=== PATIENT | male | born 1945 | race Caucasian/White ===

== ENCOUNTER 2019-09-05 09:30 | Emergency (ER) | payer MEDICARE, SELFPAY ==
--- NOTE | ~2019-09-05 | US_ITS ---
EXAMINATION: US venous doppler [facility] DATE: 09/05/2019 10:30 INDICATION: Lower limb swelling TECHNIQUE: Grayscale ultrasound images without and with compression and Doppler ultrasound images of the bilateral lower extremity veins were obtained. COMPARISON: 10/16/2016 FINDINGS: The visualized portions of right common femoral vein, profunda (deep) femoral vein, femoral vein, pop liteal vein, posterior tibial veins, peroneal veins, gastrocnemius vein and greater saphenous vein ou tflow are patent. The visualized portions of left common femoral vein, profunda femoral vein, femoral vein, popliteal v ein, posterior tibial veins, peroneal veins, gastrocnemius vein and greater saphenous vein outflow ar e patent. IMPRESSION: 1. No deep venous thrombosis in either lower limb. Reviewed, dictated and finalized at location A.
--- NOTE | 2019-09-05 09:37 | ED.EXTPRO ---
HPI - Extremity Problem General Chief complaint: Extremity Problem,Nontraumatic Stated complaint: LEG SWELLING,REDNESS [id number] Time Seen by Provider: 09/05/19 09:36 History of Present Illness HPI Narrative: Patient is a 73-year-old male who presents ER with lower extremity swelling. Increasing for the last week. No association with chest pain or shortness of breath/nausea/vomiting. Unsure if he has had any increased weight gain. Patient has history of DVT and is currently on blood thinners. He has also noticed a little bit of redness and increased swelling on the right when compared to the left. Reports he has been sitting around more than usual since quarantine. Related Data Home Medications Medication Instructions Recorded Confirmed amiodarone 200 mg tablet 200 mg PO DAILY 04/19/19 amlodipine 10 mg-benazepril 20 mg 1 cap PO DAILY 04/19/19 capsule cholecalciferol (vitamin D3) 25 2,000 unit PO DAILY cap 04/19/19 mcg (1,000 unit) capsule indapamide 2.5 mg tablet 2.5 mg PO DAILY 04/19/19 metformin 500 mg tablet 500 mg PO DAILY 04/19/19 metoprolol succinate 100 mg 100 mg PO DAILY 04/19/19 tablet,extended release 24 hr ranitidine HCl 150 mg capsule 150 mg PO DAILY 04/19/19 acetaminophen 1,000 mg PO TID 09/05/19 ascorbic acid (vitamin C) [Vitamin 1,000 mg PO DAILY 09/05/19 C] cyclobenzaprine 10 mg PO TID PRN 09/05/19 fluticasone furoate-vilanterol 1 inh INHALATION DAILY 09/05/19 09/05/19 [Breo Ellipta] mirabegron [Myrbetriq] 25 mg PO Q24H 09/05/19 09/05/19 nvndiqlj-tqk-YK-lycopen-lutein 1 tablet PO DAILY 09/05/19 09/05/19 [Centrum Silver Men] salmon oil-omega-3 fatty acids cap PO DAILY 09/05/19 [[place] Oil-1000] timolol maleate 1 drp OPHTHALMIC (EYE) DAILY 09/05/19 Allergies Allergy/AdvReac Type Severity Reaction Status Date / Time No Known Allergies Allergy Verified 05/05/19 10:37 Review of Systems Review of Systems: All systems reviewed & are unremarkable except as noted in HPI and below Constitutional: Constitutional: Denies chills, Denies fever(s) and Denies weakness ENT: Denies nasal congestion and Denies sore throat Cardiovascular: Cardiovascular: Denies chest pain Respiratory: Respiratory: Denies cough, Denies dyspnea and Denies wheezing Comments: No orthopnea Gastrointestinal: Gastrointestinal: Denies abdominal pain, Denies nausea and Denies vomiting Musculoskeletal: Comments: Increase edema of lower extremities, mild redness right marcos PMFSH Past Medical History Medical History (Updated 09/05/19 @ 12:56 by Severiano Maldonado MD) Arterial insufficiency of lower extremity Arthritis of right knee Atrial fibrillation (06/11/17) Chronic atrial fibrillation Chronic kidney disease, stage 3 (moderate) 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) Encounter for screening colonoscopy (~2017) Hammer toe Hyperthyroidism Left ventricular failure Major depressive disorder, single episode, unspecified Morbid (severe) obesity with alveolar hypoventilation Obstructive sleep apnea (adult) (pediatric) Peripheral neuropathy due to disorder of metabolism Primary pulmonary hypertension 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 ) Smoking end date: 05/17/81 Alcohol intake: never Exam Narrative: Exam Narrative: GENERAL: Well-appearing, morbidly obese, and in no acute distress. HEAD: Normocephalic, atraumatic. ENT: Mucous membranes moist. CHEST: Clear to aus
[2019-09-05 09:39] VITALS: BP 157/79; PULSE 59; RESP 18; TEMP 36.6; O2SAT 100
--- NOTE | 2019-09-05 10:30 | PC.NURSE ---
pt has been gone from room, unable to draw blood
[2019-09-05 10:39] LABS: Basophils Percent Auto 0.6 % (0.2-1.2); Eosinophils Absolute Auto 0.4 K/mm3 (0-0.3); Eosinophils Percent Auto 5.7 % (0-4.4); Hematocrit 35.9 % (42.0-52.0); Hemoglobin 11.6 g/dL (14.0-18.0); Immature Granulocyte Absolute 0.03 K/mm3 (0.00-0.031); Immature Granulocyte Percent A 0.5 % (0-0.5); Lymphocytes Absolute Auto 1.04 K/mm3 (0.9-3.2); Lymphocytes Percent Auto 16.8 % (18.3-44.2); Mean Corpuscular HGB Conc 32.3 g/dl (32-36); Mean Corpuscular Hemoglobin 30.6 pg (26-34); Mean Corpuscular Volume 94.7 fl (80-100); Mean Platelet Volume 9.9 fl (7.4-10.4); Monocytes Absolute Auto 0.6 K/mm3 (0.1-0.6); Neutrophils Absolute Auto 4.1 K/mm3 (1.3-6.7); Neutrophils Percent Auto 66.4 % (45.5-73.1); Platelet Count Result 218 k/mm3 (150-375); Red Blood Count 3.79 M/mm3 (4.6-6.20); Red Cell Distribution Width 12.9 % (11.5-14.5); White Blood Count 6.2 K/mm3 (4.5-10.0)
[2019-09-05 10:52] LABS: Blood Urea Nitrogen 28 mg/dL (9-20); Calcium 9.2 mg/dL (8.4-10.2); Carbon Dioxide 26 mmol/L (22-30); Chloride 103 mmol/L (98-107); Estimated CRCL calculation 77 ml/min; Estimated Glomerular Filt Rate 60; Glucose 116 mg/dL (75-110); INR 1.1; Potassium 4.4 mmol/L (3.4-5.0); Prothrombin Time 13.6 Seconds (11.1-14.7); Sodium 136 mmol/L (137-145)
[2019-09-05 12:46] VITALS: BP 128/69; PULSE 53; RESP 20; TEMP 36.1; O2SAT 97
== END 2019-09-05 13:16 | disposition home or self-care (01) ==
PROVIDERS: Emergency Provider Emergency Medicine; PCP Family Medicine
DX: R60.0 Localized edema (principal); I77.1 Stricture of artery; I48.20 Chronic atrial fibrillation, unspecified; E11.22 Type 2 diabetes mellitus with diabetic chronic kidney disease; E11.65 Type 2 diabetes mellitus with hyperglycemia; N18.3 Chronic kidney disease, stage 3 (moderate); I50.9 Heart failure, unspecified; A31.2 Disseminated mycobacterium avium-intracellulare complex (DMAC); E66.2 Morbid (severe) obesity with alveolar hypoventilation; Z68.42 Body mass index [BMI] 45.0-49.9, adult; E05.90 Thyrotoxicosis, unspecified without thyrotoxic crisis or storm; Z86.718 Personal history of other venous thrombosis and embolism; Z79.01 Long term (current) use of anticoagulants; Z87.891 Personal history of nicotine dependence; Z79.84 Long term (current) use of oral hypoglycemic drugs
CPT/HCPCS: 36415; 80048; 85025; 85610; 93970; 99284

== ENCOUNTER → 2020-01-11 07:44 | Outpatient (CLI) | payer MEDICARE, SELFPAY ==
--- NOTE | ~2020-01-11 | XR_ITS ---
EXAMINATION: XR chest 2V DATE: 01/11/2020 07:59 INDICATION: Long-term current use of amiodarone. TECHNIQUE: Frontal and lateral views of the chest were obtained. COMPARISON: Chest 2 views 04/09/2015, CT abdomen and pelvis 05/23/2013 FINDINGS: There is mild atelectasis versus scarring in the lower lung zones. No pleural effusion or p neumothorax. The heart size is normal. There are bilateral shoulder arthroplasties. IMPRESSION: 1. Mild atelectasis versus scarring in the lower lung zones. Reviewed, dictated and finalized at location B.
== END ==
PROVIDERS: PCP Family Medicine; Visit Provider Internal Medicine Cardiovascular Disease
DX: Z79.899 Other long term (current) drug therapy (principal); R91.8 Other nonspecific abnormal finding of lung field
CPT/HCPCS: 71046

== ENCOUNTER 2020-03-21 08:31 | Outpatient (CLI) | payer MEDICARE, SELFPAY ==
--- NOTE | 2020-03-21 | ECG_ITS ---
Measurements Intervals [place] Rate: 55 P: 4 [place]: 272 QRS: -22 QRSD: 118 T: -5 QT: 451 QTc: 433 Interpretive Statements SINUS BRADYCARDIA WITH FIRST DEGREE AV BLOCK INTRAVENTRICULAR CONDUCTION DELAY BORDERLINE T WAVE ABNORMALITY- INFERIOR LEADS ABNORMAL ECG Electronically Signed On 03-21-2020 9:16:23 MICROBIOLOGICAL [employer]ORATORY TECHNICIAN by Britton Fang D.O.
[2020-03-21 09:02] LABS: Anion Gap 8 mmol/L (8-16); Blood Urea Nitrogen 31 mg/dL (9-20); Calcium 9.3 mg/dL (8.4-10.2); Carbon Dioxide 29 mmol/L (22-30); Chloride 100 mmol/L (98-107); Estimated Glomerular Filt Rate 54; Glucose 119 mg/dL (75-110); Potassium 4.9 mmol/L (3.4-5.0); Sodium 137 mmol/L (137-145)
== END 2020-03-21 08:32 | disposition home or self-care (01) ==
PROVIDERS: PCP Family Medicine; Visit Provider Plastic Surgery
DX: Z01.818 Encounter for other preprocedural examination (principal); G56.00 Carpal tunnel syndrome, unspecified upper limb; G56.20 Lesion of ulnar nerve, unspecified upper limb; I50.9 Heart failure, unspecified; E11.9 Type 2 diabetes mellitus without complications; I45.9 Conduction disorder, unspecified
CPT/HCPCS: 36415; 80048; 93005

== ENCOUNTER 2020-05-06 13:03 | Outpatient (NON) | payer MEDICARE, SELFPAY ==
[2020-05-06 22:00] LABS: SARS-CoV-2 RNA PCR Negative
== END 2020-05-06 13:04 ==
LOC: ANHCOVIDDT 13:05
PROVIDERS: PCP Family Medicine; Visit Provider Physician Assistant Medical
DX: R05 Cough (principal); Z20.828 Contact with and (suspected) exposure to other viral communicable diseases
CPT/HCPCS: 87635; C9803; U0003

== ENCOUNTER → 2020-07-04 10:08 | Outpatient (CLI) | payer MEDICARE, SELFPAY ==
[2020-07-04 20:13] LABS: SARS-CoV-2 RNA PCR Negative
== END ==
PROVIDERS: PCP Family Medicine; Visit Provider Family Medicine
DX: Z20.822 Contact with and (suspected) exposure to COVID-19 (principal); R50.9 Fever, unspecified; R51.9 Headache, unspecified; R09.89 Other specified symptoms and signs involving the circulatory and respiratory systems
CPT/HCPCS: C9803; U0003; U0005

== ENCOUNTER 2022-08-18 16:02 | Emergency (ER) | payer MEDICARE, SELFPAY ==
--- NOTE | ~2022-08-18 | XR_ITS ---
EXAMINATION: XR knee LT min 4V DATE: 08/18/2022 16:56 INDICATION: Left knee pain. Fall. TECHNIQUE: 4 views of left knee were obtained. COMPARISON: None. FINDINGS: There is varus angulation at the knee. No fracture. There is severe osteoarthritis of media l compartment, moderate osteoarthritis of lateral compartment, and mild osteoarthritis of patellofemo ral compartment. There is a small knee joint effusion with dystrophic calcifications of the joint cap abrahan. IMPRESSION: 1. Severe left knee osteoarthritis. 2. Small left knee joint effusion. Reviewed, dictated and finalized at location A.
--- NOTE | ~2022-08-18 | CT_ITS ---
EXAMINATION: CT brain wo con DATE: 08/18/2022 16:45 INDICATION: Head injury. TECHNIQUE: Computed tomography (CT) of the head was performed without intravenous contrast. The mA wa s adjusted according to patient size. Iterative reconstruction technique was employed. The dose-lengt h product was 605.33 mGy-cm. COMPARISON: None FINDINGS: There is no intracranial hemorrhage, acute infarction, or abnormal intracranial mass lesion . There are scattered areas of low attenuation in the cerebral white matter. The ventricles are percy l in size. There are likely changes of ocular lens replacement surgeries. There is mild mucosal thick ening in the ethmoid sinuses. The mastoid air cells are normal. There is frontal scalp soft tissue sw elling. IMPRESSION: 1. Moderate nonspecific cerebral white matter disease, which likely represents chronic small vessel i schemic disease. Reviewed, dictated and finalized at location A. IMPRESSION: 1. Moderate nonspecific cerebral white matter disease, which likely represents chronic small vessel ischemic disease.
--- NOTE | ~2022-08-18 | CT_ITS ---
EXAMINATION: CT facial bones wo con DATE: 08/18/2022 16:45 INDICATION: Face injury. TECHNIQUE: Computed tomography (CT) of the facial bones and maxillofacial region was performed withou t intravenous contrast. Automated exposure control and iterative reconstruction technique were employ ed. The dose-length product was 330.18 mGy-cm. COMPARISON: None. FINDINGS: There is frontal scalp soft tissue swelling. There are likely changes of ocular lens replac ement surgeries. There is mild mucosal thickening in the ethmoid sinuses. There is rightward deviatio n of the nasal septum. There is severe cervical spondylosis. IMPRESSION: 1. No fracture. Reviewed, dictated and finalized at location A. IMPRESSION: 1. No fracture.
[2022-08-18 16:04] VITALS: BP 124/71; PULSE 67; RESP 18; TEMP 36.2; O2SAT 98
--- NOTE | 2022-08-18 17:53 | ED.FALL ---
HPI - Fall General Chief Complaint: Fall Stated Complaint: fall over electrical cord with facial injury Time Seen by Provider: 08/18/22 17:41 History of Present Illness HPI Narrative: Pt lost balance and fell landing on his left knee and face. Pt denies LOC. Pt denies neck pain. Pt has abrasion to nose and skin tears to arms. Pt denies ROBLES. Related Data Home Medications Medication Instructions Recorded Confirmed amiodarone 200 mg tablet 200 mg PO DAILY 04/19/19 09/22/21 amlodipine 10 mg-benazepril 20 mg 1 cap PO DAILY 04/19/19 09/22/21 capsule metoprolol succinate 100 mg 100 mg PO DAILY 04/19/19 09/22/21 tablet,extended release 24 hr acetaminophen 500 mg capsule 1,000 mg PO TID 09/05/19 09/22/21 ascorbic acid (vitamin C) 500 mg 1,000 mg PO DAILY 09/05/19 09/22/21 tablet (Vitamin C) cyclobenzaprine 10 mg tablet 10 mg PO TID PRN Pain 09/05/19 09/22/21 ibuprofen 800 mg tablet 800 mg PO TID 10/23/19 09/22/21 cholecalciferol (vitamin D3) 25 4,000 unit PO DAILY 07/12/20 09/22/21 mcg (1,000 unit) capsule indapamide 2.5 mg tablet 1.5 mg PO DAILY 08/01/21 09/22/21 nystatin 100,000 unit/gram topical 1 applic topical 09/22/21 09/22/21 cream Allergies Allergy/AdvReac Type Severity Reaction Status Date / Time No Known Allergies Allergy Verified 08/18/22 17:47 Review of Systems Review of Systems: All systems reviewed & are unremarkable except as noted in HPI and below [facility] Past Medical History Medical History Arterial insufficiency of lower extremity Arthritis of right knee Atrial fibrillation (06/11/17) Blood transfusion during current hospitalisation Chronic atrial fibrillation Chronic kidney disease, stage 3 (moderate) 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 disease Family history of alcoholism Family history of malignant neoplasm of breast in first degree relative, Onset Age: 75 Father Family history of alcoholism Malignant neoplasm of prostate, Onset Age: 92 Family history of throat cancer, Onset Age: 92 Family history of malignant neoplasm of testis, Onset Age: 92 Other Depression Diabetes mellitus Family history of malignant neoplasm Family history of malignant neoplasm of breast Family history of mental disorder Social History Social History Smoking status: Former smoker Smoking end date: 05/17/81 Alcohol intake: never Substance use: never Substance use type: does not use Lack of Transportation: No Lack of Food: Never True Current Housing: I Have Housing Concerned About Future Housing: No Difficulty Paying Gas/Electric Bills: No Difficulty Paying for Meds: YES Currently Unemployed: No Education: Master's Degree or Higher Difficulty w/ Childcare or Family Care: No Gender identity (if verbalized by the patient): Male Exam Const: General: healthy appe
[2022-08-18 18:15] VITALS: RESP 16
== END 2022-08-18 18:16 | disposition home or self-care (01) ==
LOC: ANHED 18:04
PROVIDERS: Emergency Provider Emergency Medicine; PCP Family Medicine
DX: S00.91XA Abrasion of unspecified part of head, initial encounter (principal); S41.112A Laceration without foreign body of left upper arm, initial encounter; S41.111A Laceration without foreign body of right upper arm, initial encounter; W01.0XXA Fall on same level from slipping, tripping and stumbling without subsequent striking against object, initial encounter; M17.12 Unilateral primary osteoarthritis, left knee; E11.22 Type 2 diabetes mellitus with diabetic chronic kidney disease; N18.30 Chronic kidney disease, stage 3 unspecified; I48.20 Chronic atrial fibrillation, unspecified; E66.2 Morbid (severe) obesity with alveolar hypoventilation; Z68.41 Body mass index [BMI] 40.0-44.9, adult; I49.3 Ventricular premature depolarization; F32.9 Major depressive disorder, single episode, unspecified; Z87.891 Personal history of nicotine dependence; Z79.01 Long term (current) use of anticoagulants; Z79.51 Long term (current) use of inhaled steroids; Z79.899 Other long term (current) drug therapy
CPT/HCPCS: 70450; 70486; 73564; 99284

== ENCOUNTER 2022-10-30 13:52 | Outpatient (CLI) | payer MEDICARE, SELFPAY ==
--- NOTE | ~2022-10-30 | XR_ITS ---
XR knee LT 3V 10/30/2022 14:15 Indication: Left knee pain Procedure: 3 views left knee Comparison: 08/18/2022 Findings: There is severe tricompartment osteoarthritis of the left knee. No fracture or traumatic ma lalignment. No significant joint effusion. No foreign bodies. Impression: 1: Severe osteoarthritis of the left knee. Reviewed, dictated and finalized at location [] Impression: 1: Severe osteoarthritis of the left knee.
--- NOTE | ~2022-10-30 | XR_ITS ---
XR hip LT min 3V w AP pelvis DATE: 10/30/2022 14:15 INDICATION: Fall yesterday. Low back, left hip and left knee pain TECHNIQUE: AP pelvis. AP and lateral views of left hip. COMPARISON: 05/23/2013 CT abdomen pelvis FINDINGS: Prominent lumbar and lumbosacral degenerative disc disease. There is a chronic patchy sclerotic lesion of the greater trochanter of the left femur, present on 05/23/2013 CT abdomen pelvis examination, likely a benign chondroid lesion or less likely bone infarct. The pubic symphysis and sacroiliac joints are intact. No pelvic fracture or bone destruction is evide nt. No fracture or dislocation, avascular necrosis or bone destruction of the left hip is detected. IMPRESSION: No pelvic or left hip fracture or dislocation Reviewed, dictated and finalized at location A.
--- NOTE | ~2022-10-30 | XR_ITS ---
XR lumbar spine 2-3V DATE: 10/30/2022 14:15 INDICATION: Fall yesterday. Low back pain, left hip and knee pain. TECHNIQUE: AP, lateral, coned lateral lumbosacral views COMPARISON: None FINDINGS:: Osteopenia Mild rotatory levoscoliosis of the lumbar spine. There is severe degenerative disc disease at L1-2, L2-3, L3-4 and L5-S1. Mild degenerative disc disea se at L4-5. There is degenerative change at the apophyseal joints in the lower lumbar and lumbosacral area with a ssociated grade 1 anterolisthesis at L4-5. No fracture or bone destruction is evident. The lumbar pedicles are intact. The sacral iliac joints a re intact. IMPRESSION: Mild rotatory levoscoliosis Osteopenia Severe degenerative disease throughout lumbar and low signal spine except at L4-5 Grade 1 L5-4-5 spondylolisthesis Reviewed, dictated and finalized at location A. IMPRESSION: Mild rotatory levoscoliosis Osteopenia Severe degenerative disease throughout lumbar and low signal spine except at L4 -5 Grade 1 L5-4-5 spondylolisthesis
== END 2022-10-30 13:53 ==
LOC: GOSHIMG 13:53
PROVIDERS: PCP Family Medicine; Visit Provider Nurse Practitioner Family
DX: M25.552 Pain in left hip (principal); M54.50 Low back pain, unspecified; M85.88 Other specified disorders of bone density and structure, other site; M51.36 Other intervertebral disc degeneration, lumbar region; M17.12 Unilateral primary osteoarthritis, left knee
CPT/HCPCS: 72100; 73502; 73562

== ENCOUNTER 2022-12-02 13:16 | Emergency (ER) | payer MEDICARE, SELFPAY ==
[2022-12-02] VITALS (23 sets, daily range): BP systolic 79–131; BP diastolic 52–80; PULSE 56–67; RESP 10–17; TEMP 36.6; O2SAT 96–100
--- NOTE | ~2022-12-02 | XR_ITS ---
EXAMINATION: XR chest 1V portable DATE: 12/02/2022 15:24 INDICATION: Lightheadedness. TECHNIQUE: A single frontal view of the chest was obtained on 2 radiographs. COMPARISON: Chest 2 views 01/11/2020 FINDINGS: There is mild atelectasis versus scarring in left lower lung zone. No pleural effusion or p neumothorax. The heart size is normal. There are bilateral shoulder arthroplasties. IMPRESSION: 1. Mild atelectasis versus scarring in left lower lung zone. Reviewed, dictated and finalized at location A.
--- NOTE | ~2022-12-02 | CT_ITS ---
EXAMINATION: CT brain wo con DATE: 12/02/2022 15:16 INDICATION: Syncope. TECHNIQUE: Computed tomography (CT) of the head was performed without intravenous contrast. The mA wa s adjusted according to patient size. Iterative reconstruction technique was employed. The dose-lengt h product was 605.33 mGy-cm. COMPARISON: Head CT 08/18/2022 FINDINGS: There are scattered areas of low attenuation in the cerebral white matter. There is no intr acranial hemorrhage, acute infarction, or abnormal intracranial mass lesion. The ventricles are percy l in size. There are likely changes of ocular lens replacement surgeries. There is mild mucosal thick ening in the ethmoid sinuses. The mastoid air cells are normal. IMPRESSION: 1. Stable moderate nonspecific cerebral white matter disease, which likely represents chronic small v essel ischemic disease. Reviewed, dictated and finalized at location A. IMPRESSION: 1. Stable moderate nonspecific cerebral white matter disease, which likely repr esents chronic small vessel ischemic disease.
--- NOTE | 2022-12-02 13:32 | ECG_ITS ---
Measurements Intervals [place] Rate: 61 P: -15 FL: 322 QRS: -31 QRSD: 120 T: 13 QT: 428 QTc: 433 Interpretive Statements SINUS RHYTHM WITH MARKED FIRST DEGREE AV BLOCK LEFT AXIS DEVIATION INTRAVENTRICULAR CONDUCTION DELAY DELAYED PRECORDIAL R/S TRANSITION CONSIDER INFERIOR INFARCT, AGE INDETERMINATE ABNORMAL ECG COMPARED TO ECG 03/21/2020 09:04:20 SINUS RHYTHM NOW PRESENT LEFT-AXIS DEVIATION NOW PRESENT Electronically Signed On 12-02-2022 14:49:44 CDT by Britton Fang D.O.
--- NOTE | 2022-12-02 13:40 | ED.SYNCOPE ---
HPI - Syncope General Chief Complaint: Dizziness Stated Complaint: Dizzy Time Seen by Provider: 12/02/22 13:34 History of Present Illness HPI narrative: Patient is a 77-year-old male with a history of A-fib on Eliquis, hypertension, hyperlipidemia, diabetes, hypothyroidism presenting with lightheadedness. Patient states that he was walking into a paint store when he felt extremely lightheaded. States that he felt off balance and like he would fall over. States that he sat down and EMS was called and found him to be hypotensive with systolics in the 70s. He denies any pain. No chest pain or shortness of breath. Currently states that he feels fine. No numbness or weakness, vertigo, speech changes, abdominal pain, vomiting, diarrhea, dysuria. States that he thinks he has been eating and drinking normally lately. Related Data Home Medications Medication Instructions Recorded Confirmed amiodarone 200 mg tablet 200 mg PO DAILY 04/19/19 12/09/22 metoprolol succinate 100 mg 100 mg PO DAILY 04/19/19 12/09/22 tablet,extended release 24 hr acetaminophen 500 mg capsule 1,000 mg PO TID 09/05/19 12/09/22 ascorbic acid (vitamin C) 500 mg 1,000 mg PO DAILY 09/05/19 12/09/22 tablet (Vitamin C) ibuprofen 800 mg tablet 800 mg PO TID 10/23/19 12/09/22 cholecalciferol (vitamin D3) 25 4,000 unit PO DAILY 07/12/20 12/09/22 mcg (1,000 unit) capsule nystatin 100,000 unit/gram topical 1 applic topical 09/22/21 12/09/22 cream Allergies Allergy/AdvReac Type Severity Reaction Status Date / Time No Known Allergies Allergy Verified 12/09/22 15:36 Review of Systems Review of Systems: All systems reviewed & are unremarkable except as noted in HPI and below PMFSH Past Medical History Medical History Arterial insufficiency of lower extremity Arthritis of right knee Atrial fibrillation (06/11/17) Blood transfusion during current hospitalisation Chronic atrial fibrillation Chronic kidney disease, stage 3 (moderate) 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) Encounter for screening colonoscopy (~2016) Gastrointestinal bleed Hammer toe History of blood transfusion Hyperthyroidism Left ventricular failure Major depressive disorder, single episode, unspecified Morbid (severe) obesity with alveolar hypoventilation Mycobacterium avium infection Obstructive sleep apnea (adult) (pediatric) Peripheral neuropathy due to disorder of metabolism Primary pulmonary hypertension 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 disease Family history of alcoholism Family history of malignant neoplasm of breast in first degree relative, Onset Age: 75 Father Family history of alcoholism Malignant neoplasm of prostate, Onset Age: 92 Family history of throat cancer, Onset Age: 92 Family history of malignant neoplasm of testis, Onset Age: 92 Other Depression Diabetes mellitus Family history of malignant neoplasm Family history of malignant neoplasm of breast Family history of mental disorder Social History Social History Smoking status: Former smoker Smoking end date: 05/17/81 Alcohol intake: never Substance use: never Substance use type: does not use Lack of Transportation: No Lack of Food: Never True Current Housing: I Have Housing Concerned About Future Housing: No Difficulty Pa
[2022-12-02 13:45] LABS: Basophils Percent Auto 0.6 % (0.2-1.2); Eosinophils Absolute Auto 0.2 K/mm3 (0-0.3); Eosinophils Percent Auto 3.9 % (0-4.4); Hematocrit 31.3 % (42.0-52.0); Hemoglobin 10.3 g/dL (14.0-18.0); Immature Granulocyte Absolute 0.05 K/mm3 (0.00-0.031); Lymphocytes Absolute Auto 0.64 K/mm3 (0.9-3.2); Lymphocytes Percent Auto 12.6 % (18.3-44.2); Mean Corpuscular HGB Conc 32.9 g/dl (32-36); Mean Corpuscular Hemoglobin 31.7 pg (26-34); Mean Corpuscular Volume 96.3 fl (80-100); Mean Platelet Volume 9.1 fl (7.4-10.4); Monocytes Absolute Auto 0.5 K/mm3 (0.1-0.6); Monocytes Percent Auto 9.2 % (2.6-8.5); Neutrophils Absolute Auto 3.7 K/mm3 (1.3-6.7); Neutrophils Percent Auto 72.7 % (45.5-73.1); Platelet Count Result 219 k/mm3 (150-375); Red Blood Count 3.25 M/mm3 (4.6-6.20); White Blood Count 5.1 K/mm3 (4.5-10.0)
[2022-12-02 13:57] LABS: Alanine Aminotransferase 21 U/L (6-50); Albumin Level 3.6 g/dL (3.5-5.1); Alkaline Phosphatase 98 U/L (38-126); Anion Gap 7 mmol/L (8-16); Aspartate Amino Transferase 24 U/L (17-59); Bilirubin,Total 0.4 mg/dL (0.2-1.3); Blood Urea Nitrogen 39 mg/dL (9-20); Calcium 8.5 mg/dL (8.4-10.2); Carbon Dioxide 22 mmol/L (22-30); Chloride 106 mmol/L (98-107); Estimated CRCL calculation 41 ml/min; Estimated Glomerular Filt Rate 31; Glucose 116 mg/dL (65-110); Potassium 4.4 mmol/L (3.4-5.0); Sodium 135 mmol/L (137-145)
[2022-12-02] MEDS: LACTATED RINGERS 1,000 ML 999 ML IV CONT (15:01)
[2022-12-02 15:27] LABS: INR 1.3; Prothrombin Time 16.8 Seconds (11.1-14.7)
[2022-12-02 15:46] LABS: Magnesium 1.9 mg/dL (1.6-2.3)
[2022-12-02 15:58] LABS: NT Pro B Type Natriuretic Pept 106 pg/mL (19.9-100); Troponin I < 0.012 ng/mL (0.000-0.034)
[2022-12-02 16:47] LABS: Appearance Urine Clear (Clear); Bacteria Urine None Seen /hpf; Bilirubin Urine Negative (Negative); Blood Urine Negative (Negative); Color Urine Yellow (Yellow); Glucose Urine UA Negative (Negative); Hyaline Casts Urine Present /lpf; Ketones Urine Negative (Negative); Leukocyte Esterase Ur 1+ LEU/UL (Negative); Nitrate Urine Negative (Negative); Protein Urine Negative (Negative); RBC Urine 0-2 /hpf (0-2); Specific Grav Ur 1.018 (1.001-1.035); Squamous Epithelial Cell Urine None seen /hpf (Few); WBC Urine 0-5 /hpf
[2022-12-02 16:49] LABS: Add Urine Microscopic? YES
[2022-12-02 17:33] LABS: Troponin I < 0.012 ng/mL (0.000-0.034)
== END 2022-12-02 18:02 | disposition home or self-care (01) ==
PROVIDERS: Emergency Provider Emergency Medicine; PCP Family Medicine
DX: I95.1 Orthostatic hypotension (principal); E86.0 Dehydration; I48.20 Chronic atrial fibrillation, unspecified; E11.22 Type 2 diabetes mellitus with diabetic chronic kidney disease; I12.9 Hypertensive chronic kidney disease with stage 1 through stage 4 chronic kidney disease, or unspecified chronic kidney disease; N18.30 Chronic kidney disease, stage 3 unspecified; I77.1 Stricture of artery; E11.42 Type 2 diabetes mellitus with diabetic polyneuropathy; E03.9 Hypothyroidism, unspecified; E66.2 Morbid (severe) obesity with alveolar hypoventilation; Z68.41 Body mass index [BMI] 40.0-44.9, adult; M17.11 Unilateral primary osteoarthritis, right knee; Z79.01 Long term (current) use of anticoagulants; Z79.85 Long-term (current) use of injectable non-insulin antidiabetic drugs; I44.0 Atrioventricular block, first degree; I45.9 Conduction disorder, unspecified; R94.31 Abnormal electrocardiogram [ECG] [EKG]; R90.82 White matter disease, unspecified
CPT/HCPCS: 36415; 70450; 71045; 80053; 81001; 83605; 83735; 83880; 84484; 85025; 85610; 85730; 93005; 96360; 99284; J7120

== ENCOUNTER 2022-12-18 12:36 | Outpatient (CLI) | payer MEDICARE, SELFPAY ==
--- NOTE | ~2022-12-18 | MR_ITS ---
EXAMINATION: MR lumbar spine wo con DATE: 12/18/2022 13:32 INDICATION: Lumbago with sciatica, right-sided. TECHNIQUE: Magnetic resonance imaging (MRI) of the lumbar spine was performed without intravenous con trast. Sequences included sagittal T2-weighted FSE, sagittal T2-weighted FS FSE, sagittal T1-weighted FSE, and axial T2-weighted FSE. COMPARISON: Lumbar spine radiographs 10/30/2022 FINDINGS: There is 25 degrees levoscoliosis of lumbar spine. There is a compression fracture of L5 wi th 1/5 loss of height and bone marrow edema. There is 3 mm anterolisthesis of L4 on L5 and 3 mm retro listhesis of L5 on S1. There is mild chronic anterior wedging of T11-L1 vertebral bodies. There is se verely decreased disc height from L1-L2 through L3-L4, mildly decreased disc height at L4-L5, and sev erely decreased disc height at L5-S1 with endplate remodeling. The distal spinal cord signal intensit y is normal. The conus medullaris is at L1. There is an insufficiency fracture of left sacral ala. Th ere are cysts in the kidneys measuring up to 5.1 cm on the left. The following disc levels are specif ically discussed: L1-L2: The disc is bulging. There is severe right and moderate left facet joint osteoarthritis. There is mild right and moderate left neural foraminal stenosis. There is mild central canal stenosis. L2-L3: The disc is bulging. There is moderate bilateral facet joint osteoarthritis. There is mild kofi ateral neural foraminal stenosis. There is mild central canal stenosis. L3-L4: The disc is bulging. There is severe bilateral facet joint osteoarthritis. There is moderate r ight and mild left neural foraminal stenosis. There is mild central canal stenosis. L4-L5: The disc is bulging. There is severe bilateral facet joint osteoarthritis. There is moderate r ight and mild left neural foraminal stenosis. There is mild central canal stenosis. L5-S1: The disc does not extend beyond the endplate margin. There is severe bilateral facet joint ost eoarthritis. There is moderate right and mild left neural foraminal stenosis. There is mild central c anal stenosis. IMPRESSION: 1. Acute/subacute L5 compression fracture. 2. Acute/subacute left sacral ala insufficiency fracture. 3. Severe lumbar spondylosis. 4. Lumbar levoscoliosis. Reviewed, dictated and finalized at location B.
== END 2022-12-18 12:37 | disposition home or self-care (01) ==
PROVIDERS: PCP Family Medicine; Visit Provider Family Medicine
DX: M54.41 Lumbago with sciatica, right side (principal); M47.896 Other spondylosis, lumbar region; S32.050D Wedge compression fracture of fifth lumbar vertebra, subsequent encounter for fracture with routine healing; X58.XXXD Exposure to other specified factors, subsequent encounter
CPT/HCPCS: 72148

== ENCOUNTER 2022-12-24 18:21 | Inpatient (IN) | payer MEDICARE, MEDICAID, SELFPAY ==
[2022-12-24] VITALS (12 sets, daily range): BP systolic 135–160; BP diastolic 70–98; PULSE 64–67; RESP 15–21; TEMP 36.4–36.8; O2SAT 95–100
--- NOTE | ~2022-12-24 | XR_ITS ---
EXAMINATION: XR chest 2V Exam Date/Time: 12/24/2022 19:05 CDT HISTORY: weakness, short of breath Comparison: 12/02/2022. RESULT: Lines, tubes, and devices: Bilateral shoulder arthroplasties. Lungs and pleura: Senescent change, otherwise clear. Cardiomediastinal silhouette: Stable. Other: No acute osseous or upper abdominal finding. IMPRESSION: No acute cardiopulmonary process. Reviewed, dictated and finalized at location K.
--- NOTE | ~2022-12-24 | CT_ITS ---
EXAMINATION: CT brain wo con DATE: 12/29/2022 13:19 INDICATION: Altered mental status. TECHNIQUE: Computed tomography (CT) of the head was performed without intravenous contrast. The mA wa s adjusted according to patient size. Iterative reconstruction technique was employed. The dose-lengt h product was 681.00 mGy-cm. COMPARISON: Head CT 12/02/2022 FINDINGS: There are scattered areas of low attenuation in the cerebral white matter. There is no intr acranial hemorrhage, acute infarction, or abnormal intracranial mass lesion. The ventricles are percy l in size. There are likely changes of ocular lens replacement surgeries. The paranasal sinuses are c lear. The mastoid air cells are normal. IMPRESSION: 1. Stable moderate nonspecific cerebral white matter disease, which likely represents chronic small v essel ischemic disease. Reviewed, dictated and finalized at location A. IMPRESSION: 1. Stable moderate nonspecific cerebral white matter disease, which likely repr esents chronic small vessel ischemic disease.
--- NOTE | ~2022-12-24 | XR_ITS ---
EXAMINATION: XR wrist LT 2V DATE: 12/25/2022 12:39 INDICATION: Left wrist pain. TECHNIQUE: 2 views of left wrist were obtained. COMPARISON: None. FINDINGS: Bone alignment is normal. No fracture. There is mild osteoarthritis of triscaphe joint and moderate osteoarthritis of first carpometacarpal joint. IMPRESSION: 1. Polyarticular osteoarthritis. Reviewed, dictated and finalized at location A.
--- NOTE | ~2022-12-24 | MR_ITS ---
EXAMINATION: MR lumbar spine wo con DATE: 12/26/2022 08:04 INDICATION: Lumbar fracture due to fall. TECHNIQUE: Magnetic resonance imaging (MRI) of the lumbar spine was performed without intravenous con trast. Sequences included sagittal T2-weighted FSE, sagittal T2-weighted FS FSE, sagittal T1-weighted FSE, and axial T2-weighted FSE. COMPARISON: Lumbar spine MRI 12/18/2022 FINDINGS: There is 16 degrees levoscoliosis of lumbar spine. There is 3 mm retrolisthesis of L1 on L2 and L2 on L3, 4 mm anterolisthesis of L4 on L5, and 4 mm retrolisthesis of L5 on S1. There is a comp ression fracture of L5 with 1/5 loss of height, bone marrow edema, and visible fracture line. There i s mild chronic anterior wedging of T12 and L1 vertebral bodies. There is severely decreased disc heig ht at L1-L2, L2-L3, and L3-L4, mildly decreased disc height at L4-L5, and severely decreased disc hei ght at L5-S1. The distal spinal cord signal intensity is normal. The conus medullaris is at L1-L2. Th ere is insufficiency fracture of left sacral ala. There are cysts in the kidneys measuring up to 5.0 cm on the left. The following disc levels are specifically discussed: L1-L2: The disc is bulging. There is severe right and moderate left facet joint osteoarthritis. There is mild bilateral neural foraminal stenosis. There is mild central canal stenosis. L2-L3: The disc is bulging. There is moderate bilateral facet joint osteoarthritis. There is mild kofi ateral neural foraminal stenosis. There is mild central canal stenosis. L3-L4: The disc is bulging and has an annular fissure. There is severe bilateral facet joint osteoart hritis. There is moderate right and mild left neural foraminal stenosis. There is mild central canal stenosis. L4-L5: The disc is bulging. There is severe bilateral facet joint osteoarthritis. There is moderate r ight and mild left neural foraminal stenosis. There is mild central canal stenosis. L5-S1: The disc is bulging and has an annular fissure. There is severe bilateral facet joint osteoart hritis. There is mild bilateral neural foraminal stenosis. There is mild central canal stenosis. IMPRESSION: 1. Subacute L5 compression fracture, stable from 12/18/2022. 2. Subacute left sacral ala insufficiency fracture. 3. Severe lumbar spondylosis. 4. Lumbar levoscoliosis. Reviewed, dictated and finalized at location E.
--- NOTE | ~2022-12-24 | MR_ITS ---
EXAMINATION: MR brain/brain stem wo con DATE: 12/30/2022 16:03 INDICATION: Altered mental status and aphasia TECHNIQUE: Magnetic resonance imaging (MRI) of the brain and brainstem was performed without intraven ous contrast. Sequences included sagittal and axial T1-weighted SE, axial diffusion-weighted FS SE, a xial T2*-weighted GRE, axial T2-weighted FLAIR, and axial T2-weighted FSE. Apparent diffusion coeffic ient (ADC) maps were created. COMPARISON: Brain MR dated 04/10/[address] dated 12/29/2022 FINDINGS: There are no areas of restricted diffusion to suggest acute infarction. No intracranial hemorrhage or abnormal intracranial mass lesion. There are scattered areas of nonspecific increased T2-weighted si gnal intensity in the cerebral white matter, predominantly involving the deep and periventricular whi te matter which is within normal limits for age. There are no intraparenchymal signal abnormalities s een on the other pulse sequences. Symmetric prominence of the sulci and subarachnoid spaces overlying the convexities consistent with mild age-appropriate diffuse cerebral volume loss. The ventricles a re symmetric and normal in size with normal variant cavum septum vergae There are no abnormal extra-a xial fluid collections. Flow voids are seen in the cerebral arteries on the T2-weighted sequences con sistent with their expected patency. Changes of bilateral intraocular lens replacement. Visualized o rbits and soft tissues are unremarkable. IMPRESSION: 1. No acute intracranial process. 2. Interval progression in moderate nonspecific scattered periventricular predominant white matter T2 hyperintensity which is within normal limits for age and likely sequela of chronic small vessel isch emic disease. Reviewed, dictated and finalized at location A. IMPRESSION: 1. No acute intracranial process. 2. Interval progression in moderate nonspecific scattered periventricular predo minant white matter T2 hyperintensity which is within normal limits for age and likely sequela of chronic small vessel ischemic disease.
--- NOTE | 2022-12-24 18:45 | ECG_ITS ---
Measurements Intervals [place] Rate: 62 P: -2 [place]: 298 QRS: -28 QRSD: 126 T: 69 QT: 452 QTc: 463 Interpretive Statements SINUS RHYTHM WITH FIRST DEGREE AV BLOCK INCOMPLETE LEFT BUNDLE BRANCH BLOCK COMPARED TO ECG 12/02/2022 13:21:34 NO SIGNIFICANT CHANGES Electronically Signed On 12-25-2022 8:52:50 CDT by Pauline Doty M.D.
[2022-12-24 19:49] LABS: Basophils Percent Auto 0.6 % (0.2-1.2); Eosinophils Absolute Auto 0.2 K/mm3 (0-0.3); Eosinophils Percent Auto 2.1 % (0-4.4); Hematocrit 35.5 % (42.0-52.0); Hemoglobin 11.5 g/dL (14.0-18.0); Immature Granulocyte Absolute 0.04 K/mm3 (0.00-0.031); Immature Granulocyte Percent A 0.6 % (0-0.5); Lymphocytes Absolute Auto 0.81 K/mm3 (0.9-3.2); Lymphocytes Percent Auto 11.4 % (18.3-44.2); Mean Corpuscular HGB Conc 32.4 g/dl (32-36); Mean Corpuscular Hemoglobin 31.6 pg (26-34); Mean Corpuscular Volume 97.5 fl (80-100); Mean Platelet Volume 9.7 fl (7.4-10.4); Monocytes Absolute Auto 0.7 K/mm3 (0.1-0.6); Monocytes Percent Auto 9.5 % (2.6-8.5); Neutrophils Absolute Auto 5.4 K/mm3 (1.3-6.7); Neutrophils Percent Auto 75.8 % (45.5-73.1); Platelet Count Result 222 k/mm3 (150-375); Red Blood Count 3.64 M/mm3 (4.6-6.20); Red Cell Distribution Width 12.8 % (11.5-14.5); White Blood Count 7.1 K/mm3 (4.5-10.0)
--- NOTE | 2022-12-24 19:55 | ED.WEAKNESS ---
HPI - Weakness General Chief complaint: Weakness Stated complaint: weakness Time Seen by Provider: 12/24/22 19:03 History of Present Illness HPI Narrative: Patient is a 77-year-old male with a history of A-fib on Eliquis, diabetes, hypertension, hypothyroidism, hyperlipidemia presenting with generalized weakness. Patient states that he was diagnosed with an L5 and sacral fracture several weeks ago. Since that time he has been experiencing a lot of pain despite using narcotics. States that he has been having difficulty getting around at home especially because his cannot help him due to her own health problems. States that today he was unable to stand up from the toilet so they had to call EMS. States that he is too weak to live at home and he thinks that he needs rehab. He denies any new pain. Denies fevers, cough, shortness of breath, nausea or vomiting, diarrhea. Related Data Home Medications Medication Instructions Recorded Confirmed amiodarone 200 mg tablet 200 mg PO DAILY 04/19/19 12/24/22 metoprolol succinate 100 mg 100 mg PO DAILY 04/19/19 12/24/22 tablet,extended release 24 hr cholecalciferol (vitamin D3) 25 4,000 unit PO DAILY 07/12/20 12/24/22 mcg (1,000 unit) capsule nystatin 100,000 unit/gram topical 1 applic topical BID 09/22/21 12/25/22 cream diazepam 5 mg tablet 5 mg PO TID muscle spasm 12/25/22 12/24/22 diclofenac sodium 1 % topical gel 4 g topical QID 12/25/22 12/25/22 (Voltaren Arthritis Pain) levothyroxine 100 mcg tablet 100 mcg DAILY 12/25/22 12/24/22 tizanidine 4 mg tablet 4 mg PO TID 12/25/22 12/24/22 tramadol 50 mg tablet 100 mg PO TID pain 12/25/22 12/25/22 Allergies Allergy/AdvReac Type Severity Reaction Status Date / Time No Known Allergies Allergy Verified 12/24/22 18:41 Review of Systems Review of Systems: All systems reviewed & are unremarkable except as noted in HPI and below PMFSH Past Medical History Medical History Arterial insufficiency of lower extremity Arthritis of right knee Atrial fibrillation (06/11/17) Blood transfusion during current hospitalisation Chronic atrial fibrillation Chronic kidney disease, stage 3 (moderate) 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 disease Family history of alcoholism Family history of malignant neoplasm of breast in first degree relative, Onset Age: 75 Father Family history of alcoholism Malignant neoplasm of prostate, Onset Age: 92 Family history of throat cancer, Onset Age: 92 Family history of malignant neoplasm of testis, Onset Age: 92 Other Depression Diabetes mellitus Family history of malignant neoplasm Family history of malignant neoplasm of breast Family history of mental disorder Social History Social History Smoking packs per day: 2 Smoking cigarettes per day: 40.0 Smoking status: Former sm
[2022-12-24 20:05] LABS: Alanine Aminotransferase 20 U/L (6-50); Albumin Level 4.2 g/dL (3.5-5.1); Alkaline Phosphatase 90 U/L (38-126); Anion Gap 7 mmol/L (8-16); Aspartate Amino Transferase 20 U/L (17-59); Bilirubin,Total 0.8 mg/dL (0.2-1.3); Blood Urea Nitrogen 27 mg/dL (9-20); Calcium 9.5 mg/dL (8.4-10.2); Carbon Dioxide 23 mmol/L (22-30); Chloride 101 mmol/L (98-107); Estimated CRCL calculation 42 ml/min; Estimated Glomerular Filt Rate 54; Glucose 115 mg/dL (65-110); Potassium 3.9 mmol/L (3.4-5.0); Sodium 131 mmol/L (137-145)
--- NOTE | 2022-12-24 20:46 | PC.NURSE ---
Pt reported at 1930 he was unable to urinate. Pt stated he would attempt soon .
--- NOTE | 2022-12-24 21:24 | PM.IMHP ---
H&P: HPI History of Present Illness Date/Time: 12/24/22 21:24 Chief Complaint: Fall Narrative: This is a 77 yo male with PMHx significant for atrial fibrillation, type diabetes mellitus, COPD, hypertension, peripheral neuropathy, peripheral arterial insufficiency, obstructive sleep apnea. patient presents to the emergency room after his offer a fall from a ladder 1st step patient landed on his left side, no loss of consciousness this was 2 days prior to presentation to emergency room, patient has had increasing weakness generalized, had another 2 falls no loss of consciousness unable to take care of him at home patient was unable to get up on by himself and was brought to the emergency room by EMS EKG Rate 62 NJ 298 QRSd 126 QT 452 QTc 463 --[place]-- P -2 QRS -28 T 69 SINUS RHYTHM WITH FIRST DEGREE AV BLOCK LEFT BUNDLE BRANCH BLOCK [120+ ms QRS DURATION, 80+ ms Q/S IN V1/V2, 85+ ms R IN I/aVL/V5/V6] COMPARED TO ECG 12/02/2022 13:21:34 LEFT BUNDLE-BRANCH BLOCK NOW PRESENT Req Provider: Ike Leon EXAMINATION: MR lumbar spine wo con DATE: 12/18/2022 13:32 INDICATION: Lumbago with sciatica, right-sided. TECHNIQUE: Magnetic resonance imaging (MRI) of the lumbar spine was performed without intravenous contrast. Sequences included sagittal T2-weighted FSE, sagittal T2-weighted FS FSE, sagittal T1-weighted FSE, and axial T2-weighted FSE. COMPARISON: Lumbar spine radiographs 10/30/2022 FINDINGS: There is 25 degrees levoscoliosis of lumbar spine. There is a compression fracture of L5 with 1/5 loss of height and bone marrow edema. There is 3 mm anterolisthesis of L4 on L5 and 3 mm retrolisthesis of L5 on S1. There is mild chronic anterior wedging of T11-L1 vertebral bodies. There is severely decreased disc height from L1-L2 through L3-L4, mildly decreased disc height at L4-L5, and severely decreased disc height at L5-S1 with endplate remodeling. The distal spinal cord signal intensity is normal. The conus medullaris is at L1. There is an insufficiency fracture of left sacral ala. There are cysts in the kidneys measuring up to 5.1 cm on the left. The following disc levels are specifically discussed: L1-L2: The disc is bulging. There is severe right and moderate left facet joint osteoarthritis. There is mild right and moderate left neural foraminal stenosis. There is mild central canal stenosis. L2-L3: The disc is bulging. There is moderate bilateral facet joint osteoarthritis. There is mild bilateral neural foraminal stenosis. There is mild central canal stenosis. L3-L4: The disc is bulging. There is severe bilateral facet joint osteoarthritis. There is moderate right and mild left neural foraminal stenosis. There is mild central canal stenosis. L4-L5: The disc is bulging. There is severe bilateral facet joint osteoarthritis. There is moderate right and mild left neural foraminal stenosis. There is mild central canal stenosis. L5-S1: The disc does not extend beyond the endplate margin. There is severe bilateral facet joint osteoarthritis. There is moderate right and mild left neural foraminal stenosis. There is mild central canal stenosis. IMPRESSION: 1. Acute/subacute L5 compression fracture. 2. Acute/subacute left sacral ala insufficiency fracture. 3. Severe lumbar spondylosis. 4. Lumbar levoscoliosis. EXAMINATION:? XR chest 2V Exam Date/Time:? 12/24/2022 19:05 CDT HISTORY: weakness, short of breath ? Comparison:? 12/02/2022. RESULT: Lines, tubes, and devices:? Bilateral shoulder arthroplasties. Lungs and pleura:? Senescent change, otherwise clear. Cardiomediastinal silhouette:? Stable. Other:? No acute osseous or upper abdominal finding. ? IMPRESSION: No acute cardiopulmonary process. Review of Systems Review of Systems: generalized weakness, recurrent falls. Constitutional: Constitutional: Denies chills, Denies fatigue, Denies fever(s), Reports frequent falls, Denies malaise and Reports weakness Eyes: Eyes: Denies
[2022-12-24 21:57] LABS: Appearance Urine Clear (Clear); Bilirubin Urine Negative (Negative); Blood Urine Negative (Negative); Color Urine Yellow (Yellow); Glucose Urine UA Negative (Negative); Ketones Urine Negative (Negative); Leukocyte Esterase Ur Negative LEU/UL (Negative); Nitrate Urine Negative (Negative); Protein Urine Negative (Negative); Specific Grav Ur 1.017 (1.001-1.035); pH Urine 5.5 (5.0-9.0)
[2022-12-24 22:00] LABS: Add Urine Microscopic? NO
[2022-12-25] VITALS (8 sets, daily range): BP systolic 132–141; BP diastolic 55–78; PULSE 68–70; RESP 14–18; TEMP 36.2–36.8; O2SAT 94–100
--- NOTE | 2022-12-25 00:04 | ADMGEN ---
This patient, Fred Jewell, was admitted to [facility] Surg Room 321-02. Patient/family oriented to hospital policies and general routines including ID bracelet, bed and alarms, visiting hours, pain management, procedures, bathroom and other care routines, personal items, smoking policy, room service/diet, and visiting hours. Information on how to activate the Rapid Response Team has been discussed. Patient/Family are encouraged to report perceived risks to care and to ask questions if they do not understand what they are told or what they should do.
[2022-12-25 07:55] LABS: Glucose Point of Care 108 mg/dl (65-105)
[2022-12-25] MEDS: CHOLECALCIFEROL 1,000 UNITS TABLET 4000 UNITS PO (08:45)
[2022-12-25] MEDS: DULoxetine HCL 60 MG CAPSULE.DR PO (08:45)
[2022-12-25] MEDS: MIRABEGRON 25 MG ER TABLET PO (08:45)
[2022-12-25] MEDS: LEVOTHYROXINE SODIUM 100 MCG TABLET BY MOUTH (08:45)
[2022-12-25] MEDS: METOPROLOL SUCCINATE EXT REL 100 MG TABCR PO (08:46)
[2022-12-25] MEDS: diazePAM (*CRX) 5 MG TABLET PO ×3 (08:49→17:48)
[2022-12-25] MEDS: AMIODARONE HCL 200 MG TABLET PO (08:49)
[2022-12-25] MEDS: APIXABAN 5 MG TABLET PO ×2 (08:50→22:08)
[2022-12-25] MEDS: traMADol HCL (*CRX) 50 MG TABLET 100 MG PO ×2 (08:50→13:41)
[2022-12-25] MEDS: FLUoxetine HCL 20 MG CAPSULE BY MOUTH (08:51)
[2022-12-25] MEDS: TOLNAFTATE 1% POWDER 45 GM BTL 1 APPLIC TOPICAL ×2 (08:51→22:08)
--- NOTE | 2022-12-25 11:31 | PCOTNOTE ---
Began evaluation for occupational therapy, pt. identified L wrist swelling and pain with sharp sensation. Nursing and hospitalist alerted. Pt. unable to be seen at this time due to safety concerns and need for further diagnostics. Following.
[2022-12-25 11:51] LABS: Glucose Point of Care 121 mg/dl (65-105)
--- NOTE | 2022-12-25 13:31 | PM.IMPN ---
Progress Note: A&P Assessment and Plan (1) Recurrent falls while walking: Code(s): R29.6 - Repeated falls Status: Acute (2) Generalized weakness: Code(s): R53.1 - Weakness Status: Acute (3) Obstructive sleep apnea (adult) (pediatric): Code(s): G47.33 - Obstructive sleep apnea (adult) (pediatric) Status: Chronic (4) Chronic kidney disease, stage 3 (moderate): Code(s): N18.3 - Chronic kidney disease, stage 3 (moderate) Status: Acute (5) Chronic atrial fibrillation: Code(s): I48.20 - Chronic atrial fibrillation, unspecified Status: Acute (6) Arterial insufficiency of lower extremity: Code(s): I73.9 - Peripheral vascular disease, unspecified Status: Acute (7) Morbid obesity with BMI of 40.0-44.9, adult: Code(s): E66.01 - Morbid (severe) obesity due to excess calories; Z68.41 - Body mass index [BMI] 40.0-44.9, adult Status: Acute (8) CKD (chronic kidney disease): Code(s): N18.9 - Chronic kidney disease, unspecified Status: Acute (9) Closed compression fracture of L5 vertebra: Code(s): S32.050A - Wedge compression fracture of fifth lumbar vertebra, initial encounter for closed fracture Status: Acute Assessment and Plan: TLSO brace. PT OT once he gets his brace. Plan for senior care facility placement Subjective Date/time seen: 12/25/22 13:31 Interval history: No new complaints Exam Narrative: patient is laying in a stretcher Const: General: cooperative, comfortable, no acute distress, well developed, alert, awake, obese and other ( well-appearing) Nutritional Appearance: obese morbidly obese Orientation/consciousness: patient oriented x3 HENMT: Head: normal to inspection, normocephalic and atraumatic Ears: hearing grossly normal bilaterally Face/Nose/Sinus: normal facial exam Face and sinus: normal facial exam Eyes: General: appearance normal, both eyes and all related structures Pupils: Equal, round and reactive pupils present EOM: EOMs intact bilaterally Neck: Neck: full ROM, no lymphadenopathy and no JVD Thyroid: thyroid normal Lymphatic: no lymphadenopathy noted Resp: Effort & Inspection: normal respiratory effort and able to speak in complete sentences Auscultation: clear to auscultation bilaterally Cardio: Jugular venous distension: no JVD Rate: regular rate Rhythm: regular rhythm Heart sounds: S1 normal heart sound present and S2 normal heart sound present : General: Yes deferred Skin: Rashes: no rashes Trauma: no lacerations or abrasions and other ( bruises) Wounds: no wounds Neuro: General: patient oriented x3, CN's II-XI intact bilaterally and Unable to assess gait Cranial nerves: Yes CN's II-XII intact bilaterally and Yes Equal, round and reactive pupils present Cognition (Neuro): normal cognition Speech: normal speech Gait exam (Neuro): Unable to assess gait Motor exam (neuro): 5/5 motor strength present throughout Sensory Exam: No Sensory deficit (Neuro) Extrem: General: normal to inspection, full ROM, no joint enlargement and no pedal edema Objective Data Vital Signs Vital Signs: Vital Signs - 24 hr 12/24/22 18:24 12/24/22 18:32 12/24/22 19:46 Temperature 98.3 F Pulse Rate 64 64 66 Respiratory Rate 16 20 Blood Pressure 138/70 144/84 H Pulse Oximetry 99 98 Oxygen Delivery Room Air 12/24/22 20:00 12/24/22 20:01 12/24/22 20:15 Temperature Pulse Rate 65 67 65 Respiratory Rate 20 18 15 Blood Pressure 160/78 H Pulse Oximetry 100 98 100 Oxygen Delivery 12/24/22 20:17 12/24/22 20:30 12/24/22 20:31 Temperature Pulse Rate 67 66 67 Respiratory Rate 19 21 H 20 Blood Pressure 144/87 H 160/98 H Pulse Oximetry 97 Oxygen Delivery 12/24/22 20:45 12/24/22 22:00 12/24/22 23:33 Temperature 97.6 F Pulse Rate 65 64 64 Respiratory Rate 19 15 16 Blood Pressure 135/82 137/73 Pulse Oximetry 98 95 96 Oxygen Delivery
[2022-12-25 16:21] LABS: Glucose Point of Care 127 mg/dl (65-105)
[2022-12-25 20:16] LABS: Glucose Point of Care 102 mg/dl (65-105)
[2022-12-25] MEDS: polyethylene glycoL 3350 17 GM POWD.PACK PO (22:08)
[2022-12-25] MEDS: DOCUSATE SODIUM 100 MG CAPSULE PO (22:08)
[2022-12-25 23:57] LABS: Glucose Point of Care 112 mg/dl (65-105)
[2022-12-26] VITALS (7 sets, daily range): BP systolic 115–119; BP diastolic 57–71; PULSE 68–83; RESP 18–20; TEMP 36.1–37.7; O2SAT 95–97
[2022-12-26] MEDS: traMADol HCL (*CRX) 50 MG TABLET 100 MG PO ×3 (00:38→21:26)
[2022-12-26] MEDS: TIZANIDINE HCL 4 MG TABLET PO (00:38)
[2022-12-26] MEDS: DICLOFENAC SODIUM 1% 100 GM GEL (*BKC) 1 APPLIC TOPICAL (00:42)
[2022-12-26] MEDS: LEVOTHYROXINE SODIUM 100 MCG TABLET BY MOUTH (06:26)
[2022-12-26] MEDS: METOPROLOL SUCCINATE EXT REL 100 MG TABCR PO (10:05)
[2022-12-26] MEDS: DOCUSATE SODIUM 100 MG CAPSULE PO ×2 (10:05→21:15)
[2022-12-26] MEDS: MIRABEGRON 25 MG ER TABLET PO (10:06)
[2022-12-26] MEDS: AMIODARONE HCL 200 MG TABLET PO (10:07)
[2022-12-26] MEDS: FLUoxetine HCL 20 MG CAPSULE BY MOUTH (10:07)
[2022-12-26] MEDS: CHOLECALCIFEROL 1,000 UNITS TABLET 4000 UNITS PO (10:07)
[2022-12-26] MEDS: DULoxetine HCL 60 MG CAPSULE.DR PO (10:07)
[2022-12-26] MEDS: diazePAM (*CRX) 5 MG TABLET PO (10:08)
[2022-12-26] MEDS: APIXABAN 5 MG TABLET PO ×2 (10:08→21:15)
[2022-12-26] MEDS: polyethylene glycoL 3350 17 GM POWD.PACK PO (10:09)
--- NOTE | 2022-12-26 13:32 | PM.IMPN ---
Progress Note: A&P Assessment and Plan (1) Recurrent falls while walking: Code(s): R29.6 - Repeated falls Status: Acute (2) Generalized weakness: Code(s): R53.1 - Weakness Status: Acute (3) Obstructive sleep apnea (adult) (pediatric): Code(s): G47.33 - Obstructive sleep apnea (adult) (pediatric) Status: Chronic (4) Chronic kidney disease, stage 3 (moderate): Code(s): N18.3 - Chronic kidney disease, stage 3 (moderate) Status: Acute (5) Chronic atrial fibrillation: Code(s): I48.20 - Chronic atrial fibrillation, unspecified Status: Acute (6) Arterial insufficiency of lower extremity: Code(s): I73.9 - Peripheral vascular disease, unspecified Status: Acute (7) Morbid obesity with BMI of 40.0-44.9, adult: Code(s): E66.01 - Morbid (severe) obesity due to excess calories; Z68.41 - Body mass index [BMI] 40.0-44.9, adult Status: Acute (8) CKD (chronic kidney disease): Code(s): N18.9 - Chronic kidney disease, unspecified Status: Acute (9) Closed compression fracture of L5 vertebra: Code(s): S32.050A - Wedge compression fracture of fifth lumbar vertebra, initial encounter for closed fracture Status: Acute Assessment and Plan: TLSO brace. PT OT once he gets his brace. Plan for [facility] facility placement Subjective Date/time seen: 12/26/22 13:32 Interval history: No complaints Exam Narrative: patient is laying in a stretcher Const: General: cooperative, comfortable, no acute distress, well developed, alert, awake, obese and other ( well-appearing) Nutritional Appearance: obese morbidly obese Orientation/consciousness: patient oriented x3 HENMT: Head: normal to inspection, normocephalic and atraumatic Ears: hearing grossly normal bilaterally Face/Nose/Sinus: normal facial exam Face and sinus: normal facial exam Eyes: General: appearance normal, both eyes and all related structures Pupils: Equal, round and reactive pupils present EOM: EOMs intact bilaterally Neck: Neck: full ROM, no lymphadenopathy and no JVD Thyroid: thyroid normal Lymphatic: no lymphadenopathy noted Resp: Effort & Inspection: normal respiratory effort and able to speak in complete sentences Auscultation: clear to auscultation bilaterally Cardio: Jugular venous distension: no JVD Rate: regular rate Rhythm: regular rhythm Heart sounds: S1 normal heart sound present and S2 normal heart sound present : General: Yes deferred Skin: Rashes: no rashes Trauma: no lacerations or abrasions and other ( bruises) Wounds: no wounds Neuro: General: patient oriented x3, CN's II-XI intact bilaterally and Unable to assess gait Cranial nerves: Yes CN's II-XII intact bilaterally and Yes Equal, round and reactive pupils present Cognition (Neuro): normal cognition Speech: normal speech Gait exam (Neuro): Unable to assess gait Motor exam (neuro): 5/5 motor strength present throughout Sensory Exam: No Sensory deficit (Neuro) Extrem: General: normal to inspection, full ROM, no joint enlargement and no pedal edema Objective Data Vital Signs Vital Signs: Vital Signs - 24 hr 12/25/22 14:00 12/25/22 22:00 12/25/22 20:00 Temperature 98.2 F 97.2 F L Pulse Rate 68 68 68 Respiratory Rate 14 18 18 Blood Pressure 137/72 141/78 H Pulse Oximetry 94 98 98 Oxygen Delivery Room Air 12/26/22 06:00 12/26/22 10:05 12/26/22 10:07 Temperature 99.9 F H Pulse Rate 76 80 80 Respiratory Rate 18 Blood Pressure 119/71 Pulse Oximetry 95 Oxygen Delivery 12/26/22 10:18 Temperature Pulse Rate Respiratory Rate Blood Pressure Pulse Oximetry Oxygen Delivery Room Air Intake/Output Intake/Output: Intake & Output 12/23/22 12/24/22 12/25/22 12/26/22 23:59 23:59 23:59 23:59 Intake Total 960 75 Output Total 1600 200 Balance -640 -125 Meds/Results Medications: Active Medications Generic Name Do
[2022-12-26] MEDS: TOLNAFTATE 1% POWDER 45 GM BTL 1 APPLIC TOPICAL (22:08)
[2022-12-27] VITALS (7 sets, daily range): BP systolic 128–139; BP diastolic 66–83; PULSE 59–77; RESP 20–24; TEMP 36.2–37.2; O2SAT 95–98
[2022-12-27] MEDS: LEVOTHYROXINE SODIUM 100 MCG TABLET BY MOUTH (05:35)
[2022-12-27] MEDS: FLUoxetine HCL 20 MG CAPSULE BY MOUTH (09:14)
[2022-12-27] MEDS: METOPROLOL SUCCINATE EXT REL 100 MG TABCR PO (09:14)
[2022-12-27] MEDS: TOLNAFTATE 1% POWDER 45 GM BTL 1 APPLIC TOPICAL ×2 (09:14→20:58)
[2022-12-27] MEDS: DULoxetine HCL 60 MG CAPSULE.DR PO (09:14)
[2022-12-27] MEDS: CHOLECALCIFEROL 1,000 UNITS TABLET 4000 UNITS PO (09:14)
[2022-12-27] MEDS: AMIODARONE HCL 200 MG TABLET PO (09:15)
[2022-12-27] MEDS: polyethylene glycoL 3350 17 GM POWD.PACK PO (09:16)
[2022-12-27] MEDS: APIXABAN 5 MG TABLET PO ×2 (09:16→20:57)
[2022-12-27] MEDS: MIRABEGRON 25 MG ER TABLET PO (09:16)
[2022-12-27] MEDS: diazePAM (*CRX) 5 MG TABLET PO (09:18)
[2022-12-27] MEDS: DOCUSATE SODIUM 100 MG CAPSULE PO ×2 (09:18→20:58)
[2022-12-27] MEDS: DICLOFENAC SODIUM 1% 100 GM GEL (*BKC) 1 APPLIC TOPICAL ×2 (09:30→14:12)
[2022-12-27] MEDS: traMADol HCL (*CRX) 50 MG TABLET 100 MG PO (09:35)
--- NOTE | 2022-12-27 10:55 | PM.IMPN ---
Progress Note: A&P Assessment and Plan (1) Recurrent falls while walking: Code(s): R29.6 - Repeated falls Status: Acute Assessment and Plan: admit to regular medical floor bed rest fall precautions PT OT consult (2) Generalized weakness: Code(s): R53.1 - Weakness Status: Acute Assessment and Plan: likely deconditioning chronic illness multiple comorbidities (3) Obstructive sleep apnea (adult) (pediatric): Code(s): G47.33 - Obstructive sleep apnea (adult) (pediatric) Status: Chronic Assessment and Plan: CPAP at nighttime (4) Chronic kidney disease, stage 3 (moderate): Code(s): N18.3 - Chronic kidney disease, stage 3 (moderate) Status: Acute Assessment and Plan: continue to monitor BUN and creatinine daily BMP (5) Chronic atrial fibrillation: Code(s): I48.20 - Chronic atrial fibrillation, unspecified Status: Acute Assessment and Plan: continue amiodarone continue apixaban (6) Arterial insufficiency of lower extremity: Code(s): I73.9 - Peripheral vascular disease, unspecified Status: Acute Assessment and Plan: unchanged follow-up in outpatient setting (7) Morbid obesity with BMI of 40.0-44.9, adult: Code(s): E66.01 - Morbid (severe) obesity due to excess calories; Z68.41 - Body mass index [BMI] 40.0-44.9, adult Status: Acute Assessment and Plan: calorie restricted diet (8) Closed compression fracture of L5 vertebra: Code(s): S32.050A - Wedge compression fracture of fifth lumbar vertebra, initial encounter for closed fracture Status: Acute Assessment and Plan: supportive care Tylenol p.r.n. Subjective Date/time seen: 12/27/22 10:55 Interval history: No complaints Exam Narrative: patient is laying in a stretcher Const: General: cooperative, comfortable, no acute distress, well developed, alert, awake, obese and other ( well-appearing) Nutritional Appearance: obese morbidly obese Orientation/consciousness: patient oriented x3 HENMT: Head: normal to inspection, normocephalic and atraumatic Ears: hearing grossly normal bilaterally Face/Nose/Sinus: normal facial exam Face and sinus: normal facial exam Eyes: General: appearance normal, both eyes and all related structures Pupils: Equal, round and reactive pupils present EOM: EOMs intact bilaterally Neck: Neck: full ROM, no lymphadenopathy and no JVD Thyroid: thyroid normal Lymphatic: no lymphadenopathy noted Resp: Effort & Inspection: normal respiratory effort and able to speak in complete sentences Auscultation: clear to auscultation bilaterally Cardio: Jugular venous distension: no JVD Rate: regular rate Rhythm: regular rhythm Heart sounds: S1 normal heart sound present and S2 normal heart sound present : General: Yes deferred Skin: Rashes: no rashes Trauma: no lacerations or abrasions and other ( bruises) Wounds: no wounds Neuro: General: patient oriented x3, CN's II-XI intact bilaterally and Unable to assess gait Cranial nerves: Yes CN's II-XII intact bilaterally and Yes Equal, round and reactive pupils present Cognition (Neuro): normal cognition Speech: normal speech Gait exam (Neuro): Unable to assess gait Motor exam (neuro): 5/5 motor strength present throughout Sensory Exam: No Sensory deficit (Neuro) Extrem: General: normal to inspection, full ROM, no joint enlargement and no pedal edema Objective Data Vital Signs Vital Signs: Vital Signs - 24 hr 12/26/22 14:00 12/26/22 22:00 12/26/22 20:00 Temperature 97.0 F L 98.5 F Pulse Rate 68 83 Respiratory Rate 20 20 Blood Pressure 115/68 116/57 L Pulse Oximetry 97 96 Oxygen Delivery Room Air 12/26/22 21:48 12/26/22 22:35 12/27/22 05:20 Temperature 98.9 F Pulse Rate 81 73 Respiratory Rate 20 Blood Pressure 139/69 Pulse Oximetry 97 97 95 Oxygen Delivery Room Air 12/27/22 09:14
[2022-12-28] VITALS (7 sets, daily range): BP systolic 105–127; BP diastolic 45–70; PULSE 66–86; RESP 18–20; TEMP 35.8–36.6; O2SAT 94–99
[2022-12-28] MEDS: LEVOTHYROXINE SODIUM 100 MCG TABLET BY MOUTH (05:40)
[2022-12-28] MEDS: CHOLECALCIFEROL 1,000 UNITS TABLET 4000 UNITS PO (08:31)
[2022-12-28] MEDS: FLUoxetine HCL 20 MG CAPSULE BY MOUTH (08:31)
[2022-12-28] MEDS: AMIODARONE HCL 200 MG TABLET PO (08:31)
[2022-12-28] MEDS: DULoxetine HCL 60 MG CAPSULE.DR PO (08:33)
[2022-12-28] MEDS: METOPROLOL SUCCINATE EXT REL 100 MG TABCR PO (08:33)
[2022-12-28] MEDS: polyethylene glycoL 3350 17 GM POWD.PACK PO (08:33)
[2022-12-28] MEDS: APIXABAN 5 MG TABLET PO ×2 (08:33→20:11)
[2022-12-28] MEDS: TOLNAFTATE 1% POWDER 45 GM BTL 1 APPLIC TOPICAL ×2 (08:33→20:11)
[2022-12-28] MEDS: MIRABEGRON 25 MG ER TABLET PO (08:33)
[2022-12-28] MEDS: DOCUSATE SODIUM 100 MG CAPSULE PO ×2 (08:40→20:11)
[2022-12-28] MEDS: diazePAM (*CRX) 5 MG TABLET PO (08:41)
[2022-12-28 10:28] LABS: Potassium 4.8 mmol/L (3.4-5.0)
[2022-12-28 10:30] LABS: Anion Gap 7 mmol/L (8-16); Blood Urea Nitrogen 23 mg/dL (9-20); Calcium 9.6 mg/dL (8.4-10.2); Carbon Dioxide 26 mmol/L (22-30); Chloride 93 mmol/L (98-107); Estimated CRCL calculation 77 ml/min; Estimated Glomerular Filt Rate > 60; Glucose 123 mg/dL (65-110); Sodium 126 mmol/L (137-145)
--- NOTE | 2022-12-28 11:55 | PM.IMPN ---
Progress Note: A&P Assessment and Plan (1) Recurrent falls while walking: Code(s): R29.6 - Repeated falls Status: Acute Assessment and Plan: admit to regular medical floor bed rest fall precautions PT OT consult (2) Generalized weakness: Code(s): R53.1 - Weakness Status: Acute Assessment and Plan: likely deconditioning chronic illness multiple comorbidities (3) Obstructive sleep apnea (adult) (pediatric): Code(s): G47.33 - Obstructive sleep apnea (adult) (pediatric) Status: Chronic Assessment and Plan: CPAP at nighttime (4) Chronic kidney disease, stage 3 (moderate): Code(s): N18.3 - Chronic kidney disease, stage 3 (moderate) Status: Acute Assessment and Plan: continue to monitor BUN and creatinine daily BMP (5) Chronic atrial fibrillation: Code(s): I48.20 - Chronic atrial fibrillation, unspecified Status: Acute Assessment and Plan: continue amiodarone continue apixaban rates controlled (6) Arterial insufficiency of lower extremity: Code(s): I73.9 - Peripheral vascular disease, unspecified Status: Acute Assessment and Plan: unchanged follow-up in outpatient setting (7) Morbid obesity with BMI of 40.0-44.9, adult: Code(s): E66.01 - Morbid (severe) obesity due to excess calories; Z68.41 - Body mass index [BMI] 40.0-44.9, adult Status: Acute Assessment and Plan: calorie restricted diet (8) Closed compression fracture of L5 vertebra: Code(s): S32.050A - Wedge compression fracture of fifth lumbar vertebra, initial encounter for closed fracture Status: Acute Assessment and Plan: supportive care, brace, pt ot (9) Hyponatremia: Code(s): E87.1 - Hypo-osmolality and hyponatremia Status: Acute Assessment and Plan: urine studies pending nephrology consult Subjective Date/time seen: 12/28/22 11:55 Interval history: labs noted no new complaints tolerating pain medication wo se seems slightly confused today Exam Narrative: patient is laying in a stretcher Const: General: cooperative, comfortable, no acute distress, well developed, alert, awake, obese and other ( well-appearing) Nutritional Appearance: obese morbidly obese Orientation/consciousness: patient oriented x3 HENMT: Head: normal to inspection, normocephalic and atraumatic Ears: hearing grossly normal bilaterally Face/Nose/Sinus: normal facial exam Face and sinus: normal facial exam Eyes: General: appearance normal, both eyes and all related structures Pupils: Equal, round and reactive pupils present EOM: EOMs intact bilaterally Neck: Neck: full ROM, no lymphadenopathy and no JVD Thyroid: thyroid normal Lymphatic: no lymphadenopathy noted Resp: Effort & Inspection: normal respiratory effort and able to speak in complete sentences Auscultation: clear to auscultation bilaterally Cardio: Jugular venous distension: no JVD Rate: regular rate Rhythm: regular rhythm Heart sounds: S1 normal heart sound present and S2 normal heart sound present : General: Yes deferred Skin: Rashes: no rashes Trauma: no lacerations or abrasions and other ( bruises) Wounds: no wounds Neuro: General: patient oriented x3, CN's II-XI intact bilaterally and Unable to assess gait Cranial nerves: Yes CN's II-XII intact bilaterally and Yes Equal, round and reactive pupils present Cognition (Neuro): normal cognition Speech: normal speech Gait exam (Neuro): Unable to assess gait Motor exam (neuro): 5/5 motor strength present throughout Sensory Exam: No Sensory deficit (Neuro) Extrem: General: normal to inspection, full ROM, no joint enlargement and no pedal edema Objective Data Vital Signs Vital Signs: Vital Signs - 24 hr 12/27/22 14:00 12/27/22 20:23 12/27/22 22:30 Temperature 97.5 F L Pulse Rate 66 77 Respiratory Rate 24 H Blood Pressure 128/83 Pulse Oxi
--- NOTE | 2022-12-28 13:25 | PM.CNNEP ---
Assessment and Plan Assessment and plan (1) Hyponatremia: Code(s): E87.1 - Hypo-osmolality and hyponatremia Status: Acute Assessment and Plan: acute on chronic sodium running 133 - 135mmol/L in last month (November 2022) however, in July 2022, was within normal limits risk factors for low sodium: medications [SSRI (fluoxetine and duloxetine) + pain meds] thyroid disease pain issues prerenal factors? check cortisol, SPEP, UPEP and serum/urine osmolality follow-up on urine studies CXR noted consider CT of head agree with fluid restriction follow repeat sodium levels (2) Generalized weakness: Code(s): R53.1 - Weakness Status: Acute Assessment and Plan: presumably due to deconditioning PT/OT as tolerated (3) Recurrent falls while walking: Code(s): R29.6 - Repeated falls Status: Acute Assessment and Plan: related to #2 PT/OT as tolerated (4) Hypertension: Code(s): I10 - Essential (primary) hypertension Status: Chronic Assessment and Plan: well controlled at this time follow trend of hemodynamics I will continue follow patient with you while he remains hospitalized and make further recommendations as needed. Thank you for allowing me to participate in the care of this patient. History of Present Illness Reason for Consult Consult date: 12/28/22 Reason for consult: hyponatremia Chief Complaint Chief complaint: failure to thrive History of Present Illness Narrative: The patient is a 77-year-old male with a past medical history as outlined who presented to [facility] Emergency Room with generalized weakness. The patient was recently seen in the emergency room about a month ago after he sustained a fall. Subsequent workup and evaluation following that ER visit discovered an L5 and sacral fracture by outpatient MRI. He has been using a significant amount of pain medications including narcotics due to his severity of the pain. Further complicating matters is that he has been having difficulty getting around at home particularly since his cannot a system due to her own health issues/problems. Apparently, due to his severe weakness, he has sustained some falls but without any acute injury. On the day of admission, he was unable to stand up from the toilet this but conservative therapy and so he had to call EMS for assistance which subsequently led to transfer to the ER for further assessment. Workup and evaluation emergency room demonstrated the patient be hemodynamically stable and in no acute distress other than his profound weakness. He reported no fevers, chills, cough, shortness of breath, nausea, vomiting, or diarrhea or any other subjective symptoms. Workup and evaluation emergency room demonstrated routine blood work that was unremarkable aside from mild hyponatremia and mild anemia and stable kidney function. Given the constellation of symptoms that led to his presentation to the emergency room in conjunction with his recent L5/sacral fracture, it was felt that he would benefit from inpatient hospitalization for PT and OT and likely need for placement for acute rehab. Since his admission, his been noted by the trend of morning labs that his sodium level has been slowly declining. From review of his records, he did have some chronic hyponatremia in November of 2022 by labs and on admission on this hospitalization, his sodium was down to 131. Subsequently, labs done this morning showed a sodium of 126 millimoles per L. It should be noted that prior to his November labs of this year, his sodium level was within normal limits by last labs in July of 2022. Renal consultation was requested due to his acute on chronic hyponatremia. I am not entirely clear why his sodium level dropped last month but these labs to correlate with ER visits that were associated with his recent falls/injuries and subsequent findings of
[2022-12-28 17:19] LABS: Anion Gap 10 mmol/L (8-16); Blood Urea Nitrogen 22 mg/dL (9-20); Calcium 9.4 mg/dL (8.4-10.2); Carbon Dioxide 24 mmol/L (22-30); Chloride 95 mmol/L (98-107); Estimated CRCL calculation 71 ml/min; Estimated Glomerular Filt Rate 59; Glucose 111 mg/dL (65-110); Potassium 4.2 mmol/L (3.4-5.0); Sodium 129 mmol/L (137-145)
[2022-12-28 19:17] LABS: Sodium Urine Random 40 meq/L
[2022-12-28 19:20] LABS: Creatinine Urine 199.8 mg/dL
[2022-12-29 06:00] VITALS: BP 131/74; PULSE 70; RESP 20; TEMP 36.1; O2SAT 96
[2022-12-29] MEDS: LEVOTHYROXINE SODIUM 100 MCG TABLET BY MOUTH (06:01)
[2022-12-29 06:28] LABS: Anion Gap 8 mmol/L (8-16); Blood Urea Nitrogen 25 mg/dL (9-20); Carbon Dioxide 19 mmol/L (22-30); Chloride 96 mmol/L (98-107); Estimated CRCL calculation 71 ml/min; Estimated Glomerular Filt Rate 59; Glucose 110 mg/dL (65-110); Potassium 4.8 mmol/L (3.4-5.0); Sodium 123 mmol/L (137-145)
[2022-12-29] MEDS: MIRABEGRON 25 MG ER TABLET PO (09:17)
[2022-12-29] MEDS: FLUoxetine HCL 20 MG CAPSULE BY MOUTH (09:17)
[2022-12-29] MEDS: APIXABAN 5 MG TABLET PO ×2 (09:17→21:54)
[2022-12-29 09:18] VITALS: PULSE 76
[2022-12-29] MEDS: AMIODARONE HCL 200 MG TABLET PO (09:18)
[2022-12-29] MEDS: CHOLECALCIFEROL 1,000 UNITS TABLET 4000 UNITS PO (09:18)
[2022-12-29] MEDS: DULoxetine HCL 60 MG CAPSULE.DR PO (09:20)
[2022-12-29] MEDS: METOPROLOL SUCCINATE EXT REL 100 MG TABCR PO (09:20)
[2022-12-29] MEDS: polyethylene glycoL 3350 17 GM POWD.PACK PO (09:20)
[2022-12-29] MEDS: DOCUSATE SODIUM 100 MG CAPSULE PO ×2 (09:20→21:54)
[2022-12-29] MEDS: TOLNAFTATE 1% POWDER 45 GM BTL 1 APPLIC TOPICAL ×2 (09:21→21:58)
[2022-12-29] MEDS: traMADol HCL (*CRX) 50 MG TABLET PO (09:30)
[2022-12-29] MEDS: diazePAM (*CRX) 5 MG TABLET PO ×2 (09:42→21:54)
--- NOTE | 2022-12-29 10:45 | PCOTNOTE ---
Attempted to see pt for Occupational Therapy treatment. Pt is sleeping very soundly and snoring. Therapist attempted sternal rubbing and speaking loudly pt's name however, does not wake up and continues to snore. RN states that pt received a Valium and other pain meds recently which could contribute to his continuous sleeping. Will attempt at a later time.
--- NOTE | 2022-12-29 11:13 | PM.IMPN ---
Progress Note: A&P Assessment and Plan (1) Recurrent falls while walking: Code(s): R29.6 - Repeated falls Status: Acute Assessment and Plan: admit to regular medical floor bed rest fall precautions PT OT consult (2) Generalized weakness: Code(s): R53.1 - Weakness Status: Acute Assessment and Plan: likely deconditioning chronic illness multiple comorbidities (3) Obstructive sleep apnea (adult) (pediatric): Code(s): G47.33 - Obstructive sleep apnea (adult) (pediatric) Status: Chronic Assessment and Plan: CPAP at nighttime (4) Chronic kidney disease, stage 3 (moderate): Code(s): N18.3 - Chronic kidney disease, stage 3 (moderate) Status: Acute Assessment and Plan: continue to monitor BUN and creatinine daily BMP (5) Chronic atrial fibrillation: Code(s): I48.20 - Chronic atrial fibrillation, unspecified Status: Acute Assessment and Plan: continue amiodarone continue apixaban rates controlled (6) Arterial insufficiency of lower extremity: Code(s): I73.9 - Peripheral vascular disease, unspecified Status: Acute Assessment and Plan: unchanged follow-up in outpatient setting (7) Morbid obesity with BMI of 40.0-44.9, adult: Code(s): E66.01 - Morbid (severe) obesity due to excess calories; Z68.41 - Body mass index [BMI] 40.0-44.9, adult Status: Acute Assessment and Plan: calorie restricted diet (8) Closed compression fracture of L5 vertebra: Code(s): S32.050A - Wedge compression fracture of fifth lumbar vertebra, initial encounter for closed fracture Status: Acute Assessment and Plan: supportive care, brace, pt ot (9) Hyponatremia: Code(s): E87.1 - Hypo-osmolality and hyponatremia Status: Acute Assessment and Plan: urine studies pending nephrology consult - spoke w nephrology today about na level of 123 ams likely related to this as well, will check ua and ct head (no focal deficits) ? etiology, decrease po intake, meds, pain, pain meds, tsh ok Subjective Date/time seen: 12/29/22 11:13 Interval history: a little more confused today na has dropped no focal deficits Exam Narrative: patient is laying in a stretcher Const: General: cooperative, comfortable, no acute distress, well developed, alert, awake, obese and other ( well-appearing) Nutritional Appearance: obese morbidly obese Orientation/consciousness: patient oriented x3 HENMT: Head: normal to inspection, normocephalic and atraumatic Ears: hearing grossly normal bilaterally Face/Nose/Sinus: normal facial exam Face and sinus: normal facial exam Eyes: General: appearance normal, both eyes and all related structures Pupils: Equal, round and reactive pupils present EOM: EOMs intact bilaterally Neck: Neck: full ROM, no lymphadenopathy and no JVD Thyroid: thyroid normal Lymphatic: no lymphadenopathy noted Resp: Effort & Inspection: normal respiratory effort and able to speak in complete sentences Auscultation: clear to auscultation bilaterally Cardio: Jugular venous distension: no JVD Rate: regular rate Rhythm: regular rhythm Heart sounds: S1 normal heart sound present and S2 normal heart sound present : General: Yes deferred Skin: Rashes: no rashes Trauma: no lacerations or abrasions and other ( bruises) Wounds: no wounds Neuro: General: patient oriented x3, CN's II-XI intact bilaterally and Unable to assess gait Cranial nerves: Yes CN's II-XII intact bilaterally and Yes Equal, round and reactive pupils present Cognition (Neuro): normal cognition Speech: normal speech Gait exam (Neuro): Unable to assess gait Motor exam (neuro): 5/5 motor strength present throughout Sensory Exam: No Sensory deficit (Neuro) Extrem: General: normal to inspection, full ROM, no joint enlargement and no pedal edema Objective Data Vital Signs Vital Signs: Vital Signs
[2022-12-29 11:33] VITALS: BMI 10.0
[2022-12-29 12:09] LABS: Sodium 127 mmol/L (137-145)
--- NOTE | 2022-12-29 12:11 | P.PNNP_ITS ---
Progress Note: A&P Assessment and Plan (1) Hyponatremia: Code(s): E87.1 - Hypo-osmolality and hyponatremia Status: Acute Assessment and Plan: * acute on chronic * sodium running 133 - 135mmol/L in last month (November 2022) * however, in July 2022, was within normal limits * risk factors for low sodium: * medications [SSRI (fluoxetine and duloxetine) + pain meds] * thyroid disease * pain issues * prerenal factors? * evaluation to date: * TSH okay * urine electrolytes noted (urine sodium 40) * hodling off on SPEP, UPEP, and cortisol since sodium improving * on fluid restriction * follow repeat sodium levels (2) Generalized weakness: Code(s): R53.1 - Weakness Status: Acute Assessment and Plan: * presumably due to deconditioning * PT/OT as tolerated (3) Recurrent falls while walking: Code(s): R29.6 - Repeated falls Status: Acute Assessment and Plan: * related to #2 * PT/OT as tolerated (4) Hypertension: Code(s): I10 - Essential (primary) hypertension Status: Chronic Assessment and Plan: * well controlled at this time * follow trend of hemodynamics Will continue to follow. Subjective Date/time seen: 12/29/22 12:11 Interval history: Follow-up for acute on chronic hyponatremia. Sodium seems to be improving with current interventions (fluid restriction); confusion continues to fluctuate despite improvement in sodium level; no new issues or problems to report at this time; no events overnight or earlier this morning. Exam Narrative: General: elderly but WD/WN male in NAD; confused Heart: normal S1 and S2; no rub Lungs: clear to auscultation Abdomen: soft, nontender, nondistended, positive bowel sounds Extremities: no cyanosis or clubbing; no edema Skin: warm and dry Objective Data Vital Signs Vital Signs: Vital Signs Temp Pulse Resp BP Pulse Ox 12/29/22 09:18 76 12/29/22 06:00 96.9 F L 70 20 131/74 96 12/28/22 21:47 97.9 F 77 18 127/70 95 12/28/22 14:00 97.7 F 71 20 105/45 L 99 Intake/Output Intake/Output: Intake & Output 12/26/22 12/27/22 12/28/22 12/29/22 23:59 23:59 23:59 23:59 Intake Total 195 1368 250 100 Output Total 850 9664 750 200 [facility] -655 -332 -500 -100 Meds/Results Medications: Active Medications Generic Name Dose Route Start Last Admin Trade Name Freq PRN Reason Stop Dose Admin Amiodarone HCl 200 mg 12/25/22 08:00 12/29/22 09:18 Amiodarone Hcl 200 Mg Tablet PO 200 mg DAILY@0800 LARA Administration Apixaban 5 mg 12/25/22 09:00 12/29/22 09:17 Apixaban 5 Mg Tablet PO 5 mg Q12HR LARA Administration Diazepam 5 mg 12/27/22 09:00 12/29/22 09:42 Diazepam (*Crx) 5 Mg Tablet PO 5 mg DAILY LARA Administration Diclofenac Sodium 1 applic 12/25/22 09:00 12/27/22 14:12 Diclofenac Sodium 1% 100 Gm Gel (*Bkc) TOPICAL 1 applic QID PRN Administration joint pain Docusate Sodium 100 mg 12/25/22 21:00 12/29/22 09:20 Docusate Sodium 100 Mg Capsule PO 100 mg Q12HR [facility] Administ
--- NOTE | 2022-12-29 12:11 | PM.PNNEP ---
Progress Note: A&P Assessment and Plan (1) Hyponatremia: Code(s): E87.1 - Hypo-osmolality and hyponatremia Status: Acute Assessment and Plan: acute on chronic sodium running 133 - 135mmol/L in last month (November 2022) however, in July 2022, was within normal limits risk factors for low sodium: medications [SSRI (fluoxetine and duloxetine) + pain meds] thyroid disease pain issues prerenal factors? evaluation to date: TSH okay urine electrolytes noted (urine sodium 40) hodling off on SPEP, UPEP, and cortisol since sodium improving on fluid restriction follow repeat sodium levels (2) Generalized weakness: Code(s): R53.1 - Weakness Status: Acute Assessment and Plan: presumably due to deconditioning PT/OT as tolerated (3) Recurrent falls while walking: Code(s): R29.6 - Repeated falls Status: Acute Assessment and Plan: related to #2 PT/OT as tolerated (4) Hypertension: Code(s): I10 - Essential (primary) hypertension Status: Chronic Assessment and Plan: well controlled at this time follow trend of hemodynamics Will continue to follow. Subjective Date/time seen: 12/29/22 12:11 Interval history: Follow-up for acute on chronic hyponatremia. Sodium seems to be improving with current interventions (fluid restriction); confusion continues to fluctuate despite improvement in sodium level; no new issues or problems to report at this time; no events overnight or earlier this morning. Exam Narrative: General: elderly but WD/WN male in NAD; confused Heart: normal S1 and S2; no rub Lungs: clear to auscultation Abdomen: soft, nontender, nondistended, positive bowel sounds Extremities: no cyanosis or clubbing; no edema Skin: warm and dry Objective Data Vital Signs Vital Signs: Vital Signs Temp Pulse Resp BP Pulse Ox 12/29/22 09:18 76 12/29/22 06:00 96.9 F L 70 20 131/74 96 12/28/22 21:47 97.9 F 77 18 127/70 95 12/28/22 14:00 97.7 F 71 20 105/45 L 99 Intake/Output Intake/Output: Intake & Output 12/26/22 12/27/22 12/28/22 12/29/22 23:59 23:59 23:59 23:59 Intake Total 195 1368 250 100 Output Total 850 1700 750 200 Balance -655 -332 -500 -100 Meds/Results Medications: Active Medications Generic Name Dose Route Start Last Admin Trade Name Aguilar PRN Reason Stop Dose Admin Amiodarone HCl 200 mg 12/25/22 08:00 12/29/22 09:18 Amiodarone Hcl 200 Mg Tablet PO 200 mg DAILY@0800 LARA Administration Apixaban 5 mg 12/25/22 09:00 12/29/22 09:17 Apixaban 5 Mg Tablet PO 5 mg Q12HR LARA Administration Diazepam 5 mg 12/27/22 09:00 12/29/22 09:42 Diazepam (*Crx) 5 Mg Tablet PO 5 mg DAILY LARA Administration Diclofenac Sodium 1 applic 12/25/22 09:00 12/27/22 14:12 Diclofenac Sodium 1% 100 Gm Gel (*Bkc) TOPICAL 1 applic QID PRN Administration joint pain Docusate Sodium 100 mg 12/25/22 21:00 12/29/22 09:20 Docusate Sodium 100 Mg Capsule PO 100 mg Q12HR LARA Administration Duloxetine HCl 60 mg 12/25/22 09:00 12/29/22 09:20 Duloxetine Hcl 60 Mg Capsule.Dr PO 60 mg DAILY LARA Administration Fluoxetine HCl 20 mg 12/25/22 09:00 12/29/22 09:17 Fluoxetine Hcl 20 Mg Capsule BY MOUTH 20 mg DAILY LARA Administration Levothyroxine Sodium 100 mcg 12/25/22 06:30 12/29/22 06:01 Levothyroxine Sodium 100 Mcg Tablet BY MOUTH 100 mcg DAILY@0630 LARA Administration Magnesium Hydroxide 30 ml 12/25/22 20:00 Magnesium Hydroxide Susp 30 Ml Udc PO DAILY PRN Constipation Metoprolol Succinate 100 mg 12/25/22 09:00 12/29/22 09:20 Metoprolol Succinate Ext Rel 100 Mg Tabcr PO 100 mg DAILY LARA Administration Mirabegron 25 mg 12/25/22 09:00 12/29/22 09:17 Mirabegron 25 Mg Er Tablet PO 25 mg DAILY LARA Administration Polyethylene Glycol 17 gm 12/25/22 20:05 12/15
--- NOTE | 2022-12-29 14:02 | PCOTNOTE ---
The patient treatment was not able to be completed on 12/29 @14:00 due to patient was very lethargic. patient would open eyes but still snore. nursing is aware of condition. Will plan to continue treatment per plan of care.
[2022-12-29 14:05] VITALS: BP 133/78; PULSE 62; RESP 20; TEMP 36; O2SAT 100
[2022-12-29 15:48] LABS: Anion Gap 5 mmol/L (8-16); Blood Urea Nitrogen 24 mg/dL (9-20); Calcium 9.3 mg/dL (8.4-10.2); Carbon Dioxide 25 mmol/L (22-30); Chloride 97 mmol/L (98-107); Estimated CRCL calculation 71 ml/min; Estimated Glomerular Filt Rate 59; Glucose 104 mg/dL (65-110); Sodium 127 mmol/L (137-145)
[2022-12-29 20:25] VITALS: O2SAT 97
[2022-12-29 21:01] VITALS: BP 130/73; PULSE 61; RESP 18; TEMP 36.2; O2SAT 98
[2022-12-29 21:18] LABS: Sodium 130 mmol/L (137-145)
[2022-12-29 21:32] LABS: Appearance Urine Clear (Clear); Bilirubin Urine Negative (Negative); Blood Urine Negative (Negative); Color Urine Dark Yellow (Yellow); Glucose Urine UA Negative (Negative); Ketones Urine Negative (Negative); Leukocyte Esterase Ur Negative LEU/UL (Negative); Nitrate Urine Negative (Negative); Protein Urine Negative (Negative); Specific Grav Ur 1.019 (1.001-1.035); pH Urine 5.5 (5.0-9.0)
[2022-12-29 21:33] LABS: Add Urine Microscopic? NO
[2022-12-29 21:53] LABS: Bacteria Urine None Seen /hpf; Non Pathogenic Casts 0-2; RBC Urine 0-2 /hpf (0-2); Squamous Epithelial Cell Urine None seen /hpf (Few); WBC Urine 0-5 /hpf
[2022-12-29] MEDS: DICLOFENAC SODIUM 1% 100 GM GEL (*BKC) 1 APPLIC TOPICAL (21:54)
[2022-12-29 22:35] VITALS: PULSE 87; O2SAT 93
[2022-12-30] VITALS (7 sets, daily range): BP systolic 126–132; BP diastolic 59–68; PULSE 58–81; RESP 16–20; TEMP 36.2–36.7; O2SAT 95–99
[2022-12-30] MEDS: LEVOTHYROXINE SODIUM 100 MCG TABLET BY MOUTH (05:28)
[2022-12-30 07:03] LABS: Anion Gap 10 mmol/L (8-16); Blood Urea Nitrogen 22 mg/dL (9-20); Calcium 9.4 mg/dL (8.4-10.2); Carbon Dioxide 24 mmol/L (22-30); Chloride 97 mmol/L (98-107); Estimated CRCL calculation 77 ml/min; Estimated Glomerular Filt Rate > 60; Glucose 100 mg/dL (65-110); Potassium 4.1 mmol/L (3.4-5.0); Sodium 131 mmol/L (137-145)
[2022-12-30] MEDS: APIXABAN 5 MG TABLET PO ×2 (08:52→20:47)
[2022-12-30] MEDS: MIRABEGRON 25 MG ER TABLET PO (08:52)
[2022-12-30] MEDS: METOPROLOL SUCCINATE EXT REL 100 MG TABCR PO (08:53)
[2022-12-30] MEDS: CHOLECALCIFEROL 1,000 UNITS TABLET 4000 UNITS PO (08:54)
[2022-12-30] MEDS: FLUoxetine HCL 20 MG CAPSULE BY MOUTH (08:55)
[2022-12-30] MEDS: DULoxetine HCL 60 MG CAPSULE.DR PO (08:55)
[2022-12-30] MEDS: AMIODARONE HCL 200 MG TABLET PO (08:55)
[2022-12-30] MEDS: polyethylene glycoL 3350 17 GM POWD.PACK PO (08:56)
[2022-12-30] MEDS: TOLNAFTATE 1% POWDER 45 GM BTL 1 APPLIC TOPICAL ×2 (08:57→20:49)
[2022-12-30] MEDS: DOCUSATE SODIUM 100 MG CAPSULE PO ×2 (09:03→20:47)
[2022-12-30] MEDS: traMADol HCL (*CRX) 50 MG TABLET PO (09:16)
--- NOTE | 2022-12-30 12:34 | WPDNEURCNPN ---
Assessment and Plan Assessment and plan (1) Altered mental status: Code(s): R41.82 - Altered mental status, unspecified Status: Acute (2) Hyponatremia: Code(s): E87.1 - Hypo-osmolality and hyponatremia Status: Acute (3) Generalized weakness: Code(s): R53.1 - Weakness Status: Acute (4) Recurrent falls while walking: Code(s): R29.6 - Repeated falls Status: Acute (5) Major depressive disorder, single episode, unspecified: Code(s): F32.9 - Major depressive disorder, single episode, unspecified Status: Acute Plan Mr. Jewell is a 77 year old male with a history of HTN, HLD, DM, atrial fibrillation, CKD presenting due to generalized weakness and altered mental status in the setting of hyponatremia. Likely due to metabolic derangement. He does have a history of several stroke risk factors, so would be worth evaluating for stroke since he is still having some difficulty with his speech. - Will obtain MRI brain w/o contrast Consult date: 12/30/22 Reason for consult: Encephalopathy HPI: Fred Jewell is a 77 year old male with a history of atrial fibrillation, diabetes, hypertension, hyperlipidemia, who presented with generalized weakness and altered mental status. Patient has recently been taking tramadol, tizanidine, and Valium which were prescribed after he was found to have an L5 fracture a few weeks ago. He feels that he may have taken more than was directed. Prior to admission, he was having difficulty getting around and was unable to stand up from the toilet. Son also mentioned that his cognition has not been at baseline since he started taking these medications. His sodium on presentation to [facility] was 131, but has been as low as 123. Son feels that patient's mental status has improved in the last day, although he feels that patient's speech is still slower and not completely at baseline. Review of Systems Constitutional: Constitutional: Denies chills, Denies fever(s), Reports weakness and Denies weight loss Eyes: Eyes: Denies diplopia and Denies loss of vision ENT: Denies dizziness, Denies hearing loss and Denies tinnitus Cardiovascular: Cardiovascular: Denies chest pain, Denies syncope and Reports dyspnea Respiratory: Respiratory: Reports cough, Denies dyspnea and Denies wheezing Gastrointestinal: Gastrointestinal: Denies abdominal pain, Denies change in bowel habits and Denies vomiting Genitourinary: Genitourinary: Denies urinary incontinence Musculoskeletal: Musculoskeletal: Reports back pain, Denies arthralgias and Denies joint swelling Integumentary/Breasts: Skin/Breast: Denies new lesions and Denies rash Neurologic: Reports as per HPI, Denies dizziness, Denies syncope and Denies loss of vision Psychiatric: Psychiatric: Denies anxiety and Reports depression Endocrine: Endocrine: Denies cold intolerance and Denies heat intolerance Hematologic/Lymphatic: Hematologic/Lymphatic: Denies easy bleeding and Denies easy bruising Allergic/Immunologic: Allergic/Immunologic: Denies no additional allergic/immunologic complaints and Denies wheezing PMFSH Past Medical History Medical History Arterial insufficiency of lower extremity Arthritis of right knee Atrial fibrillation (06/11/17) Blood transfusion during current hospitalisation Chronic atrial fibrillation Chronic kidney disease, stage 3 (moderate) 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
--- NOTE | 2022-12-30 13:43 | PM.PNNEP ---
Progress Note: A&P Assessment and Plan (1) Hyponatremia: Code(s): E87.1 - Hypo-osmolality and hyponatremia Status: Acute Assessment and Plan: slow and steady improvement acute on chronic sodium running 133 - 135mmol/L in last month (November 2022) however, in July 2022, was within normal limits risk factors for low sodium: medications [SSRI (fluoxetine and duloxetine) + pain meds] thyroid disease pain issues prerenal factors? evaluation to date: TSH okay urine electrolytes noted (urine sodium 40) for completeness, will check SPEP, UPEP, and cortisol continue fluid restriction follow repeat sodium levels (2) Generalized weakness: Code(s): R53.1 - Weakness Status: Acute Assessment and Plan: presumably due to deconditioning PT/OT as tolerated (3) Recurrent falls while walking: Code(s): R29.6 - Repeated falls Status: Acute Assessment and Plan: related to #2 PT/OT as tolerated (4) Hypertension: Code(s): I10 - Essential (primary) hypertension Status: Chronic Assessment and Plan: well controlled at this time follow trend of hemodynamics Will continue to follow. Subjective Date/time seen: 12/30/22 13:43 Interval history: Follow-up for acute on chronic hyponatremia. Sodium continues to improve with minimal intervention (only on fluid restriction at this time); mentation seems to have improved as well (arguing perhaps low sodium was indeed a contributing factor with regard to his confusion); no other acute issues to report; no issues/events overnight or earlier this AM. Exam Narrative: General: elderly but WD/WN male in NAD Heart: normal S1 and S2; no rub Lungs: clear to auscultation Abdomen: soft, nontender, nondistended, positive bowel sounds Extremities: no cyanosis or clubbing; no edema Skin: warm and intact Objective Data Vital Signs Vital Signs: Vital Signs 12/29/22 21:01 12/29/22 22:35 12/29/22 20:00 Temperature 97.2 F L Pulse Rate 61 87 Respiratory Rate 18 Blood Pressure 130/73 Pulse Oximetry 98 93 Oxygen Delivery CPAP CPAP 12/30/22 05:20 12/30/22 04:53 12/30/22 08:53 Temperature 97.1 F L Pulse Rate 81 60 60 Respiratory Rate 18 Blood Pressure 126/64 Pulse Oximetry 95 98 Oxygen Delivery CPAP 12/30/22 08:55 12/30/22 13:00 Temperature 97.5 F L Pulse Rate 60 58 L Respiratory Rate 20 Blood Pressure 128/59 L Pulse Oximetry 99 Oxygen Delivery Intake/Output Intake/Output: Intake & Output 12/28/22 12/29/22 12/30/22 12/31/22 23:59 23:59 23:59 23:59 Intake Total 250 480 960 Output Total 419 595 5354 600 Balance -500 30 -540 -600 Meds/Results Medications: Active Medications Generic Name Dose Route Start Last Admin Trade Name Freq PRN Reason Stop Dose Admin Amiodarone HCl 200 mg 12/25/22 08:00 12/30/22 08:55 Amiodarone Hcl 200 Mg Tablet PO 200 mg DAILY@0800 [facility] Administration Apixaban 5 mg 12/25/22 09:00 12/30/22 20:47 Apixaban 5 Mg Tablet PO 5 mg Q12HR LARA Administration Cyanocobalamin 1,000 mcg 12/31/22 09:00 Cyanocobalamin 1,000 Mcg Tablet PO QAM LARA Diazepam 5 mg 12/29/22 21:00 12/30/22 20:47 Diazepam (*Crx) 5 Mg Tablet PO 5 mg HS LARA Administration Diclofenac Sodium 1 applic 12/25/22 09:00 12/29/22 21:54 Diclofenac Sodium 1% 100 Gm Gel (*Bkc) TOPICAL 1 applic QID PRN Administration joint pain Docusate Sodium 100 mg 12/25/22 21:00 12/30/22 20:47 Docusate Sodium 100 Mg Capsule PO 100 mg Q12HR LARA Administration Duloxetine HCl 60 mg 12/25/22 09:00 12/30/22 08:55 Duloxetine Hcl 60 Mg Capsule.Dr PO 60 mg DAILY LARA Administration Fluoxetine HCl 20 mg 12/25/22 09:00 12/30/22 08:55 Fluoxetine Hcl 20 Mg Capsule BY MOUTH 20 mg DAILY LARA Administration Levothyroxine Sodium 100 mcg 12/25/22 06:30 12/31/22 05:23 Laura
--- NOTE | 2022-12-30 13:43 | P.PNNP_ITS ---
Progress Note: A&P Assessment and Plan (1) Hyponatremia: Code(s): E87.1 - Hypo-osmolality and hyponatremia Status: Acute Assessment and Plan: * slow and steady improvement * acute on chronic * sodium running 133 - 135mmol/L in last month (November 2022) * however, in July 2022, was within normal limits * risk factors for low sodium: * medications [SSRI (fluoxetine and duloxetine) + pain meds] * thyroid disease * pain issues * prerenal factors? * evaluation to date: * TSH okay * urine electrolytes noted (urine sodium 40) * for completeness, will check SPEP, UPEP, and cortisol * continue fluid restriction * follow repeat sodium levels (2) Generalized weakness: Code(s): R53.1 - Weakness Status: Acute Assessment and Plan: * presumably due to deconditioning * PT/OT as tolerated (3) Recurrent falls while walking: Code(s): R29.6 - Repeated falls Status: Acute Assessment and Plan: * related to #2 * PT/OT as tolerated (4) Hypertension: Code(s): I10 - Essential (primary) hypertension Status: Chronic Assessment and Plan: * well controlled at this time * follow trend of hemodynamics Will continue to follow. Subjective Date/time seen: 12/30/22 13:43 Interval history: Follow-up for acute on chronic hyponatremia. Sodium continues to improve with minimal intervention (only on fluid restriction at this time); mentation seems to have improved as well (arguing perhaps low sodium was indeed a contributing factor with regard to his confusion); no other acute issues to report; no issues/events overnight or earlier this AM. Exam Narrative: General: elderly but WD/WN male in NAD Heart: normal S1 and S2; no rub Lungs: clear to auscultation Abdomen: soft, nontender, nondistended, positive bowel sounds Extremities: no cyanosis or clubbing; no edema Skin: warm and intact Objective Data Vital Signs Vital Signs: Vital Signs 12/29/22 21:01 12/29/22 22:35 12/29/22 20:00 Temperature 97.2 F L Pulse Rate 61 87 Respiratory Rate 18 Blood Pressure 130/73 Pulse Oximetry 98 93 Oxygen Delivery CPAP CPAP 12/30/22 05:20 12/30/22 04:53 12/30/22 08:53 Temperature 97.1 F L Pulse Rate 81 60 60 Respiratory Rate 18 Blood Pressure 126/64 Pulse Oximetry 95 98 Oxygen Delivery CPAP 12/30/22 08:55 12/30/22 13:00 Temperature 97.5 F L Pulse Rate 60 58 L Respiratory Rate 20 Blood Pressure 128/59 L Pulse Oximetry 99 Oxygen Delivery Intake/Output Intake/Output: Intake & Output 12/28/22 12/29/22 12/30/22 12/31/22 23:59 23:59 23:59 23:59 Intake Total 250 480 960 Output Total 719 442 5002 600 Balance -500 30 -540 -600 Meds/Results Medications: Active Medications Generic Name Dose Route Start Last Admin Trade Name Freq PRN Reason Stop Dose Admin Amiodarone HCl 200 mg 12/25/22 08:00 12/30/22 08:55 Amiodarone Hcl 200 Mg Tablet PO 200 mg DAILY@0800 [facility] Adm
--- NOTE | 2022-12-30 16:45 | PM.IMPN ---
Progress Note: A&P Assessment and Plan (1) Altered mental status: Code(s): R41.82 - Altered mental status, unspecified Status: Acute Assessment and Plan: Patient with mental status changes. Head CT showing no acute findings. Neurology consulted and MRI brain ordered showing no acute findings but progression in scattered changes c/w chronic small vessel ischemic disease. Mental status is better. Could be related to medications. B12 low end of normal so will replace. TSH normal. Sodium better so suspect that this did contribute as well. Follow. Placement being arranged (2) Hyponatremia: Code(s): E87.1 - Hypo-osmolality and hyponatremia Status: Acute Assessment and Plan: Sodium was low at 131 on admission. He normally has a normal sodium baseline. Sodium dropped to 123. Nephrology was consulted. Sodium has slowly climbed 131 this morning. TSH is normal. Etiology could be decrease po intake, meds, pain, pain meds. Appreciate nephrology input. (3) Generalized weakness: Code(s): R53.1 - Weakness Status: Acute Assessment and Plan: Patient with generalized weakness. Lumbar spine MRI (12/18)showing severe lumbar spondylosis, mild central canal stenosis, acute/subacute L5 fracture and acute/subacute left sacral ala fracture. Likely deconditioning. His recent fracture contributing as well. Continue PT and OT. (4) Recurrent falls while walking: Code(s): R29.6 - Repeated falls Status: Acute Assessment and Plan: Related to above. (5) Obstructive sleep apnea (adult) (pediatric): Code(s): G47.33 - Obstructive sleep apnea (adult) (pediatric) Status: Chronic Assessment and Plan: Patient wears CPAP at home. He has been compliant with CPAP treatment here. Continue the same. (6) Chronic kidney disease, stage 3 (moderate): Code(s): N18.3 - Chronic kidney disease, stage 3 (moderate) Status: Acute Assessment and Plan: Creatinine 1.3 on admission and has been stable in the 1.1-1.3 range. Continue to monitor BUN and creatinine (7) Chronic atrial fibrillation: Code(s): I48.20 - Chronic atrial fibrillation, unspecified Status: Acute Assessment and Plan: Patient with paroxysmal atrial fibrillation. EKG on admission shows normal sinus rhythm with first-degree AV block and incomplete left bundle branch block. No significant change from prior EKG. Continue amiodarone and Toprol for rate control. Continue Eliquis for stroke prophylaxis. (8) Arterial insufficiency of lower extremity: Code(s): I73.9 - Peripheral vascular disease, unspecified Status: Acute Assessment and Plan: Patient with presumably known arterial insufficiency of the lower extremities. No imaging available to review. Patient is not on statin therapy for unclear reasons. Family seems to be unsure if he has arterial insufficiency. Good LE pulses. Defer to outpatient provider. (9) Closed compression fracture of L5 vertebra: Code(s): S32.050A - Wedge compression fracture of fifth lumbar vertebra, initial encounter for closed fracture Status: Acute Assessment and Plan: Patient has a known compression fracture. The brace is no longer fitting him so will have to have this resized. Continue PT and OT. Continue supportive care. (10) Morbid obesity with BMI of 40.0-44.9, adult: Code(s): E66.01 - Morbid (severe) obesity due to excess calories; Z68.41 - Body mass index [BMI] 40.0-44.9, adult Status: Acute Assessment and Plan: BMI 42. Continue heart healthy diet. Subjective Date/time seen: 12/30/22 16:45 Interval history: 77yo male with AFib, DM, COPD and HTN here for fall. Assuming care. Chart reviewed. He is alert and mostly oriented. No Cp or SOB. Family in the room and they feel he is close to baseline. Exam Narrative: AF 97.5 128/59 58 20 99%
[2022-12-30] MEDS: CYANOCOBALAMIN INJ 1,000 MCG/ML VIAL 1000 MCG IM (19:36)
--- NOTE | 2022-12-30 19:42 | PC.NURSE ---
On 12/30/22, the ASSEMBLY DEPARTMENT SUPERVISOR, Laura Mosley, provided care and completed [employer] documentation on this patient. I have reviewed the ASSEMBLY DEPARTMENT SUPERVISOR's documentation and agree with the findings.
[2022-12-30] MEDS: diazePAM (*CRX) 5 MG TABLET PO (20:47)
[2022-12-31] VITALS (7 sets, daily range): BP systolic 129–132; BP diastolic 67–75; PULSE 59–66; RESP 16–18; TEMP 36.4; O2SAT 95–98
[2022-12-31] MEDS: LEVOTHYROXINE SODIUM 100 MCG TABLET BY MOUTH (05:23)
[2022-12-31 07:03] LABS: Albumin Level 3.6 g/dL (3.5-5.1); Anion Gap 11 mmol/L (8-16); Blood Urea Nitrogen 21 mg/dL (9-20); Calcium 9.5 mg/dL (8.4-10.2); Carbon Dioxide 24 mmol/L (22-30); Chloride 97 mmol/L (98-107); Estimated CRCL calculation 77 ml/min; Estimated Glomerular Filt Rate > 60; Glucose 102 mg/dL (65-110); Phosphorus 4.8 mg/dL (2.5-4.5); Potassium 4.1 mmol/L (3.4-5.0); Sodium 132 mmol/L (137-145)
--- NOTE | 2022-12-31 09:56 | PCSTNOTE ---
Please refer to the Bedside Swallow Evaluation in the EMR. Please note, silent aspiration cannot be ruled out at bedside.
[2022-12-31] MEDS: FLUoxetine HCL 20 MG CAPSULE BY MOUTH (10:03)
[2022-12-31] MEDS: APIXABAN 5 MG TABLET PO ×2 (10:03→21:30)
[2022-12-31] MEDS: polyethylene glycoL 3350 17 GM POWD.PACK PO (10:03)
[2022-12-31] MEDS: CHOLECALCIFEROL 1,000 UNITS TABLET 4000 UNITS PO (10:03)
[2022-12-31] MEDS: METOPROLOL SUCCINATE EXT REL 100 MG TABCR PO (10:03)
[2022-12-31] MEDS: AMIODARONE HCL 200 MG TABLET PO (10:03)
[2022-12-31] MEDS: MIRABEGRON 25 MG ER TABLET PO (10:04)
[2022-12-31] MEDS: DULoxetine HCL 60 MG CAPSULE.DR PO (10:04)
[2022-12-31] MEDS: CYANOCOBALAMIN 1,000 MCG TABLET 1000 MCG PO (10:04)
[2022-12-31] MEDS: TOLNAFTATE 1% POWDER 45 GM BTL 1 APPLIC TOPICAL ×2 (10:04→21:31)
[2022-12-31] MEDS: DOCUSATE SODIUM 100 MG CAPSULE PO ×2 (10:07→21:30)
[2022-12-31] MEDS: traMADol HCL (*CRX) 50 MG TABLET PO (10:33)
--- NOTE | 2022-12-31 13:45 | P.PNNP_ITS ---
Progress Note: A&P Assessment and Plan (1) Hyponatremia: Code(s): E87.1 - Hypo-osmolality and hyponatremia Status: Acute Assessment and Plan: * slow and steady improvement * acute on chronic * sodium running 133 - 135mmol/L in last month (November 2022) * however, in July 2022, was within normal limits * risk factors for low sodium: * medications [SSRI (fluoxetine and duloxetine) + pain meds] * thyroid disease * pain issues * prerenal factors? * evaluation to date: * TSH okay * urine electrolytes noted (urine sodium 40) * CT and Brain MRI noted * CXR results reviewed * for completeness, will check SPEP, UPEP, and cortisol * continue fluid restriction * follow repeat sodium levels (2) Generalized weakness: Code(s): R53.1 - Weakness Status: Acute Assessment and Plan: * presumably due to deconditioning * PT/OT as tolerated (3) Recurrent falls while walking: Code(s): R29.6 - Repeated falls Status: Acute Assessment and Plan: * related to #2 * PT/OT as tolerated (4) Hypertension: Code(s): I10 - Essential (primary) hypertension Status: Chronic Assessment and Plan: * well controlled at this time * follow trend of hemodynamics Will continue to follow. Subjective Date/time seen: 12/31/22 13:45 Interval history: Follow-up for acute on chronic hyponatremia. Continues to do reasonably well; no apparent distress voiced at the time of my visit; no issues/events overnight or earlier this morning; sodium continues to slowly improve as noted by trend of labs over the last several days. Exam Narrative: General: elderly but WD/WN male in NAD Heart: normal S1 and S2; no rub Lungs: clear to auscultation Abdomen: soft, nontender, nondistended, positive bowel sounds Extremities: no cyanosis or clubbing; no edema Skin: no rash Objective Data Vital Signs Vital Signs: Vital Signs Temp Pulse Resp BP Pulse Ox O2 Del Method 12/31/22 13:00 97.6 F 62 16 129/71 98 12/31/22 10:00 Room Air 12/31/22 10:03 60 12/31/22 10:03 60 12/31/22 02:15 63 97 CPAP 12/30/22 22:55 58 L 97 CPAP 12/31/22 04:10 97.5 F L 63 16 131/67 97 12/30/22 20:20 98.1 F 61 16 132/68 98 Intake/Output Intake/Output: Intake & Output 12/28/22 12/29/22 12/30/22 12/31/22 23:59 23:59 23:59 23:59 Intake Total 250 480 960 240 Output Total 248 254 1184 600 Balance -500 30 540 -360 Meds/Results Medications: Active Medications Generic Name Dose Route Start Last Admin Trade Name Jsq PRN Reason Stop Dose Admin Amiodarone HCl 200 mg 12/25/22 08:00 12/31/22 10:03 Amiodarone Hcl 200 Mg Tablet PO 200 mg DAILY@0800 LARA Administration Apixaban 5 mg 12/25/22 09:00 12/31/22 10:03 Apixaban 5 Mg Tablet PO 5 mg Q12HR LARA Administration Cyanocobalamin 1,000 mcg 12/31/22 09:00 12/31/22 10:04 Cyanocobalamin 1,000 Mcg Tablet PO 1,000 mcg QAM LARA Administration Diazepam 5 mg 12/29/22 21:00 12/30/22 20:47 Diazepam (*Crx) 5 Mg Tablet
--- NOTE | 2022-12-31 13:45 | PM.PNNEP ---
Progress Note: A&P Assessment and Plan (1) Hyponatremia: Code(s): E87.1 - Hypo-osmolality and hyponatremia Status: Acute Assessment and Plan: slow and steady improvement acute on chronic sodium running 133 - 135mmol/L in last month (November 2022) however, in July 2022, was within normal limits risk factors for low sodium: medications [SSRI (fluoxetine and duloxetine) + pain meds] thyroid disease pain issues prerenal factors? evaluation to date: TSH okay urine electrolytes noted (urine sodium 40) CT and Brain MRI noted CXR results reviewed for completeness, will check SPEP, UPEP, and cortisol continue fluid restriction follow repeat sodium levels (2) Generalized weakness: Code(s): R53.1 - Weakness Status: Acute Assessment and Plan: presumably due to deconditioning PT/OT as tolerated (3) Recurrent falls while walking: Code(s): R29.6 - Repeated falls Status: Acute Assessment and Plan: related to #2 PT/OT as tolerated (4) Hypertension: Code(s): I10 - Essential (primary) hypertension Status: Chronic Assessment and Plan: well controlled at this time follow trend of hemodynamics Will continue to follow. Subjective Date/time seen: 12/31/22 13:45 Interval history: Follow-up for acute on chronic hyponatremia. Continues to do reasonably well; no apparent distress voiced at the time of my visit; no issues/events overnight or earlier this morning; sodium continues to slowly improve as noted by trend of labs over the last several days. Exam Narrative: General: elderly but WD/WN male in NAD Heart: normal S1 and S2; no rub Lungs: clear to auscultation Abdomen: soft, nontender, nondistended, positive bowel sounds Extremities: no cyanosis or clubbing; no edema Skin: no rash Objective Data Vital Signs Vital Signs: Vital Signs Temp Pulse Resp BP Pulse Ox O2 Del Method 12/31/22 13:00 97.6 F 62 16 129/71 98 12/31/22 10:00 Room Air 12/31/22 10:03 60 12/31/22 10:03 60 12/31/22 02:15 63 97 CPAP 12/30/22 22:55 58 L 97 CPAP 12/31/22 04:10 97.5 F L 63 16 131/67 97 12/30/22 20:20 98.1 F 61 16 132/68 98 Intake/Output Intake/Output: Intake & Output 12/28/22 12/29/22 12/30/22 12/31/22 23:59 23:59 23:59 23:59 Intake Total 250 480 960 240 Output Total 316 401 9815 600 Balance -500 05 -962 -027 Meds/Results Medications: Active Medications Generic Name Dose Route Start Last Admin Trade Name Freq PRN Reason Stop Dose Admin Amiodarone HCl 200 mg 12/25/22 08:00 12/31/22 10:03 Amiodarone Hcl 200 Mg Tablet PO 200 mg DAILY@0800 LARA Administration Apixaban 5 mg 12/25/22 09:00 12/31/22 10:03 Apixaban 5 Mg Tablet PO 5 mg Q12HR LARA Administration Cyanocobalamin 1,000 mcg 12/31/22 09:00 12/31/22 10:04 Cyanocobalamin 1,000 Mcg Tablet PO 1,000 mcg QAM LARA Administration Diazepam 5 mg 12/29/22 21:00 12/30/22 20:47 Diazepam (*Crx) 5 Mg Tablet PO 5 mg HS LARA Administration Diclofenac Sodium 1 applic 12/25/22 09:00 12/29/22 21:54 Diclofenac Sodium 1% 100 Gm Gel (*Bkc) TOPICAL 1 applic QID PRN Administration joint pain Docusate Sodium 100 mg 12/25/22 21:00 12/31/22 10:07 Docusate Sodium 100 Mg Capsule PO 100 mg Q12HR LARA Administration Duloxetine HCl 60 mg 12/25/22 09:00 12/31/22 10:04 Duloxetine Hcl 60 Mg Capsule.Dr PO 60 mg DAILY LARA Administration Fluoxetine HCl 20 mg 12/25/22 09:00 12/31/22 10:03 Fluoxetine Hcl 20 Mg Capsule BY MOUTH 20 mg DAILY LARA Administration Levothyroxine Sodium 100 mcg 12/25/22 06:30 12/31/22 05:23 Levothyroxine Sodium 100 Mcg Tablet BY MOUTH 100 mcg DAILY@0630 LARA Administration Magnesium Hydroxide 30 ml 12/25/22 20:00 Magnesium Hydroxide Susp 30 Ml Udc PO DAILY PRN Constipation
--- NOTE | 2022-12-31 14:19 | PM.IMPN ---
Progress Note: A&P Assessment and Plan (1) Altered mental status: Code(s): R41.82 - Altered mental status, unspecified Status: Acute Assessment and Plan: Patient with mental status changes. Head CT showing no acute findings. Neurology consulted and MRI brain ordered showing no acute findings but progression in scattered changes c/w chronic small vessel ischemic disease. Mental status continues to improve. Could be related to medications. B12 low end of normal so this was replaced. TSH normal. Sodium better so suspect that this did contribute as well. Follow. Placement being arranged (2) Hyponatremia: Code(s): E87.1 - Hypo-osmolality and hyponatremia Status: Acute Assessment and Plan: Sodium was low at 131 on admission. He normally has a normal sodium baseline. Sodium dropped to 123. Nephrology was consulted. Sodium has slowly climbed 132 this morning. TSH is normal. Etiology could be decrease po intake, meds, pain, and/or pain meds. Appreciate nephrology input. (3) Generalized weakness: Code(s): R53.1 - Weakness Status: Acute Assessment and Plan: Patient with generalized weakness. Lumbar spine MRI (12/18)showing severe lumbar spondylosis, mild central canal stenosis, acute/subacute L5 fracture and acute/subacute left sacral ala fracture. Likely deconditioning. His recent fracture contributing as well. Continue PT and OT. (4) Recurrent falls while walking: Code(s): R29.6 - Repeated falls Status: Acute Assessment and Plan: Related to above. (5) Obstructive sleep apnea (adult) (pediatric): Code(s): G47.33 - Obstructive sleep apnea (adult) (pediatric) Status: Chronic Assessment and Plan: Patient wears CPAP at home. He has been compliant with CPAP treatment here. Continue the same. (6) Chronic kidney disease, stage 3 (moderate): Code(s): N18.3 - Chronic kidney disease, stage 3 (moderate) Status: Acute Assessment and Plan: Creatinine 1.3 on admission and has been stable in the 1.1-1.3 range. Continue to monitor BUN and creatinine (7) Chronic atrial fibrillation: Code(s): I48.20 - Chronic atrial fibrillation, unspecified Status: Acute Assessment and Plan: Patient with paroxysmal atrial fibrillation. EKG on admission shows normal sinus rhythm with first-degree AV block and incomplete left bundle branch block. No significant change from prior EKG. Continue amiodarone and Toprol for rate control. Continue Eliquis for stroke prophylaxis. (8) Arterial insufficiency of lower extremity: Code(s): I73.9 - Peripheral vascular disease, unspecified Status: Acute Assessment and Plan: Patient with presumably known arterial insufficiency of the lower extremities. No imaging available to review. Patient is not on statin therapy for unclear reasons. Family seems to be unsure if he has arterial insufficiency. Good LE pulses. Defer to outpatient provider. (9) Closed compression fracture of L5 vertebra: Code(s): S32.050A - Wedge compression fracture of fifth lumbar vertebra, initial encounter for closed fracture Status: Acute Assessment and Plan: Patient has a known compression fracture. The brace is no longer fitting him so will have to have this resized. Continue PT and OT. Continue supportive care. (10) Morbid obesity with BMI of 40.0-44.9, adult: Code(s): E66.01 - Morbid (severe) obesity due to excess calories; Z68.41 - Body mass index [BMI] 40.0-44.9, adult Status: Acute Assessment and Plan: BMI 42. Continue heart healthy diet. Subjective Date/time seen: 12/31/22 14:19 Interval history: 77yo male with AFib, DM, COPD and HTN here for fall. Feels better. Slept well but was hot and cold at times. No Cp or SOB. Exam Narrative: AF 97.5 131/67 60 16 97% Gen - NARD Chest - CTA bilaterally, nml RR
--- NOTE | 2022-12-31 18:32 | PC.NURSE ---
On 12/31/22, the NEON MOLDER, Laura Mosley, provided care and completed [facility] documentation on this patient. I have reviewed the NEON MOLDER's documentation and agree with the findings.
[2022-12-31] MEDS: TIZANIDINE HCL 4 MG TABLET PO (21:30)
[2022-12-31] MEDS: diazePAM (*CRX) 5 MG TABLET PO (21:30)
[2023-01-01 05:18] VITALS: BP 131/71; PULSE 65; RESP 18; TEMP 36.1; O2SAT 93
[2023-01-01] MEDS: LEVOTHYROXINE SODIUM 100 MCG TABLET BY MOUTH (06:09)
[2023-01-01 08:09] LABS: Anion Gap 6 mmol/L (8-16); Blood Urea Nitrogen 21 mg/dL (9-20); Calcium 9.5 mg/dL (8.4-10.2); Carbon Dioxide 25 mmol/L (22-30); Chloride 97 mmol/L (98-107); Estimated CRCL calculation 71 ml/min; Estimated Glomerular Filt Rate 59; Glucose 108 mg/dL (65-110); Sodium 128 mmol/L (137-145)
[2023-01-01] MEDS: traMADol HCL (*CRX) 50 MG TABLET PO (08:49)
[2023-01-01 08:50] VITALS: PULSE 72
[2023-01-01] MEDS: polyethylene glycoL 3350 17 GM POWD.PACK PO (08:50)
[2023-01-01] MEDS: TIZANIDINE HCL 4 MG TABLET PO (08:50)
[2023-01-01] MEDS: METOPROLOL SUCCINATE EXT REL 100 MG TABCR PO (08:50)
[2023-01-01] MEDS: MIRABEGRON 25 MG ER TABLET PO (08:50)
[2023-01-01 08:51] VITALS: PULSE 72
[2023-01-01] MEDS: CHOLECALCIFEROL 1,000 UNITS TABLET 4000 UNITS PO (08:51)
[2023-01-01] MEDS: CYANOCOBALAMIN 1,000 MCG TABLET 1000 MCG PO (08:51)
[2023-01-01] MEDS: AMIODARONE HCL 200 MG TABLET PO (08:51)
[2023-01-01] MEDS: FLUoxetine HCL 20 MG CAPSULE BY MOUTH (08:51)
[2023-01-01] MEDS: DULoxetine HCL 60 MG CAPSULE.DR PO (08:51)
[2023-01-01] MEDS: APIXABAN 5 MG TABLET PO (08:51)
[2023-01-01] MEDS: TOLNAFTATE 1% POWDER 45 GM BTL 1 APPLIC TOPICAL (08:52)
[2023-01-01] MEDS: DOCUSATE SODIUM 100 MG CAPSULE PO (08:53)
--- NOTE | 2023-01-01 13:16 | P.PNNP_ITS ---
Progress Note: A&P Assessment and Plan (1) Hyponatremia: Code(s): E87.1 - Hypo-osmolality and hyponatremia Status: Acute Assessment and Plan: * had slowly improving till labs this AM (01/01/23) * acute on chronic * sodium running 133 - 135mmol/L in last month (November 2022) * however, in July 2022, was within normal limits * risk factors for low sodium: * medications [SSRI (fluoxetine and duloxetine) + pain meds] * thyroid disease * pain issues * prerenal factors? * evaluation to date: * TSH and cortisol okay * urine electrolytes noted (urine sodium 40) * CT and Brain MRI noted * CXR results reviewed * SPE/UPEP pending * continue fluid restriction * will add salt tabs - 1gm bid * follow repeat sodium levels (2) Generalized weakness: Code(s): R53.1 - Weakness Status: Acute Assessment and Plan: * presumably due to deconditioning * PT/OT as tolerated (3) Recurrent falls while walking: Code(s): R29.6 - Repeated falls Status: Acute Assessment and Plan: * related to #2 * PT/OT as tolerated (4) Hypertension: Code(s): I10 - Essential (primary) hypertension Status: Chronic Assessment and Plan: * well controlled at this time * follow trend of hemodynamics Will continue to follow. Subjective Date/time seen: 01/01/23 13:16 Interval history: Follow-up for acute on chronic hyponatremia. Sodium at tad lower as noted by AM labs; mentation remains stable if not better at this time although he reports a difficult night in terms of sleep; no other issues/events overnight or earlier this morning; no apparent distress voiced. Exam Narrative: General: elderly but WD/WN male in NAD Heart: normal S1 and S2; no rub Lungs: clear to auscultation Abdomen: soft, nontender, nondistended, positive bowel sounds Extremities: no cyanosis or clubbing; no edema Skin: no nodules Objective Data Vital Signs Vital Signs: Vital Signs Temp Pulse Resp BP Pulse Ox O2 Del Method 01/01/23 08:49 Room Air 01/01/23 08:51 72 01/01/23 08:50 72 01/01/23 05:18 97 F L 65 18 131/71 93 12/31/22 22:50 59 L 96 CPAP 12/31/22 20:00 66 18 95 Room Air 12/31/22 20:43 97.5 F L 66 18 132/75 95 12/31/22 14:00 97.6 F 62 16 129/71 98 Intake/Output Intake/Output: Intake & Output 12/29/22 12/30/22 12/31/22 01/01/23 23:59 23:59 23:59 23:59 Intake Total 480 960 460 120 Output Total 450 1500 600 500 Balance 51 -677 -159 -609 Meds/Results Medications: Active Medications Generic Name Dose Route Start Last Admin Trade Name Freq PRN Reason Stop Dose Admin Amiodarone HCl 200 mg 12/25/22 08:00 01/01/23 08:51 Amiodarone Hcl 200 Mg Tablet PO 200 mg DAILY@0800 LARA Administration Apixaban 5 mg 12/25/22 09:00 01/01/23 08:51 Apixaban 5 Mg Tablet PO 5 mg Q12HR LARA Administration Cyanocobalamin 1,000 mcg 12/31/22 09:00 01/01/23 08:51 Cyanocobalamin 1,000 Mcg Tablet PO 1,000 mcg QAM LARA Administration Diazepam 5 mg 12/29/22 21:00
--- NOTE | 2023-01-01 13:16 | PM.PNNEP ---
Progress Note: A&P Assessment and Plan (1) Hyponatremia: Code(s): E87.1 - Hypo-osmolality and hyponatremia Status: Acute Assessment and Plan: had slowly improving till labs this AM (01/01/23) acute on chronic sodium running 133 - 135mmol/L in last month (November 2022) however, in July 2022, was within normal limits risk factors for low sodium: medications [SSRI (fluoxetine and duloxetine) + pain meds] thyroid disease pain issues prerenal factors? evaluation to date: TSH and cortisol okay urine electrolytes noted (urine sodium 40) CT and Brain MRI noted CXR results reviewed SPE/UPEP pending continue fluid restriction will add salt tabs - 1gm bid follow repeat sodium levels (2) Generalized weakness: Code(s): R53.1 - Weakness Status: Acute Assessment and Plan: presumably due to deconditioning PT/OT as tolerated (3) Recurrent falls while walking: Code(s): R29.6 - Repeated falls Status: Acute Assessment and Plan: related to #2 PT/OT as tolerated (4) Hypertension: Code(s): I10 - Essential (primary) hypertension Status: Chronic Assessment and Plan: well controlled at this time follow trend of hemodynamics Will continue to follow. Subjective Date/time seen: 01/01/23 13:16 Interval history: Follow-up for acute on chronic hyponatremia. Sodium at tad lower as noted by AM labs; mentation remains stable if not better at this time although he reports a difficult night in terms of sleep; no other issues/events overnight or earlier this morning; no apparent distress voiced. Exam Narrative: General: elderly but WD/WN male in NAD Heart: normal S1 and S2; no rub Lungs: clear to auscultation Abdomen: soft, nontender, nondistended, positive bowel sounds Extremities: no cyanosis or clubbing; no edema Skin: no nodules Objective Data Vital Signs Vital Signs: Vital Signs Temp Pulse Resp BP Pulse Ox O2 Del Method 01/01/23 08:49 Room Air 01/01/23 08:51 72 01/01/23 08:50 72 01/01/23 05:18 97 F L 65 18 131/71 93 12/31/22 22:50 59 L 96 CPAP 12/31/22 20:00 66 18 95 Room Air 12/31/22 20:43 97.5 F L 66 18 132/75 95 12/31/22 14:00 97.6 F 62 16 129/71 98 Intake/Output Intake/Output: Intake & Output 12/29/22 12/30/22 12/31/22 01/01/23 23:59 23:59 23:59 23:59 Intake Total 480 960 460 120 Output Total 450 1500 600 500 Balance 05 -812 -140 -029 Meds/Results Medications: Active Medications Generic Name Dose Route Start Last Admin Trade Name Freq PRN Reason Stop Dose Admin Amiodarone HCl 200 mg 12/25/22 08:00 01/01/23 08:51 Amiodarone Hcl 200 Mg Tablet PO 200 mg DAILY@0800 LARA Administration Apixaban 5 mg 12/25/22 09:00 01/01/23 08:51 Apixaban 5 Mg Tablet PO 5 mg Q12HR LARA Administration Cyanocobalamin 1,000 mcg 12/31/22 09:00 01/01/23 08:51 Cyanocobalamin 1,000 Mcg Tablet PO 1,000 mcg QAM LARA Administration Diazepam 5 mg 12/29/22 21:00 12/31/22 21:30 Diazepam (*Crx) 5 Mg Tablet PO 5 mg HS LARA Administration Diclofenac Sodium 1 applic 12/25/22 09:00 12/29/22 21:54 Diclofenac Sodium 1% 100 Gm Gel (*Bkc) TOPICAL 1 applic QID PRN Administration joint pain Docusate Sodium 100 mg 12/25/22 21:00 01/01/23 08:53 Docusate Sodium 100 Mg Capsule PO 100 mg Q12HR LARA Administration Duloxetine HCl 60 mg 12/25/22 09:00 01/01/23 08:51 Duloxetine Hcl 60 Mg Capsule.Dr PO 60 mg DAILY LARA Administration Fluoxetine HCl 20 mg 12/25/22 09:00 01/01/23 08:51 Fluoxetine Hcl 20 Mg Capsule BY MOUTH 20 mg DAILY LARA Administration Levothyroxine Sodium 100 mcg 12/25/22 06:30 01/01/23 06:09 Levothyroxine Sodium 100 Mcg Tablet BY MOUTH 100 mcg DAILY@0630 LARA Administration Magnesium Hydroxide 30 ml 12/25/22 20:00 Magnesium Hydroxide Susp
--- NOTE | 2023-01-01 13:21 | PM.DS ---
DS: Admitting Diagnosis Discharge Date 01/01/23 Admitting Diagnosis Fall DS: Discharge Diagnosis Discharge Diagnosis (1) Altered mental status: Code(s): R41.82 - Altered mental status, unspecified Status: Acute (2) Hyponatremia: Code(s): E87.1 - Hypo-osmolality and hyponatremia Status: Acute (3) Generalized weakness: Code(s): R53.1 - Weakness Status: Acute (4) Recurrent falls while walking: Code(s): R29.6 - Repeated falls Status: Acute (5) Obstructive sleep apnea (adult) (pediatric): Code(s): G47.33 - Obstructive sleep apnea (adult) (pediatric) Status: Chronic (6) Chronic kidney disease, stage 3 (moderate): Code(s): N18.3 - Chronic kidney disease, stage 3 (moderate) Status: Acute (7) Chronic atrial fibrillation: Code(s): I48.20 - Chronic atrial fibrillation, unspecified Status: Acute (8) Arterial insufficiency of lower extremity: Code(s): I73.9 - Peripheral vascular disease, unspecified Status: Acute (9) Closed compression fracture of L5 vertebra: Code(s): S32.050A - Wedge compression fracture of fifth lumbar vertebra, initial encounter for closed fracture Status: Acute (10) Morbid obesity with BMI of 40.0-44.9, adult: Code(s): E66.01 - Morbid (severe) obesity due to excess calories; Z68.41 - Body mass index [BMI] 40.0-44.9, adult Status: Acute DS: Summary Hospital Course Reason for hospitalization: 77yo male with AFib, DM, COPD and HTN here for fall. Please see H&P for details. Hospital Course: Patient with mental status changes. Head CT showing no acute findings. Neurology consulted and MRI brain ordered showing no acute findings but progression in scattered changes c/w chronic small vessel ischemic disease. Mental status continued to improve. AMS could be related to medications. Valium cut back. B12 low end of normal so this was replaced. TSH normal. Sodium better so suspect that this did contribute as well. Son inquired about carotid studies but no bruits and felt his confusion was more metabolic and not TIA. Sodium was low at 131 on admission.? He normally has a normal sodium baseline.? Sodium dropped to 123.? Nephrology was consulted.? Sodium slowly climbed 132 but then dropped again so NaCl tabs added. Etiology could be decrease po intake, medications (Prozac), pain, and/or pain meds. Appreciate nephrology input. Patient with generalized weakness. Lumbar spine MRI (12/18) showing severe lumbar spondylosis, mild central canal stenosis, acute/subacute L5 fracture and acute/subacute left sacral ala fracture.? Likely weakness related to deconditioning.? His recent fracture contributing as well.? He worked with PT and OT. Patient has LUCIO and wears CPAP at home.? He was compliant with CPAP treatment here.?Patient has CKD and creatinine was 1.3 on admission and has been stable in the 1.1-1.3 range.?Patient with paroxysmal atrial fibrillation.? EKG on admission shows normal sinus rhythm with first-degree AV block and incomplete left bundle branch block.? No significant change from prior EKG.?We continued amiodarone and Toprol for rate control.?We continued Eliquis for stroke prophylaxis. Patient with presumably known arterial insufficiency of the lower extremities (ABIs normal in 2016).? No imaging available to review.? Patient is not on statin therapy for unclear reasons. Family seems to be unsure if he has arterial insufficiency. He had good LE pulses. Defer to outpatient provider. Patient has a known lumbar fracture.? The brace no longer was fitting him so we had it resized.?Patient overall did well and was able to be discharged to skilled facility on 01/01/23. Status at Discharge Cognitive/behavioral status at discharge: stable Time Spent with Patient Time attestation: Total time spent providing and/or coordinating discharge services: 40 minutes Time spent: Greater than 30 minutes Exam Pranav
[2023-01-01 14:00] VITALS: BP 119/58; PULSE 61; RESP 16; TEMP 36.3; O2SAT 99
[2023-01-01] MEDS: SODIUM CHLORIDE 1 GM TABLET PO (14:17)
[2023-01-01 15:19] LABS: SARS-CoV-2 RNA PCR Negative (Negative)
--- NOTE | 2023-01-01 15:51 | PC.NURSE ---
Pt was discharged to [facility]. Pt has been compliant with care. Pt was transported by [email or web address]. Pt IV was removed and pt tolerated it well. Pt has been in bed. Pt has brace that was applied by therapy and pt assisted in application as well. Pt was monitored for any changes in status while here. Report was called to Evon Stuart.
[2023-01-01 17:12] LABS: Osmolality, Urine 833 mOsm/kg (50-1200)
[2023-01-05 09:31] LABS: Red Blood Cell Folate 629
[2023-01-05 15:18] LABS: Albumin 2.6 g/dL (3.8-4.8); Alpha 1 Globulin 0.6 g/dL (0.2-0.3); Alpha 2 Globulin 1.2 g/dL (0.5-0.9); Beta 1 Globulin 0.5 g/dL (0.4-0.6); Gamma Globulin 0.8 g/dL (0.8-1.7); Protein, Total 6.1 g/dL (6.1-8.1)
[2023-01-05 21:41] LABS: Kappa\\Lambda Light Chains 1.07 (0.26-1.65); Lambda Light Chain 39.2 mg/L (5.7-26.3)
[2023-01-08 00:37] LABS: Creatinine, Random Urine 154 mg/dL (20-320); Total Protein/Creatinine Ratio 104 mg/g creat (25-148)
--- NOTE | 2023-01-13 09:49 | PC.NURSE ---
UPEP- no abn peaks. SPEP- Acute inflammatory pattern [place]/Lambda- WNL at 1.[address].
== END 2023-01-01 15:20 | DRG 641 ==
LOC: ANHED 19:03 → ANH3MEDSUR 12-25 01:43
PROVIDERS: Chiropractor; Internal Medicine Nephrology; Preventive Medicine Aerospace Medicine; Student in an Organized Health Care Education/Training Program; Admitting Provider Internal Medicine; Emergency Provider Emergency Medicine; PCP Family Medicine; Visit Provider Internal Medicine
DX: E87.1 Hypo-osmolality and hyponatremia (principal); Z68.41 Body mass index [BMI] 40.0-44.9, adult; R29.6 Repeated falls; J44.9 Chronic obstructive pulmonary disease, unspecified; I12.9 Hypertensive chronic kidney disease with stage 1 through stage 4 chronic kidney disease, or unspecified chronic kidney disease; N18.30 Chronic kidney disease, stage 3 unspecified; S32.050D Wedge compression fracture of fifth lumbar vertebra, subsequent encounter for fracture with routine healing; S32.10XD Unspecified fracture of sacrum, subsequent encounter for fracture with routine healing; T50.905A Adverse effect of unspecified drugs, medicaments and biological substances, initial encounter; E11.22 Type 2 diabetes mellitus with diabetic chronic kidney disease; E11.42 Type 2 diabetes mellitus with diabetic polyneuropathy; E11.51 Type 2 diabetes mellitus with diabetic peripheral angiopathy without gangrene; E66.01 Morbid (severe) obesity due to excess calories; E78.5 Hyperlipidemia, unspecified; E03.9 Hypothyroidism, unspecified; F32.9 Major depressive disorder, single episode, unspecified; G47.33 Obstructive sleep apnea (adult) (pediatric); I48.0 Paroxysmal atrial fibrillation; I44.7 Left bundle-branch block, unspecified; I44.0 Atrioventricular block, first degree; R53.1 Weakness; R41.82 Altered mental status, unspecified; M47.816 Spondylosis without myelopathy or radiculopathy, lumbar region; Z79.85 Long-term (current) use of injectable non-insulin antidiabetic drugs; Z99.89 Dependence on other enabling machines and devices; Z87.891 Personal history of nicotine dependence; Z90.49 Acquired absence of other specified parts of digestive tract; Z96.619 Presence of unspecified artificial shoulder joint; Z96.659 Presence of unspecified artificial knee joint; Z20.822 Contact with and (suspected) exposure to COVID-19
CPT/HCPCS: 36415; 70450; 70551; 71046; 72148; 73100; 80048; 80053; 80069; 81003; 82533; 82570; 82607; 82747; 82948; 83735; 83883; 83930; 83935; 84155; 84156; 84165; 84166; 84295; 84300; 84425; 84443; 85025; 87635; 92610; 93005; 97110; 97161; 97166; 97530; 97535; 99285; A9270; G0378; J3420

== ENCOUNTER 2023-01-11 08:54 | Outpatient (CLI) | payer MEDICARE, SELFPAY ==
--- NOTE | ~2023-01-11 | MR_ITS ---
MRI of the lumbar spine Clinical History: Back pain Technique: Axial T2-weighted images, and sagittal T1-weighted, T2-weighted, and T2 fat-sat images wer e acquired. COMPARISON: 12/26/2022 Findings: Subacute L5 compression fracture is stable from prior exam. Stable left sacral alae insuffi ciency fracture. Stable minimal grade 1 retrolisthesis of L1 over L2, and of L2 over L3. No other sig nificant bone marrow signal abnormality seen. At L1-L2, there is severe degenerative disc narrowing, with severe facet arthropathy. No significant disc bulge. There is no central canal stenosis. There is moderate to advanced bilateral neural forami nal narrowing. At L2-L3, there is advanced degenerative disc narrowing. There is minimal disc bulge and moderate fac et arthropathy. No central canal stenosis. There is moderate bilateral neural foraminal narrowing, ri ght worse than left. At L3-L4, there is severe degenerative disc narrowing. There is mild disc bulge with severe facet art hropathy. No central canal stenosis. There is moderate to advanced right neural foraminal narrowing, and mild to moderate left neural foraminal narrowing. At L4-L5, there is mild disc bulge and severe facet arthropathy, with mild central canal stenosis. Th ere is severe right neural foraminal narrowing. There is mild left neural foraminal narrowing. At L5-S1, there is severe degenerative disc narrowing with moderate facet arthropathy. No central can al stenosis. There is severe bilateral neural foraminal narrowing. Paravertebral soft tissues are unremarkable. Impression: Stable subacute L5 compression fracture. Stable left sacral insufficiency fracture. Severe degenerative spondylosis, as noted above. Reviewed, dictated and finalized at [facility]. Impression: Stable subacute L5 compression fracture. Stable left sacral insufficiency fracture. Severe degenerative spondylosis, as noted above.
--- NOTE | ~2023-01-11 | MR_ITS ---
EXAMINATION: MR pelvis wo con DATE: 01/11/2023 10:37 INDICATION: Bilateral low back pain. TECHNIQUE: Magnetic resonance imaging (MRI) of the pelvis was performed without intravenous contrast. COMPARISON: Lumbar spine MRI 12/26/2022, pelvis and left hip radiograph 10/30/2022, CT abdomen and pelv is 05/23/13 FINDINGS: There are no dilated loops of bowel. The prostate is mildly enlarged. There are no pathologically enl arged lymph nodes. There is no free intraperitoneal fluid. There is an L5 compression fracture with 1 /5 loss of height and edema-like marrow signal intensity. There is an insufficiency fracture of left sacral ala with edema-like marrow signal intensity and low signal fracture line. There is severe lumb ar spondylosis. There is mild osteoarthritis of the hips. There is a 3.1 cm lesion of increased T2-we ighted signal intensity in intertrochanteric region of proximal left femur, stable from 05/23/2013, lik blas a benign lesion such as fibrous dysplasia. IMPRESSION: 1. Subacute compression fracture of L5, stable from 12/26/22. 2. Subacute insufficiency fracture of left sacral ala again seen. Reviewed, dictated and finalized at location E.
== END 2023-01-11 08:55 | disposition home or self-care (01) ==
PROVIDERS: PCP Family Medicine
DX: S32.050D Wedge compression fracture of fifth lumbar vertebra, subsequent encounter for fracture with routine healing (principal); X58.XXXD Exposure to other specified factors, subsequent encounter; M47.896 Other spondylosis, lumbar region
CPT/HCPCS: 72148; 72195

== ENCOUNTER 2023-08-16 14:01 | Emergency (ER) | payer MEDICARE, MEDICAID, SELFPAY ==
--- NOTE | ~2023-08-16 | XR_ITS ---
EXAMINATION: XR chest 1V portable DATE: 08/16/2023 14:56 INDICATION: Weakness. Low blood pressure. TECHNIQUE: A single frontal view of the chest was obtained on 2 radiographs. COMPARISON: None. FINDINGS: There is mild atelectasis in left lower lung zone. No pleural effusion or pneumothorax. The heart size is normal. There are bilateral shoulder arthroplasties. IMPRESSION: 1. Mild atelectasis in left lower lung zone. Reviewed, dictated and finalized at location A.
[2023-08-16 14:26] VITALS: BP 84/51; PULSE 59; RESP 16; TEMP 36.9; O2SAT 100
--- NOTE | 2023-08-16 14:44 | ECG_ITS ---
Measurements Intervals Strong Rate: 59 P: 49 NJ: 317 QRS: -38 QRSD: 126 T: 4 QT: 413 QTc: 411 Interpretive Statements SINUS BRADYCARDIA WITH FIRST DEGREE AV BLOCK WITH FREQUENT SUPRAVENTRICULAR PREMATURE COMPLEXES MARKED LEFT AXIS DEVIATION [QRS AXIS < -30] INCOMPLETEL LEFT BUNDLE BRANCH BLOCK COMPARED TO ECG 12/24/2022 18:32:36 NO SIGNIFICANT CHANGES Electronically Signed On 08-17-2023 8:43:55 CDT by Pauline Doty M.D.
[2023-08-16 14:55] LABS: Basophils Percent Auto 0.6 % (0.2-1.2); Eosinophils Absolute Auto 0.2 K/mm3 (0-0.3); Eosinophils Percent Auto 3.7 % (0-4.4); Hematocrit 35.7 % (42.0-52.0); Hemoglobin 11.7 g/dL (14.0-18.0); Immature Granulocyte Absolute 0.03 K/mm3 (0.00-0.031); Immature Granulocyte Percent A 0.5 % (0-0.5); Lymphocytes Absolute Auto 1.29 K/mm3 (0.9-3.2); Mean Corpuscular HGB Conc 32.8 g/dl (32-36); Mean Corpuscular Hemoglobin 31.5 pg (26-34); Mean Platelet Volume 9.5 fl (7.4-10.4); Monocytes Absolute Auto 0.6 K/mm3 (0.1-0.6); Neutrophils Absolute Auto 4.3 K/mm3 (1.3-6.7); Neutrophils Percent Auto 66.2 % (45.5-73.1); Platelet Count Result 244 k/mm3 (150-375); Red Blood Count 3.72 M/mm3 (4.6-6.20); White Blood Count 6.5 K/mm3 (4.5-10.0)
[2023-08-16 14:58] VITALS: BP 101/70; PULSE 59; RESP 16; O2SAT 100
[2023-08-16 15:10] LABS: Lactic Acid Reflex 0.6 mmol/L (0.7-2.0)
[2023-08-16 15:11] LABS: Alanine Aminotransferase 20 U/L (6-50); Albumin Level 4.3 g/dL (3.5-5.1); Alkaline Phosphatase 93 U/L (38-126); Anion Gap 8 mmol/L (4-12); Aspartate Amino Transferase 29 U/L (17-59); Bilirubin,Total 0.5 mg/dL (0.2-1.3); Blood Urea Nitrogen 38 mg/dL (9-20); Calcium 9.4 mg/dL (8.4-10.2); Carbon Dioxide 22 mmol/L (22-30); Chloride 106 mmol/L (98-107); Estimated CRCL calculation 44 ml/min; Estimated Glomerular Filt Rate 35; Glucose 86 mg/dL (65-110); Potassium 4.3 mmol/L (3.4-5.0); Sodium 136 mmol/L (137-145)
[2023-08-16 15:27] LABS: Appearance Urine Clear (Clear); Bacteria Urine None Seen /hpf; Bilirubin Urine Negative (Negative); Blood Urine Negative (Negative); Color Urine Yellow (Yellow); Glucose Urine UA Negative (Negative); Ketones Urine Negative (Negative); Leukocyte Esterase Ur 1+ LEU/UL (Negative); Need Manual Microscopic Reviewed; Nitrate Urine Negative (Negative); Protein Urine Negative (Negative); RBC Urine 0-2 /hpf (0-2); Specific Grav Ur 1.017 (1.001-1.035); Squamous Epithelial Cell Urine None Seen /hpf (Few); WBC Urine 0-5 /hpf (0-3)
[2023-08-16 15:28] LABS: Add Urine Microscopic? YES
[2023-08-16] MEDS: SODIUM CHLORIDE 0.9% IV 500 ML 999 ML IV CONT (15:49)
--- NOTE | 2023-08-16 17:10 | ED.GENADULT ---
HPI - General Adult General Chief complaint: Recheck/Abnormal Lab/Rx Stated complaint: low bp Time Seen by Provider: 08/16/23 14:55 Source: patient Mode of arrival: EMS Limitations: no limitations History of Present Illness HPI narrative: 77-year-old with a history of hypertension, CHF, diabetes, atrial fibrillation here with complaints of low blood pressure for past 1 week. He denies any chest pain, shortness of breath. No history of nausea vomiting and diarrhea. He is on Lasix daily. He states that he follows with a coil connector repairer at [facility] Onset (ago): week(s) (1) Pain Consistency: constant Relieving factors: none Exacerbating factors: none Associated symptoms: denies other symptoms Related Data Home Medications Medication Instructions Recorded Confirmed amiodarone 200 mg tablet 200 mg PO DAILY 04/19/19 08/09/23 metoprolol succinate 100 mg 100 mg PO DAILY 04/19/19 08/09/23 tablet,extended release 24 hr diclofenac sodium 1 % topical gel 4 g topical QID 12/25/22 08/09/23 (Voltaren Arthritis Pain) levothyroxine 100 mcg tablet 100 mcg DAILY 12/25/22 08/09/23 amlodipine 10 mg tablet 10 mg PO DAILY 05/19/23 08/09/23 benazepril 20 mg tablet 20 mg PO DAILY 05/19/23 08/09/23 cholecalciferol (vitamin D3) 25 50 mcg PO DAILY 05/19/23 08/09/23 mcg (1,000 unit) capsule famotidine 20 mg tablet (Pepcid) 20 mg PO DAILY PRN 05/19/23 08/09/23 fluoxetine 40 mg capsule 40 mg PO DAILY 05/19/23 08/09/23 indapamide 1.25 mg tablet 1.25 mg PO DAILY 05/19/23 08/09/23 blood sugar diagnostic (OneTouch #10 ea 08/09/23 08/09/23 Ultra Test strips) cyclobenzaprine 10 mg tablet 10 mg PO TID 08/09/23 08/09/23 triamcinolone acetonide 0.1 % 1 applic dental BID 08/09/23 08/09/23 dental paste Allergies Allergy/AdvReac Type Severity Reaction Status Date / Time No Known Allergies Allergy Verified 08/16/23 14:29 Review of Systems Review of Systems: All systems reviewed & are unremarkable except as noted in HPI and below Constitutional: Constitutional: Reports no additional constitutional complaints Eyes: Eyes: Reports no additional eye complaints ENT: Reports system reviewed and no additional complaints, except as documented Cardiovascular: Cardiovascular: Reports no additional cardiovascular complaints Respiratory: Respiratory: Reports no additional respiratory complaints Gastrointestinal: Gastrointestinal: Reports no additional gastrointestinal complaints Genitourinary: Genitourinary: Reports no additional male genitourinary complaints ON LICENSE OF [facility] Past Medical History Medical History Arterial insufficiency of lower extremity Arthritis of right knee Atrial fibrillation (06/11/17) Blood transfusion during current hospitalisation Chronic atrial fibrillation Chronic kidney disease, stage 3 (moderate) Closed compression fracture of L5 vertebra 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) Encounter for screening colonoscopy (~2016) Gastrointestinal bleed Hammer toe History of blood transfusion Hyperthyroidism Left ventricular failure Major depressive disorder, single episode, unspecified Morbid (severe) obesity with alveolar hypoventilation Mycobacterium avium infection Obstructive sleep apnea (adult) (pediatric) Peripheral neuropathy due to disorder of metabolism Primary pulmonary hypertension Sacral insufficiency fracture 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
[2023-08-16 17:16] VITALS: BP 117/71; PULSE 62; RESP 16; O2SAT 100
== END 2023-08-16 17:50 | disposition home or self-care (01) ==
PROVIDERS: Emergency Provider Family Medicine; PCP Family Medicine
DX: I95.9 Hypotension, unspecified (principal); N18.30 Chronic kidney disease, stage 3 unspecified; I48.91 Unspecified atrial fibrillation; R00.1 Bradycardia, unspecified; F32.A Depression, unspecified; G47.30 Sleep apnea, unspecified; E11.9 Type 2 diabetes mellitus without complications
CPT/HCPCS: 36415; 71045; 80053; 81001; 83605; 85025; 93005; 99283; J7040

== ENCOUNTER 2023-11-29 16:38 | Observation (INO) | payer MEDICARE, MEDICAID, SELFPAY ==
[2023-11-29] VITALS (7 sets, daily range): BP systolic 104–159; BP diastolic 59–88; PULSE 65–71; RESP 12–20; TEMP 35.9; O2SAT 98–100
--- NOTE | ~2023-11-29 | US_ITS ---
EXAMINATION: US venous doppler [facility] DATE: 11/30/2023 17:53 INDICATION: significant edema post surgery . TECHNIQUE: Grayscale images without and with compression and Doppler images of the left lower extremi ty veins were obtained. COMPARISON: None FINDINGS: The left common femoral vein, profunda (deep) femoral vein, femoral vein, popliteal vein, peroneal v ein, posterior tibial veins, and greater saphenous vein are patent. Limited visualization of the calf veins. IMPRESSION: Patent left lower extremity veins. No evidence of deep venous thrombosis. Reviewed, dictated and finalized at location K.
--- NOTE | ~2023-11-29 | XR_ITS ---
Portable chest x-ray Comparison: 08/16/2023 Clinical History: RTKR Findings: Lungs are clear, without focal consolidation or pleural effusion. Cardiomediastinal silho uette is stable. Bones and soft tissues are unremarkable, aside from bilateral shoulder arthroplasty. Impression: Clear lungs. Reviewed, dictated and finalized at location . Impression: Clear lungs.
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
[2023-11-29 20:06] LABS: Basophils Percent Auto 0.6 % (0.2-1.2); Eosinophils Absolute Auto 0.4 K/mm3 (0-0.3); Eosinophils Percent Auto 5.7 % (0-4.4); Hematocrit 31.7 % (42.0-52.0); Hemoglobin 10.2 g/dL (14.0-18.0); Immature Granulocyte Absolute 0.07 K/mm3 (0.00-0.031); Lymphocytes Absolute Auto 0.98 K/mm3 (0.9-3.2); Mean Corpuscular HGB Conc 32.2 g/dl (32-36); Mean Corpuscular Hemoglobin 30.3 pg (26-34); Mean Corpuscular Volume 94.1 fl (80-100); Mean Platelet Volume 9.4 fl (7.4-10.4); Monocytes Absolute Auto 0.7 K/mm3 (0.1-0.6); Monocytes Percent Auto 9.8 % (2.6-8.5); Neutrophils Absolute Auto 4.8 K/mm3 (1.3-6.7); Neutrophils Percent Auto 68.9 % (45.5-73.1); Platelet Count Result 245 k/mm3 (150-375); Red Blood Count 3.37 M/mm3 (4.6-6.20)
[2023-11-29 20:08] LABS: Appearance Urine Clear (Clear); Bilirubin Urine Negative (Negative); Blood Urine Negative (Negative); Color Urine Yellow (Yellow); Glucose Urine UA Negative (Negative); Ketones Urine Negative (Negative); Leukocyte Esterase Ur Negative LEU/UL (Negative); Nitrate Urine Negative (Negative); Protein Urine Negative (Negative); Specific Grav Ur 1.016 (1.001-1.035)
[2023-11-29 20:11] LABS: Add Urine Microscopic? NO
[2023-11-29 20:30] LABS: Alanine Aminotransferase 10 U/L (6-50); Albumin Level 3.7 g/dL (3.5-5.1); Alkaline Phosphatase 91 U/L (38-126); Anion Gap 8 mmol/L (4-12); Aspartate Amino Transferase 17 U/L (17-59); Bilirubin,Total 0.6 mg/dL (0.2-1.3); Blood Urea Nitrogen 26 mg/dL (9-20); Calcium 8.9 mg/dL (8.4-10.2); Carbon Dioxide 25 mmol/L (22-30); Chloride 98 mmol/L (98-107); Estimated CRCL calculation 70 ml/min; Estimated Glomerular Filt Rate > 60; Glucose 80 mg/dL (65-110); Potassium 4.3 mmol/L (3.4-5.0); Sodium 131 mmol/L (137-145)
--- NOTE | 2023-11-29 20:38 | PM.IMHP ---
H&P: HPI History of Present Illness Date/Time: 11/29/23 20:38 Chief Complaint: pain with weight-bearing Narrative: This is a 78-year-old male with past medical history significant for morbid obesity, atrial fibrillation, degenerative joint disease, hypothyroidism, chronic kidney disease, Mycobacterium avium, obstructive sleep apnea peripheral neuropathy, that went recently on the are right total knee replacement patient presents to the emergency room due to ongoing pain with weight-bearing of the left lower extremity unable to take care of himself at home. 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) Encounter for screening colonoscopy (~2016) Fracture of sacrum Gastrointestinal bleed Hammer toe History of blood transfusion Hyperthyroidism Left ventricular failure Major depressive disorder, single episode, unspecified Morbid (severe) obesity with alveolar hypoventilation Mycobacterium avium infection Obstructive sleep apnea (adult) (pediatric) Peripheral neuropathy due to disorder of metabolism Primary pulmonary hypertension Sacral insufficiency fracture S/P sacralplasty 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 Type 2 diabetes mellitus with hyperglycemia Ventricular premature depolarization Wears glasses Surgical History Surgical History H/O arthroscopy of left knee H/O arthroscopy of right knee H/O vertebroplasty History of appendectomy History of shoulder replacement History of total right knee replacement (TKR) S/P left knee arthroscopy Family History Family History Mother Family history of thyroid disease Family history of alcoholism Family history of malignant neoplasm of breast in first degree relative, Onset Age: 75 Father Family history of alcoholism Malignant neoplasm of prostate, Onset Age: 92 Family history of throat cancer, Onset Age: 92 Family history of malignant neoplasm of testis, Onset Age: 92 Other Depression Diabetes mellitus Family history of malignant neoplasm Family history of malignant neoplasm of breast Family history of mental disorder Social History Social History Smoking packs per day: 2 Smoking cigarettes per day: 40.0 Smoking status: Former smoker Smoking end date: 05/17/81 Alcohol intake: never Alcohol use details: stopped in 81 Substance use: never Substance use type: former substance user, marijuana, amphetamines, hallucinogens, sedatives, 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,clean sober and proud of it Do You Feel Safe in your Home?: No Lack of Transportation: No Lack of Food: Never True Current Housing: I Do Not Have Housing Concerned About Future Housing: YES Difficulty Paying Gas/Electric Bills: No Difficulty Paying for Meds: No Currently Unemployed: No Education: Master's Degree or Higher Difficulty w/ Childcare or Family Care: No Living arrangements: with friend(s) Gender identity (if verbalized by the patient): Male Spiritual care concerns: Yes (SPIRITISM) Meds Home Medications and Allergies Home Medications Medication Instructions Recorded Confirmed Type amiodarone 200 mg tablet 200 mg PO QAM 04/19/19 11/30/23 History Walker #1 ea 12/18/22 11/30/23 Rx famotidine 20 mg tablet (Pepci
[2023-11-30] VITALS (10 sets, daily range): BP systolic 108–141; BP diastolic 53–84; PULSE 66–79; RESP 14–20; TEMP 35.9–37.1; O2SAT 96–99; BMI 48.9
[2023-11-30] MEDS: HYDROcodone/acetaminophen (*CRX) 5-325 MG TABLET 1 TAB PO ×2 (01:01→11:16)
--- NOTE | 2023-11-30 01:06 | ADMGEN ---
This patient, Fred Jewell, was admitted to Medical Room 345-. Patient/family oriented to hospital policies and general routines including ID bracelet, bed and alarms, visiting hours, pain management, procedures, bathroom and other care routines, personal items, smoking policy, room service/diet, and visiting hours. Information on how to activate the Rapid Response Team has been discussed. Patient/Family are encouraged to report perceived risks to care and to ask questions if they do not understand what they are told or what they should do.
--- NOTE | 2023-11-30 02:49 | PHAR ---
Pt takes 25mg toprol XL not the 100mg. Pt takes fluoxetine and duloxetine together.
[2023-11-30] MEDS: LEVOTHYROXINE SODIUM 100 MCG TABLET PO (06:05)
[2023-11-30] MEDS: ACETAMINOPHEN 500 MG TABLET 1000 MG PO ×3 (06:05→20:34)
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
[2023-11-30] MEDS: FLUTICASONE/SALMETEROL 115-21 MCG INHALER 1 PUFF 2 PUFF INHALATION ×2 (07:35→19:51)
[2023-11-30] MEDS: DULoxetine HCL 60 MG CAPSULE.DR PO (08:04)
[2023-11-30] MEDS: APIXABAN 2.5 MG TABLET PO ×2 (08:04→20:34)
[2023-11-30] MEDS: SENNA/DOCUSATE SODIUM TABLET 2 TAB PO ×2 (08:04→20:34)
[2023-11-30] MEDS: BISACODYL 5 MG TABLET EC PO ×2 (08:04→16:52)
[2023-11-30] MEDS: AMIODARONE HCL 200 MG TABLET PO (08:04)
[2023-11-30] MEDS: CHOLECALCIFEROL 1,000 UNITS TABLET 2000 UNITS PO (08:04)
[2023-11-30] MEDS: FAMOTIDINE 20 MG TABLET PO ×2 (08:04→20:35)
[2023-11-30] MEDS: DOXYCYCLINE HYCLATE 100 MG TABLET PO ×2 (08:04→20:35)
[2023-11-30] MEDS: MIRABEGRON 25 MG ER TABLET PO (08:06)
[2023-11-30 08:34] LABS: Glucose Point of Care 89 mg/dl (65-105)
[2023-11-30] MEDS: FLUoxetine HCL 20 MG CAPSULE 40 MG PO (11:16)
[2023-11-30] MEDS: METOPROLOL SUCCINATE EXT REL 25 MG TABCR PO (11:16)
[2023-11-30] MEDS: CALCIUM/VITAMIN D 500 MG/5 MCG (200 I.U.) TABLET 1000 MG PO ×2 (11:34→16:52)
[2023-11-30 12:24] LABS: Glucose Point of Care 99 mg/dl (65-105)
--- NOTE | 2023-11-30 16:29 | PM.IMPN ---
Progress Note: A&P Assessment and Plan (1) Left leg swelling: Code(s): M79.89 - Other specified soft tissue disorders Status: Acute (2) History of total knee arthroplasty: Code(s): Z96.659 - Presence of unspecified artificial knee joint Status: Acute (3) Atrial fibrillation: Onset Date: 06/11/17 Code(s): I48.91 - Unspecified atrial fibrillation Status: Inactive Plan Patient admitted for placement. Continue PT OT. Coordinator working on authorization to get him to SNF. The patient has no complaints, he does report that there is significant swelling of the left lower extremity since the surgery. Conduct left lower extremity venous Doppler ultrasound. Continue apixaban. Full code. Subjective Date/time seen: 11/30/23 16:29 Interval history: No acute overnight events. Patient denies any symptoms. Review of Systems Review of Systems: All systems reviewed & are unremarkable except as noted in HPI and below (Subjective) Exam Const: General: comfortable and no acute distress Other: Obese Neck: Neck: supple Resp: Effort & Inspection: normal respiratory effort Auscultation: clear to auscultation bilaterally Cardio: Rate: regular rate Rhythm: abnormal rhythm GI: GI Palp: Yes Soft to palpation and No Tenderness to palpation present (GI) Extrem: Other: 2+ pitting edema of the left lower extremity around the knee down to the feet. Increased warmth. Objective Data Vital Signs Vital Signs: Vital Signs - 24 hr 11/29/23 16:42 11/29/23 18:47 11/29/23 18:47 Temperature 96.7 F L Pulse Rate 69 67 Respiratory Rate 20 16 Blood Pressure 104/68 Pulse Oximetry 100 100 Oxygen Delivery Room Air 11/29/23 18:55 11/29/23 20:02 11/29/23 21:00 Temperature Pulse Rate 68 65 71 Respiratory Rate 15 14 14 Blood Pressure 159/81 H 143/88 H 130/60 Pulse Oximetry 99 99 98 Oxygen Delivery 11/29/23 22:00 11/29/23 23:01 11/30/23 01:17 Temperature Pulse Rate 69 68 Respiratory Rate 12 12 Blood Pressure 115/72 120/59 L Pulse Oximetry 99 98 Oxygen Delivery Room Air 11/30/23 01:10 11/30/23 02:10 11/30/23 07:35 Temperature 96.7 F L Pulse Rate 71 Respiratory Rate 20 14 Blood Pressure 128/84 Pulse Oximetry 98 96 Oxygen Delivery Autopap Room Air 11/30/23 06:00 11/30/23 08:04 11/30/23 09:24 Temperature 98.7 F Pulse Rate 75 75 Respiratory Rate 18 Blood Pressure 108/53 L Pulse Oximetry 97 Oxygen Delivery Room Air 11/30/23 08:00 11/30/23 10:28 11/30/23 11:16 Temperature Pulse Rate 75 Respiratory Rate Blood Pressure Pulse Oximetry Oxygen Delivery Room Air Room Air 11/30/23 14:00 Temperature 97.9 F Pulse Rate 66 Respiratory Rate 18 Blood Pressure 138/68 Pulse Oximetry 99 Oxygen Delivery Intake/Output Intake/Output: Intake & Output 11/27/23 11/28/23 11/29/23 11/30/23 23:59 23:59 23:59 23:59 Intake Total 680 Output Total 1450 Balance -770 Meds/Results Medications: Active Medications Generic Name Dose Route Start Last Admin Trade Name Freq PRN Reason Stop Dose Admin Acetaminophen 1,000 mg 11/30/23 06:00 11/30/23 13:50 Acetaminophen 500 Mg Tablet PO 1,000 mg Q8HR LARA Administration Hydrocodone Bitart/Acetaminophen 1 tab 11/29/23 20:40 11/30/23 11:16 Hydrocodone/Acetaminophen (*Crx) 5-325 Mg Tablet PO 1 tab Q4H PRN Administration Pain Rated 4-6 Al Hydrox/Mg Hydrox/Simethicone 30 ml 11/30/23 02:03 Mag Hydrox/Al Hydrox/Simeth 30 Ml Udc PO Q6H PRN Indigestion Amiodarone HCl 200 mg 11/30/23 09:00 11/30/23 08:04 Amiodarone Hcl 200 Mg Tablet PO 200 mg QAM LARA Administration Apixaban 2.5 mg 11/30/23 09:00 11/30/23 08:04 Apixaban 2.5 Mg Tablet PO 12/02/23 21:00 2.5 mg Q12HR LARA Administration Apixaban 5 mg 12/03/23 09:00 Apixaban 5 Mg Tablet PO Q12HR LARA Bisacodyl 5 mg
[2023-11-30 16:58] LABS: Glucose Point of Care 89 mg/dl (65-105)
[2023-11-30] MEDS: diazePAM (*CRX) 5 MG TABLET PO (20:35)
[2023-12-01 02:35] VITALS: RESP 22
[2023-12-01] MEDS: LEVOTHYROXINE SODIUM 100 MCG TABLET PO (05:34)
[2023-12-01] MEDS: ACETAMINOPHEN 500 MG TABLET 1000 MG PO (05:34)
[2023-12-01 05:38] LABS: Glucose Point of Care 97 mg/dl (65-105)
[2023-12-01 06:00] VITALS: BP 126/66; PULSE 70; RESP 18; TEMP 36.6; O2SAT 97
[2023-12-01] MEDS: FLUTICASONE/SALMETEROL 115-21 MCG INHALER 1 PUFF 2 PUFF INHALATION (07:26)
[2023-12-01 07:28] VITALS: PULSE 52; RESP 20; O2SAT 98
[2023-12-01 08:22] LABS: Glucose Point of Care 88 mg/dl (65-105)
[2023-12-01] MEDS: HYDROcodone/acetaminophen (*CRX) 5-325 MG TABLET 1 TAB PO ×2 (08:49→14:24)
[2023-12-01] MEDS: BISACODYL 5 MG TABLET EC PO (08:50)
[2023-12-01] MEDS: CHOLECALCIFEROL 1,000 UNITS TABLET 2000 UNITS PO (08:50)
[2023-12-01] MEDS: MIRABEGRON 25 MG ER TABLET PO (08:50)
[2023-12-01] MEDS: METOPROLOL SUCCINATE EXT REL 25 MG TABCR PO (08:50)
[2023-12-01] MEDS: DOXYCYCLINE HYCLATE 100 MG TABLET PO (08:50)
[2023-12-01] MEDS: AMIODARONE HCL 200 MG TABLET PO (08:50)
[2023-12-01] MEDS: DULoxetine HCL 60 MG CAPSULE.DR PO (08:50)
[2023-12-01] MEDS: FLUoxetine HCL 20 MG CAPSULE 40 MG PO (08:50)
[2023-12-01] MEDS: SENNA/DOCUSATE SODIUM TABLET 2 TAB PO (08:50)
[2023-12-01] MEDS: APIXABAN 2.5 MG TABLET PO (08:51)
[2023-12-01] MEDS: FAMOTIDINE 20 MG TABLET PO (08:51)
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
[2023-12-01 12:01] LABS: Glucose Point of Care 88 mg/dl (65-105)
[2023-12-01] MEDS: CALCIUM/VITAMIN D 500 MG/5 MCG (200 I.U.) TABLET 1000 MG PO (12:26)
[2023-12-01 12:44] LABS: SARS-CoV-2 RNA PCR Negative (Negative)
== END 2023-12-01 14:35 ==
LOC: ANHED 20:40 → ANH3MEDSUR 23:13 → ANH3MED 11-30 01:36 → ANH3MEDSUR 12-02 07:28
PROVIDERS: Admitting Provider Internal Medicine; Emergency Provider Emergency Medicine; PCP Family Medicine; Visit Provider General Practice
DX: R62.7 Adult failure to thrive (principal); Z59.00 Homelessness unspecified; R53.1 Weakness; M25.562 Pain in left knee; M79.89 Other specified soft tissue disorders; G89.18 Other acute postprocedural pain; Z98.890 Other specified postprocedural states; Z96.652 Presence of left artificial knee joint; E66.01 Morbid (severe) obesity due to excess calories; Z68.42 Body mass index [BMI] 45.0-49.9, adult; Z11.52 Encounter for screening for COVID-19; I48.20 Chronic atrial fibrillation, unspecified; N18.30 Chronic kidney disease, stage 3 unspecified; F32.9 Major depressive disorder, single episode, unspecified; G47.33 Obstructive sleep apnea (adult) (pediatric); I27.20 Pulmonary hypertension, unspecified; E11.22 Type 2 diabetes mellitus with diabetic chronic kidney disease; E11.42 Type 2 diabetes mellitus with diabetic polyneuropathy; Z87.891 Personal history of nicotine dependence; Z79.85 Long-term (current) use of injectable non-insulin antidiabetic drugs
CPT/HCPCS: 36415; 71045; 80053; 81003; 82948; 85025; 87635; 93971; 94640; 97110; 97116; 97166; 97530; 97535; 99285; A9270; G0378

== ENCOUNTER 2024-02-25 13:39 | Emergency (ER) | payer MEDICARE, MEDICAID, SELFPAY ==
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
[2024-02-25 14:01] VITALS: BP 129/89; PULSE 65; RESP 18; TEMP 36.4; O2SAT 97
[2024-02-25 14:51] LABS: Basophils Absolute Auto 0.1 K/mm3 (0.0-0.1); Basophils Percent Auto 0.8 % (0.2-1.2); Eosinophils Absolute Auto 0.2 K/mm3 (0-0.3); Eosinophils Percent Auto 2.7 % (0-4.4); Hematocrit 33.4 % (42.0-52.0); Hemoglobin 10.8 g/dL (14.0-18.0); Immature Granulocyte Absolute 0.04 K/mm3 (0.00-0.031); Immature Granulocyte Percent A 0.6 % (0-0.5); Lymphocytes Absolute Auto 1.08 K/mm3 (0.9-3.2); Lymphocytes Percent Auto 15.1 % (18.3-44.2); Mean Corpuscular HGB Conc 32.3 g/dl (32-36); Mean Corpuscular Hemoglobin 29.8 pg (26-34); Mean Corpuscular Volume 92.3 fl (80-100); Mean Platelet Volume 9.7 fl (7.4-10.4); Monocytes Absolute Auto 0.6 K/mm3 (0.1-0.6); Monocytes Percent Auto 8.4 % (2.6-8.5); Neutrophils Absolute Auto 5.2 K/mm3 (1.3-6.7); Neutrophils Percent Auto 72.4 % (45.5-73.1); Platelet Count Result 272 k/mm3 (150-375); Red Blood Count 3.62 M/mm3 (4.6-6.20); Red Cell Distribution Width 13.9 % (11.5-14.5); White Blood Count 7.2 K/mm3 (4.5-10.0)
[2024-02-25 14:58] LABS: Acetaminophen < 10 ug/mL (10-30); Add Urine Microscopic? YES; Appearance Urine Cloudy (Clear); Bacteria Urine 4+ /hpf; Bilirubin Urine Negative (Negative); Blood Urine Non-Hemolyzed Trace (Negative); Color Urine Yellow (Yellow); Ethanol < 10 mg/dL (<10); Glucose Urine UA Negative (Negative); Ketones Urine Negative (Negative); Leukocyte Esterase Ur 3+ LEU/UL (Negative); Nitrate Urine Negative (Negative); Non Pathogenic Casts 0-2; Protein Urine Negative (Negative); RBC Urine 0-2 /hpf (0-2); Salicylate < 1.0 mg/dL (2-20); Squamous Epithelial Cell Urine None Seen /hpf (Few); WBC Urine >100 /hpf (0-3); pH Urine 7.5 (5.0-9.0)
[2024-02-25 14:59] LABS: Alanine Aminotransferase 13 U/L (6-50); Albumin Level 4.1 g/dL (3.5-5.1); Alkaline Phosphatase 115 U/L (38-126); Anion Gap 7 mmol/L (4-12); Aspartate Amino Transferase 20 U/L (17-59); Bilirubin,Total 0.4 mg/dL (0.2-1.3); Blood Urea Nitrogen 22 mg/dL (9-20); Carbon Dioxide 27 mmol/L (22-30); Chloride 98 mmol/L (98-107); Estimated CRCL calculation 52 ml/min; Estimated Glomerular Filt Rate 46; Glucose 101 mg/dL (65-110); Potassium 4.4 mmol/L (3.4-5.0); Sodium 132 mmol/L (137-145)
[2024-02-25 15:07] LABS: Amphetamine Screen Urine Negative (Negative); Barbiturate Screen Urine Negative (Negative); Benzodiazepines Screen Urine Positive (Negative); Cannabinoid Screen Urine Negative (Negative); Cocaine Screen Urine Negative (Negative); Methadone Screen Urine Negative (Negative); Opiate Screen Urine Negative (Negative); Phencyclidine Screen Urine Negative (Negative)
[2024-02-25 15:28] LABS: SARS-CoV-2 RNA PCR Negative (Negative)
[2024-02-25] MEDS: NITROFURANTOIN MONOHYD MACROCR 100 MG CAP PO (16:38)
[2024-02-25 18:58] VITALS: BP 149/89; PULSE 60; RESP 14; O2SAT 100
--- NOTE | 2024-02-25 19:04 | PC.NURSE ---
offered pt a meal tray. pt refused tray at time. pt given box lunch.
--- NOTE | 2024-02-25 19:19 | PC.NURSE ---
Report received from Andrew MAR. Assumed care of patient at this time. Sitter at bedside.
--- NOTE | 2024-02-25 20:17 | PC.NURSE ---
2010 Alex Pozo calls to get update on patient and information. He states he will call back if patient is accepted.
--- NOTE | 2024-02-25 20:29 | PC.NURSE ---
2018 Nevaeh with [facility] calls to get triage info and requests to have patients rehab facility paperwork faxed to [phone]. She states she will call back if accepted.
--- NOTE | 2024-02-25 20:32 | PC.NURSE ---
2023 Alex Pozo says patient is accepted to room 2 Assessment and accepted to but patient needs to bring home med of monjaro and to not tranport until after 0900. Report given to Alex at 2027, number to call when pt leaving is [phone].
--- NOTE | 2024-02-25 20:35 | PC.NURSE ---
Rehab facility papers faxed to [facility] at [phone] at [phone].
--- NOTE | 2024-02-25 20:50 | PC.NURSE ---
2039 Jean, patients son calls to get update.
--- NOTE | 2024-02-25 21:08 | PC.NURSE ---
Philip Alvarez with [facility] calls to get more information on patient. She states she will call back.
[2024-02-25] MEDS: APIXABAN 5 MG TABLET PO (21:22)
[2024-02-25] MEDS: FAMOTIDINE 20 MG TABLET PO (21:22)
[2024-02-25] MEDS: oxyBUTYnin CHLORIDE 5 MG TABLET PO (21:22)
[2024-02-25] MEDS: diazePAM (*CRX) 5 MG TABLET PO (21:22)
--- NOTE | 2024-02-25 21:23 | PC.NURSE ---
2121 Kim with [facility] calls to inform patient has been declined for admission.
--- NOTE | 2024-02-25 21:26 | PC.NURSE ---
Contacted patients sonJean to give update.
--- NOTE | 2024-02-25 22:37 | PC.NURSE ---
Patient stated he uses a cpap at night to sleep. RT called and Darcy stated she will bring patient one.
[2024-02-26 00:49] VITALS: BP 123/96; PULSE 72; RESP 18; TEMP 36.6; O2SAT 99
--- NOTE | 2024-02-26 00:50 | PC.NURSE ---
Addendum entered by Anai Hogue RN 02/26/24 00:51: Sitter remains at bedside. Original Note: Patient moved from Room 15 to Room 12 for use of power outlet for cpap. Vitals updated, RT in room placing patient on home settings for cpap while sleeping.
[2024-02-26 01:00] VITALS: PULSE 81; RESP 20; O2SAT 97
--- NOTE | 2024-02-26 02:45 | PC.NURSE ---
Patient ambulated to the bathroom and back to his room with steady gait with his personal cane. Sitter remains at bedside.
--- NOTE | 2024-02-26 06:18 | PC.NURSE ---
Patient ambulated to the bathroom with a steady gait with his cane and used the bathroom and changed his depend and pants. Sitter remains at bedside.
--- NOTE | 2024-02-26 06:58 | PC.NURSE ---
Sherrie with [facility] calls to state we cannot transfer to [facility] until tomorrow at 11. cigarette examiner notified and [employer] notified.
[2024-02-26 08:04] VITALS: PULSE 87; RESP 22; O2SAT 96
[2024-02-26] MEDS: NITROFURANTOIN MONOHYD MACROCR 100 MG CAP PO (09:37)
[2024-02-26] MEDS: APIXABAN 5 MG TABLET PO (09:37)
[2024-02-26] MEDS: FAMOTIDINE 20 MG TABLET PO (09:37)
[2024-02-26 11:55] VITALS: BP 120/58; PULSE 60; RESP 18; TEMP 36.4; O2SAT 100
== END 2024-02-26 13:28 ==
PROVIDERS: Emergency Provider Emergency Medicine; PCP Family Medicine
DX: R45.851 Suicidal ideations (principal); F32.9 Major depressive disorder, single episode, unspecified; I48.91 Unspecified atrial fibrillation; N18.30 Chronic kidney disease, stage 3 unspecified; G47.33 Obstructive sleep apnea (adult) (pediatric); E11.9 Type 2 diabetes mellitus without complications; Z96.619 Presence of unspecified artificial shoulder joint; Z96.653 Presence of artificial knee joint, bilateral; Z87.891 Personal history of nicotine dependence; Z20.822 Contact with and (suspected) exposure to COVID-19
CPT/HCPCS: 36415; 80053; 80143; 80179; 80307; 81001; 82077; 84443; 85025; 87077; 87086; 87186; 87635; 99285; A9270

== ENCOUNTER 2024-03-18 11:14 | Emergency (ER) | payer MEDICARE, MEDICAID, SELFPAY ==
--- NOTE | ~2024-03-18 | XR_ITS ---
EXAMINATION: XR hip LT 2V w AP pelvis DATE: 03/18/2024 12:29 INDICATION: Left hip pain post fall TECHNIQUE: Anteroposterior view of the pelvis and anteroposterior and cross-table lateral views of th e left hip were obtained. COMPARISON: None. FINDINGS: Transcervical fracture the proximal left femur which appears mildly comminuted along its inferior mar gin. There is mild proximal migration and external rotation. No other fractures identified. Mild oste oarthritis at the right sacral joint. Minimal osteoarthritis at the bilateral hip and left sacral yoselin ac joints. IMPRESSION: 1. Transcervical fracture of the proximal left femur, potentially mildly comminuted, with mild migrat ion and external rotation. Reviewed, dictated and finalized at location A. IMPRESSION: 1. Transcervical fracture of the proximal left femur, potentially mildly commin uted, with mild migration and external rotation.
--- NOTE | ~2024-03-18 | CT_ITS ---
EXAMINATION: CT brain wo con DATE: 03/18/2024 13:18 INDICATION: Fall with posterior head injury. Dizziness. TECHNIQUE: Computed tomography (CT) of the head was performed without intravenous contrast. Sagittal and coronal reconstructions were performed. The mA was adjusted according to patient size. Iterative reconstruction technique was employed. The dose-length product was 605.33 mGy-cm. COMPARISON: head CT dated 12/29/2022 FINDINGS: No fracture. No acute intracranial hemorrhage, acute infarction or abnormal extra axial fluid collect ion. There is moderate scattered white matter hypoattenuation consistent with chronic small vessel is chemic disease. Ventricles are normal and symmetric. No mass/mass effect. Changes of bilateral intra ocular lens replacement. The orbits, paranasal sinuses and mastoid air cells are normal. IMPRESSION: 1. No fracture or acute intracranial process. 2. Stable appearance of moderate scattered white matter hypoattenuation consistent with chronic small vessel ischemic disease. Reviewed, dictated and finalized at location A. IMPRESSION: 1. No fracture or acute intracranial process. 2. Stable appearance of moderate scattered white matter hypoattenuation consist ent with chronic small vessel ischemic disease.
--- NOTE | ~2024-03-18 | CT_ITS ---
EXAMINATION: CT cervical spine wo con DATE: 03/18/2024 13:18 INDICATION: Fall with head injury TECHNIQUE: Computed tomography (CT) of the cervical spine was performed without intravenous contrast. Automated exposure control and iterative reconstruction technique were employed. The dose-length pro duct was 576.02 mGy-cm. COMPARISON: None FINDINGS: Nonfocal mild reversal of the normal cervical lordosis. Vertebral body heights are normal. No acute f racture in the cervical spine. There is a nondisplaced extra-articular fracture at the medial neck of the right clavicle which appears subacute with small amounts of none bridging callus formation. Radha re disc height loss at C3-C4, C4-C5 and C6-C7, moderate disc height loss at C2-C3, C5-C6 and at the v isualized upper thoracic levels. There are small posterior endplate osteophytes contributing to mild central canal stenosis most prominent at C3-C4 and to lesser degree the more caudal cervical levels. There is multilevel severe bilateral cervical facet and uncovertebral osteoarthritis. Osseous fusion at the bilateral C2-C3 and right C4-C5 facet joints. This contributes to moderate to severe neural fo raminal stenosis on the right at C3-C4 and moderate neural from stenosis on the left at C3-C4, bilate rally at C5-C6 and on the left at C6-C7 with mild neural from stenosis remaining cervical levels. Cer vical soft tissues are unremarkable. Visualized apices of the lungs are clear. IMPRESSION: 1. Severe cervical spondylosis. No acute osseous abnormality in the cervical spine. 2. Nondisplaced extra articular fracture at the medial head of the right clavicle which appears subac [place] with early productive changes of healing but still ununited. Correlate for history of recent prio r trauma. Reviewed, dictated and finalized at location A. IMPRESSION: 1. Severe cervical spondylosis. No acute osseous abnormality in the cervical sp ine. 2. Nondisplaced extra articular fracture at the medial head of the right clavic le which appears subacute with early productive changes of healing but still un united. Correlate for history of recent prior trauma.
--- NOTE | ~2024-03-18 | XR_ITS ---
EXAMINATION: XR knee LT 3V DATE: 03/18/2024 12:29 INDICATION: Fall with left hip fracture TECHNIQUE: AP, lateral and oblique views of the left knee were obtained. COMPARISON: 10/30/2022 FINDINGS: Left total knee arthroplasty without patellar resurfacing which appears well seated in near-anatomic alignment with no fracture or periprosthetic lucency to suggest loosening or infection. Small lucent defects at the proximal tibial diaphysis. Soft tissues are unremarkable. No definitive left knee join t effusion. IMPRESSION: 1. Left total knee arthroplasty in near-anatomic alignment with no acute osseous abnormality or defin itive joint effusion. Reviewed, dictated and finalized at location A. IMPRESSION: 1. Left total knee arthroplasty in near-anatomic alignment with no acute osseou s abnormality or definitive joint effusion.
[2024-03-18 11:14] VITALS: BP 128/71; PULSE 64; RESP 17; TEMP 36.7; O2SAT 97
--- NOTE | 2024-03-18 11:42 | ECG_ITS ---
Test Date: 2024-03-18 11:46:55 Measurements Intervals [place] Rate: 61 P: -42 IA: 243 QRS: -31 QRSD: 122 T: -2 QT: 420 QTc: 423 Interpretive Statements SINUS RHYTHM WITH FIRST DEGREE AV BLOCK WITH OCCASIONAL SUPRAVENTRICULAR PREMATURE COMPLEXES LEFT AXIS DEVIATION INTRAVENTRICULAR CONDUCTION DELAY CONSIDER INFERIOR INFARCT, AGE INDETERMINATE BORDERLINE ST-T WAVE ABNORMALITY- HIGH LATERAL LEADS BASELINE ARTIFACT- I, II, III, AVR, AVL, AVF, V1-V3 ABNORMAL ECG No previous ECG available for comparison Electronically Signed On 03-18-2024 17:09:49 CDT by Britton Fang D.O.
[2024-03-18 11:50] LABS: Basophils Absolute Auto 0.1 K/mm3 (0.0-0.1); Eosinophils Absolute Auto 0.1 K/mm3 (0-0.3); Eosinophils Percent Auto 2.1 % (0-4.4); Hematocrit 34.6 % (42.0-52.0); Hemoglobin 11.2 g/dL (14.0-18.0); Immature Granulocyte Absolute 0.03 K/mm3 (0.00-0.031); Immature Granulocyte Percent A 0.6 % (0-0.5); Lymphocytes Absolute Auto 0.83 K/mm3 (0.9-3.2); Lymphocytes Percent Auto 15.9 % (18.3-44.2); Mean Corpuscular HGB Conc 32.4 g/dl (32-36); Mean Corpuscular Hemoglobin 29.6 pg (26-34); Mean Corpuscular Volume 91.5 fl (80-100); Mean Platelet Volume 9.2 fl (7.4-10.4); Monocytes Absolute Auto 0.4 K/mm3 (0.1-0.6); Monocytes Percent Auto 7.5 % (2.6-8.5); Neutrophils Absolute Auto 3.8 K/mm3 (1.3-6.7); Neutrophils Percent Auto 72.9 % (45.5-73.1); Platelet Count Result 260 k/mm3 (150-375); Red Blood Count 3.78 M/mm3 (4.6-6.20); Red Cell Distribution Width 14.2 % (11.5-14.5); White Blood Count 5.2 K/mm3 (4.5-10.0)
[2024-03-18 12:04] LABS: Alanine Aminotransferase 20 U/L (6-50); Albumin Level 4.1 g/dL (3.5-5.1); Alkaline Phosphatase 90 U/L (38-126); Anion Gap 10 mmol/L (4-12); Aspartate Amino Transferase 28 U/L (17-59); Bilirubin,Total 0.3 mg/dL (0.2-1.3); Blood Urea Nitrogen 22 mg/dL (9-20); Calcium 9.1 mg/dL (8.4-10.2); Carbon Dioxide 24 mmol/L (22-30); Chloride 99 mmol/L (98-107); Estimated CRCL calculation 61 ml/min; Estimated Glomerular Filt Rate 54; Glucose 97 mg/dL (65-110); Sodium 133 mmol/L (137-145)
--- NOTE | 2024-03-18 12:40 | ED_ITS ---
HPI - Fall General Chief Complaint: Fall Stated Complaint: fall, left hip pain Time Seen by Provider: 03/18/24 11:40 Source: patient Mode of arrival: ambulatory Limitations: no limitations History of Present Illness HPI Narrative: 78 years old white male came to the ED because of ground level fall. Patient is telling me that he a history of intermittent lightheadedness with multiple falls. Today was walking had lightheadedness and fell backward as usual. Denies loss of consciousness, possible head injury, complaining of left hip and left thigh pain. Patient have shoulder replacement bilaterally and knee replacement bilaterally and lower back surgery. Currently at a custodial. Related Data Home Medications Medication Instructions Recorded Confirmed amiodarone 200 mg tablet 200 mg PO QAM 04/19/19 02/25/24 famotidine 20 mg tablet (Pepcid) 20 mg PO BID 05/19/23 02/25/24 blood sugar diagnostic (OneTouch #10 ea 08/09/23 11/30/23 Ultra Test strips) acetaminophen 500 mg tablet 1,000 mg PO Q8H 11/30/23 02/25/24 bisacodyl 5 mg tablet 5 mg PO BID 11/30/23 02/25/24 calcium carb-ergocalciferol (vit 2 tablet PO BID 11/30/23 02/25/24 D2) 600 mg calcium-200 unit tablet cholecalciferol (vitamin D3) 50 50 mcg PO QAM 11/30/23 02/25/24 mcg (2,000 unit) tablet (Vitamin D3) fluoxetine 40 mg capsule 40 mg PO QAM 11/30/23 02/25/24 fluticasone furoate 100 1 inh inhalation DAILY 11/30/23 02/25/24 mcg-vilanterol 25 mcg/dose inhalation powder (Breo Ellipta) metoprolol succinate 100 mg 100 mg PO DAILY 11/30/23 02/25/24 tablet,extended release 24 hr (Toprol XL) tizanidine 4 mg tablet (Zanaflex) 4 mg PO Q6H PRN Muscle Spasm 11/30/23 02/25/24 diazepam 5 mg tablet 5 mg PO HS 02/25/24 02/25/24 duloxetine 60 mg capsule,delayed 60 mg PO DAILY 02/25/24 02/25/24 release levothyroxine 100 mcg tablet 100 mcg PO DAILY 02/25/24 02/25/24 mirabegron 25 mg tablet,extended 25 mg PO DAILY 02/25/24 02/25/24 release 24 hr (Myrbetriq) oxybutynin chloride 5 mg 5 mg PO HS 02/25/24 02/25/24 tablet,extended release 24 hr sennosides 8.6 mg-docusate sodium 2 tab-cap PO BID PRN Constipation 02/25/24 02/25/24 50 mg capsule (Senna Plus) tirzepatide 5 mg/0.5 mL 5 mg subcut SA 02/25/24 02/25/24 subcutaneous pen injector (Mounjaro) vibegron 75 mg tablet 75 mg PO DAILY 02/25/24 02/25/24 Allergies Allergy/AdvReac Type Severity Reaction Status Date / Time No Known Allergies Allergy Verified 02/25/24 15:12 Review of Systems Review of Systems: All systems reviewed & are unremarkable except as noted in HPI and below PMFSH Past Medical History Medical History Arterial insufficiency of lower extremity Arthritis of right knee Atrial fibrillation (06/11/17) Blood transfusion during current hospitalisation Chronic atrial fibrillation Chronic kidney disease, stage 3 (moderate) Closed compression fracture of L5 vertebra 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) Encounter for screening colonoscopy (~2016) Fracture of sacrum Gastrointestinal bleed Hammer toe History of blood transfusion Hyperthyroidism Left ventricular failure Major depressive disorder, single episode, unspecified Morbid (severe) obesity with alveolar hypoventilation Mycobacterium avium infection Obstructive sleep apnea (adult) (pediatric) Peripheral neuropathy due to disorder of metabolism Primary pulmonary hypertension Sacral insufficiency fracture S/P sacralplasty 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 Type 2 diabetes mellitus with hyperglycemia Ventricular premature depolarization Wears glasses Surgical History Surgical History H/O arthroscopy of left knee H/O arthroscopy of right knee H/O vertebroplasty History of appendectomy History of shoulder replacement History of total knee arthroplasty Left 2023 History of total right knee replacement (TKR) S/P left knee arthroscopy Family History Family History Mother Family history of thyroid disease Family history of alcoholism Family history of malignant neoplasm of breast in first degree relative, Onset Age: 75 Father Family history of alcoholism Malignant neoplasm of prostate, Onset Age: 92 Family history of throat cancer, Onset Age: 92 Family history of malignant neoplasm of testis, Onset Age: 92 Other Depression Diabetes mellitus Family history of malignant neoplasm Family history of malignant neoplasm of breast Family history of mental disorder Social History Social History Smoking packs per day: 2 Smoking cigarettes per day: 40.0 Smoking status: Former smoker Smoking end date: 05/17/81 Alcohol intake: never Alcohol use details: stopped in 81 Substance use: never 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,clean sober and proud of it Do You Feel Safe in your Home?: No Lack of Transportation: No Lack of Food: Never True Current Housing: I Do Not Have Housing Concerned About Future Housing: YES Difficulty Paying Gas/Electric Bills: No Difficulty Paying for Meds: No Currently Unemployed: No Education: Master's Degree or Higher Difficulty w/ Childcare or Family Care: No Living arrangements: with friend(s) Gender identity (if verbalized by the patient): Male Spiritual care concerns: Yes (OZZIE) Exam Narrative: General appearance: Well-developed, well-nourished Skin: Normal color Head: Normocephalic, nontraumatic Eyes: Clear conjunctiva ENT: Oropharynx normal, ears normal, nose normal Neck: Supple, nontender Chest and respiratory: Airway patent, no respiratory distress, no accessory muscle use Heart: Regular rate/rhythm Abdomen: Soft, nontender, no organomegaly, quiet bowel sounds Vascular: Normal peripheral pulses, normal capillary refill. Musculoskeletal: Limited movement of the left hip, no tenderness, left thigh diffuse tenderness laterally, left lower extremity shorter than the right 1. Neurologic: Alert and oriented ?3, PHOTO PRODUCER is normal as tested, no gross motor deficit Course Reevaluation(s) Reevaluation #1: DR. SUZAN POWERS AT [facility] WHO ACCEPTED PATIENT TRANSFER Date: 03/18/24 Time: 20:40 Vital Signs Vital signs: Vital Signs Temperature 36.7 C 03/18/24 11:14 Pulse Rate 64 03/18/24 11:14 Respiratory Rate 17 03/18/24 11:14 Blood Pressure 128/71 03/18/24 11:14 Pulse Oximetry 97 03/18/24 11:14 Oxygen Delivery Room Air 03/18/24 11:14 Temperature 36.7 C 03/18/24 13:58 Pulse Rate 66 03/18/24 13:37 Respiratory Rate 16 03/18/24 13:37 Blood Pressure 116/77 03/18/24 13:37 Pulse Oximetry 96 03/18/24 13:37 Oxygen Delivery Room Air 03/18/24 11:14 MDM - Fall MDM Narrative Medical decision making narrative: For patient came to the ED because of ground level fall complaining of left hip pain. Vital signs are stable Physical examination showed tenderness of the left thigh and shortening of the left lower extremity Differential diagnosis include hip fracture, pelvic fracture, left femur fra cture, contusion. X-RAY OF THE LEFT HIP SHOWED HIP FRACTURE TRANSFERRED TO [facility] Differential Diagnosis Differential diagnosis: Likely other ( CONTUSION VERSUS FRACTURE) Medical Records Attestation: I reviewed the patient's medical records. Lab Data Attestation: I reviewed the patient's lab results. 03/18/24 11:43 03/18/24 11:43 Labs: Lab Results 03/18/24 03/18/24 Range/Units 11:43 11:44 WBC 5.2 (4.5-10.0) K/mm3 RBC 3.78 L (4.6-6.20) M/mm3 Hgb 11.2 L (14.0-18.0) g/dL Hct 34.6 L (42.0-52.0) % MCV 91.5 (80-100) fl MCH 29.6 (26-34) pg MCHC 32.4 (32-36) g/dl RDW 14.2 (11.5-14.5) % Plt Count 260 (150-375) k/mm3 MPV 9.2 (7.4-10.4) fl Immature Gran % (Auto) 0.6 H (0-0.5) % Neut % (Auto) 72.9 (45.5-73.1) % Lymph % (Auto) 15.9 L (18.3-44.2) % [place] % (Auto) 7.5 (2.6-8.5) % Eos % (Auto) 2.1 (0-4.4) % Baso % (Auto) 1.0 (0.2-1.2) % Lymph # (Auto) 0.83 L (0.9-3.2) K/mm3 [place] # (Auto) 0.4 (0.1-0.6) K/mm3 Eos # (Auto) 0.1 (0-0.3) K/mm3 Baso # (Auto) 0.1 (0.0-0.1) K/mm3 Abs Immat Gran (auto) 0.03 (0.00-0.031) K/mm3 Absolute Neuts (auto) 3.8 (1.3-6.7) K/mm3 Absolute Nucleated RBC 0.000 (0.0-0.012) K/mm3 Nucleated RBC % 0.0 (0.0-0.2) % PT 15.2 H (11.1-14.7) Seconds INR 1.2 APTT 28.9 (22.3-36.8) Seconds Sodium 133 L (137-145) mmol/L Potassium 5.0 (3.4-5.0) mmol/L Chloride 99 (98-107) mmol/L Carbon Dioxide 24 (22-30) mmol/L Anion Gap 10 (4-12) mmol/L BUN 22 H (9-20) mg/dL Creatinine 1.30 (0.7-1.3) mg/dL Estim Creat Clear Calc 61 ml/min Estimated GFR 54 L (59 - ) Glucose 97 (65-110) mg/dL Calcium 9.1 (8.4-10.2) mg/dL Total Bilirubin 0.3 (0.2-1.3) mg/dL AST 28 (17-59) U/L ALT 20 (6-50) U/L Alkaline Phosphatase 90 (38-126) U/L Total Protein 8.0 (6.3-8.2) g/dL Albumin 4.1 (3.5-5.1) g/dL Imaging Data Radiologist's impression: Impressions Hip/Pelvis X-Ray 03/18/24 12:30 IMPRESSION: 1. Transcervical fracture of the proximal left femur, potentially mildly comminuted, with mild migration and external rotation. Knee X-Ray 03/18/24 12:33 IMPRESSION: 1. Left total knee arthroplasty in near-anatomic alignment with no acute osseous abnormality or definitive joint effusion. Discharge Plan Discharge Clinical Impression: Closed fracture of left hip Patient Disposition: Acute Care Hospital Condition: Stable Additional Instructions: TRANSFERRED TO [facility] Prescriptions: No Action (DME) OneTouch Ultra Test Strip See Rx Instructions .ROUTE .MEDSUPPLY Qty: 10 Rx Instructions: As directed amiodarone 200 mg tablet 200 mg PO QAM metoprolol succinate [Toprol XL] 100 mg Tablet Extended Release 24 Hr 100 mg PO DAILY acetaminophen 500 mg tablet 1,000 mg PO Q8H calcium carbonate-vitamin D2 600 mg calcium- 200 unit Tablet 2 tablet PO BID bisacodyl 5 mg Tablet 5 mg PO BID cholecalciferol (vitamin D3) [Vitamin D3] 50 mcg (2,000 unit) Tablet 50 mcg PO QAM fluoxetine 40 mg capsule 40 mg PO QAM tizanidine [Zanaflex] 4 mg tablet 4 mg PO Q6H PRN (Reason: Muscle Spasm) fluticasone furoate-vilanterol [Breo Ellipta] 100-25 mcg/dose blister with device 1 inh inhalation DAILY Eliquis 5 mg tablet 5 mg PO BID Qty: 60 0RF Rx Instructions: RESUME 5MG HOME DOSAGE ON 12/03/2023 mirabegron [Myrbetriq] 25 mg tablet extended release 24 hr 25 mg PO DAILY levothyroxine 100 mcg tablet 100 mcg PO DAILY oxybutynin chloride 5 mg tablet extended release 24hr 5 mg PO HS diazepam 5 mg tablet 5 mg PO HS duloxetine 60 mg capsule,delayed release(DR/EC) 60 mg PO DAILY Senna Plus 8.6-50 mg Capsule 2 tab-cap PO BID PRN (Reason: Constipation) vibegron 75 mg Tablet 75 mg PO DAILY Mounjaro 5 mg/0.5 mL pen injector 5 mg SUBCUT SA (DME) Walker See Rx Instructions .Route .MEDSUPPLY Qty: 1 0RF Rx Instructions: As directed ( no wheels) famotidine [Pepcid] 20 mg tablet 20 mg PO BID tramadol 50 mg tablet 50 mg PO Q6H PRN (Reason: pain) Qty: 90 0RF Follow-up/Referrals: Ramone Hemphill MD [Primary Care Provider] -
[2024-03-18 13:09] LABS: INR 1.2; Prothrombin Time 15.2 Seconds (11.1-14.7)
[2024-03-18 13:10] LABS: Partial Thromboplastin Time 28.9 Seconds (22.3-36.8)
[2024-03-18] MEDS: SODIUM CHLORIDE 0.9% IV 1,000 ML 500 ML IV CONT (13:35)
[2024-03-18] MEDS: HYDROmorphone HCL INJ (*CRX) 1 MG/ML SYR 0.5 MG IV PUSH (13:36)
[2024-03-18] MEDS: ONDANSETRON INJ 4 MG/2 ML VIAL IV PUSH (13:36)
[2024-03-18 13:37] VITALS: BP 116/77; PULSE 66; RESP 16; O2SAT 96
[2024-03-18 13:58] VITALS: TEMP 36.7
== END 2024-03-18 13:59 | disposition short-term general hospital (02) ==
PROVIDERS: Emergency Provider Emergency Medicine; PCP Family Medicine
DX: S72.002A Fracture of unspecified part of neck of left femur, initial encounter for closed fracture (principal); I77.1 Stricture of artery; I48.20 Chronic atrial fibrillation, unspecified; I27.0 Primary pulmonary hypertension; E11.22 Type 2 diabetes mellitus with diabetic chronic kidney disease; N18.30 Chronic kidney disease, stage 3 unspecified; E05.90 Thyrotoxicosis, unspecified without thyrotoxic crisis or storm; E66.2 Morbid (severe) obesity with alveolar hypoventilation; Z68.39 Body mass index [BMI] 39.0-39.9, adult; E11.42 Type 2 diabetes mellitus with diabetic polyneuropathy; M17.11 Unilateral primary osteoarthritis, right knee; Z96.611 Presence of right artificial shoulder joint; Z96.612 Presence of left artificial shoulder joint; Z96.653 Presence of artificial knee joint, bilateral; Z87.891 Personal history of nicotine dependence; Z79.899 Other long term (current) drug therapy; Z79.85 Long-term (current) use of injectable non-insulin antidiabetic drugs; Z79.01 Long term (current) use of anticoagulants; I44.0 Atrioventricular block, first degree; I49.1 Atrial premature depolarization; I45.9 Conduction disorder, unspecified; R94.31 Abnormal electrocardiogram [ECG] [EKG]; M47.812 Spondylosis without myelopathy or radiculopathy, cervical region; W18.39XA Other fall on same level, initial encounter
CPT/HCPCS: 36415; 70450; 72125; 73502; 73562; 80053; 85025; 85610; 85730; 93005; 96374; 96375; 99285; J1171; J2405; J7030

== ENCOUNTER 2024-06-16 07:17 | Emergency (ER) | payer MEDICARE, MEDICAID, SELFPAY ==
[2024-06-16] VITALS (10 sets, daily range): BP systolic 132–150; BP diastolic 65–82; PULSE 59–65; RESP 12–19; TEMP 36.4; O2SAT 98–100
--- NOTE | ~2024-06-16 | CT_ITS ---
EXAMINATION: CT brain wo con DATE: 06/16/2024 07:55 INDICATION: Status post fall. TECHNIQUE: Computed tomography (CT) of the head was performed without intravenous contrast. The dose- length product was 605.33 mGy-cm. Automated exposure control and iterative reconstruction technique w ere employed. COMPARISON: CT dated 05/25/2024 FINDINGS: No ventriculomegaly or midline shift. There are scattered moderate periventricular and subc ortical white matter changes, most likely related to small vessel ischemic disease (microangiopathy). No acute infarction, hemorrhage, mass or mass effect. Midline sagittal images demonstrate a normal c orpus callosum and craniovertebral junction. Paranasal sinuses and mastoids are pneumatized. No depre ssed skull fractures. IMPRESSION: 1. No acute intracranial abnormality. Reviewed, dictated and finalized at location A. UCTION ZONE LEADER
--- NOTE | ~2024-06-16 | XR_ITS ---
XR knee LT 3V 06/16/2024 08:55 INDICATION: Left knee pain PROCEDURE: 3 views left knee COMPARISON: 03/18/2024 FINDINGS: Fracture, dislocation or subluxation is not identified. There is anatomic alignment of left total knee arthroplasty. The soft tissues appear within normal limits. No foreign bodies are identi fied. IMPRESSION: 1: NO ACUTE BONE OR JOINT ABNORMALITY IDENTIFIED. Reviewed, dictated and finalized at location A. GER FINANCIAL PLANNING
--- NOTE | ~2024-06-16 | XR_ITS ---
XR knee RT 3V 06/16/2024 08:55 Indication: Right knee pain after fall Procedure: 3 views right knee Comparison: 05/25/2024 Findings: Total right knee arthroplasty in anatomic alignment. There are loose bodies in the suprapat ellar bursa. No acute fracture or traumatic malalignment. No significant joint effusion. Impression: 1: No acute fracture. Reviewed, dictated and finalized at location A. STANT DIRECTOR OF SECURITY Impression: 1: No acute fracture.
--- NOTE | ~2024-06-16 | XR_ITS ---
XR elbow RT min 3V 06/16/2024 08:55 Indication: Right elbow pain after fall Procedure: 3 views right elbow Comparison: No prior studies for comparison. Findings: No fracture, subluxation or dislocation. No significant joint effusion. No foreign bodies. Lateral view limited due to nonstandard view. Impression: 1: No acute abnormality of the right elbow. Reviewed, dictated and finalized at location A. K INSPECTOR Impression: 1: No acute abnormality of the right elbow.
--- NOTE | ~2024-06-16 | CT_ITS ---
EXAMINATION: CT cervical spine wo con DATE: 06/16/2024 08:02 INDICATION: Neck pain after fall TECHNIQUE: Computed tomography (CT) of the cervical spine was performed without intravenous contrast. The dose-length product was 484 mGy-cm. Automated exposure control and iterative reconstruction tech [employer] were employed. COMPARISON: CT dated 05/25/2024 FINDINGS: There is straightening of cervical lordosis. Craniovertebral junction is normal. There is s evere cervical spondylosis. Odontoid process is normal. Craniovertebral junction is normal. No eviden ce for perched facet. No spinous process fractures. There is straightening of cervical lordosis. Ther e is advanced multilevel uncinate and facet hypertrophy. Odontoid process is normal. Lung apices are normal. Stable chronic fracture deformity medial aspect of the right clavicle. IMPRESSION: 1. No acute abnormality of the cervical spine. Reviewed, dictated and finalized at location A. OR REVENUE ACCOUNTANT
--- NOTE | 2024-06-16 07:46 | ED_ITS ---
HPI - Fall General Chief Complaint: Fall Stated Complaint: fall Time Seen by Provider: 06/16/24 07:45 Source: patient and EMS Mode of arrival: EMS History of Present Illness HPI Narrative: 78 years old white male tripped in a towel on the floor and fell on his knees No loss of consciousness, complaining of knees pain and pain behind right ear, and right elbow pain. Patient on Eliquis Related Data Home Medications ?Medication ?Instructions ?Recorded ?Confirmed ?Last Taken ?Type amiodarone 200 mg tablet 200 mg PO QAM 04/19/19 06/16/24 02/25/24 History famotidine 20 mg tablet (Pepcid) 20 mg PO BID 05/19/23 06/16/24 02/25/24 History blood sugar diagnostic (OneTouch #10 ea 08/09/23 11/30/23 Unknown History Ultra Test strips) acetaminophen 500 mg tablet 1,000 mg PO Q8H 11/30/23 02/25/24 02/25/24 History bisacodyl 5 mg tablet 5 mg PO BID 11/30/23 02/25/24 01/13/24 History calcium carb-ergocalciferol (vit 2 tablet PO BID 11/30/23 02/25/24 02/25/24 H istory D2) 600 mg calcium-200 unit tablet cholecalciferol (vitamin D3) 50 50 mcg PO QAM 11/30/23 02/25/24 02/25/24 History mcg (2,000 unit) tablet (Vitamin D3) fluoxetine 40 mg capsule 40 mg PO QAM 11/30/23 02/25/24 02/25/24 History fluticasone furoate 100 1 inh inhalation DAILY 11/30/23 02/25/24 02/25/24 History mcg-vilanterol 25 mcg/dose inhalation powder (Breo Ellipta) metoprolol succinate 100 mg 100 mg PO DAILY 11/30/23 06/16/24 02/25/24 History tablet,extended release 24 hr (Toprol XL) tizanidine 4 mg tablet (Zanaflex) 4 mg PO Q6H PRN Muscle Spasm 11/30/23 06/16/24 02/25/24 History diazepam 5 mg tablet 5 mg PO HS 02/25/24 06/16/24 02/24/24 History duloxetine 60 mg capsule,delayed 60 mg PO DAILY 02/25/24 06/16/24 02/25/24 History release levothyroxine 100 mcg tablet 100 mcg PO DAILY 02/25/24 06/16/24 02/25/24 History mirabegron 25 mg tablet,extended 25 mg PO DAILY 02/25/24 02/25/24 02/25/24 History release 24 hr (Myrbetriq) oxybutynin chloride 5 mg 5 mg PO HS 02/25/24 02/25/24 02/09/24 History tablet,extended release 24 hr sennosides 8.6 mg-docusate sodium 2 tab-cap PO BID PRN Constipation 02/25/24 06/16/24 01/14/24 History 50 mg capsule (Senna Plus) tirzepatide 5 mg/0.5 mL 5 mg subcut SA 02/25/24 02/25/24 02/19/24 History subcutaneous pen injector (Mounjaro) vibegron 75 mg tablet 75 mg PO DAILY 02/25/24 02/25/24 02/25/24 History Allergies Allergy/AdvReac Type Severity Reaction Status Date / Time No Known Allergies Allergy Verified 06/16/24 08:14 Review of Systems Review of Systems: All systems reviewed & are unremarkable except as noted in HPI and below PMFSH Past Medical History Medical History Fracture of femoral neck, left, closed 2023 Fracture of sacrum Sacral insufficiency fracture S/P sacralplasty Closed compression fracture of L5 vertebra Blood transfusion during current hospitalisation History of blood transfusion Gastrointestinal bleed Mycobacterium avium infection Wears glasses Arthritis of right knee Hammer toe Encounter for screening colonoscopy (~2016) Arterial insufficiency of lower extremity Atrial fibrillation (06/11/17) Chronic atrial fibrillation Chronic kidney disease, stage 3 (moderate) 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) Hyperthyroidism Left ventricular failure Major depressive disorder, single episode, unspecified Morbid (severe) obesity with alveolar hypoventilation Obstructive sleep apnea (adult) (pediatric) Peripheral neuropathy due to disorder of metabolism Primary pulmonary hypertension 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 Type 2 diabetes mellitus with hyperglycemia Ventricular premature depolarization Surgical History Surgical History S/P total left hip arthroplasty History of total knee arthroplasty Left 2023 S/P left knee arthroscopy H/O vertebroplasty History of total right knee replacement (TKR) History of shoulder replacement H/O arthroscopy of right knee History of appendectomy H/O arthroscopy of left knee Family History Family History Mother Family history of thyroid disease Family history of alcoholism Family history of malignant neoplasm of breast in first degree relative, Onset Age: 75 Father Family history of alcoholism Malignant neoplasm of prostate, Onset Age: 92 Family history of throat cancer, Onset Age: 92 Family history of malignant neoplasm of testis, Onset Age: 92 Other Depression Diabetes mellitus Family history of malignant neoplasm Family history of malignant neoplasm of breast Family history of mental disorder Social History Social History Smoking packs per day: 2 Smoking cigarettes per day: 40.0 Smoking status: Former smoker Smoking end date: 05/17/81 Alcohol intake: never Alcohol use details: stopped in Substance use: never 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,clean sober and proud of it Do You Feel Safe in your Home?: No Lack of Transportation: No Lack of Food: Never True Current Housing: I Do Not Have Housing Concerned About Future Housing: YES Difficulty Paying Gas/Electric Bills: No Difficulty Paying for Meds: No Currently Unemployed: No Education: Master's Degree or Higher Difficulty w/ Childcare or Family Care: No Living arrangements: with friend(s) Gender identity (if verbalized by the patient): Male Spiritual care concerns: Yes (OZZIE) Exam Narrative: General appearance: Well-developed, well-nourished Skin: Normal color Head: Normocephalic, nontraumatic Eyes: Clear conjunctiva ENT: Oropharynx normal, ears normal, nose normal Neck: Supple, nontender Chest and respiratory: Airway patent, no respiratory distress, no accessory muscle use Heart: Regular rate/rhythm Abdomen: Soft, nontender, no organomegaly, quiet bowel sounds Musculoskeletal: Diffuse the knees tenderness anteriorly, slight limited range of motion, no deformity mild tenderness right elbow, skin tear posteriorly Neurologic: Alert and oriented ?3, 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 No acute intracranial abnormality. Cervical Spine CT 06/16/24 08:15 IMPRESSION: 1. No acute abnormality of the cervical spine. Knee X-Ray 06/16/24 09:17 Impression: 1: No acute fracture. Knee X-Ray 06/16/24 09:19 IMPRESSION: 1: NO ACUTE BONE OR JOINT ABNORMALITY IDENTIFIED. Elbow X-Ray 06/16/24 09:25 Impression: 1: No acute abnormality of the right elbow. Discharge Plan Discharge Clinical Impression: Fall, Contusion Patient Disposition: NH Care Home/Asst Living Condition: Stable Additional Instructions: Return if symptoms are worsening , call your family physician for appointment, take Tylenol as as needed for aches and pain, continue home medications. Patient Language: Serbian Prescriptions: No Action (DME) OneTouch Ultra Test Strip See Rx Instructions .ROUTE .MEDSUPPLY Qty: 10 Rx Instructions: As directed amiodarone 200 mg tablet 200 mg PO QAM metoprolol succinate [Toprol XL] 100 mg Tablet Extended Release 24 Hr 100 mg PO DAILY acetaminophen 500 mg tablet 1,000 mg PO Q8H calcium carbonate-vitamin D2 600 mg calcium- 200 unit Tablet 2 tablet PO BID bisacodyl 5 mg Tablet 5 mg PO BID cholecalciferol (vitamin D3) [Vitamin D3] 50 mcg (2,000 unit) Tablet 50 mcg PO QAM fluoxetine 40 mg capsule 40 mg PO QAM tizanidine [Zanaflex] 4 mg tablet 4 mg PO Q6H PRN (Reason: Muscle Spasm) fluticasone furoate-vilanterol [Breo Ellipta] 100-25 mcg/dose blister with device 1 inh inhalation DAILY Eliquis 5 mg tablet 5 mg PO BID Qty: 60 0RF Rx Instructions: RESUME 5MG HOME DOSAGE ON 12/03/2023 mirabegron [Myrbetriq] 25 mg tablet extended release 24 hr 25 mg PO DAILY levothyroxine 100 mcg tablet 100 mcg PO DAILY oxybutynin chloride 5 mg tablet extended release 24hr 5 mg PO HS diazepam 5 mg tablet 5 mg PO HS duloxetine 60 mg capsule,delayed release(DR/EC) 60 mg PO DAILY Senna Plus 8.6-50 mg Capsule 2 tab-cap PO BID PRN (Reason: Constipation) vibegron 75 mg Tablet 75 mg PO DAILY Mounjaro 5 mg/0.5 mL pen injector 5 mg SUBCUT SA (DME) Walker See Rx Instructions .Route .MEDSUPPLY Qty: 1 0RF Rx Instructions: As directed ( no wheels) famotidine [Pepcid] 20 mg tablet 20 mg PO BID tramadol 50 mg tablet 50 mg PO Q6H PRN (Reason: pain) Qty: 90 1RF Follow-up/Referrals: Ramone Hemphill MD [Primary Care Provider] -
--- OUTSIDE RECORDS SUMMARY | 2024-06-16 08:27 | XMS_ITS | Clinical Summary ---
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 Active ranitidine HCl (ZANTAC) 150 mg Oral Cap Take 150 mg by mouth daily. Active MV,MINERALS/FA/L YCOPENE/GINKGO (ONE-A-DAY MEN'S 50+ ADVANTAGE ORAL) Take by mouth. Active FLUoxetine (PROZAC) 40 mg Oral capsule Take 40 mg by mouth daily. Active metFORMIN (GLUCOPHAGE) 500 mg tablet Take 500 mg by mouth daily. Active tiZANidine (ZANAFLEX) 4 mg Capsule Take 4 mg by mouth. Active timolol (TIMOPTIC) 0.5 % solution 1 Drop daily. Active Active Problems Problem Noted Date Diagnosed Date LUCIO on CPAP 08/30/2014 Other nonspecific abnormal finding of lung field 03/31/2012 Overview (03/31/2012): Multiple pulmonary nodules Mycobacterium avium complex 03/31/2012 Overview (03/31/2012): In sputum Immunizations Immunization Administration Dates Next Due Influenza Seasonal Unspecified Formulation IM ,03/01/2014 Family History Medical History Relation Name Comments Cancer Father PROSTATE, TESTI CULAR, TONGUE, NECK Cancer Mother BREAST Asthma Son Diabetes Neg Hx Emphysema Neg Hx Hypertension Neg Hx Lung Cancer Neg Hx Relation Name Status Comments Father Mother Son Social History Tobacco Use Types Packs/Day Years Used Date Smoking Tobacco: Former Cigarettes 2 20 0 05/17/1961 - 05/17/1981 Alcohol Use Standard Drinks/Week Comments Not Asked 0 (1 standard drink = 0.6 oz pur e alcohol) Sex and Gender Information Value Date Recorded Sex Assigned at Not on file Legal Sex Male 6:10 AM [facility] DIRECT[facility] Gender Identity Not on file Sexual Orientation Not on file Last Filed Vital Signs Vital Sign Reading Time Taken Comments Blood Pressure 108/82 04/09/2015 2:03 PM [facility] DIRECT[facility] Pulse 111 04/09/2015 2:03 PM [facility] DIRECT[facility] Temperature - - Respiratory Rate 22 04/09/2015 2:03 PM [facility] DIRECTOR Oxygen Saturation 97% 04/09/2015 2:03 PM [facility] DIRECTOR RA Inhaled Oxygen Concentration - - Weight 137.7 kg (303 lb 9.3 oz) 04/09/2015 2:03 PM [facility] DIRECT[facility] Height 185.4 cm (6' 1 ) 04/09/2015 2:03 PM [facility]ARE C[facility] DIRECTOR Body Mass Index 40.05 04/09/2015 2:03 PM [facility]ARE C[facility] DIRECTOR Plan of Treatment Health Maintenance Due Date Last Done Comments DTAP/TDAP/TD VACCINES (1 - Tdap) 10/27/1966 PNEUMOCOCCAL VACCINE 65+ YEA RS (1 of 1 - PCV) 10/27/1997 ZOSTER VACCINE (1 of 2) 10/27/1997 RSV VACCINE (60+ or ) (1 - 1-dose 75+ series) 10/27/2022 INFLUENZA VACCINE (#1) 2023 01/15/2015, 2013 Insurance 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
--- OUTSIDE RECORDS SUMMARY | 2024-06-16 08:27 | XMS_ITS | Clinical Summary ---
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 Role Phone Ramone Hemphill MD Primary Care Provider [phone] Allergies No known active allergies Medications FLUoxetine (PROzac) 40 mg capsule Take 1 capsule (40 mg total) by mouth every morning Active triamcinolone (KENALOG) 0.5 % cream as needed Active BREO ELLIPTA 100-25 mcg/dose diskus inhaler Inhale 1 puff every morning 8 Active tiZANidine (ZANAFLEX) 4 mg tabletIndicatio ns:Muscle Spasm Take 1 tablet (4 mg total) by mouth every 6 (six) hours as needed for muscle spasms 0 Active blood-glucose meter kitIndications: Type 2 diabetes mellitus without complication, without long-term current use of insulin ([facility]) ([facility]) Use to test blood glucose once daily 1 kit 1 2 Active lancets miscIndications :Type 2 diabetes mellitus without complication, without long-term current use of insulin ([facility]) ([facility]) Use to test blood glucose once daily 100 each 3 2 Active famotidine (PEPCID) 20 mg tablet Take 1 tablet (20 mg total) by mouth as needed Active DULoxetine DR (CYMBALTA) 60 mg capsule Take 1 capsule (60 mg total) by mouth every morning 3 Active amoxicillin 500 mg capsule TK FOUR CS PO 1 HOUR B DAPP 4 Active levothyroxine (SYNTHROID) 100 mcg tablet Take 1 tablet (100 mcg total) 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 90 tablet 3 4 Active Additional Information Patient taking differently:100 mcg oral Daily (early AM),Indications: hypothyroidism, Informant: Self, Reported on 10/21/2023 CALCIUM ORAL Take 1,200 mg by mouth 2 (two) times a day Active cholecalciferol , vitamin D3, (VITAMIN D3 ORAL) Take 3,600 Units by mouth every morning 1600 units PM Active bisacodyL 5 mg tablet Take 1 tablet by mouth as needed Active guaiFENesin (Mucinex) 1,200 mg tablet extended release 12hr Take 1 tablet/capsule by mouth as needed Active amiodarone (PACERONE) 200 mg tablet Take 1 tablet (200 mg total) by mouth every morning 90 tablet 2 4 Active acetaminophen (TYLENOL) 500 mg tablet Take 2 tablets (1,000 mg total) by mouth every 8 (eight) hours 90 tablet 1 4 Active senna-docusate (Senna-S) 8.6-50 mg Take 2 tablets by mouth 2 (two) times a day 80 tablet 1 4 Active apixaban (Eliquis) 2.5 mg tablet Take 1 tablet (2.5 mg total) by mouth 2 (two) times a day Please start Eliquis 2.5mg twice daily starting on 11/[address] Quinteros. You may resume your normal home dose of Eliquis 5mg twice daily one week post operatively 14 tablet 4 Active oxyBUTYnin XL (DITROPAN-XL) 5 mg 24 hr tablet Take 1 tablet (5 mg total) by mouth daily 4 Active tirzepatide (Mounjaro) 7.5 mg/0.5 mL pen injector Inject 7.5 mg under the skin once a week 2 mL 11 4 Active lancets 33 gauge miscIndications :Type 2 diabetes mellitus without complication, without long-term current use of insulin (CMS/HCC) (HCC) 1 each daily 100 each 3 4 Active blood glucose diagnostic (glucose blood) stripIndication s:Type 2 diabetes mellitus without complication, without long-term current use of insulin ([facility]) ([facility]) Use to test blood glucose once daily Onetouch Verio 100 strip 3 4 Active metoprolol XL (TOPROL-XL) 25 mg extended release tablet Take 0.5 tablets (12.5 mg total) by mouth daily 4 03/23/20 25 Active gabapentin (NEURONTIN) 100 mg capsule Take 2 capsules (200 mg total) by mouth 3 (three) times a day 4 03/23/20 25 Active methocarbamoL (ROBAXIN) 500 mg tablet Take 1 tablet (500 mg total) by mouth 3 (three) times a day 4 Active sodium chloride 1 gram tablet Take 1 tablet (1 g total) by mouth 2 (two) times a day with meals for 7 days 4 Active oxyCODONE (ROXICODONE) 5 mg immediate release tabletIndicatio ns:Pain Take 0.5 tablets (2.5 mg total) by mouth every 4 (four) hours as needed for pain 10 tablet 4 Active diazePAM (VALIUM) 5 mg tablet 0 4 Active fluticasone propion-salmete roL (ADVAIR DISKUS) 500-50 mcg/dose diskus inhaler 4 Active Gemtesa 75 mg tablet Take 75 mg by mouth daily 4 Active Active Problems Problem Noted Date Diagnosed Date Hyponatremia 03/21/2024 Assessment & Plan (03/23/2024 9:02 AM SOCIAL SECRETARY): - Na 129 (132) - 03/21: 500ml NS bolus - Repeat Na 128->124->131->132 - FWR to 1 L - Salt tabs TID->BID - Urine electrolytes - Continue salt tabs x 1 week, recheck BMP at [facility] UTI (urinary tract infection) 03/20/2024 Assessment & Plan (03/22/2024 2:06 PM SOCIAL SECRETARY): - + symptoms on admission (burning with urination) - Culture + Morganella morganii - Ceftriaxone started 03/18-03/21 - Susceptible to ceftriaxone, No further treatment needed - Discussed patient's case with the antibiotic stewardship team - Symptoms resolved Syncope 03/20/2024 Assessment & Plan (03/21/2024 1:12 PM SOCIAL SECRETARY): - Extensive history of syncopal events - Outpatient work up demonstrated +orthostatics - Recently reduced dose of metoprolol as outpatient - Orthostatics positive 03/20, EMILY baljite and abdominal binder ordered - Lives in a nursing facility - Last ECHO done 01/2024 - EKG with complete LBBB, No change from prior EKG 2017 - 03/21 Reduced metoprolol dose to 12.5mg XL (from 25mg) - Carotid duplex: No evidence of hemodynamically significant stenosis in the common carotid artery bilaterally The right internal carotid artery disease is consistent with a less than 50% stenosis. Based on the ICA/CCA ratio 50-69% stenosis - Talked to vascular surgery, no consult needed. Medical management only. - Held home diazepam that he patient takes for sleep per beers criteria this medication can increased risk for falls in the geriatric population. Would prefer patient to have discussion with PCP before resuming. No s/s of withdrawal during this admission Discharge planning issues 03/20/2024 Assessment & Plan (03/23/2024 10:25 AM SOCIAL SECRETARY): - 03/20: SELENA mack, anticipate dc 03/21 back to SNF. - 03/21 Hyponatremia, 500ml NS bolus. Pending repeat labs. Urine culture resulted- discussing with pharmacy regarding options for PO antibiotics. Patient is medically stable for discharge, SW/CM updated. Discharge pending facility acceptance 03/22: Na 124->131, continued trend. Possible DC 03/23 03/23 Patient is medically stable for discharge, SW/CM updated. Discharge pending nothing, DC to SNF today Treatment plan note [x] #L femoral neck fx 03/18/2024 Assessment & Plan (03/21/2024 9:43 AM SOCIAL SECRETARY): - Ortho consult - OR 03/19 for L FOREST RANGER - WBAT with PHP - PT/OT, pain control - Follow up with Dr Azul 05/04/2024 10:30 AM - Shelby to be removed at SNF 3 weeks post op (04/09) Status post total knee replacement, left 024 Primary osteoarthritis of left knee 10/01/2023 #hypothyroid 01/02/2019 Assessment & Plan (03/18/2024 10:54 PM CDT): Cont synthroid Class 3 severe obesity with body mass index (BMI) of 40.0 to 44.9 in adult 05/25/2018 Assessment & Plan (03/21/2024 6:37 AM SOCIAL SECRETARY): - Pt will return to SNF at discharge Asthma 05/25/2018 Type 2 diabetes mellitus 05/25/2018 Assessment & Plan (03/20/2024 1:33 PM SOCIAL SECRETARY): - Insulin sensitive correction scale - Accmarioncks QID Osteoarthritis of right shoulder 04/12/2018 Overview (04/12/2018): Added automatically from request for surgery [id number] Encounter for monitoring amiodarone therapy 05/2017 Chronic renal failure, stage 2 (mild) 08/23/2017 Renal osteodystrophy 08/23/2017 Aortic root dilatation (CMS/HCC) 06/09/2017 Edema of lower extremity 03/15/2017 Hypertension 09/02/2016 Hypertension 09/02/2016 History of cardiomyopathy 12/04/2015 Hyperkalemia 07/30/2015 Morbid obesity 07/29/2015 Obstructive sleep apnea syndrome 07/29/2015 Chronic systolic heart failure (CMS/HCC) 016 Atrial fibrillation (CMS/HCC) 05/20/2015 Encounter for preventive health examination 04/16 #afib 04/22/2015 Overview (08/20/2016): Atrial fibrillation, controlled Assessment & Plan (03/23/2024 9:00 AM SOCIAL SECRETARY): - Held eliquis for OR - Okay to resume per ortho - Continued DVT ppx while terry-op - Continued eliquis at discharge emt intermediate current use of anticoagulant therapy 1 06/23/2014 Overview (08/20/2016): Chronic anticoagulation #CHF 04/22/2015 Overview (08/20/2016): Congestive heart failure with left ventricular dysfunction Assessment & Plan (03/20/2024 1:31 PM SOCIAL SECRETARY): Cont metop, amiodarone 01/18/24 EF 55%. LV mildly dilated with low normal systolic function, reduced from prior LUCIO on CPAP 08/30/2014 Assessment & Plan (03/20/2024 1:32 PM SOCIAL SECRETARY): Continued on hospital unit Mycobacterium avium complex ([facility]/HCC) 03/31/2012 Overview (01/19/2023): In sputum Other nonspecific abnormal finding of lung field 03/31/2012 Overview (01/19/2023): Multiple pulmonary nodules Acute postoperative pain Acute pain of right shoulder Status post total replacement of right shoulder Encounters Date Type Department Care Team Description 05/04/2024 10:30 AM SOCIAL SECRETARY Office Visit [facility] Orthopaedic Surgery [address] [facility] [address]th [place] [address] [place] [address] Rachael Azul MD #L femoral neck fx (Primary Dx) 05/04/2024 10:00 AM SOCIAL SECRETARY - 05/04/2024 11:59 PM SOCIAL SECRETARY Hospital Encounter [facility] [address] [place] [id number] Rachael Azul MD #L femoral neck fx Discharge Disposition: Discharge to home or self care 04/12/2024 Telephone [facility] [address] [place] [address] Marvin Myers RN 03/22/2024 10:28 AM SOCIAL SECRETARY - 03/22/2024 11:59 PM SOCIAL SECRETARY Hospital Encounter [address] [address] Discharge Disposition: Discharge to home or self care 03/21/2024 10:00 AM SOCIAL SECRETARY Ancillary Procedure [facility] Vascular Lab IP [address] [address] [place] [address] 03/20/2024 Orders Only [facility] Orthopaedic Surgery [address] [facility] [address] [place] [address] [place] [address] Rachael Azul MD #L femoral neck fx (Primary Dx) 03/19/2024 12:00 PM SOCIAL SECRETARY - 03/19/2024 2:50 PM SOCIAL SECRETARY Surgery [facility] Operating Room [address] [place] [address] Boy Stevens MD PhD HEMIARTHROPLASTY - HIP 03/19/2024 11:27 AM SOCIAL SECRETARY Anesthesia Event [facility] Operating Room [address] [place] [address] Sreedhar Olivo MD Wong, Valencia Booth MD 03/19/2024 Orders Only [facility] [address] [place] [address] Boy Stevens MD PhD 03/18/2024 2:25 PM CDT - 03/23/2024 11:45 AM SOCIAL SECRETARY Hospital Encounter [address] [address] Thony Ordonez MD Wynia, MD Luma Frederick, Sanjiv Ghotra MD Fall, initial encounter (Primary Dx); Closed fracture of left femur, unspecified fracture morphology, unspecified portion of femur, initial encounter (HCC); Hyponatremia Discharge Disposition: Discharge to SNF from Last 3 Months Immunizations Name Administration Dates Next Due Influenza, Quadrivalent, Hig h Dose, Preservative Free, Intrr 01/20/2020 Influenza, Trivalent, High D ose, Split, Preservative Free, Intramuscular 01/30/2019,01/06/2018,01/19/2017 Influenza, Trivalent, IM (MDV) 01/15/2015,2013,02/08/2013 Influenza, Unspecified 01/21/2017 Td, adsorbed 07/21/2001 Surgical History Surgery Date Site/Laterality Comments TOTAL SHOULDER ARTHROPLASTY 05/17/2016 - 05/16/2017 Left CORRECTION HAMMER TOE 05/17/2016 - 05/16/2017 Left BUNIONECTOMY 05/17/2016 - 05/16/2017 Left CORRECTION HAMMER TOE 05/17/2015 - 05/16/2016 Right BUNIONECTOMY 05/17/2015 - 05/16/2016 Right TOTAL KNEE ARTHROPLASTY 05/17/2001 - 05/16/2002 Right KNEE CARTILAGE SURGERY 05/17/1979 - 05/16/1980 Left KNEE CARTILAGE SURGERY 05/17/1965 - 05/16/1966 Right APPENDECTOMY 05/17/1966 - 05/16/1967 TOTAL SHOULDER ARTHROPLASTY 05/17/2018 - 05/16/2019 Right BACK SURGERY 01/15/2023 - 02/13/2023 L5 vertebral augmentation, left sacroplasty, left sacral biopsy under sedation Medical History Medical History Date Comments Personal history of other di seases of the circulatory system History of cardiomyopathy - (Added by TW Conv) Congestive heart failure (CH F) ([facility]) ([facility]) 2014 Weakness Glaucoma Cataract Mycobacterium avium complex (CMS/[facility]) ([facility]) 2012 - 2014 Anemia 1976 Psychiatric disorder 1990 Psychiatric /Emotional Disorder Hyperthyroidism Sleep apnea Osteoarthritis Spinal headache 2001 with R TKA; repo rts lasted into day following surgery; has not had to have spinal anesthesia since Family History Medical History Relation Name Comments Cancer Father Family history of malignant neoplasm - (Added by TW Conv) Other Father Unknown; Cause of : Unknown Breast cancer Mother Cancer, breast ; Cause of : Cancer, breast Cancer Mother Family history of malignant neoplasm - (Added by TW Conv) Heart failure Mother Congestive hea rt failure; Cause of : Congestive heart failure Thyroid disease Mother Thyroid disease Sister Anesthesia problems Neg Hx Relation Name Status Comments Father (Age 92) Mother (Age 75) Sister Social History Tobacco Use Types Packs/Day Years Used Date Smoking Tobacco: Former Cigarettes Q uit: 1981 Smokeless Tobacco: Never Tobacco Cessation:Counseling Given: Not Answered Alcohol Use Standard Drinks/Week Comments Yes 0 (1 standard drink = 0.6 oz pur e alcohol) Quit 1980 AUDIT-C Answer Date Recorded Q1: How often do you have a drink containing alcohol? Never 03/19/2024 Q2: How many drinks containi ng alcohol do you have on a typical day when you are drinking? Patient does not drink Q3: How often do you have si x or more drinks on one occasion? Never 03/19/2024 Personal Safety Answer Date Recorded Have you ever been in or are you currently in a harmful physical or emotional relationship or is someone making you feel afraid or unsafe? Denies 03/19/2024 Sex and Gender Information Value Date Recorded Sex Assigned at Not on file Legal Sex Male 12:33 PM SOCIAL SECRETARY Gender Identity Male 01/21/2018 1:29 PM CDT Sexual Orientation Straight 01/09/2021 6: 25 AM CDT Obstetrics History Last Filed Vital Signs Vital Sign Reading Time Taken Comments Blood Pressure 103/60 03/23/2024 7:28 AM SOCIAL SECRETARY Pulse 69 03/23/2024 7:28 AM SOCIAL SECRETARY Temperature 36.4 ??C (97.5 ??F) 03/23/2024 7:28 AM CS T Respiratory Rate 18 03/23/2024 7:28 AM SOCIAL SECRETARY Oxygen Saturation 99% 03/23/2024 7:28 AM SOCIAL SECRETARY Inhaled Oxygen Concentration - - Weight 131.1 kg (289 lb 0.4 oz) 03/18/2024 9:00 PM CDT Height 180.3 cm (5' 10.98 ) 03/18/2024 9:00 PM C DT Body Mass Index 40.33 03/18/2024 9:00 PM CDT Plan of Treatment Health Maintenance Due Date Last Done Comments Depression Screening 1945 Hepatitis C Screening 1945 Dilated Eye Exam 1945 Foot Exam 1945 Pneumococcal vaccine 65+ (1 of 2 - PCV) 10/27/1953 Hepatitis B Screening 10/27/1965 Zoster Vaccine (1 of 2) 10/27/1997 DTaP/Tdap/Td Vaccine (1 - Tdap) 07/22/2001 2 Abdominal Aortic Aneurysm (A AA) Screen 10/27/2012 Well Visit 65+ 10/27/2012 Albumin Creatinine Ratio, Urine 07/13/2023 07/13/2022, 06/27/2021, 01/11/2020, Additional history exists Influenza Vaccine (#1) 2024 0, 01/30/2019, 01/06/2018, Additional history exists Hemoglobin A1C 07/26/2024 01/27/2024, 04/2 10/2023, 07/03/2022, Additional history exists Lipid Panel 01/11/2025 01/12/2024, 06/17, 01/11/2020, Additional history exists eGFR 03/22/2025 03/22/2024, 10/2023, 03/21/2024, Additional history exists Fall Risk Assessment 03/23/2025 03/23/2024 Medical Devices Implanted Type Area Information Services Vice President Device Identifier Shelf Expiration Date Model / Serial / Lot [employer] Simplex P Radiopaque Full Dose Cement Bone Sterile 6191-1-010 - S0 - [id number] Implanted:Qty: 1 on 03/19/2024 by Boy Stevens MD PhD at [facility] Bone Cement Left: Hip [employer] 03/16/2025 6191-1-010 / 0 / [id number] [employer] Simplex P Radiopaque Full Dose Cement Bone Sterile 6191-1-010 - S0 - [id number] Implanted:Qty: 1 on 03/19/2024 by Boy Stevens MD PhD at [facility] Bone Cement Left: Hip [employer] 03/16/2025 6191-1-010 / 0 / [id number] Imp Knee Tib Ins Tri Sz7 13mm [id number] Implanted:Qty: 1 on 11/24/2023 at [facility] Other - see comments Left: Knee Katharine 01/03/2028 7699-R-130-E / / [id number] [employer] Versys Heritage 15mm 140mm Primary Cement Proximal Centralizer [id number] - S0 - [id number] Implanted:Qty: 1 on 03/19/2024 by Boy Stevens MD PhD at [facility] Other - see comments Left: Hip [employer] [id number] 1 06/28/2032 [id number] / 0 / [id number] [employer] Versys 13mm Cemented Hip Distal Centralizer Stem Pmma Sterile [id number] - S0 - [id number] Implanted:Qty: 1 on 03/19/2024 by Boy Stevens MD PhD at [facility] Other - see comments Left: Hip [employer] [id number] 12/23/2027 [id number] / 0 / [id number] [employer] Ringloc Bio-Esparza Ii 54mm 28mm 2 Articulate Surface Lock 232 - S0 - [id number] Implanted:Qty: 1 on 03/19/2024 by Boy Stevens MD PhD at [facility] Other - see comments Left: Hip [employer] [id number] 04/27/2027232 0 / [id number] [employer] Trilogy It Continuum 28mm Hip Acetabulum +3.5mm 04/29 Large Head [id number] - S0 - [id number] Implanted:Qty: 1 on 03/19/2024 by Boy Stevens MD PhD at [facility] Other - see comments Left: Hip [employer] [id number] 03/23/2032 [id number] / 0 / [id number] [employer]/ Ortho Prep-Im Plug [place] Sponge Suction Hip Kit Thr Latex Free [id number] - S0 - [id number] Implanted:Qty: 1 on 03/19/2024 by Boy Stevens MD PhD at [facility] Other - see comments Left: Hip [employer] /Ortho [id number] 07/08/2033 [id number] / 0 / [id number] Description:Cement restricto r in kit [employer] 6191-1-010 Simplex P Radiopaque Full Dose Cement Bone Sterile - [id number] Implanted:Qty: 1 on 05/25/2018 by Kevin Duron MD at [facility] Right: Shoulder [employer] [id number] 6191-1-010 / / Depuy [employer] Inc [id number] Global Ap 52mm [place] Glenoid Peg Fixation Premieron - [id number] Implanted:Qty: 1 on 05/25/2018 by Kevin Duron MD at [facility] Right: Shoulder [employer] [id number] / / Depuy [employer] [id number] Global Unite 10mm Shoulder 135d Body Humeral [place] Sterile - [id number] Implanted:Qty: 1 on 05/25/2018 by Kevin Duron MD at [facility] Right: Shoulder Depuy [employer] [id number] / / [employer] Orth[employer] Inc [id number] Global Unite 10mm 113mm Modular Shoulder Standard Stem Humeral - [id number] Implanted:Qty: 1 on 05/25/2018 by Kevin Duron MD at [facility] Right: Shoulder [employer] [id number] / / [employer] Inc [id number] Global Unite 52mm 18mm Modular Eccentric Shoulder Head Humeral - [id number] Implanted:Qty: 1 on 05/25/2018 by Kevin Duron MD at [facility] Right: Shoulder [employer] Inc [id number] / / [employer] Triathlon Tritanium Knee 7 Baseplate Tibial 5536-B-700 - [id number] Implanted:Qty: 1 on 11/24/2023 at [facility] Left: Knee [employer] 05/13/2028 5536-B-700 / / [id number] [employer] Triathlon Cruciate Retain Bead Knee Left 6 Component Femoral Pa 5517-F-601 - [id number] Implanted:Qty: 1 on 11/24/2023 at [facility] Left: Knee [employer] 08/24/2028 5517-F-601 / / [id number] Procedures Procedure Name Priority Date/Time Associated Diagnosis Comments XR HIP LEFT W PELVIS 2 OR 3 VIEWS Schedule Routine, Read Routine (OP Routine) 05/04/2024 10:39 AM SOCIAL SECRETARY #L femoral neck fx POCT GLUCOSE DEVICE Routine 03/23/2024 8 :14 AM SOCIAL SECRETARY EGFR Routine 03/22/2024 10:48 PM SOCIAL SECRETARY BASIC METABOLIC PANEL Routine 03/22/2024 10:48 PM SOCIAL SECRETARY POCT GLUCOSE DEVICE Routine 03/22/2024 8 :52 PM SOCIAL SECRETARY POCT GLUCOSE DEVICE Routine 03/22/2024 5 :51 PM SOCIAL SECRETARY CREATININE, URINE, RANDOM Routine 03/22/2024 1:30 PM SOCIAL SECRETARY CHLORIDE, URINE, RANDOM Routine 03/22/20 24 1:30 PM SOCIAL SECRETARY POTASSIUM, URINE, RANDOM Routine 03/22/2024 1:30 PM SOCIAL SECRETARY SODIUM, URINE, RANDOM Routine 03/22/2024 1:30 PM SOCIAL SECRETARY CHLORIDE, URINE, RANDOM Routine 03/22/20 24 1:14 PM SOCIAL SECRETARY SODIUM, URINE, RANDOM Routine 03/22/2024 1:14 PM SOCIAL SECRETARY POTASSIUM, URINE, RANDOM Routine 03/22/2024 1:14 PM SOCIAL SECRETARY CREATININE, URINE, RANDOM Routine 03/22/2024 1:14 PM SOCIAL SECRETARY POCT GLUCOSE DEVICE Routine 03/22/2024 11:41 AM SOCIAL SECRETARY EGFR Routine 03/22/2024 11:11 AM SOCIAL SECRETARY BASIC METABOLIC PANEL Routine 03/22/2024 11:11 AM SOCIAL SECRETARY POCT GLUCOSE DEVICE Routine 03/22/2024 8 :37 AM SOCIAL SECRETARY POCT GLUCOSE DEVICE Routine 03/21/2024 8 :43 PM SOCIAL SECRETARY EGFR Routine 03/21/2024 8:01 PM SOCIAL SECRETARY BASIC METABOLIC PANEL Routine 03/21/2024 8:01 PM SOCIAL SECRETARY POCT GLUCOSE DEVICE Routine 03/21/2024 6 :04 PM SOCIAL SECRETARY POCT GLUCOSE DEVICE Routine 03/21/2024 12:51 PM SOCIAL SECRETARY US CAROTIDS DUPLEX BILATERAL ED Urgent/IP Urgent 03/21/2024 12:49 PM SOCIAL SECRETARY POCT GLUCOSE DEVICE Routine 03/21/2024 12:35 PM SOCIAL SECRETARY EGFR Routine 03/21/2024 12:33 PM SOCIAL SECRETARY BASIC METABOLIC PANEL Routine 03/21/2024 12:33 PM SOCIAL SECRETARY POCT GLUCOSE DEVICE Routine 03/21/2024 7 :47 AM SOCIAL SECRETARY EGFR Routine 03/21/2024 2:45 AM SOCIAL SECRETARY PHOSPHORUS Routine 03/21/2024 2:45 AM SOCIAL SECRETARY MAGNESIUM Routine 03/21/2024 2:45 AM SOCIAL SECRETARY COMPREHENSIVE METABOLIC PANEL Routine 03/21/2024 2:45 AM SOCIAL SECRETARY CBC WITHOUT DIFFERENTIAL Routine 03/21/2024 2:45 AM SOCIAL SECRETARY POCT GLUCOSE DEVICE Routine 03/20/2024 8 :22 PM SOCIAL SECRETARY POCT GLUCOSE DEVICE Routine 03/20/2024 5 :19 PM SOCIAL SECRETARY POCT GLUCOSE DEVICE Routine 03/20/2024 11:34 AM SOCIAL SECRETARY POCT GLUCOSE DEVICE Routine 03/20/2024 8 :31 AM SOCIAL SECRETARY POTASSIUM, WHOLE BLOOD Timed 2:40 AM SOCIAL SECRETARY POCT GLUCOSE DEVICE Routine 03/20/2024 2 :33 AM SOCIAL SECRETARY POCT GLUCOSE DEVICE Routine 03/19/2024 9 :52 PM SOCIAL SECRETARY EGFR Routine 03/19/2024 9:31 PM SOCIAL SECRETARY BASIC METABOLIC PANEL Routine 03/19/2024 9:31 PM SOCIAL SECRETARY CBC WITHOUT DIFFERENTIAL Routine 03/19/2024 9:31 PM SOCIAL SECRETARY POCT GLUCOSE DEVICE Routine 03/19/2024 6 :24 PM SOCIAL SECRETARY XR PELVIS 1 OR 2 VIEWS IP Routine 2:24 PM SOCIAL SECRETARY POCT GLUCOSE DEVICE Routine 03/19/2024 2 :01 PM SOCIAL SECRETARY POCT GLUCOSE DEVICE Routine 03/19/2024 1 :24 PM SOCIAL SECRETARY XR PELVIS ORTHO VIEW IP Routine 03/19/2024 12:55 PM SOCIAL SECRETARY SURGICAL PATHOLOGY Routine 03/19/2024 12:28 PM SOCIAL SECRETARY POCT GLUCOSE DEVICE Routine 03/19/2024 12:27 PM SOCIAL SECRETARY POCT GLUCOSE DEVICE Routine 03/19/2024 12:26 PM SOCIAL SECRETARY NM AN PROCEDURE PLACEHOLDER Routine 03/19/2024 12:10 PM SOCIAL SECRETARY NM AN PROCEDURE PLACEHOLDER Routine 03/19/2024 12:07 PM SOCIAL SECRETARY NM AN EMERGENT ENDOTRACHEAL AIRWAY Routine 03/19/2024 12:07 PM SOCIAL SECRETARY HEMIARTHROPLASTY - HIP 11:32 AM SOCIAL SECRETARY Fall, initial encounter POCT GLUCOSE DEVICE Routine 03/19/2024 8 :36 AM SOCIAL SECRETARY TROPONIN I HIGH-SENSITIVITY 6-HOUR Timed 03/18/2024 11:33 PM CDT POCT GLUCOSE DEVICE Routine 03/18/2024 10:54 PM CDT NM INJECTION AA&/STRD OTHER PERIPHERAL NERVE/BRANCH Routine 03/18/2024 10:[address] PELVIS WO CONTRAST ED Urgent/IP Urgent 03/18/2024 10:30 PM CDT TROPONIN I HIGH-SENSITIVITY 4-HOUR Timed 03/18/2024 9:44 PM CDT POCT GLUCOSE DEVICE Routine 03/18/2024 6 :21 PM CDT URINALYSIS, MICROSCOPIC ONLY STAT 03/18/2024 5:13 PM CDT TROPONIN I HIGH-SENSITIVITY SERIES (BASELINE, 2HR, 4HR, 6HR) STAT 03/18/2024 5:13 PM CDT URINE CULTURE STAT 03/18/2024 5:13 PM CDT URINALYSIS AND REFLEX TO MICROSCOPIC AND CULTURE STAT 03/18/2024 5:13 PM CDT XR KNEE LEFT 3 VIEWS ED 03/18/2024 4:50 PM CDT XR HIPS BILATERAL W PELVIS 2 VIEW ED 03/18/2024 4:49 PM CDT XR FEMUR LEFT 2 OR MORE VIEWS ED 03/18/2024 4:49 PM CDT XR CHEST 1 VIEW ED 03/18/2024 4:[address] HEAD AND CERVICAL SPINE WO CONTRAST ED 03/18/2024 4:33 PM CDT ECG 12-LEAD Routine 03/18/2024 4:07 PM CDT POCT GLUCOSE DEVICE Routine 03/18/2024 3 :05 PM CDT XR TRANSFER OF OUTSIDE FILMS Routine 03/18/2024 2:59 PM CDT PRO B-TYPE NATRIURETIC PEPTIDE STAT 03/18/2024 2:43 PM CDT EGFR STAT 03/18/2024 2:43 PM CDT DIFFERENTIAL AUTO STAT 03/18/2024 2:4 3 PM CDT APTT STAT 03/18/2024 2:43 PM CDT PROTIME-INR STAT 03/18/2024 2:43 PM CDT TYPE AND SCREEN STAT 03/18/2024 2:43 PM CDT COMPREHENSIVE METABOLIC PANEL STAT 03/18/2024 2:43 PM CDT CBC WITH AUTO DIFFERENTIAL STAT 03/18/2024 2:43 PM CDT POCT HEMOGLOBIN A1C Routine 01/27/2024 1 :53 PM CDT Type 2 diabetes mellitus without complication, without long-term current use of insulin ([facility]) ([facility]) LIPID PANEL Routine 01/12/2024 10:51 AM CDT Type 2 diabetes mellitus without complication, without long-term current use of insulin ([facility]) ([facility]) Hypertension, unspecified type ALBUMIN CREATININE RATIO, URINE Routine 07/13/2022 8:12 AM SOCIAL SECRETARY Medication course changed Chronic kidney disease, unspecified CKD stage from Last 3 Months or Most Recently Relevant to Health Maintenance Results * XR Hip Left 2 or 3 Views W Pelvis (05/04/2024 10:39 AM SOCIAL SECRETARY) Anatomical Region Laterality Modality Lower Extremities, Hip, Pelvis Left C omputed Radiography 05/04/2024 11:2 9 AM SOCIAL SECRETARY Impressions 05/04/2024 11:41 AM SOCIAL SECRETARY Unchanged left hip hemiarthroplasty in expected position without radiographic evidence of prosthetic complication. Dictated by: Pawel Persaud M.D. The radiology attending physician has personally reviewed this study, and had reviewed and/or edited this written report and agrees with it. Electronically signed by: Petr Mayorga D.O. Narrative 05/04/2024 11:41 AM SOCIAL SECRETARY EXAMINATION: XR HIP LEFT 2 OR 3 VIEWS W PELVIS HISTORY: Left hip arthroplasty follow-up. COMPARISON: 03/19/2024 FINDINGS: ?? Postsurgical changes of left hip hemiarthroplasty in expected position. ??No evidence of periprosthetic fracture or osteolysis. ??No new fracture or dislocation. ??Normal bone alignment. Sacroplasty noted. Procedure Note MukeshPetr, DO - 05/04/2024 EXAMINATION: XR HIP LEFT 2 OR 3 VIEWS W PELVIS HISTORY: Left hip arthroplasty follow-up. COMPARISON: 03/19/2024 FINDINGS: Postsurgical changes of left hip hemiarthroplasty in expected position. No evidence of periprosthetic fracture or osteolysis. No new fracture or dislocation. Normal bone alignment. Sacroplasty noted. IMPRESSION: Unchanged left hip hemiarthroplasty in expected position without radiographic evidence of prosthetic complication. Dictated by: Pawel Persadu M.D. The radiology attending physician has personally reviewed this study, and had reviewed and/or edited this written report and agrees with it. Electronically signed by: Petr Mayorga D.O. Rachael Azul MD IMG XR PROCEDURES Final Result * POCT glucose (03/23/2024 8:14 AM SOCIAL SECRETARY) Glucose, POC 105 70 - 199 mg/dL Blood 03/23/2024 8:14 AM SOCIAL SECRETARY 03/23/2024 8:14 AM SOCIAL SECRETARY Sanjiv Ge MD LAB POCT ORDERABLES - DEV ICE Final Result [facility] Department [place] [address] * eGFR (03/22/2024 10:48 PM SOCIAL SECRETARY) eGFR 74 >=60 mL/min/1. 73 m2 Comment: Interpretive Data Reference Interval Normal ?>/= 90 mL/min/1.73m2 Mildly decreased* ? 60 - 89 mL/min/1.73m2 Mildly to moderately decreased ?45 - 59 mL/min/1.73m2 Moderately to severely decreased ??30 - 44 mL/min/1.73m2 Severely decreased ?15 - 29 mL/min/1.73m2 Kidney Failure ?< 15 ??mL/min/1.73m2 *Relative to young adult level Estimated glomerular filtration rate is determined by the 2020 CKD-EPI equation recommended by the National Kidney Foundation (A Unifying Approach to GFR Estimation: Recommendations of the NKF-ASK Task Force on Reassessing the Inclusion of Race in Diagnosing Kidney Disease, JASN 2020). The CKD-EPI equation should not be used for patients with unstable renal function and has not been validated in children and those over 70. Current interpretive data was last reviewed 2021. Blood 03/22/2024 10:4 8 PM SOCIAL SECRETARY 03/22/2024 11:32 PM SOCIAL SECRETARY us Bee Valdes NP LAB BLOOD ORDERABLES Fi nal Result [facility] Department [place] [address] * (ABNORMAL) Basic metabolic panel (03/22/2024 10:48 PM SOCIAL SECRETARY) Sodium 132(L) 135 - 145 mmol/L Potassium, pl 4.8 3.3 - 4.9 mmol/L [facility] Comment:Hemolyzed; Potassium value may be falsely elevated by as much as 0.6-1.0 mmol/L. Suggest redraw and reanalysis. Chloride 99 97 - 110 mmol/L [facility] CO2 21(L) 22 - 32 mmol/L [facility] Anion gap 12 2 - 15 mmol/L [facility] BUN 22 6 - 25 mg/dL [facility] Creatinine 1.04 0.80 - 1.30 mg/dL [facility] Glucose 114 70 - 199 mg/dL [facility] Comment: Interpretive Data Fasting glucose >/= 126 mg/dl is diagnostic for diabetes. ?? Fasting is defined as no caloric intake for at least 8 hours. Fasting glucose between 100 mg/dl to 125 mg/dl is diagnostic of prediabetes. In a patient with classic symptoms of hyperglycemia or hyperglycemic crisis, a random glucose >/= 200 mg/dl is diagnostic for diabetes. In the absence of unequivocal hyperglycemia, results should be confirmed by repeat testing. The classification and Diagnosis of Diabetes Diabetes Care 2021; 46: S19-S40. Current interpretive data was last revised 2022. Calcium 9.0 8.5 - 10.3 mg/dL [facility] Blood 03/22/2024 10:4 8 PM SOCIAL SECRETARY 03/22/2024 11:32 PM SOCIAL SECRETARY us Bee Valdes NP LAB BLOOD ORDERABLES Fi nal Result Performing Organization Address City/[facility]/ZIP Co de Phone Number [facility] Department of [address] [place] [address] * POCT glucose (03/22/2024 8:52 PM SOCIAL SECRETARY) [facility] Glucose, POC 114 70 - 199 mg/dL Blood 03/22/2024 8:52 PM SOCIAL SECRETARY 03/22/2024 8:52 PM SOCIAL SECRETARY Sanjiv Ge MD LAB POCT ORDERABLES - DEV ICE Final Result Performing Organization Address City/[facility]/ZIP Co de Phone Number [facility] Department [place] [address] * POCT glucose (03/22/2024 5:51 PM SOCIAL SECRETARY) Glucose, POC 120 70 - 199 mg/dL Blood 03/22/2024 5:51 PM SOCIAL SECRETARY 03/22/2024 5:51 PM SOCIAL SECRETARY Sanjiv Ge MD LAB POCT ORDERABLES - DEV ICE Final Result Performing Organization Address [facility] [place] [address] * Sodium, urine, random (03/22/2024 1:30 PM SOCIAL SECRETARY) Sodium, ur <20 mmol/L Comment: Interpretive Data No reference range established. Current interpretive data was last revised 2018. Urine (Urine, Clean Catch) 03/22/2024 1:30 PM SOCIAL SECRETARY 03/23/2024 6:47 AM SOCIAL SECRETARY Bee Valdes NP LAB URINE ORDERABLES Fi nal Result Performing Organization Address [facility] de Phone Number [facility] [address] [place] [address] * Potassium, urine, random (03/22/2024 1:30 PM SOCIAL SECRETARY) Potassium conc, ur 35.3 mmol/L Comment: Interpretive Data No reference range established. Current interpretive data was last revised 2018. Urine (Urine, Clean Catch) 03/22/2024 1:30 PM SOCIAL SECRETARY 03/23/2024 6:47 AM SOCIAL SECRETARY Bee Valdes NP LAB URINE ORDERABLES Fi nal Result Performing Organization Address [facility] Co de Phone Number [facility] [address] [place] [address] * Creatinine, urine, random (03/22/2024 1:30 PM SOCIAL SECRETARY) Creatinine Ur 134.8 mg/dL Comment: Interpretive Data No reference range established. Current interpretive data was last revised 2018. Urine 03/22/2024 1:30 PM SOCIAL SECRETARY 03/23/2024 6:47 AM SOCIAL SECRETARY Bee Valdes [employer] CHECK[employer] LAB URINE ORDERABLES Fi nal Result Performing Organization Address City/[facility] Co de Phone Number [facility] [address] [place] [address] * Chloride, urine, random (03/22/2024 1:30 PM SOCIAL SECRETARY) Chloride, ur <25 mmol/L Comment: Interpretive Data No reference range established. Current interpretive data was last revised 2018. Urine (Urine, Clean Catch) 03/22/2024 1:30 PM SOCIAL SECRETARY 03/23/2024 6:47 AM SOCIAL SECRETARY Bee Valdes NP LAB URINE ORDERABLES Fi nal Result Performing Organization Address [facility] Co de Phone Number [facility] [address] [place] [address] * Sodium, urine, random (03/22/2024 1:14 PM SOCIAL SECRETARY) Sodium, ur <20 mmol/L Comment: Interpretive Data No reference range established. Current interpretive data was last revised 2018. Urine 03/22/2024 1:14 PM SOCIAL SECRETARY 03/22/2024 3:28 PM SOCIAL SECRETARY Bee Valdes NP LAB URINE ORDERABLES Fi nal Result Performing Organization Address City/[facility] Co de Phone Number [facility] [address] [place] [address] * Potassium, urine, random (03/22/2024 1:14 PM SOCIAL SECRETARY) Potassium conc, ur 23.4 mmol/L Comment: Interpretive Data No reference range established. Current interpretive data was last revised 2018. Urine 03/22/2024 1:14 PM SOCIAL SECRETARY 03/22/2024 3:28 PM SOCIAL SECRETARY Bee Valdes [employer] CHECKER LAB URINE ORDERABLES Fi nal Result Performing Organization Address City/[facility] Co de Phone Number [facility] [address] [place] [address] * Creatinine, urine, random (03/22/2024 1:14 PM SOCIAL SECRETARY) Creatinine Ur 60.0 mg/dL Comment: Interpretive Data No reference range established. Current interpretive data was last revised 2018. Urine 03/22/2024 1:14 PM SOCIAL SECRETARY 03/22/2024 3:28 PM SOCIAL SECRETARY Bee Valdes [employer] CHECKER LAB URINE ORDERABLES Fi nal Result Performing Organization Address [facility] Co de Phone Number [facility] [address] [place] [address] * Chloride, urine, random (03/22/2024 1:14 PM SOCIAL SECRETARY) Chloride, ur <25 mmol/L Comment: Interpretive Data No reference range established. Current interpretive data was last revised 2018. Urine 03/22/2024 1:14 PM SOCIAL SECRETARY 03/22/2024 3:28 PM SOCIAL SECRETARY Bee Valdes [employer] CHECKER LAB URINE ORDERABLES Fi nal Result Performing Organization Address City/[facility] Co de Phone Number [facility] [place] [address] * POCT glucose (03/22/2024 11:41 AM SOCIAL SECRETARY) Glucose, POC 133 70 - 199 mg/dL Blood 03/22/2024 11:4 1 AM SOCIAL SECRETARY 03/22/2024 11:41 AM SOCIAL SECRETARY Sanjiv Ge MD LAB POCT ORDERABLES - DEV ICE Final Result [facility] Department [place] [address] * eGFR (03/22/2024 11:11 AM SOCIAL SECRETARY) eGFR 61 >=60 mL/min/1. 73 m2 Comment: Interpretive Data Reference Interval Normal ?>/= 90 mL/min/1.73m2 Mildly decreased* ? 60 - 89 mL/min/1.73m2 Mildly to moderately decreased ?45 - 59 mL/min/1.73m2 Moderately to severely decreased ??30 - 44 mL/min/1.73m2 Severely decreased ?15 - 29 mL/min/1.73m2 Kidney Failure ?< 15 ??mL/min/1.73m2 *Relative to young adult level Estimated glomerular filtration rate is determined by the 2020 CKD-EPI equation recommended by the National Kidney Foundation (A Unifying Approach to GFR Estimation: Recommendations of the NKF-ASK Task Force on Reassessing the Inclusion of Race in Diagnosing Kidney Disease, JASN 2020). The CKD-EPI equation should not be used for patients with unstable renal function and has not been validated in children and those over 70. Current interpretive data was last reviewed 2021. Blood 03/22/2024 11:1 1 AM SOCIAL SECRETARY 03/22/2024 11:19 AM SOCIAL SECRETARY Bee Valdes NP LAB BLOOD ORDERABLES Fi nal Result Performing Organization Address City/[facility]/ZIP Co de Phone Number [facility] Department [place] [address] * (ABNORMAL) Basic metabolic panel (03/22/2024 11:11 AM SOCIAL SECRETARY) [facility] Sodium 131(L) 135 - 145 mmol/L Potassium, pl 4.5 3.3 - 4.9 mmol/L [facility] Chloride 97 97 - 110 mmol/L [facility] CO2 24 22 - 32 mmol/L [facility] Anion gap 10 2 - 15 mmol/L [facility] BUN 23 6 - 25 mg/dL [facility] Creatinine 1.23 0.80 - 1.30 mg/dL [facility] Glucose 118 70 - 199 mg/dL [facility] Comment: Interpretive Data Fasting glucose >/= 126 mg/dl is diagnostic for diabetes. ?? Fasting is defined as no caloric intake for at least 8 hours. Fasting glucose between 100 mg/dl to 125 mg/dl is diagnostic of prediabetes. In a patient with classic symptoms of hyperglycemia or hyperglycemic crisis, a random glucose >/= 200 mg/dl is diagnostic for diabetes. In the absence of unequivocal hyperglycemia, results should be confirmed by repeat testing. The classification and Diagnosis of Diabetes Diabetes Care 2021; 46: S19-S40. Current interpretive data was last revised 2022. Calcium 9.0 8.5 - 10.3 mg/dL [facility] Blood 03/22/2024 11:1 1 AM SOCIAL SECRETARY 03/22/2024 11:19 AM SOCIAL SECRETARY Bee Valdes NP LAB BLOOD ORDERABLES Fi nal Result Performing Organization Address [facility] Co de Phone Number [facility] Department [place] [address] * POCT glucose (03/22/2024 8:37 AM SOCIAL SECRETARY) Glucose, POC 115 70 - 199 mg/dL Blood 03/22/2024 8:37 AM SOCIAL SECRETARY 03/22/2024 8:37 AM SOCIAL SECRETARY Sanjiv Ge MD LAB POCT ORDERABLES - DEV ICE Final Result Performing Organization Address [facility] de Phone Number [facility] [address] [place] [address] * POCT glucose (03/21/2024 8:43 PM SOCIAL SECRETARY) Pathologist [facility] [place] Glucose, POC 110 70 - 199 mg/dL Blood 03/21/2024 8:43 PM SOCIAL SECRETARY 03/21/2024 8:43 PM SOCIAL SECRETARY Result [facility] Sanjiv Ge MD LAB POCT ORDERABLES - DEV ICE Final Result Performing Organization Address [facility] de Phone Number [facility] [address] [place] [address] * eGFR (03/21/2024 8:01 PM SOCIAL SECRETARY) Pathologist [facility] eGFR 60 >=60 mL/min/1. 73 m2 Comment: Interpretive Data Reference Interval Normal ?>/= 90 mL/min/1.73m2 Mildly decreased* ? 60 - 89 mL/min/1.73m2 Mildly to moderately decreased ?45 - 59 mL/min/1.73m2 Moderately to severely decreased ??30 - 44 mL/min/1.73m2 Severely decreased ?15 - 29 mL/min/1.73m2 Kidney Failure ?< 15 ??mL/min/1.73m2 *Relative to young adult level Estimated glomerular filtration rate is determined by the 2020 CKD-EPI equation recommended by the National Kidney Foundation (A Unifying Approach to GFR Estimation: Recommendations of the NKF-ASK Task Force on Reassessing the Inclusion of Race in Diagnosing Kidney Disease, JASN 2020). The CKD-EPI equation should not be used for patients with unstable renal function and has not been validated in children and those over 70. Current interpretive data was last reviewed 2021. Blood 03/21/2024 8:01 PM SOCIAL SECRETARY 03/21/2024 8:55 PM SOCIAL SECRETARY us Bee Valdes E[employer]IC DISTRIBUTION CHECKER LAB BLOOD ORDERABLES Fi nal Result [facility] Department [place] [address] * (ABNORMAL) Basic metabolic panel (03/21/2024 8:01 PM SOCIAL SECRETARY) Sodium 124(L) 135 - 145 mmol/L Potassium, pl 4.2 3.3 - 4.9 mmol/L [facility] Chloride 91(L) 97 - 110 mmol/L [facility] CO2 21(L) 22 - 32 mmol/L [facility] Anion gap 12 2 - 15 mmol/L [facility] BUN 23 6 - 25 mg/dL [facility] Creatinine 1.24 0.80 - 1.30 mg/dL [facility] Glucose 95 70 - 199 mg/dL [facility] Comment: Interpretive Data Fasting glucose >/= 126 mg/dl is diagnostic for diabetes. ?? Fasting is defined as no caloric intake for at least 8 hours. Fasting glucose between 100 mg/dl to 125 mg/dl is diagnostic of prediabetes. In a patient with classic symptoms of hyperglycemia or hyperglycemic crisis, a random glucose >/= 200 mg/dl is diagnostic for diabetes. In the absence of unequivocal hyperglycemia, results should be confirmed by repeat testing. The classification and Diagnosis of Diabetes Diabetes Care 202; 46: S19-S40. Current interpretive data was last revised 2022. Calcium 9.2 8.5 - 10.3 mg/dL [facility] Blood 03/21/2024 8:01 PM SOCIAL SECRETARY 03/21/2024 8:55 PM SOCIAL SECRETARY Bee Valdes NP LAB BLOOD ORDERABLES Fi nal Result Performing Organization Address [facility] [place] [address] * POCT glucose (03/21/2024 6:04 PM SOCIAL SECRETARY) Glucose, POC 85 70 - 199 mg/dL Blood 03/21/2024 6:04 PM SOCIAL SECRETARY 03/21/2024 6:04 PM SOCIAL SECRETARY Sanjiv Ge MD LAB POCT ORDERABLES - DEV ICE Final Result Performing Organization Address [facility] [place] [address] * POCT glucose (03/21/2024 12:51 PM SOCIAL SECRETARY) Glucose, POC 89 70 - 199 mg/dL Blood 03/21/2024 12:5 1 PM SOCIAL SECRETARY 03/21/2024 12:51 PM SOCIAL SECRETARY Sanjiv Ge MD LAB POCT ORDERABLES - DEV ICE Final Result Performing Organization Address [facility] de Phone Number [facility] [address] [place] [address] * US Carotids Duplex Bilateral (03/21/2024 12:49 PM SOCIAL SECRETARY) Anatomical Region Laterality Modality Vascular Bilateral Ultrasound 03/21/2024 11:3 3 AM SOCIAL SECRETARY Narrative 03/21/2024 2:59 PM SOCIAL SECRETARY [facility] - Department of Vascular Surgery, Vascular Laboratory [address] [place] [id number] Carotid Duplex Ultrasound Report Patient Name: FRED JEWELL E : 1945 (78y 4m) Study Date: 03/21/2024 11:33:01 AM Gender: M Kyung: Location: [id number] Ref Provider: BEE VALDES ?Quality: Adequate Order Provider: BEE VALDES PROCEDURES: Carotid Report: Carotid duplex examination of the extracranial arteries was performed using 2D, color and spectral Doppler. INDICATIONS: syncope - Measurements: Right ?Left Measurement ?Value ?Units ? Measurement ?Value ?Units RT Prox CCA PSV ?71 ? cm/sec ?LT Prox CCA PSV ?105 ?cm/sec RT Prox CCA EDV ?20 ? cm/sec ?LT Prox CCA EDV ?25 ? cm/sec RT Distal CCA PSV ?40 ? cm/sec ?LT Distal CCA PSV ?58 ? cm/sec RT Distal CCA EDV ?13 ? cm/sec ?LT Distal CCA EDV ?21 ? cm/sec RT Prox ICA PSV ?53 ? cm/sec ?LT Prox ICA PSV ?44 ? cm/sec RT Prox ICA EDV ?20 ? cm/sec ?LT Prox ICA EDV ?17 ? cm/sec RT Mid ICA PSV ? 86 ? cm/sec ?LT Mid ICA PSV ? 77 ? cm/sec RT Mid ICA EDV ? 32 ? cm/sec ?LT Mid ICA EDV ? 24 ? cm/sec RT Distal ICA PSV ?77 ? cm/sec ?LT Distal ICA PSV ?92 ? cm/sec RT Distal ICA EDV ?27 ? cm/sec ?LT Distal ICA EDV ?33 ? cm/sec RT ECA Prx PSV ? 37 ? cm/sec ?LT ECA Prx PSV ? 44 ? cm/sec RT ICA/CCA ? 2.15 ? ratio ? LT ICA/CCA ? 1.60 ? ratio RT VERT PSV ?42 ? cm/sec ?LT VERT PSV ?42 ? cm/sec - FINDINGS: Performing Environmental Permitting Specialist: Tiffany Bowen RVT. Rt Common Carotid Artery: Duplex imaging of the right common carotid artery is within normal limits without evidence of atherosclerotic disease. Rt Internal Carotid Artery: The plaque in the right internal carotid artery appears to be heterogeneous and smooth. Based on the ICA/CCA ratio 50-69% stenosis. Rt External Carotid Artery: The right external carotid artery is patent without evidence of atherosclerotic plaque. Rt Vertebral Artery: The right vertebral artery is patent with antegrade flow. Lt Common Carotid Artery: The plaque in the left CCA appears to be heterogeneous and smooth. Atherosclerotic changes of the left common carotid artery with no hemodynamically significant Doppler findings. Lt Internal Carotid Artery: The plaque in the left internal carotid artery appears to be heterogeneous and irregular. Atherosclerotic changes of the left internal carotid artery without hemodynamically significant Doppler findings. <50% stenosis. Lt External Carotid Artery: The left external carotid artery is patent without evidence of atherosclerotic plaque. Lt Vertebral Artery: The left vertebral artery is patent with antegrade flow. CONCLUSIONS: 1. The right internal carotid artery disease is consistent with a less than 50% stenosis. Based on the ICA/CCA ratio 50-69% stenosis. 2. The left internal carotid artery disease is consistent with a less than 50% stenosis. 3. No evidence of hemodynamically significant stenosis in the common carotid artery bilaterally. 4. Normal, antegrade flow is noted in bilateral vertebral arteries. HISTORY: Atrial fibrillation on eliquis, CHF, cardiomyopathy, HTN, type 2 diabetes, LUCIO, CKDII - PREVIOUS STUDIES: No previous studies for comparison. DISCLAIMER: The study images and the final report will be retained in the patient chart by the Vascular Laboratory for the legally required time period. This chart constitutes the legal record of any testing performed. ATTESTATION: I have reviewed and interpreted the pertinent images and measurements of this study. I attest to the conclusions in the final report that is provided above. Electronically Signed By: Jean Paul Reyes MD FACS 2024-03-21 14:58:33 SOCIAL SECRETARY Procedure Note Jean Paul Reyes MD - 03/21/2024 [facility] - Department of Vascular Surgery,Vascular Laboratory [address] [place] [address] Carotid Duplex Ultrasound Report Patient Name: FRED JEWELL E : 1945 (78y 4m) Study Date: 03/21/2024 11:33:01 AM Gender: M Tech: Location: [id number] Ref Provider: BEE VALDES Quality: Adequate Order Provider: BEE VALDES PROCEDURES: Carotid Report: Carotid duplex examination of the extracranial arterieswas performed using 2D, color and spectral Doppler. INDICATIONS: syncope - Measurements: Right Left Measurement Value Units Measurement ValueUnits RT Prox CCA PSV 71 cm/sec LT Prox CCA PSV 105cm/sec RT Prox CCA EDV 20 cm/sec LT Prox CCA EDV 25cm/sec RT Distal CCA PSV 40 cm/sec LT Distal CCA PSV 58cm/sec RT Distal CCA EDV 13 cm/sec LT Distal CCA EDV 21cm/sec RT Prox ICA PSV 53 cm/sec LT Prox ICA PSV 44cm/sec RT Prox ICA EDV 20 cm/sec LT Prox ICA EDV 17cm/sec RT Mid ICA PSV 86 cm/sec LT Mid ICA PSV 77cm/sec RT Mid ICA EDV 32 cm/sec LT Mid ICA EDV 24cm/sec RT Distal ICA PSV 77 cm/sec LT Distal ICA PSV 92cm/sec RT Distal ICA EDV 27 cm/sec LT Distal ICA EDV 33cm/sec RT ECA Prx PSV 37 cm/sec LT ECA Prx PSV 44cm/sec RT ICA/CCA 2.15 ratio LT ICA/CCA 1.60ratio RT VERT PSV 42 cm/sec LT VERT PSV 42cm/sec - FINDINGS: Performing Environmental Permitting Specialist: Tiffany Bowen RVT. Rt Common Carotid Artery: Duplex imaging of the right common carotidartery is within normal limits without evidence of atherosclerotic disease. Rt Internal Carotid Artery: The plaque in the right internal carotidartery appears to be heterogeneous and smooth. Based on the ICA/CCA ratio 50-69% stenosis. Rt External Carotid Artery: The right external carotid artery is patentwithout evidence of atherosclerotic plaque. Rt Vertebral Artery: The right vertebral artery is patent with antegradeflow. Lt Common Carotid Artery: The plaque in the left CCA appears to beheterogeneous and smooth. Atherosclerotic changes of the left common carotid artery with nohemodynamically significant Doppler findings. Lt Internal Carotid Artery: The plaque in the left internal carotid arteryappears to be heterogeneous and irregular. Atherosclerotic changes of the left internalcarotid artery without hemodynamically significant Doppler findings. <50% stenosis. Lt External Carotid Artery: The left external carotid artery is patentwithout evidence of atherosclerotic plaque. Lt Vertebral Artery: The left vertebral artery is patent with antegradeflow. CONCLUSIONS: 1. The right internal carotid artery disease is consistent with a lessthan 50% stenosis. Based on the ICA/CCA ratio 50-69% stenosis. 2. The left internal carotid artery disease is consistent with a less than50% stenosis. 3. No evidence of hemodynamically significant stenosis in the commoncarotid artery bilaterally. 4. Normal, antegrade flow is noted in bilateral vertebral arteries. HISTORY: Atrial fibrillation on eliquis, CHF, cardiomyopathy, HTN, type 2 diabetes,LUCIO, CKDII - PREVIOUS STUDIES: No previous studies for comparison. DISCLAIMER: The study images and the final report will be retained in the patientchart by the Vascular Laboratory for the legally required time period. This chartconstitutes the legal record of any testing performed. ATTESTATION: I have reviewed and interpreted the pertinent images and measurements ofthis study. I attest to the conclusions in the final report that is provided above. Electronically Signed By: Jean Paul Reyes MD [facility] 2024-03-21 14:58:33 SOCIAL SECRETARY us Bee Valdes [employer]ION CHECKER IMG US PROCEDURES Final Result * POCT glucose (03/21/2024 12:35 PM SOCIAL SECRETARY) Glucose, POC 108 70 - 199 mg/dL Blood 03/21/2024 12:3 5 PM SOCIAL SECRETARY 03/21/2024 12:35 PM SOCIAL SECRETARY Sanjiv Ge MD LAB POCT ORDERABLES - DEV ICE Final Result [facility] Department [place] [address] * (ABNORMAL) eGFR (03/21/2024 12:33 PM SOCIAL SECRETARY) eGFR 55(L) >=60 mL/min/1. 73 m2 Comment: Interpretive Data Reference Interval Normal ?>/= 90 mL/min/1.73m2 Mildly decreased* ? 60 - 89 mL/min/1.73m2 Mildly to moderately decreased ?45 - 59 mL/min/1.73m2 Moderately to severely decreased ??30 - 44 mL/min/1.73m2 Severely decreased ?15 - 29 mL/min/1.73m2 Kidney Failure ?< 15 ??mL/min/1.73m2 *Relative to young adult level Estimated glomerular filtration rate is determined by the 2020 CKD-EPI equation recommended by the National Kidney Foundation (A Unifying Approach to GFR Estimation: Recommendations of the NKF-ASK Task Force on Reassessing the Inclusion of Race in Diagnosing Kidney Disease, JASN 2020). The CKD-EPI equation should not be used for patients with unstable renal function and has not been validated in children and those over 70. Current interpretive data was last reviewed 2021. Blood 03/21/2024 12:3 3 PM SOCIAL SECRETARY 03/21/2024 12:51 PM SOCIAL SECRETARY us Bee Valdes NP LAB BLOOD ORDERABLES Fi nal Result [facility] Department [place] [address] * (ABNORMAL) Basic metabolic panel (03/21/2024 12:33 PM SOCIAL SECRETARY) Sodium 128(L) 135 - 145 mmol/L Potassium, pl 4.4 3.3 - 4.9 mmol/L [facility] Chloride 94(L) 97 - 110 mmol/L [facility] CO2 25 22 - 32 mmol/L [facility] Anion gap 9 2 - 15 mmol/L [facility] BUN 24 6 - 25 mg/dL [facility] Creatinine 1.33(H) 0.80 - 1.30 mg/dL [facility] Glucose 101 70 - 199 mg/dL [facility] Comment: Interpretive Data Fasting glucose >/= 126 mg/dl is diagnostic for diabetes. ?? Fasting is defined as no caloric intake for at least 8 hours. Fasting glucose between 100 mg/dl to 125 mg/dl is diagnostic of prediabetes. In a patient with classic symptoms of hyperglycemia or hyperglycemic crisis, a random glucose >/= 200 mg/dl is diagnostic for diabetes. In the absence of unequivocal hyperglycemia, results should be confirmed by repeat testing. The classification and Diagnosis of Diabetes Diabetes Care 2022; 46: S19-S40. Current interpretive data was last revised 2022. Calcium 9.0 8.5 - 10.3 mg/dL [facility] Blood 03/21/2024 12:3 3 PM SOCIAL SECRETARY 03/21/2024 12:51 PM SOCIAL SECRETARY Bee Valdes NP LAB BLOOD ORDERABLES Fi nal Result Performing Organization Address [facility] de Phone Number [facility] Department [place] [address] * POCT glucose (03/21/2024 7:47 AM SOCIAL SECRETARY) Glucose, POC 112 70 - 199 mg/dL Blood 03/21/2024 7:47 AM SOCIAL SECRETARY 03/21/2024 7:47 AM SOCIAL SECRETARY Sanjiv Ge MD LAB POCT ORDERABLES - DEV ICE Final Result Performing Organization Address [facility] de Phone Number [facility] [address] [place] [address] * (ABNORMAL) eGFR (03/21/2024 2:45 AM SOCIAL SECRETARY) Pathologist [facility] [place] eGFR 54(L) >=60 mL/min/1. 73 m2 Comment: Interpretive Data Reference Interval Normal ?>/= 90 mL/min/1.73m2 Mildly decreased* ? 60 - 89 mL/min/1.73m2 Mildly to moderately decreased ?45 - 59 mL/min/1.73m2 Moderately to severely decreased ??30 - 44 mL/min/1.73m2 Severely decreased ?15 - 29 mL/min/1.73m2 Kidney Failure ?< 15 ??mL/min/1.73m2 *Relative to young adult level Estimated glomerular filtration rate is determined by the 2020 CKD-EPI equation recommended by the National Kidney Foundation (A Unifying Approach to GFR Estimation: Recommendations of the NKF-ASK Task Force on Reassessing the Inclusion of Race in Diagnosing Kidney Disease, JASN 2020). The CKD-EPI equation should not be used for patients with unstable renal function and has not been validated in children and those over 70. Current interpretive data was last reviewed 2021. Blood 03/21/2024 2:45 AM SOCIAL SECRETARY 03/21/2024 3:28 AM SOCIAL SECRETARY us Sanjiv Ge MD LAB BLOOD ORDERABLES Svetlana masterson Result [facility] Department [place] [address] * (ABNORMAL) CBC without differential (03/21/2024 2:45 AM SOCIAL SECRETARY) WBC 8.8 3.8 - 9.9 K/cumm Hgb 9.3(L) 13.0 - 17.5 g/dL [facility] Hct 28.7(L) 38.9 - 50.3 % [facility] Plt 199 150 - 400 K/cumm [facility] MPV 10.1 9.1 - 12.3 fL [facility] RBC 3.21(L) 4.30 - 5.80 M/cumm [facility] MCV 89.4 81.3 - 96.4 fL [facility] MCH 29.0 27.1 - 33.3 pg [facility] MCHC 32.4 32.3 - 35.7 g/dL [facility] RDW CV 14.2 11.1 - 14.9 % [facility] RDW SD 46.3 35.7 - 48.1 fL [facility] NRBC abs 0.00 0.00 - 0.01 K/cumm [facility] Blood 03/21/2024 2:45 AM SOCIAL SECRETARY 03/21/2024 3:28 AM SOCIAL SECRETARY Sanjiv Ge MD LAB BLOOD ORDERABLES Svetlana l Result Performing Organization Address [facility] Co de Phone Number [facility] [place] [address] * Phosphorus (03/21/2024 2:45 AM SOCIAL SECRETARY) [facility] Phosphorus, pl 3.6 2.3 - 4.5 mg/dL Blood 03/21/2024 2:45 AM SOCIAL SECRETARY 03/21/2024 3:28 AM SOCIAL SECRETARY Sanjiv Ge MD LAB BLOOD ORDERABLES Svetlana l Result Performing Organization Address [facility] Co de Phone Number [facility] [place] [address] * Magnesium (03/21/2024 2:45 AM SOCIAL SECRETARY) [facility] Magnesium 1.7 1.4 - 2.5 mg/dL Blood 03/21/2024 2:45 AM SOCIAL SECRETARY 03/21/2024 3:28 AM SOCIAL SECRETARY Sanjiv Ge MD LAB BLOOD ORDERABLES Svetlana l Result Performing Organization Address [facility] de Phone Number [facility] Department [place] [address] * (ABNORMAL) Comprehensive metabolic panel (03/21/2024 2:45 AM SOCIAL SECRETARY) [facility] Sodium 129(L) 135 - 145 mmol/L Potassium, pl 4.7 3.3 - 4.9 mmol/L [facility] Comment:Hemolyzed; Potassium value may be falsely elevated by as much as 0.6-1.0 mmol/L. Suggest redraw and reanalysis. Chloride 94(L) 97 - 110 mmol/L [facility] CO2 25 22 - 32 mmol/L [facility] Anion gap 10 2 - 15 mmol/L [facility] BUN 23 6 - 25 mg/dL [facility] Creatinine 1.36(H) 0.80 - 1.30 mg/dL [facility] Glucose 104 70 - 199 mg/dL [facility] Comment: Interpretive Data Fasting glucose >/= 126 mg/dl is diagnostic for diabetes. ?? Fasting is defined as no caloric intake for at least 8 hours. Fasting glucose between 100 mg/dl to 125 mg/dl is diagnostic of prediabetes. In a patient with classic symptoms of hyperglycemia or hyperglycemic crisis, a random glucose >/= 200 mg/dl is diagnostic for diabetes. In the absence of unequivocal hyperglycemia, results should be confirmed by repeat testing. The classification and Diagnosis of Diabetes Diabetes Care 2021; 46: S19-S40. Current interpretive data was last revised 2022. Calcium 9.0 8.5 - 10.3 mg/dL [facility] Bilirubin, total 0.4 0.1 - 1.2 mg/dL [facility] Protein, pl 6.4(L) 6.5 - 8.5 g/dL [facility] Albumin 3.2(L) 3.5 - 5.0 g/dL [facility] Alk phos 75 40 - 130 Units/L [facility] ALT 18 7 - 55 Units/L [facility] AST 76(H) 10 - 50 Units/L [facility] Comment:Hemolyzed; result ma y be falsely elevated Blood 03/21/2024 2:45 AM SOCIAL SECRETARY 03/21/2024 3:28 AM SOCIAL SECRETARY Sanjiv Ge MD LAB BLOOD ORDERABLES Svetlana l Result [facility] Department [place] [address] * POCT glucose (03/20/2024 8:22 PM SOCIAL SECRETARY) [facility] Signature Glucose, POC 87 70 - 199 mg/dL Blood 03/20/2024 8:22 PM SOCIAL SECRETARY 03/20/2024 8:22 PM SOCIAL SECRETARY Sanjiv Ge MD LAB POCT ORDERABLES - DEV ICE Final Result Performing Organization Address [facility] Co de Phone Number [facility] [address] [place] [address] * POCT glucose (03/20/2024 5:19 PM SOCIAL SECRETARY) Glucose, POC 115 70 - 199 mg/dL Blood 03/20/2024 5:19 PM SOCIAL SECRETARY 03/20/2024 5:19 PM SOCIAL SECRETARY Sanjiv Ge MD LAB POCT ORDERABLES - DEV ICE Final Result Performing Organization Address [facility] [place] [address] * POCT glucose (03/20/2024 11:34 AM SOCIAL SECRETARY) Glucose, POC 112 70 - 199 mg/dL Blood 03/20/2024 11:3 4 AM SOCIAL SECRETARY 03/20/2024 11:34 AM SOCIAL SECRETARY Sanjiv Ge MD LAB POCT ORDERABLES - DEV ICE Final Result Performing Organization Address [facility] Co de Phone Number [facility] [address] [place] [address] * POCT glucose (03/20/2024 8:31 AM SOCIAL SECRETARY) Glucose, POC 114 70 - 199 mg/dL Blood 03/20/2024 8:31 AM SOCIAL SECRETARY 03/20/2024 8:31 AM SOCIAL SECRETARY Sanjiv Ge MD LAB POCT ORDERABLES - DEV ICE Final Result Performing Organization Address [facility] Co de Phone Number [facility] [address] [place] [address] * Potassium, whole blood (03/20/2024 2:40 AM SOCIAL SECRETARY) [facility] Potassium, bld 4.8 3.3 - 4.9 mmol/L Blood 03/20/2024 2:40 AM SOCIAL SECRETARY 03/20/2024 2:49 AM SOCIAL SECRETARY Sanjiv Ge MD LAB BLOOD ORDERABLES Svetlana l Result Performing Organization Address [facility] Co de Phone Number [facility] [place] [address] * POCT glucose (03/20/2024 2:33 AM SOCIAL SECRETARY) [facility] Glucose, POC 139 70 - 199 mg/dL Blood 03/20/2024 2:33 AM SOCIAL SECRETARY 03/20/2024 2:33 AM SOCIAL SECRETARY Sanjiv Ge MD LAB POCT ORDERABLES - DEV ICE Final Result Performing Organization Address [facility] de Phone Number [facility] [address] [place] [address] * POCT glucose (03/19/2024 9:52 PM SOCIAL SECRETARY) [facility] Glucose, POC 136 70 - 199 mg/dL Blood 03/19/2024 9:52 PM SOCIAL SECRETARY 03/19/2024 9:52 PM SOCIAL SECRETARY Sanjiv Ge MD LAB POCT ORDERABLES - DEV ICE Final Result Performing Organization Address [facility] de Phone Number [facility] [address] [place] [address] * (ABNORMAL) eGFR (03/19/2024 9:31 PM SOCIAL SECRETARY) [facility] eGFR 59(L) >=60 mL/min/1. 73 m2 Comment: Interpretive Data Reference Interval Normal ?>/= 90 mL/min/1.73m2 Mildly decreased* ? 60 - 89 mL/min/1.73m2 Mildly to moderately decreased ?45 - 59 mL/min/1.73m2 Moderately to severely decreased ??30 - 44 mL/min/1.73m2 Severely decreased ?15 - 29 mL/min/1.73m2 Kidney Failure ?< 15 ??mL/min/1.73m2 *Relative to young adult level Estimated glomerular filtration rate is determined by the 2020 CKD-EPI equation recommended by the National Kidney Foundation (A Unifying Approach to GFR Estimation: Recommendations of the NKF-ASK Task Force on Reassessing the Inclusion of Race in Diagnosing Kidney Disease, JASN 2020). The CKD-EPI equation should not be used for patients with unstable renal function and has not been validated in children and those over 70. Current interpretive data was last reviewed 2021. Blood 03/19/2024 9:31 PM SOCIAL SECRETARY 03/19/2024 9:48 PM SOCIAL SECRETARY us Sanjiv Ge MD LAB BLOOD ORDERABLES Svetlana masterson Result [facility] Department [place] [address] * (ABNORMAL) CBC without differential (03/19/2024 9:31 PM SOCIAL SECRETARY) WBC 11.1(H) 3.8 - 9.9 K/cumm Hgb 10.5(L) 13.0 - 17.5 g/dL [facility] Hct 33.4(L) 38.9 - 50.3 % [facility] Plt 228 150 - 400 K/cumm [facility] MPV 9.3 9.1 - 12.3 fL [facility] RBC 3.63(L) 4.30 - 5.80 M/cumm [facility] MCV 92.0 81.3 - 96.4 fL [facility] MCH 28.9 27.1 - 33.3 pg [facility] MCHC 31.4(L) 32.3 - 35.7 g/dL [facility] RDW CV 14.1 11.1 - 14.9 % [facility] RDW SD 47.9 35.7 - 48.1 fL [facility] NRBC abs 0.00 0.00 - 0.01 K/cumm [facility] Blood 03/19/2024 9:31 PM SOCIAL SECRETARY 03/19/2024 9:48 PM SOCIAL SECRETARY Sanjiv Ge MD LAB BLOOD ORDERABLES Svetlana masterson Result [facility] Department [place] [address] * (ABNORMAL) Basic metabolic panel (03/19/2024 9:31 PM SOCIAL SECRETARY) Sodium 132(L) 135 - 145 mmol/L Potassium, pl 5.0(H) 3.3 - 4.9 mmol/L [facility] Chloride 98 97 - 110 mmol/L [facility] CO2 23 22 - 32 mmol/L [facility] Anion gap 11 2 - 15 mmol/L [facility] BUN 17 6 - 25 mg/dL [facility] Creatinine 1.27 0.80 - 1.30 mg/dL [facility] Glucose 136 70 - 199 mg/dL [facility] Comment: Interpretive Data Fasting glucose >/= 126 mg/dl is diagnostic for diabetes. ?? Fasting is defined as no caloric intake for at least 8 hours. Fasting glucose between 100 mg/dl to 125 mg/dl is diagnostic of prediabetes. In a patient with classic symptoms of hyperglycemia or hyperglycemic crisis, a random glucose >/= 200 mg/dl is diagnostic for diabetes. In the absence of unequivocal hyperglycemia, results should be confirmed by repeat testing. The classification and Diagnosis of Diabetes Diabetes Care 202; 46: S19-S40. Current interpretive data was last revised 2022. Calcium 9.2 8.5 - 10.3 mg/dL [facility] Blood 03/19/2024 9:31 PM SOCIAL SECRETARY 03/19/2024 9:48 PM SOCIAL SECRETARY Result [facility] Sanjiv Ge MD LAB BLOOD ORDERABLES Svetlana l Result Performing Organization Address [facility] de Phone Number [facility] [address] [place] [address] * POCT glucose (03/19/2024 6:24 PM SOCIAL SECRETARY) Glucose, POC 106 70 - 199 mg/dL Blood 03/19/2024 6:24 PM SOCIAL SECRETARY 03/19/2024 6:24 PM SOCIAL SECRETARY Result [facility] Sanjiv Ge MD LAB POCT ORDERABLES - DEV ICE Final Result Performing Organization Address [facility] Phone Number [facility] [address] [place] [address] * XR Pelvis 1 or 2 Views (03/19/2024 2:24 PM SOCIAL SECRETARY) Narrative [id number] - 03/19/2024 2:24 PM SOCIAL SECRETARY The images from this study are not interpreted by Radiology. ??Please refer to the physician's procedure / OR operative note. Result [facility] Sanjiv Ge MD IMG XR PROCEDURES Final R esult Performing Organization Address [facility] Co de Phone Number [email or web address] * POCT glucose (03/19/2024 2:01 PM SOCIAL SECRETARY) Glucose, POC 109 70 - 199 mg/dL Blood 03/19/2024 2:01 PM SOCIAL SECRETARY 03/19/2024 2:01 PM SOCIAL SECRETARY Result [facility] Sanjiv Ge MD LAB POCT ORDERABLES - DEV ICE Final Result [facility] [address] [place] [address] * POCT glucose (03/19/2024 1:24 PM SOCIAL SECRETARY) Glucose, POC 73 70 - 199 mg/dL Blood 03/19/2024 1:24 PM SOCIAL SECRETARY 03/19/2024 1:24 PM SOCIAL SECRETARY Sanjiv Ge MD LAB POCT ORDERABLES - DEV ICE Final Result Performing Organization Address [facility] Co de Phone Number [facility]ERNARDO [facility] Department [place] [address] * XR Pelvis Ortho View (03/19/2024 12:55 PM SOCIAL SECRETARY) Anatomical Region Laterality Modality Body, Pelvis N/A Computed Radiogr aphy 03/19/2024 1:31 PM SOCIAL SECRETARY Impressions 03/19/2024 1:31 PM SOCIAL SECRETARY In progress left hip arthroplasty with spacer overlying the expected position. Electronically signed by: Thony Gaston MD Narrative 03/19/2024 1:31 PM SOCIAL SECRETARY EXAMINATION: XR PELVIS ORTHO VIEW HISTORY: Left hip fracture FINDINGS: A single AP view of the pelvis is compared to the examination dated 03/18/2024. There has been interval resection of the left femoral head and neck. Interval placement of a femoral spacer and an additional component within the acetabulum. ??Soft tissue gas is present. ??No periprosthetic fracture. Procedure Note Thony Gaston MD - 03/19/2024 EXAMINATION: XR PELVIS ORTHO VIEW HISTORY: Left hip fracture FINDINGS: A single AP view of the pelvis is compared to the examination dated 03/18/2024. There has been interval resection of the left femoral head and neck. Interval placement of a femoral spacer and an additional component within the acetabulum. Soft tissue gas is present. No periprosthetic fracture. IMPRESSION: In progress left hip arthroplasty with spacer overlying the expected position. Electronically signed by: Thony Gaston MD Boy Stevens MD PhD IMG XR PROCEDURES Fi nal Result * Surgical pathology (03/19/2024 12:28 PM SOCIAL SECRETARY) Femoral head 03/19/2024 12:2 8 PM SOCIAL SECRETARY 03/20/2024 4:57 AM SOCIAL SECRETARY Narrative 03/24/2024 11:02 AM SOCIAL SECRETARY EPIC results best viewed via link to PDF [facility] [place] [address] Note to Patients: This report may contain a detailed description of human tissue sent by a health care provider to the laboratory for pathologic evaluation. The content of this report is essential for diagnosis and may provide important critical findings. This information may be unfamiliar to patients to review without a medical professional present. It is advised that the patient review this report in the presence of a health care provider who can answer questions and explain the details. SURGICAL PATHOLOGY REPORT FINAL Patient Name: ?? FRED JEWELL Gender: ??M : ??1945 (Age: 78) Address: ??[address] [place] [address] Hospital #: ??[id number] Taken:03/19/2024 Received:03/20/2024 Reported: 03/24/2024 Patient Type: [facility] Inpatient ?? Service: Adult Emergency Location: [facility] [address] Physician(s): ??Boy Stevens MD PhD Shiraz Howard MD Diagnosis: Bone, left femoral head, hemiarthroplasty ? - Bone with fracture gp/03/24/2024 08:45 By this signature, I attest that the above diagnosis is based upon my personal examination of the slides(and/or other material indicated in the diagnosis). Flo Torres M.D. Report Electronically Reviewed and Signed Out By ??Flo Torres M.D. 03/24/2024 11:02:38 Galina Bowles D.O. History: The patient is a 78-year-old man who presents following a fall (initial encounter). ??Operative procedure morning: hemiarthroplasty-hip. Specimen(s) Received: A: Femoral head ??fracture Gross Description: Received in formalin labeled with the patient's identifiers and designated femoral head fracture is a 5.5 x 5.5 x 5.5 cm femoral head with a ragged and hemorrhagic margin. ??The articular surface is patchy, pale nicholson-pale red but largely smooth and glistening. ??The articular surface is focally granular eburnation is not grossly identified. ??Also in the container is an additional 5.5 x 4.5 x 2.5 cm aggregate of ragged and hemorrhagic bone fragments, larger fragments resembling femoral neck. ??No gross evidence of malignancy is identified. ??The femoral head is sectioned revealing yellow-nicholson medullary bone with focal hemorrhage at the margin/fracture site and involving an apparent previous hardware site. ??No gross evidence of malignancy is identified. Office Coordinator Receptionist sections are submitted: A 1 = industrial relations representative femoral head apparent fracture site; A2 = industrial relations representative additional aggregate. ??Both cassettes submitted following acid decalcification. ??Jar 2. ? sxv/03/20/2024 10:21 PA(s): Ziggy Hannon MS, SAURABH ([facility])CM By this signature, I attest that the above diagnosis is based upon my personal examination of the slides(and/or other material). Addenda/Procedures The performance characteristics of some immunohistochemical stains, fluorescence in-situ hybridization tests and immunophenotyping by flow cytometry cited in this report (if any) were determined by the Surgical Pathology and Flow Cytometry Departments at [facility] as part of an ongoing nurse quality program and in compliance with federally mandated regulations drawn from the Clinical Laboratory Improvement Act of 1988 (CLIA '88). ??Some of these tests rely on the use of analyte specific reagents and are subject to specific labeling requirements by the US Food and Drug Administration. ??Such diagnostic tests may only be performed in a facility that is certified by the Department of Health and Human Services as a high complexity laboratory under CLIA '88. ??The FDA has determined that such clearance or approval is not necessary. ??This test is used for clinical purposes. ??It should not be regarded as investigational or for research. ??Nevertheless, federal rules concerning the medical use of analyte specific reagents require that the following disclaimer be attached to the report: This test was developed and its performance characteristics determined by the Surgical Pathology and Flow Cytometry Departments of [facility]. ??It has not been cleared or approved by the U. S. Food and Drug Administration. IMAGES AND SCANNED DOCUMENTS, IF INCLUDED, ONLY VIEWABLE IN PDF VERSION OF REPORT Boy Stevens MD PhD LAB PATHOLOGY ORDERA BLES Final Result * POCT glucose (03/19/2024 12:27 PM SOCIAL SECRETARY) Glucose, POC 74 70 - 199 mg/dL Blood 03/19/2024 12:2 7 PM SOCIAL SECRETARY 03/19/2024 12:27 PM SOCIAL SECRETARY Sanjiv Ge MD LAB POCT ORDERABLES - DEV ICE Final Result Performing Organization Address City/[facility] Co de Phone Number [facility] Department of [address] [place] [address] * POCT glucose (03/19/2024 12:26 PM SOCIAL SECRETARY) Glucose, POC 72 70 - 199 mg/dL Blood 03/19/2024 12:2 6 PM SOCIAL SECRETARY 03/19/2024 12:26 PM SOCIAL SECRETARY Sanjiv Ge MD LAB POCT ORDERABLES - DEV ICE Final Result [facility] Department of [address] [place] [address] * NM AN PROCEDURE PLACEHOLDER (03/19/2024 12:10 PM SOCIAL SECRETARY) Narrative Brandon Hayes CRNA - 03/19/2024 12:10 PM SOCIAL SECRETARY Brandon Hayes CRNA ? 03/19/2024 12:10 PM Peripheral IV Catheter Patient location: OR Staff: Placed by: LEN: Brandon Hayes CRNA Preprocedure prep: Prep solution: chlorhexadine PPE: gloves and provider hat/mask PIV line: Laterality: right Site: hand Catheter size: 16 g Technique: anatomical landmarks and palpatation Procedure details: good blood return and occlusive dressing applied Number of attempts: 1 Assessment: Events: patient tolerated procedure well with no complications Sreedhar Olivo MD ANESTHESIA ORDERABLES Final Result * NM AN EMERGENT ENDOTRACHEAL AIRWAY, NM AN PROCEDURE PLACEHOLDER (03/19/2024 12:07 PM SOCIAL SECRETARY) Narrative Brandon Hayes CRNA - 03/19/2024 12:07 PM SOCIAL SECRETARY Brandon Hayes CRNA ? 03/19/2024 12:08 PM Airway Patient location: OR Urgency: emergent Indications for airway management: anesthesia Difficult airway: no Staff: Placed by: LEN: Brandon Hayes CRNA Emergent airway documentation: Patient identity confirmed by: verbally with patient and arm band Risks and benefits discussed: yes Consent obtained: yes Consent given by: patient Airway prep: Preoxygenated: yes Patient position: sniffing Mask difficulty assessment: 1 - vent by mask Spontaneous ventilation during airway: present Sedation level during airway: GA Final airway details: Final airway type: endotracheal airway Tube type: ETT ETT size: 8.0 mm Cuffed: yes Technique used for successful ETT placement: video laryngoscopy Devices/Methods used in placement: intubating stylet Insertion site: oral Blade type: Brisa Video blade type: Noel Blade size: 4 Cormack-Lehane (video): grade I - full view of glottis Initial cuff pressure: 20 cm H2O Cuff volume: 6 mL Cuff inflated with: air ETT to teeth: 24 cm Placement verified by: auscultation Airway secured with: silk tape Number of attempts: 1 Ventilation between attempts: BVM Sreedhar Olivo MD ANESTHESIA ORDERABLES Final Result * POCT glucose (03/19/2024 8:36 AM SOCIAL SECRETARY) Glucose, POC 89 70 - 199 mg/dL Blood 03/19/2024 8:36 AM SOCIAL SECRETARY 03/19/2024 8:36 AM SOCIAL SECRETARY Sanjiv Ge MD LAB POCT ORDERABLES - DEV ICE Final Result Performing Organization Address [facility] Co de Phone Number [facility] [address] [place] [address] * Troponin I high-sensitivity 6-hour (03/18/2024 11:33 PM CDT) [facility] Trop I hs <4 <=35 ng/L Comment: Interpretive Data For further hscTnI resources including the diagnostic algorithm and an aid in interpretation, copy and paste this link: https://bjhlab.testcatalog.org/show/[email or web address] Current Interpretive Data last revised 2019. Trop I hs delta 0 ng/L [facility] Trop I hs interp Insignificant [facility] Blood 03/18/2024 11:3 3 PM CDT 03/18/2024 11:51 PM CDT Magaly Olivares MD LAB BLOOD ORDERABLES Final Res ult Performing Organization Address [facility] Co de Phone Number [facility] [address] [place] [address] * POCT glucose (03/18/2024 10:54 PM CDT) Glucose, POC 102 70 - 199 mg/dL Blood 03/18/2024 10:5 4 PM CDT 03/18/2024 10:54 PM CDT Sanjiv Ge MD LAB POCT ORDERABLES - DEV ICE Final Result Performing Organization Address [facility] Co de Phone Number [facility] [address] [place] [address] * NM INJECTION AA&/STRD OTHER PERIPHERAL NERVE/BRANCH (03/18/2024 10:35 PM CDT) Narrative Rhona Avila MD - 03/18/2024 10:35 PM CDT Sanjiv Grier MD ? 03/19/2024 ??1:02 AM Nerve Block Date/Time: 03/18/2024 10:35 PM Performed by: Sanjiv Grier MD Authorized by: Rhona Avila MD ?? [place] Protocol: ??Informed consent: ??Patient/industrial relations representative/guardian agrees and accepts ??Allergies confirmed: yes ?Consent form signed, dated, timed; matches correct patient, intended procedure and site: ??Yes ??Immediately prior to the procedure a time out was called: a verbal verification by the procedure participants confirmed correct patient identity, correct site/side marked and visible (if applicable); agreement on procedure to be done; and correct patient positioning ?? Indications: ??Indications: ??Pain relief Location: ??Body area: ??Lower extremity ??Lower extremity nerve: ??Fascia iliaca ??Laterality: ??Left Pre-procedure details: ??Skin preparation: ??2% chlorhexidine ??Preparation: Patient was prepped and draped in usual sterile fashion ?? Skin anesthesia (see [facility] for exact dosages): ??Skin anesthesia method: ??None Procedure details (see [facility] for exact dosages): ??Block needle gauge: ??20 G ??Guidance: ultrasound ?Anesthetic injected: ??Bupivacaine 0.5% ??Anesthetic ??mL's injected: ??30 ??Steroid injected: ??None ??Additive injected: ??Normal saline ??Additive mLs injected: ??20 ??Injection procedure: ??Negative aspiration for blood and introduced needle ??Paresthesia: ??None Post-procedure details: ??Dressing: ??Sterile dressing ??Outcome: ??Pain improved ??Patient tolerance of procedure: ??Tolerated well, no immediate complications us Rhona Avila MD IN CLINIC/BEDSIDE ORDERABLES Final Result * CT Pelvis WO Contrast (03/18/2024 10:30 PM CDT) Anatomical Region Laterality Modality Body N/A Computed Tomogra phy 03/18/2024 10:3 8 PM CDT Impressions 03/19/2024 8:50 AM SOCIAL SECRETARY Left comminuted, mildly angulated subcapital left femoral neck fracture. ??No other ??fracture identified. Dictated by: Hemal Guthrie MD The radiology attending physician has personally reviewed this study, and had reviewed and/or edited this written report and agrees with it. Electronically signed by: Fermín Arguello M.D. Narrative 03/19/2024 8:50 AM SOCIAL SECRETARY EXAMINATION: CT PELVIS WO CONTRAST TECHNIQUE: Hip fracture. HISTORY: Pelvic fracture, follow up FINDINGS: There is a slightly angulated and comminuted fracture of the left femoral neck. ??The post procedure changes of left sacral and vertebral augmentation. ??No other fracture identified. ??Mild bilateral hip osteoarthritis. ??Diffuse osseous demineralization. Mild bilateral sacroiliac joint osteoarthritis. A focal sclerotic lesion in the left femoral intertrochanteric region is unchanged when compared to pelvis MRI of 01/03/2023. Moderate atherosclerotic calcifications of the imaged aorta and iliac arteries. Procedure Note Fermín Arguello MD - 03/19/2024 EXAMINATION: CT PELVIS WO CONTRAST TECHNIQUE: Hip fracture. HISTORY: Pelvic fracture, follow up FINDINGS: There is a slightly angulated and comminuted fracture of the left femoral neck. The post procedure changes of left sacral and vertebral augmentation. No other fracture identified. Mild bilateral hip osteoarthritis. Diffuse osseous demineralization. Mild bilateral sacroiliac joint osteoarthritis. A focal sclerotic lesion in the left femoral intertrochanteric region is unchanged when compared to pelvis MRI of 01/03/2023. Moderate atherosclerotic calcifications of the imaged aorta and iliac arteries. IMPRESSION: Left comminuted, mildly angulated subcapital left femoral neck fracture. No other fracture identified. Dictated by: Hemal Guthrie MD The radiology attending physician has personally reviewed this study, and had reviewed and/or edited this written report and agrees with it. Electronically signed by: Fermín Arguello M.D. Sanjiv Ge MD IMG CT PROCEDURES Final R esult * Troponin I high-sensitivity 4-hour (03/18/2024 9:44 PM CDT) Pathologist [facility] [place] Trop I hs <4 <=35 ng/L Comment: Interpretive Data For further hscTnI resources including the diagnostic algorithm and an aid in interpretation, copy and paste this link: https://[email or web address]/show/[email or web address] Current Interpretive Data last revised 2019. Trop I hs delta 0 ng/L [facility] Trop I hs interp Insignificant [facility] Blood 03/18/2024 9:44 PM CDT 03/18/2024 10:13 PM CDT us Magaly Olivares MD LAB BLOOD ORDERABLES Final Res ult Performing Organization Address City/[facility]/ZIP Co de Phone Number [facility] Department [place] [address] * POCT glucose (03/18/2024 6:21 PM CDT) [facility] Glucose, POC 83 70 - 199 mg/dL Blood 03/18/2024 6:21 PM CDT 03/18/2024 6:21 PM CDT Rhona Avila MD LAB POCT ORDERABLES - DEVICE Final Result [facility] Department of [address] [place] [address] * Troponin I high-sensitivity series (baseline, 2hr, 4hr, 6hr) (03/18/2024 5:13 PM CDT) [facility] Trop I hs <4 <=35 ng/L Comment: Interpretive Data For further hscTnI resources including the diagnostic algorithm and an aid in interpretation, copy and paste this link: [email or web address]/show/[email or web address] Current Interpretive Data last revised 2019. Blood 03/18/2024 5:13 PM CDT 03/18/2024 5:33 PM CDT us Magaly Olivares MD LAB BLOOD ORDERABLES Final Res ult Performing Organization Address City/[facility]/ZIP Co de Phone Number [facility] [place] [address] * (ABNORMAL) Urinalysis reflex to microscopic and culture Urine (03/18/2024 5:13 PM CDT) Color, ur Straw Yellow Clarity, ur Clear Clear [facility] Specific gravity, ur 1.010 1.003 - 1.030 [facility] pH, urine 6.5 [facility] Comment: Interpretive Data ? Urine pH is affected by diet, medications, systemic acid-base disturbances, and renal tubular function. ??pH may affect urinary stone formation. ??For example, urine pH below 6.0 may help reduce the tendency for calcium phosphate stones and pH greater than 6.0 may reduce the tendency for uric acid stone formation. Source: [facility] Current Interpretive Data was last revised on 2017 Protein, ur ql Negative Negative [facility] Glucose, ur ql Negative Negative [facility] Ketones, ur Negative Negative [facility] Bilirubin, ur Negative Negative [facility] Blood, ur Negative Negative [facility] Urobilinogen, ur <2.0 <2.0 mg/dL [facility] Nitrite, ur Positive(A) Negative [facility] Leukocyte esterase, ur 2+(A) Negative [facility] UA reflex comment Reflex to microscopic UA will be performed. [facility] Urine 03/18/2024 5:13 PM CDT 03/18/2024 5:22 PM CDT Linsey Damon MD LAB MICROBIOLOGY - GE NERAL ORDERABLES Final Result Performing Organization Address [facility]/ZIP Co de Phone Number [facility] [place] [address] * (ABNORMAL) Urinalysis, microscopic only (03/18/2024 5:13 PM CDT) WBC, ur 21-50(A) 0 - 5 /HPF RBC, ur 3-5(A) 0 - 2 /HPF [facility] Bacteria, ur Trace(A) [facility] Culture Reflex Comment Reflex to urine culture will be performed. [facility] Urine 03/18/2024 5:13 PM CDT 03/18/2024 5:22 PM CDT Linsey Damon MD LAB URINE ORDERABLES Final Result [facility] Department [place] [address] * (ABNORMAL) Urine culture Urine (03/18/2024 5:13 PM CDT) Report Final Report: Greater than or equal to 100,000 colonies/mL of Morganella morganii Plus growth of clinically insignificant bacterial jonelle. (.) Organism MORGANELLA MORGANII [facility] Organism PLUS GROWTH OF CLINICALLY INSIGNIFICANT JONELLE. [facility] Urine 03/18/2024 5:13 PM CDT 03/18/2024 8:02 PM CDT Narrative [facility] - 03/21/2024 7:51 AM SOCIAL SECRETARY Urine culture reflexed based upon urinalysis results. Testing performed by [facility] ([phone]) Organism Antibiotic Method Susceptibility Morganella morganii Ampicillin INTERPRETATION Resistant Morganella morganii Cefazolin INTERPRETATION Resistant Morganella morganii Nitrofurantoin INTERPRETATION Resistant Morganella morganii Gentamicin INTERPRETATION Resistant Morganella morganii Trimethoprim with Sulfamethoxazole INTERPRETATION Resistant Morganella morganii Meropenem INTERPRETATION Susceptible Morganella morganii Cefepime INTERPRETATION Susceptible Morganella morganii Ciprofloxacin INTERPRETATION Resistant Morganella morganii Ceftazidime INTERPRETATION Susceptible Morganella morganii Ceftriaxone INTERPRETATION Susceptible Morganella morganii Piperacillin/Tazobactam INTERPRETA TION Susceptible Linsey Damon MD LAB MICROBIOLOGY - [facility] ORDERABLES Final Result [facility] Department [place] [address] * XR Knee Left 3 Views (03/18/2024 4:50 PM CDT) Anatomical Region Laterality Modality Lower Extremities, Knee Left Computed Radiography 03/18/2024 5:14 PM CDT Impressions 03/18/2024 5:25 PM CDT CHEST: Comparison is made to chest radiograph dated 02/23/2023. Redemonstrated bilateral total shoulder arthroplasties. Cardiomediastinal silhouette is unchanged when accounting for changes in technique (previously PA with hyperexpander lungs, now AP with decreased lung expansion). Hypoinflated lungs with bilateral bibasilar atelectasis. No pleural effusion or pneumothorax. HIPS AND LEFT FEMUR: Postsurgical changes following vertebral and sacral augmentation. Left subcapital/basicervical femoral neck fracture is present. No acute fracture is present within the right femur or pelvis. LEFT KNEE: 3 views of the left knee were submitted for evaluation. Knee arthroplasty is present in near anatomic alignment. No periprosthetic lucency or fracture. No left knee effusion. Vascular calcifications are present. Dictated by: Mehnaz Hazel MD, PhD The radiology attending physician has personally reviewed this study, and had reviewed and/or edited this written report and agrees with it. Electronically signed by: Zacarias Hair M.D. Narrative 03/18/2024 5:25 PM CDT EXAMINATION: XR CHEST 1 VIEW, XR FEMUR LEFT 2 OR MORE VIEWS, XR HIPS BILATERAL 2 VIEWS W PELVIS, XR KNEE LEFT 3 VIEWS HISTORY: fall Procedure Note Zacarias Hair MD - 03/18/2024 EXAMINATION: XR CHEST 1 VIEW, XR FEMUR LEFT 2 OR MORE VIEWS, XR HIPS BILATERAL 2 VIEWS W PELVIS, XR KNEE LEFT 3 VIEWS HISTORY: fall IMPRESSION: CHEST: Comparison is made to chest radiograph dated 02/23/2023. Redemonstrated bilateral total shoulder arthroplasties. Cardiomediastinal silhouette is unchanged when accounting for changes in technique (previously PA with hyperexpander lungs, now AP with decreased lung expansion). Hypoinflated lungs with bilateral bibasilar atelectasis. No pleural effusion or pneumothorax. HIPS AND LEFT FEMUR: Postsurgical changes following vertebral and sacral augmentation. Left subcapital/basicervical femoral neck fracture is present. No acute fracture is present within the right femur or pelvis. LEFT KNEE: 3 views of the left knee were submitted for evaluation. Knee arthroplasty is present in near anatomic alignment. No periprosthetic lucency or fracture. No left knee effusion. Vascular calcifications are present. Dictated by: Mehnaz Hazel MD, PhD The radiology attending physician has personally reviewed this study, and had reviewed and/or edited this written report and agrees with it. Electronically signed by: Zacarias Hair M.D. Linsey Damon MD IMG XR PROCEDURES Fin al Result * XR Hips Bilateral W Pelvis 2 View (03/18/2024 4:49 PM CDT) Anatomical Region Laterality Modality Lower Extremities, Hip, Pelvis Bilateral C omputed Radiography 03/18/2024 5:14 PM CDT Impressions 03/18/2024 5:25 PM CDT CHEST: Comparison is made to chest radiograph dated 02/23/2023. Redemonstrated bilateral total shoulder arthroplasties. Cardiomediastinal silhouette is unchanged when accounting for changes in technique (previously PA with hyperexpander lungs, now AP with decreased lung expansion). Hypoinflated lungs with bilateral bibasilar atelectasis. No pleural effusion or pneumothorax. HIPS AND LEFT FEMUR: Postsurgical changes following vertebral and sacral augmentation. Left subcapital/basicervical femoral neck fracture is present. No acute fracture is present within the right femur or pelvis. LEFT KNEE: 3 views of the left knee were submitted for evaluation. Knee arthroplasty is present in near anatomic alignment. No periprosthetic lucency or fracture. No left knee effusion. Vascular calcifications are present. Dictated by: Mehnaz Hazel MD, PhD The radiology attending physician has personally reviewed this study, and had reviewed and/or edited this written report and agrees with it. Electronically signed by: Zacarias Hair M.D. Narrative 03/18/2024 5:25 PM CDT EXAMINATION: XR CHEST 1 VIEW, XR FEMUR LEFT 2 OR MORE VIEWS, XR HIPS BILATERAL 2 VIEWS W PELVIS, XR KNEE LEFT 3 VIEWS HISTORY: fall Procedure Note Zacarias Hair MD - 03/18/2024 EXAMINATION: XR CHEST 1 VIEW, XR FEMUR LEFT 2 OR MORE VIEWS, XR HIPS BILATERAL 2 VIEWS W PELVIS, XR KNEE LEFT 3 VIEWS HISTORY: fall IMPRESSION: CHEST: Comparison is made to chest radiograph dated 02/23/2023. Redemonstrated bilateral total shoulder arthroplasties. Cardiomediastinal silhouette is unchanged when accounting for changes in technique (previously PA with hyperexpander lungs, now AP with decreased lung expansion). Hypoinflated lungs with bilateral bibasilar atelectasis. No pleural effusion or pneumothorax. HIPS AND LEFT FEMUR: Postsurgical changes following vertebral and sacral augmentation. Left subcapital/basicervical femoral neck fracture is present. No acute fracture is present within the right femur or pelvis. LEFT KNEE: 3 views of the left knee were submitted for evaluation. Knee arthroplasty is present in near anatomic alignment. No periprosthetic lucency or fracture. No left knee effusion. Vascular calcifications are present. Dictated by: Mehnaz Hazel MD, PhD The radiology attending physician has personally reviewed this study, and had reviewed and/or edited this written report and agrees with it. Electronically signed by: Zacarias Hair M.D. Linsey Damon MD IMG XR PROCEDURES Fin al Result * XR Femur Left 2 or More Views (03/18/2024 4:49 PM CDT) Anatomical Region Laterality Modality Lower Extremities, Thigh, Femur Left Computed Radiography 03/18/2024 5:14 PM CDT Impressions 03/18/2024 5:25 PM CDT CHEST: Comparison is made to chest radiograph dated 02/23/2023. Redemonstrated bilateral total shoulder arthroplasties. Cardiomediastinal silhouette is unchanged when accounting for changes in technique (previously PA with hyperexpander lungs, now AP with decreased lung expansion). Hypoinflated lungs with bilateral bibasilar atelectasis. No pleural effusion or pneumothorax. HIPS AND LEFT FEMUR: Postsurgical changes following vertebral and sacral augmentation. Left subcapital/basicervical femoral neck fracture is present. No acute fracture is present within the right femur or pelvis. LEFT KNEE: 3 views of the left knee were submitted for evaluation. Knee arthroplasty is present in near anatomic alignment. No periprosthetic lucency or fracture. No left knee effusion. Vascular calcifications are present. Dictated by: Mehnaz Hazel MD, PhD The radiology attending physician has personally reviewed this study, and had reviewed and/or edited this written report and agrees with it. Electronically signed by: Zacarias Hair M.D. Narrative 03/18/2024 5:25 PM CDT EXAMINATION: XR CHEST 1 VIEW, XR FEMUR LEFT 2 OR MORE VIEWS, XR HIPS BILATERAL 2 VIEWS W PELVIS, XR KNEE LEFT 3 VIEWS HISTORY: fall Procedure Note Zacarias Hair MD - 03/18/2024 EXAMINATION: XR CHEST 1 VIEW, XR FEMUR LEFT 2 OR MORE VIEWS, XR HIPS BILATERAL 2 VIEWS W PELVIS, XR KNEE LEFT 3 VIEWS HISTORY: fall IMPRESSION: CHEST: Comparison is made to chest radiograph dated 02/23/2023. Redemonstrated bilateral total shoulder arthroplasties. Cardiomediastinal silhouette is unchanged when accounting for changes in technique (previously PA with hyperexpander lungs, now AP with decreased lung expansion). Hypoinflated lungs with bilateral bibasilar atelectasis. No pleural effusion or pneumothorax. HIPS AND LEFT FEMUR: Postsurgical changes following vertebral and sacral augmentation. Left subcapital/basicervical femoral neck fracture is present. No acute fracture is present within the right femur or pelvis. LEFT KNEE: 3 views of the left knee were submitted for evaluation. Knee arthroplasty is present in near anatomic alignment. No periprosthetic lucency or fracture. No left knee effusion. Vascular calcifications are present. Dictated by: Mehnaz Hazel MD, PhD The radiology attending physician has personally reviewed this study, and had reviewed and/or edited this written report and agrees with it. Electronically signed by: Zacarias Hair M.D. us Linsey Damon MD IMG XR PROCEDURES Fin al Result * XR Chest 1 Vw Portable (03/18/2024 4:49 PM CDT) Anatomical Region Laterality Modality Body, Chest N/A Computed Radiogr aphy 03/18/2024 5:14 PM CDT Impressions 03/18/2024 5:25 PM CDT CHEST: Comparison is made to chest radiograph dated 02/23/2023. Redemonstrated bilateral total shoulder arthroplasties. Cardiomediastinal silhouette is unchanged when accounting for changes in technique (previously PA with hyperexpander lungs, now AP with decreased lung expansion). Hypoinflated lungs with bilateral bibasilar atelectasis. No pleural effusion or pneumothorax. HIPS AND LEFT FEMUR: Postsurgical changes following vertebral and sacral augmentation. Left subcapital/basicervical femoral neck fracture is present. No acute fracture is present within the right femur or pelvis. LEFT KNEE: 3 views of the left knee were submitted for evaluation. Knee arthroplasty is present in near anatomic alignment. No periprosthetic lucency or fracture. No left knee effusion. Vascular calcifications are present. Dictated by: Mehnaz Hazel MD, PhD The radiology attending physician has personally reviewed this study, and had reviewed and/or edited this written report and agrees with it. Electronically signed by: Zacarias Hair M.D. Narrative 03/18/2024 5:25 PM CDT EXAMINATION: XR CHEST 1 VIEW, XR FEMUR LEFT 2 OR MORE VIEWS, XR HIPS BILATERAL 2 VIEWS W PELVIS, XR KNEE LEFT 3 VIEWS HISTORY: fall Procedure Note Zacarias Hair MD - 03/18/2024 EXAMINATION: XR CHEST 1 VIEW, XR FEMUR LEFT 2 OR MORE VIEWS, XR HIPS BILATERAL 2 VIEWS W PELVIS, XR KNEE LEFT 3 VIEWS HISTORY: fall IMPRESSION: CHEST: Comparison is made to chest radiograph dated 02/23/2023. Redemonstrated bilateral total shoulder arthroplasties. Cardiomediastinal silhouette is unchanged when accounting for changes in technique (previously PA with hyperexpander lungs, now AP with decreased lung expansion). Hypoinflated lungs with bilateral bibasilar atelectasis. No pleural effusion or pneumothorax. HIPS AND LEFT FEMUR: Postsurgical changes following vertebral and sacral augmentation. Left subcapital/basicervical femoral neck fracture is present. No acute fracture is present within the right femur or pelvis. LEFT KNEE: 3 views of the left knee were submitted for evaluation. Knee arthroplasty is present in near anatomic alignment. No periprosthetic lucency or fracture. No left knee effusion. Vascular calcifications are present. Dictated by: Mehnaz Hazel MD, PhD The radiology attending physician has personally reviewed this study, and had reviewed and/or edited this written report and agrees with it. Electronically signed by: Zacarias Hair M.D. us Thony Ordonez MD IMG XR PROCEDURES Final R esult * CT Head and Cervical Spine WO Contrast (03/18/2024 4:33 PM CDT) Anatomical Region Laterality Modality Head and Neck N/A Computed Tomogra phy 03/18/2024 5:01 PM CDT Impressions 03/18/2024 5:19 PM CDT 1. No acute intracranial abnormality. 2. No acute cervical spine fracture. ??Multilevel advanced degenerative disease. Dictated by: Celio Acuna MD PHD The radiology attending physician has personally reviewed this study, and had reviewed and/or edited this written report and agrees with it. Electronically signed by: Kirk Gould MD Narrative 03/18/2024 5:19 PM CDT EXAMINATION: 1. CT head without contrast 2. CT of the cervical spine without contrast HISTORY: Ground-level fall TECHNIQUE: CT of the head was performed with images acquired from skull base to vertex without intravenous contrast. CT of the cervical spine was performed according to the standard protocol without intravenous contrast. COMPARISON: None Available. FINDINGS: HEAD: No scalp hematoma. ??There is no acute intracranial hemorrhage. Diffuse volume loss. ??Chronic microvascular ischemic white matter disease. ??Ex vacuo dilatation of the ventricles. ??No mass effect or midline shift is present. The whitaker-white matter differentiation is normal. Pseudophakia. The visualized portions of the mastoids are normal. Mild mucosal disease within ethmoid sinuses bilaterally. No fractures are identified. CERVICAL SPINE: The alignment of the cervical spine is normal. There is no acute fracture. Vertebral bodies are normal in height without compression fractures. Intervertebral disk heights are normal. The craniocervical junction is normal. Limited views of the skull base appear normal. The sphenoid sinus is well aerated. No soft tissue abnormality is identified. Severe degenerative disc disease seen throughout the cervical spine. Findings are most prominent from C4 to C5 and C6-C7. There is up to severe facet arthropathy. There is up to severe uncovertebral joint disease. There is moderate to severe neuroforaminal stenosis at C3-C4. There is no severe spinal canal stenosis. ??Chronic bony fusion of C2 and C3 vertebra and C4 and C5 vertebra are also noted. Procedure Note Kirk Gould MD - 03/18/2024 EXAMINATION: 1. CT head without contrast 2. CT of the cervical spine without contrast HISTORY: Ground-level fall TECHNIQUE: CT of the head was performed with images acquired from skull base to vertex without intravenous contrast. CT of the cervical spine was performed according to the standard protocol without intravenous contrast. COMPARISON: None Available. FINDINGS: HEAD: No scalp hematoma. There is no acute intracranial hemorrhage. Diffuse volume loss. Chronic microvascular ischemic white matter disease. Ex vacuo dilatation of the ventricles. No mass effect or midline shift is present. The whitaker-white matter differentiation is normal. Pseudophakia. The visualized portions of the mastoids are normal. Mild mucosal disease within ethmoid sinuses bilaterally. No fractures are identified. CERVICAL SPINE: The alignment of the cervical spine is normal. There is no acute fracture. Vertebral bodies are normal in height without compression fractures. Intervertebral disk heights are normal. The craniocervical junction is normal. Limited views of the skull base appear normal. The sphenoid sinus is well aerated. No soft tissue abnormality is identified. Severe degenerative disc disease seen throughout the cervical spine. Findings are most prominent from C4 to C5 and C6-C7. There is up to severe facet arthropathy. There is up to severe uncovertebral joint disease. There is moderate to severe neuroforaminal stenosis at C3-C4. There is no severe spinal canal stenosis. Chronic bony fusion of C2 and C3 vertebra and C4 and C5 vertebra are also noted. IMPRESSION: 1. No acute intracranial abnormality. 2. No acute cervical spine fracture. Multilevel advanced degenerative disease. Dictated by: Celio Acuna MD PHD The radiology attending physician has personally reviewed this study, and had reviewed and/or edited this written report and agrees with it. Electronically signed by: Kirk Gould MD Magaly Olivares MD IMG CT PROCEDURES Final Result * (ABNORMAL) ECG 12-LEAD (03/18/2024 4:07 PM CDT) Narrative [facility] - 03/18/2024 4:07 PM CDT Rhona Avila MD ? 03/18/2024 ??4:09 PM ECG 12 lead Date/Time: 03/18/2024 4:07 PM Performed by: Rhona Avila MD Authorized by: Magaly Olivares MD ?? Rate: ??ECG rate: ??64 ??ECG rate assessment: bradycardic ?? Rhythm: ??Rhythm: sinus rhythm ?? QRS: ??QRS axis: ??Left ??QRS intervals: ??Wide Conduction: ??Conduction: abnormal ?Abnormal conduction: complete LBBB ?? T waves: ??T waves: flattening ?Flattening: ??III Q waves: ??Q waves: ??III Previous ECG: ??Previous ECG: ??Compared to current ??Date of previous ECG: ??05/12/2018 ??Similarity: ??No change Interpretation: ??Interpretation: abnormal ?? Recommended Follow-up: ??Recommended follow up: further workup in the ED ?? Procedure Note Rhona Avila MD - 03/18/2024 4:07 PM CDT Procedure ECG 12 lead Date/Time: 03/18/2024 4:07 PM Performed by: Rhona Avila MD Authorized by: Magaly Olivares MD Rate: ECG rate: 64 ECG rate assessment: bradycardic Rhythm: Rhythm: sinus rhythm QRS: QRS axis: Left QRS intervals: Wide Conduction: Conduction: abnormal Abnormal conduction: complete LBBB T waves: T waves: flattening Flattening: III Q waves: Q waves: III Previous ECG: Previous ECG: Compared to current Date of previous EC05/12/2018 Similarity: No change Interpretation: Interpretation: abnormal Recommended Follow-up: Recommended follow up: further workup in the ED Rhona Avila MD 03/18/24 [id number] us Magaly Olivares MD ECG ORDERABLES Final Result Performing Organization Address [facility] de Phone Number [facility] * POCT glucose (03/18/2024 3:05 PM CDT) Glucose, POC 89 70 - 199 mg/dL Blood 03/18/2024 3:05 PM CDT 03/18/2024 3:05 PM CDT us Thony Ordonez MD LAB POCT ORDERABLES - DEV ICE Final Result Performing Organization Address [facility] de Phone Number [facility] Department [place] [address] * XR Outside Reference (03/18/2024 2:59 PM CDT) Impressions [facility] - 03/18/2024 2:59 PM CDT These images are for Reference purposes only and have not been reviewed by [facility] Radiology. ??There will be no report generated by a [facility] Radiologist. Narrative [facility] - 03/18/2024 2:59 PM CDT EXAMINATION: ??Images For Reference Purposes Only us Linsey Damon MD IMG XR PROCEDURES Fin al Result Performing Organization Address [facility] de Phone Number [facility] * (ABNORMAL) eGFR (03/18/2024 2:43 PM CDT) eGFR 56(L) >=60 mL/min/1. 73 m2 Comment: Interpretive Data Reference Interval Normal ?>/= 90 mL/min/1.73m2 Mildly decreased* ? 60 - 89 mL/min/1.73m2 Mildly to moderately decreased ?45 - 59 mL/min/1.73m2 Moderately to severely decreased ??30 - 44 mL/min/1.73m2 Severely decreased ?15 - 29 mL/min/1.73m2 Kidney Failure ?< 15 ??mL/min/1.73m2 *Relative to young adult level Estimated glomerular filtration rate is determined by the 2020 CKD-EPI equation recommended by the National Kidney Foundation (A Unifying Approach to GFR Estimation: Recommendations of the NKF-ASK Task Force on Reassessing the Inclusion of Race in Diagnosing Kidney Disease, JASN 202). The CKD-EPI equation should not be used for patients with unstable renal function and has not been validated in children and those over 70. Current interpretive data was last reviewed 2021. Blood 03/18/2024 2:43 PM CDT 03/18/2024 2:55 PM CDT us Thony Ordonez MD LAB BLOOD ORDERABLES Svetlana masterson Result [facility] Department [place] [address] * (ABNORMAL) Differential, auto (03/18/2024 2:43 PM CDT) Neutrophil abs 7.3(H) 1.5 - 6.5 K/cumm Imm gran abs 0.1 0.0 - 0.1 K/cumm [facility] Lymphocyte abs 1.0 0.8 - 3.3 K/cumm [facility] Monocyte abs 0.5 0.2 - 0.8 K/cumm [facility] Eosinophil abs 0.1 0.0 - 0.5 K/cumm [facility] Basophil abs 0.1 0.0 - 0.1 K/cumm [facility] Neutrophil pct 80.5 % [facility] Comment: Interpretive Data Percent cell count reference ranges are not reported, since discordance with absolute values may lead to misinterpretation of CBC data. Current Interpretive Data was last revised on 2017. Imm gran pct 0.6 % [facility] Comment: Interpretive Data Percent cell count reference ranges are not reported, since discordance with absolute values may lead to misinterpretation of CBC data. Current Interpretive Data was last revised on 2017. Lymphocyte pct 11.0 % [facility] Comment: Interpretive Data Percent cell count reference ranges are not reported, since discordance with absolute values may lead to misinterpretation of CBC data. Current Interpretive Data was last revised on 2017. Monocyte pct 5.7 % [facility] Comment: Interpretive Data Percent cell count reference ranges are not reported, since discordance with absolute values may lead to misinterpretation of CBC data. Current Interpretive Data was last revised on 2017. Eosinophil pct 1.5 % [facility] Comment: Interpretive Data Percent cell count reference ranges are not reported, since discordance with absolute values may lead to misinterpretation of CBC data. Current Interpretive Data was last revised on 2017. Basophil pct 0.7 % [facility] Comment: Interpretive Data Percent cell count reference ranges are not reported, since discordance with absolute values may lead to misinterpretation of CBC data. Current Interpretive Data was last revised on 2017. Blood 03/18/2024 2:43 PM CDT 03/18/2024 2:55 PM CDT us Thony Ordonez MD LAB BLOOD ORDERABLES Svetlana masterson Result [facility] Department [place] [address] * Pro B-type natriuretic peptide (03/18/2024 2:43 PM CDT) NT-proBNP 250 <=450 pg/mL Comment: Interpretive Comments: A. Dyspnea in Acute Care Setting All Ages: ?< 300 pg/ml, acute heart failure unlikely. < 50 yrs: ?300 - 450 pg/ml, further investigation warranted. ? > 450 pg/ml, acute heart failure likely. 50 - 74 yrs: ? 300 - 900 pg/ml, further investigation warranted. ? > 900 pg/ml, acute heart failure likely . > or = 75 yrs: ? 450 - 1800 pg/ml, further investigation warranted. ? > 1800 pg/ml, acute heart failure likely. B. Non-acute Setting < 75 yrs ? < 125 pg/ml, rules out heart failure. ? > or = 125 pg/ml, further investigation warranted. > or = 75 yrs ?< 450 pg/ml, rules out heart failure. ? > or = 450 pg/ml, further investigation warranted. - Knowledge of each individual patient's NT-proBNP range may be more useful than using similar cut-points for every patient. Please note that marked elevations in NT-proBNP levels may be observed in state other than Left Ventricular Congestive Failure, including: acute coronary syndromes, right heart strain/failure (including pulmonary embolism and cor pulmonale), critical illness, renal failure, as well as advanced age. - References: 1. Mai FLORES et.al. Eur Heart J. 2006:27:330-337. 2. Floyd RW, Nelda AM. J. AM Santa Cardiol: Cardiovasc Imag. 2009;2: 216- 225. Interpretive Data Last Revised Date: 2018. Blood 03/18/2024 2:43 PM CDT 03/18/2024 2:55 PM CDT us Rhona Avila MD LAB BLOOD ORDERABLES Final R esult [facility] Department of Laboratories [place], [place] [id number] * (ABNORMAL) CBC with auto differential (03/18/2024 2:43 PM CDT) [facility] WBC 9.1 3.8 - 9.9 K/cumm Hgb 11.0(L) 13.0 - 17.5 g/dL [facility] Hct 33.7(L) 38.9 - 50.3 % [facility] Plt 258 150 - 400 K/cumm [facility] MPV 9.2 9.1 - 12.3 fL [facility] RBC 3.77(L) 4.30 - 5.80 M/cumm [facility] MCV 89.4 81.3 - 96.4 fL [facility] MCH 29.2 27.1 - 33.3 pg [facility] MCHC 32.6 32.3 - 35.7 g/dL [facility] RDW CV 14.2 11.1 - 14.9 % [facility] RDW SD 46.2 35.7 - 48.1 fL [facility] NRBC abs 0.00 0.00 - 0.01 K/cumm [facility] Blood 03/18/2024 2:43 PM CDT 03/18/2024 2:55 PM CDT Thony Ordonez MD LAB BLOOD ORDERABLES Svetlana l Result Performing Organization Address [facility] Co de Phone Number [facility] Department [place] [address] * aPTT (03/18/2024 2:43 PM CDT) [facility] aPTT 38 28 - 38 sec Comment: Interpretive Data Heparin therapeutic range: 66.0 - 100.0 seconds. Range based on correlation with therapeutic heparin activity range of 0.3 - 0.7 Units/mL. Current interpretive data was last revised on 2023. Blood 03/18/2024 2:43 PM CDT 03/18/2024 3:03 PM CDT Thony Ordonez MD LAB BLOOD ORDERABLES Svetlana l Result [facility] Department [place] [address] * (ABNORMAL) Protime-INR (03/18/2024 2:43 PM CDT) Pathologist [facility] [place] PT 13.8(H) 9.7 - 13.0 sec INR 1.27(H) 0.90 - 1.20 [facility] Comment: Interpretive data Oral anticoagulant therapeutic ranges: Venous thromboembolism prophylaxis or treatment: 2.0-3.0 CARDIOLOGY Standard range: 2.0-3.0 High-intensity range: 2.5-3.5 Refer to indication-specific guidelines for appropriate target ranges for prosthetic heart valve replacement. Current interpretive data was last revised on 2019. Blood 03/18/2024 2:43 PM CDT 03/18/2024 3:03 PM CDT Thony Ordonez MD LAB BLOOD ORDERABLES Svetlana l Result Performing Organization Address City/[facility]/ZIP Co de Phone Number [facility] Department [place] [address] * Type and screen (03/18/2024 2:43 PM CDT) [facility] Garcia, indirect Negative ABO Rh B Positive [facility] Blood 03/18/2024 2:43 PM CDT 03/18/2024 3:00 PM CDT Narrative [facility] - 03/18/2024 3:45 PM CDT Has the patient had Daratumumab or Isatuximab in the past 6 months?->Unknown Thony Ordonez MD LAB BLOOD BANK TEST ORDER FELIPE Final Result Performing Organization Address [facility]/ZIP Co de Phone Number [place] [address] * (ABNORMAL) Comprehensive metabolic panel (03/18/2024 2:43 PM CDT) [facility] Sodium 136 135 - 145 mmol/L Potassium, pl 4.7 3.3 - 4.9 mmol/L [facility] Chloride 100 97 - 110 mmol/L [facility] CO2 26 22 - 32 mmol/L [facility] Anion gap 10 2 - 15 mmol/L [facility] BUN 21 6 - 25 mg/dL [facility] Creatinine 1.32(H) 0.80 - 1.30 mg/dL [facility] Glucose 93 70 - 199 mg/dL [facility] Comment: Interpretive Data Fasting glucose >/= 126 mg/dl is diagnostic for diabetes. ?? Fasting is defined as no caloric intake for at least 8 hours. Fasting glucose between 100 mg/dl to 125 mg/dl is diagnostic of prediabetes. In a patient with classic symptoms of hyperglycemia or hyperglycemic crisis, a random glucose >/= 200 mg/dl is diagnostic for diabetes. In the absence of unequivocal hyperglycemia, results should be confirmed by repeat testing. The classification and Diagnosis of Diabetes Diabetes Care 2021; 46: S19-S40. Current interpretive data was last revised 2022. Calcium 9.4 8.5 - 10.3 mg/dL [facility] Bilirubin, total 0.2 0.1 - 1.2 mg/dL [facility] Protein, pl 6.9 6.5 - 8.5 g/dL [facility] Albumin 3.7 3.5 - 5.0 g/dL [facility] Alk phos 101 40 - 130 Units/L [facility] ALT 20 7 - 55 Units/L [facility] AST 15 10 - 50 Units/L [facility] Blood 03/18/2024 2:43 PM CDT 03/18/2024 2:55 PM CDT us Thony Ordonez MD LAB BLOOD ORDERABLES Svetlana masterson Result [facility] Department [place] [address] * POCT hemoglobin A1c (01/27/2024 1:53 PM CDT) Hemoglobin A1C, POC 5.4 4.0 - 5.6 % Blood 01/27/2024 1:53 PM CDT us Eliud Cortez MD POINT OF CARE TEST ORDERABLES F inal Result * Lipid panel (01/12/2024 10:51 AM CDT) Triglycerides 93 <150 mg/dL [facility] Comment: Desirable: <150 mg/dL, fasting <175 mg/dL, non-fasting Persistently elevated triglycerides may enhance atherosclerotic cardiovascular disease. Total Cholesterol 156 <200 mg/dL [facility] Total HDL-C Direct 64 >40 mg/dL [facility] Non-HDL cholesterol 92 <220 mg/dL [facility] [place] LDL Chol 73 <190 mg/dL [facility] Blood 01/12/2024 10:5 1 AM CDT 01/12/2024 11:10 AM CDT Narrative [facility] - 01/12/2024 3:07 PM CDT Current interpretive data was last updated April 18, 2021. For adults ages 40-79, the ACC/AHA recommends discussing your 10-year atherosclerotic cardiovascular disease risk with your health care provider. ??https://www.acc.org/ASCVDApp us Teodoro Hill MD LAB BLOOD ORDERABLES Final Re sult [facility] * Albumin Creatinine Ratio, Urine (07/13/2022 8:12 AM SOCIAL SECRETARY) Creatinine ur 199.2 Not Estab. mg/dL [facility] - 01 Microalbumin, ur 9.1 Not Estab. ug/mL [facility] - 01 Microalbumin/cre at ratio 5 0 - 29 mg/g creat [facility] - 01 Comment: ? Normal: ?0 - ??29 ? Moderately increased: 30 - 300 ? Severely increased: ? >300 Urine 07/13/2022 8:12 AM SOCIAL SECRETARY 07/13/2022 Narrative [facility] - 07/14/2022 10:11 AM SOCIAL SECRETARY Performed at: ??01 - [facility] [address], [place], [place] ??[id number] [employer] Specialist: Zoran Moody PhD, Phone: ??[phone] us Teodoro Hill MD LAB URINE ORDERABLES Final Re sult [facility] 01 from Last 3 Months or Most Recently Relevant to Health [place] [address] [employer] MEDICARE [facility] Address: [address] [address] [place] [address] [employer] Advance Directives For more information, please contact: [phone] Documents on File Type Date Recorded Patient Office Coordinator Receptionist Expl anation ADVANCE DIRECTIVE 11/22/2023 8:03 AM [employer] * Full Code (Latest Code Status on File) Date Activated Date Inactivated Comments 03/18/2024 9:16 PM 03/23/2024 4:01 PM * Full Code Date Activated Date Inactivated Comments 11/24/2023 6:03 PM 11/25/2023 4:31 PM * Full Code Date Activated Date Inactivated Comments 05/25/2018 2:28 PM 05/26/2018 5:17 PM Care 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
--- OUTSIDE RECORDS SUMMARY | 2024-06-16 08:27 | XMS_ITS | Referral Summary ---
Author Organization [facility] Address [address] [place] [address] Care Team Providers Care Potato Grader Name Role Phone Ramone Hemphill MD Primary Care Provider [phone] Encounters Date Type Department Care Team Description 05/04/2024 10:00 AM SHELLAC POLISHER - 05/04/2024 11:59 PM SHELLAC POLISHER Hospital Encounter [facility] [address] [place] [address] Rachael Azul MD #L femoral neck fx Discharge Disposition: Discharge to home or self care 05/04/2024 10:30 AM SHELLAC POLISHER Office Visit [facility] Orthopaedic Surgery [address] [facility] 6th [place] [address] [place] [address] Rachael Azul MD #L femoral neck fx (Primary Dx) 04/12/[address] [address] Marvin Myers, ZAID 03/18/2024 2:25 PM CDT - 03/23/2024 11:45 AM SHELLAC POLISHER Hospital Encounter [address] [address] Thony Ordonez MD Wynia, Emily Jean, MD Welko, Sanjiv Ghotra MD Fall, initial encounter (Primary Dx); Closed fracture of left femur, unspecified fracture morphology, unspecified portion of femur, initial encounter ([facility]); Hyponatremia Discharge Disposition: Discharge to SNF 03/22/2024 10:28 AM SHELLAC POLISHER - 03/22/2024 11:59 PM SHELLAC POLISHER Hospital Encounter [facility] [address] [place] [address] Discharge Disposition: Discharge to home or self care 03/21/2024 10:00 AM SHELLAC POLISHER Ancillary Procedure [facility] Vascular Lab IP [address] [facility] [address] [place] [address] 03/20/2024 Orders Only [facility] Orthopaedic Surgery [address] [facility] 6th [place] [address] [place] [address] Rachael Azul MD #L femoral neck fx (Primary Dx) 03/19/2024 Orders Only [facility] [address] [place] [address] Boy Stevens MD PhD 03/19/2024 11:27 AM SHELLAC POLISHER Anesthesia Event [facility] Operating Room [address] [place] [address] Sreedhar Olivo MD Wong, Elizabeth Yin-Nee, MD 03/19/2024 12:00 PM SHELLAC POLISHER - 03/19/2024 2:50 PM SHELLAC POLISHER Surgery [facility] Operating Room [address] [place] [address] Boy Stevens MD PhD HEMIARTHROPLASTY - HIP from Last 3 Months Allergies No known active allergies Medications FLUoxetine [...] complication, without long-term current use of insulin ([facility] ([facility]) Use to test blood glucose once daily 1 kit 1 2 Active lancets miscIndications :Type 2 diabetes mellitus without complication, without long-term current use of insulin ([facility] ([facility]) Use to test blood glucose once daily [...] 1 tablet (100 mcg total) by mouth 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 racer before breakfast 90 tablet 3 4 Active [...] complication, without long-term current use of insulin ([facility] ([facility]) 1 each daily 100 each 3 4 Active blood glucose diagnostic (glucose blood) stripIndication s:Type 2 diabetes mellitus without complication, without long-term current use of insulin ([facility] ([facility]) Use to test blood glucose once daily [...] 03/21/2024 Assessment & Plan (03/23/2024 9:02 AM SHELLAC POLISHER): - Na 129 (132) - 03/21: 500ml NS bolus - Repeat Na 128->124->131->132 - FWR to 1 L - Salt tabs TID->BID - Urine electrolytes - Continue salt tabs x 1 week, recheck BMP at SNF UTI (urinary tract infection) 03/20/2024 Assessment & Plan (03/22/2024 2:06 PM SHELLAC POLISHER): - + symptoms on admission (burning with urination) - Culture + Morganella morganii - Ceftriaxone started 03/18-03/21 - Susceptible to ceftriaxone, No further treatment needed - Discussed patient's case with the antibiotic stewardship team - Symptoms resolved Syncope 03/20/2024 Assessment & Plan (03/21/2024 1:12 PM SHELLAC POLISHER): - Extensive history of syncopal events - Outpatient work up demonstrated +orthostatics - Recently reduced dose of metoprolol as outpatient - Orthostatics positive 03/20, EMILY hose and abdominal binder ordered - Lives in [...] 03/20/2024 Assessment & Plan (03/23/2024 10:25 AM SHELLAC POLISHER): - 03/20: DC mack, anticipate dc 03/21 back to SNF. 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 - WBAT with PHP - PT/OT, pain control - Follow up with Dr Azul 05/04/2024 10:30 AM - Berhane to be removed at SNF 3 weeks post op (04/09) Status post total knee replacement, left 024 Primary osteoarthritis of left knee 10/01/2023 #hypothyroid 01/02/2019 Assessment & Plan (03/18/2024 10:54 PM CDT): Cont synthroid Class 3 severe obesity with body mass index (BMI) of 40.0 to 44.9 in adult 05/25/2018 Assessment & Plan (03/21/2024 6:37 AM SHELLAC POLISHER): - Pt will return to SNF at discharge Asthma 05/25/2018 Type 2 diabetes mellitus 05/25/2018 Assessment & Plan (03/20/2024 1:33 PM SHELLAC POLISHER): - Insulin sensitive correction scale - [facility] QID Osteoarthritis of right shoulder 04/12/2018 Overview (04/12/2018): Added automatically from request for surgery [id number] Encounter for monitoring amiodarone therapy 05/2017 Chronic renal failure, stage 2 (mild) 08/23/2017 Renal osteodystrophy 08/23/2017 Aortic root dilatation (CMS/HCC) 06/09/2017 Edema of lower extremity 03/15/2017 Hypertension 09/02/2016 Hypertension 09/02/2016 History of cardiomyopathy 12/04/2015 Hyperkalemia 07/30/2015 Morbid obesity 07/29/2015 Obstructive sleep apnea syndrome 07/29/2015 Chronic systolic heart failure (CMS/HCC) 016 Atrial fibrillation ([facility] 05/20/2015 Encounter for preventive health examination 04/16 #afib 04/22/2015 Overview (08/20/2016): Atrial fibrillation, controlled Assessment & Plan (03/23/2024 9:00 AM SHELLAC POLISHER): - Held eliquis for OR - Okay to resume per ortho - Continued DVT ppx while terry-op - Continued eliquis at discharge alf current use of anticoagulant therapy 1 06/23/2014 Overview (08/20/2016): Chronic anticoagulation #CHF 04/22/2015 Overview (08/20/2016): Congestive heart failure with left ventricular dysfunction Assessment & Plan (03/20/2024 1:31 PM SHELLAC POLISHER): Cont metop, amiodarone 01/18/24 EF 55%. LV mildly dilated with low normal systolic function, reduced from prior LUCIO on CPAP 08/30/2014 Assessment & Plan (03/20/2024 1:32 PM SHELLAC POLISHER): Continued on hospital unit Mycobacterium avium complex ([facility] 03/31/2012 Overview (01/19/2023): In sputum Other nonspecific abnormal finding of lung field 03/31/2012 Overview (01/19/2023): Multiple pulmonary nodules Acute postoperative pain Acute pain of right shoulder Status post total replacement of right shoulder Immunizations Name Administration Dates Next Due Influenza, Quadrivalent, Hig h Dose, Preservative Free, Intrr 01/20/2020 Influenza, Trivalent, High D ose, Split, Preservative Free, Intramuscular 01/30/2019,01/06/2018,01/19/2017 Influenza, Trivalent, IM (MDV) 01/15/2015,2013,02/08/2013 Influenza, Unspecified 01/21/2017 Td, adsorbed 07/21/2001 Social History Tobacco Use Types Packs/Day Years Used Date Smoking Tobacco: Former Cigarettes Q uit: 1982 Smokeless Tobacco: Never Tobacco Cessation:Counseling Given: Not [...] on file Legal Sex Male 12:33 PM SHELLAC POLISHER Gender Identity Male 01/21/2018 1:29 PM CDT Sexual Orientation Straight 01/09/2021 6: 25 AM CDT Last Filed Vital Signs Vital Sign Reading Time Taken Comments Blood Pressure 103/60 03/23/2024 7:28 AM SHELLAC POLISHER Pulse 69 03/23/2024 7:28 AM SHELLAC POLISHER Temperature 36.4 ??C (97.5 ??F) 03/23/2024 7:28 AM CS T Respiratory Rate 18 03/23/2024 7:28 AM SHELLAC POLISHER Oxygen Saturation 99% 03/23/2024 7:28 AM SHELLAC POLISHER Inhaled Oxygen Concentration - - Weight 131.1 kg (289 lb 0.4 oz) 03/18/2024 9:00 PM CDT Height 180.3 cm (5' 10.98 ) 03/18/2024 9:00 PM C DT Body Mass Index 40.33 03/18/2024 9:00 PM CDT Plan of Treatment Not on file Medical Devices Implanted Type Area Assistant Professor Of Education Device Identifier Shelf Expiration Date Model / Serial / Lot [employer] Simplex P Radiopaque Full Dose Cement Bone Sterile 6191-1-010 - S0 - [id number] Implanted:Qty: 1 on 03/19/2024 by Boy Stevens MD PhD at [facility] Bone Cement Left: Hip [employer] 03/16/2025 6191-1-010 / 0 / [id number] [employer] Simplex P Radiopaque Full Dose Cement Bone Sterile 6191-1-010 - S0 - [id number] Implanted:Qty: 1 on 03/19/2024 by Boy Stevens MD PhD at [facility] Bone Cement Left: Hip [employer] 03/16/2025 6191-1-010 / 0 / [id number] Imp Knee Tib Ins Tri Sz7 13mm [id number] Implanted:Qty: 1 on 11/24/2023 at [facility] Other - see comments Left: Knee Katharine 01/03/2028 8380-O-955-E / / [id number] [employer] Versys Heritage 15mm 140mm Primary Cement Proximal Centralizer [id number] - S0 - [id number] Implanted:Qty: 1 on 03/19/2024 by Boy Stevens MD PhD at [facility] Other - see comments Left: Hip [employer] [id number] 1 06/28/2032 [id number] / 0 / [id number] [employer] Versys 13mm Cemented Hip Distal Centralizer Stem Pmma Sterile [id number] - S0 - [id number] Implanted:Qty: 1 on 03/19/2024 by Boy Stevens MD PhD at [facility] Other - see comments Left: Hip [employer] [id number] 12/23/2027 [id number] / 0 / [id number] [employer] Ringloc Bio-Esparza Ii 54mm 28mm 2 Articulate Surface Lock 232 - S0 - [id number] Implanted:Qty: 1 on 03/19/2024 by Boy Stevens MD PhD at [facility] Other - see comments Left: Hip [employer] [id number] 04/27/2027232 / 0 / [id number] [employer] Trilogy It Continuum 28mm Hip Acetabulum +3.5mm 04/29 Large Head [id number] - S0 - [id number] Implanted:Qty: 1 on 03/19/2024 by Boy Stevens MD PhD at [facility] Other - see comments Left: Hip [employer] [id number] 1 03/23/2032 [id number] / 0 / [id number] [employer]/ Ortho Prep-Im Plug Pollock Sponge Suction Hip Kit Thr Latex Free 086605 - S0 - [id number] Implanted:Qty: 1 on 03/19/2024 by Boy Stevens MD PhD at [facility] Other - see comments Left: Hip [employer] /Ortho [id number] 07/08/2033 029981 / 0 / [id number] Description:Cement restricto r in kit [employer] 6191-1-010 Simplex P Radiopaque Full Dose Cement Bone Sterile - [id number] Implanted:Qty: 1 on 05/25/2018 by Kevin Duron MD at [facility] Right: Shoulder [employer] [id number] 6191-1-010 / / [employer] [id number] Global Ap 52mm Rainier Glenoid Peg Fixation Premieron - [id number] Implanted:Qty: 1 on 05/25/2018 by Kevin Duron MD at [facility] Right: Shoulder [employer] [id number] / / Depuy S[employer] [id number] Global Unite 10mm Shoulder 135d Body Humeral [place]oat Sterile - [id number] Implanted:Qty: 1 on 05/25/2018 by Kevin Duron MD at [facility] Right: Shoulder Depuy [employer] [id number] / / Depuy Orth[employer] Inc [id number] Global Unite 10mm 113mm Modular Shoulder Standard Stem Humeral - [id number] Implanted:Qty: 1 on 05/25/2018 by Kevin Duron MD at [facility] Right: Shoulder [employer] Inc [id number] / / Dep[employer] Inc [id number] Global Unite 52mm 18mm Modular Eccentric Shoulder Head Humeral - [id number] Implanted:Qty: 1 on 05/25/2018 by Kevin Duron MD at [facility] Right: Shoulder [employer] Inc [id number] / / [employer] Triathlon Tritanium Knee 7 Baseplate Tibial 5536-B-700 - [id number] Implanted:Qty: 1 on 11/24/2023 at [facility] Left: Knee [employer] 05/13/2028 5536-B-700 / / [id number] [employer] Triathlon Cruciate Retain Bead Knee Left 6 Component Femoral Pa 5517-F-601 - [id number] Implanted:Qty: 1 on 11/24/2023 at [facility] Left: Knee [employer] 08/24/2028 5517-F-601 / / [id number] Procedures Procedure Name Priority Date/Time Associated Diagnosis Comments XR HIP LEFT W PELVIS 2 OR 3 VIEWS Schedule Routine, Read Routine (OP Routine) 05/04/2024 10:39 AM SHELLAC POLISHER #L femoral neck fx POCT GLUCOSE DEVICE Routine 03/23/2024 8 :14 AM SHELLAC POLISHER EGFR Routine 03/22/2024 10:48 PM SHELLAC POLISHER BASIC METABOLIC PANEL Routine 03/22/2024 10:48 PM SHELLAC POLISHER POCT GLUCOSE DEVICE Routine 03/22/2024 8 :52 PM SHELLAC POLISHER POCT GLUCOSE DEVICE Routine 03/22/2024 5 :51 PM SHELLAC POLISHER CREATININE, URINE, RANDOM Routine 03/22/2024 1:30 PM SHELLAC POLISHER CHLORIDE, URINE, RANDOM Routine 03/22/20 24 1:30 PM SHELLAC POLISHER POTASSIUM, URINE, RANDOM Routine 03/22/2024 1:30 PM SHELLAC POLISHER SODIUM, URINE, RANDOM Routine 03/22/2024 1:30 PM SHELLAC POLISHER CHLORIDE, URINE, RANDOM Routine 03/22/20 1:14 PM SHELLAC POLISHER SODIUM, URINE, RANDOM Routine 03/22/2024 1:14 PM SHELLAC POLISHER POTASSIUM, URINE, RANDOM Routine 03/22/2024 1:14 PM SHELLAC POLISHER CREATININE, URINE, RANDOM Routine 03/22/2024 1:14 PM SHELLAC POLISHER POCT GLUCOSE DEVICE Routine 03/22/2024 11:41 AM SHELLAC POLISHER EGFR Routine 03/22/2024 11:11 AM SHELLAC POLISHER BASIC METABOLIC PANEL Routine 03/22/2024 11:11 AM SHELLAC POLISHER POCT GLUCOSE DEVICE Routine 03/22/2024 8 :37 AM SHELLAC POLISHER POCT GLUCOSE DEVICE Routine 03/21/2024 8 :43 PM SHELLAC POLISHER EGFR Routine 03/21/2024 8:01 PM SHELLAC POLISHER BASIC METABOLIC PANEL Routine 03/21/2024 8:01 PM SHELLAC POLISHER POCT GLUCOSE DEVICE Routine 03/21/2024 6 :04 PM SHELLAC POLISHER POCT GLUCOSE DEVICE Routine 03/21/2024 12:51 PM SHELLAC POLISHER US CAROTIDS DUPLEX BILATERAL ED Urgent/IP Urgent 03/21/2024 12:49 PM SHELLAC POLISHER POCT GLUCOSE DEVICE Routine 03/21/2024 12:35 PM SHELLAC POLISHER EGFR Routine 03/21/2024 12:33 PM SHELLAC POLISHER BASIC METABOLIC PANEL Routine 03/21/2024 12:33 PM SHELLAC POLISHER POCT GLUCOSE DEVICE Routine 03/21/2024 7 :47 AM SHELLAC POLISHER EGFR Routine 03/21/2024 2:45 AM SHELLAC POLISHER PHOSPHORUS Routine 03/21/2024 2:45 AM SHELLAC POLISHER MAGNESIUM Routine 03/21/2024 2:45 AM SHELLAC POLISHER COMPREHENSIVE METABOLIC PANEL Routine 03/21/2024 2:45 AM SHELLAC POLISHER CBC WITHOUT DIFFERENTIAL Routine 03/21/2024 2:45 AM SHELLAC POLISHER POCT GLUCOSE DEVICE Routine 03/20/2024 8 :22 PM SHELLAC POLISHER POCT GLUCOSE DEVICE Routine 03/20/2024 5 :19 PM SHELLAC POLISHER POCT GLUCOSE DEVICE Routine 03/20/2024 11:34 AM SHELLAC POLISHER POCT GLUCOSE DEVICE Routine 03/20/2024 8 :31 AM SHELLAC POLISHER POTASSIUM, WHOLE BLOOD Timed 2:40 AM SHELLAC POLISHER POCT GLUCOSE DEVICE Routine 03/20/2024 2 :33 AM SHELLAC POLISHER POCT GLUCOSE DEVICE Routine 03/19/2024 9 :52 PM SHELLAC POLISHER EGFR Routine 03/19/2024 9:31 PM SHELLAC POLISHER BASIC METABOLIC PANEL Routine 03/19/2024 9:31 PM SHELLAC POLISHER CBC WITHOUT DIFFERENTIAL Routine 03/19/2024 9:31 PM SHELLAC POLISHER POCT GLUCOSE DEVICE Routine 03/19/2024 6 :24 PM SHELLAC POLISHER XR PELVIS 1 OR 2 VIEWS IP Routine 2:24 PM SHELLAC POLISHER POCT GLUCOSE DEVICE Routine 03/19/2024 2 :01 PM SHELLAC POLISHER POCT GLUCOSE DEVICE Routine 03/19/2024 1 :24 PM SHELLAC POLISHER XR PELVIS ORTHO VIEW IP Routine 03/19/2024 12:55 PM SHELLAC POLISHER SURGICAL PATHOLOGY Routine 03/19/2024 12:28 PM SHELLAC POLISHER POCT GLUCOSE DEVICE Routine 03/19/2024 12:27 PM SHELLAC POLISHER POCT GLUCOSE DEVICE Routine 03/19/2024 12:26 PM SHELLAC POLISHER WA AN PROCEDURE PLACEHOLDER Routine 03/19/2024 12:10 PM SHELLAC POLISHER WA AN PROCEDURE PLACEHOLDER Routine 03/19/2024 12:07 PM SHELLAC POLISHER WA AN EMERGENT ENDOTRACHEAL AIRWAY Routine 03/19/2024 12:07 PM SHELLAC POLISHER HEMIARTHROPLASTY - HIP 11:32 AM SHELLAC POLISHER Fall, initial encounter POCT GLUCOSE DEVICE Routine 03/19/2024 8 :36 AM SHELLAC POLISHER TROPONIN I HIGH-SENSITIVITY 6-HOUR Timed 03/18/2024 11:33 PM CDT POCT GLUCOSE DEVICE Routine 03/18/2024 10:54 PM CDT WA INJECTION AA&/STRD OTHER PERIPHERAL NERVE/BRANCH Routine 03/18/2024 [...] complication, without long-term current use of insulin ([facility] ([facility]) LIPID PANEL Routine 01/12/2024 10:51 AM CDT Type 2 diabetes mellitus without complication, without long-term current use of insulin ([facility] ([facility]) Hypertension, unspecified type ALBUMIN CREATININE RATIO, URINE Routine 07/13/2022 8:12 AM SHELLAC POLISHER Medication course changed Chronic kidney disease, unspecified CKD stage from Last 3 Months or Most Recently Relevant to Health Maintenance Results * XR Hip Left 2 or 3 Views W Pelvis (05/04/2024 10:39 AM SHELLAC POLISHER) Anatomical Region Laterality Modality Lower Extremities, Hip, Pelvis Left C omputed Radiography 05/04/2024 11:2 9 AM SHELLAC POLISHER Impressions 05/04/2024 11:41 AM SHELLAC POLISHER Unchanged left hip hemiarthroplasty in expected position without radiographic evidence of prosthetic complication. Dictated by: Pawel Persaud M.D. The radiology attending physician has personally reviewed this study, and had reviewed and/or edited this written report and agrees with it. Electronically signed by: Petr Mayorga D.O. Narrative 05/04/2024 11:41 AM SHELLAC POLISHER EXAMINATION: XR HIP LEFT 2 OR 3 VIEWS W PELVIS HISTORY: Left hip arthroplasty follow-up. COMPARISON: 03/19/2024 FINDINGS: ?? Postsurgical changes of left hip hemiarthroplasty in expected position. ??No evidence of periprosthetic fracture or osteolysis. ??No new fracture or dislocation. ??Normal bone alignment. Sacroplasty noted. Procedure Note Petr Mayorga, DO - 05/04/2024 EXAMINATION: XR HIP LEFT [...] it. Electronically signed by: Petr Mayorga D.O. us Rachael Azul MD IMG XR PROCEDURES Final Result * POCT glucose (03/23/2024 8:14 AM SHELLAC POLISHER) Glucose, POC 105 70 - 199 mg/dL Blood 03/23/2024 8:14 AM SHELLAC POLISHER 03/23/2024 8:14 AM SHELLAC POLISHER us Sanjiv Ge MD LAB POCT ORDERABLES - DEV ICE Final Result [facility] Department [place] [address] * eGFR (03/22/2024 10:48 PM SHELLAC POLISHER) eGFR 74 >=60 mL/min/1. 73 m2 Comment: [...] reviewed 2021. Blood 03/22/2024 10:4 8 PM SHELLAC POLISHER 03/22/2024 11:32 PM SHELLAC POLISHER us Bee Valdes NP LAB BLOOD ORDERABLES Fi nal Result [facility] [address] [facility] Department [place] [address] * (ABNORMAL) Basic metabolic panel (03/22/2024 10:48 PM SHELLAC POLISHER) Sodium 132(L) 135 - 145 mmol/L Potassium, pl 4.8 3.3 - 4.9 mmol/L [facility] Comment:Hemolyzed; Potassium value may be falsely elevated by as much as 0.6-1.0 mmol/L. Suggest redraw and reanalysis. Chloride 99 97 - 110 mmol/L [facility] CO2 21(L) 22 - 32 mmol/L [facility] Anion gap 12 2 - 15 mmol/L [facility] BUN 22 6 - 25 mg/dL [facility] Creatinine 1.04 0.80 - 1.30 mg/dL [facility] Glucose 114 70 - 199 mg/dL [facility] Comment: Interpretive Data Fasting glucose >/= 126 [...] 2022. Calcium 9.0 8.5 - 10.3 mg/dL [facility] Blood 03/22/2024 10:4 8 PM SHELLAC POLISHER 03/22/2024 11:32 PM SHELLAC POLISHER us Bee Valdes NP LAB BLOOD ORDERABLES Fi nal Result Performing Organization Address City/[facility] Co de Phone Number [facility] [place] [employer] [place] [address] * POCT glucose (03/22/2024 8:52 PM SHELLAC POLISHER) Glucose, POC 114 70 - 199 mg/dL Blood 03/22/2024 8:52 PM SHELLAC POLISHER 03/22/2024 8:52 PM SHELLAC POLISHER Sanjiv Ge MD LAB POCT ORDERABLES - DEV ICE Final Result Performing Organization Address City/[facility] Co de Phone Number [facility] Department [place] [employer] [place] [address] * POCT glucose (03/22/2024 5:51 PM SHELLAC POLISHER) Glucose, POC 120 70 - 199 mg/dL Blood 03/22/2024 5:51 PM SHELLAC POLISHER 03/22/2024 5:51 PM SHELLAC POLISHER Sanjiv Ge MD LAB POCT ORDERABLES - DEV ICE Final Result Performing Organization Address City/[facility] Co de Phone Number [facility] [place] [place] [address] * Sodium, urine, random (03/22/2024 1:30 PM SHELLAC POLISHER) Sodium, ur <20 mmol/L Comment: Interpretive Data No reference range established. Current interpretive data was last revised 2018. Urine (Urine, Clean Catch) 03/22/2024 1:30 PM SHELLAC POLISHER 03/23/2024 6:47 AM SHELLAC POLISHER Bee Valdes INDUSTRIAL ECOLOGIST LAB URINE ORDERABLES Fi nal Result Performing Organization Address City/[facility] Co de Phone Number [facility] [place] [place] [address] * Potassium, urine, random (03/22/2024 1:30 PM SHELLAC POLISHER) Potassium conc, ur 35.3 mmol/L Comment: Interpretive Data No reference range established. Current interpretive data was last revised 2018. Urine (Urine, Clean Catch) 03/22/2024 1:30 PM SHELLAC POLISHER 03/23/2024 6:47 AM SHELLAC POLISHER Bee Valdes INDUSTRIAL ECOLOGIST LAB URINE ORDERABLES Fi nal Result Performing Organization Address [facility] Co de Phone Number [facility] [place] [place] [address] * Creatinine, urine, random (03/22/2024 1:30 PM SHELLAC POLISHER) Creatinine Ur 134.8 mg/dL Comment: Interpretive Data No reference range established. Current interpretive data was last revised 2018. Urine 03/22/2024 1:30 PM SHELLAC POLISHER 03/23/2024 6:47 AM SHELLAC POLISHER Bee Valdes INDUSTRIAL ECOLOGIST LAB URINE ORDERABLES Fi nal Result Performing Organization Address City/[facility] Co de Phone Number [facility] [place] [address] * Chloride, urine, random (03/22/2024 1:30 PM SHELLAC POLISHER) Chloride, ur <25 mmol/L Comment: Interpretive Data No reference range established. Current interpretive data was last revised 2018. Urine (Urine, Clean Catch) 03/22/2024 1:30 PM SHELLAC POLISHER 03/23/2024 6:47 AM SHELLAC POLISHER Bee Valdes INDUSTRIAL ECOLOGIST LAB URINE ORDERABLES Fi nal Result Performing Organization Address [facility] Co de Phone Number [facility] [place] [address] * Sodium, urine, random (03/22/2024 1:14 PM SHELLAC POLISHER) Sodium, ur <20 mmol/L Comment: Interpretive Data No reference range established. Current interpretive data was last revised 2018. Urine 03/22/2024 1:14 PM SHELLAC POLISHER 03/22/2024 3:28 PM SHELLAC POLISHER Bee Valdes INDUSTRIAL ECOLOGIST LAB URINE ORDERABLES Fi nal Result Performing Organization Address [facility] de Phone Number [facility] [place] [place] [address] * Potassium, urine, random (03/22/2024 1:14 PM SHELLAC POLISHER) Potassium conc, ur 23.4 mmol/L Comment: Interpretive Data No reference range established. Current interpretive data was last revised 2018. Urine 03/22/2024 1:14 PM SHELLAC POLISHER 03/22/2024 3:28 PM SHELLAC POLISHER Bee Valdes INDUSTRIAL ECOLOGIST LAB URINE ORDERABLES Fi nal Result Performing Organization Address [facility] Co de Phone Number [facility] [place] [id number] * Creatinine, urine, random (03/22/2024 1:14 PM SHELLAC POLISHER) Creatinine Ur 60.0 mg/dL Comment: Interpretive Data No reference range established. Current interpretive data was last revised 2018. Urine 03/22/2024 1:14 PM SHELLAC POLISHER 03/22/2024 3:28 PM SHELLAC POLISHER Bee Valdes NP LAB URINE ORDERABLES Fi nal Result Performing Organization Address [facility] de Phone Number [facility] [place] [address] * Chloride, urine, random (03/22/2024 1:14 PM SHELLAC POLISHER) Chloride, ur <25 mmol/L Comment: Interpretive Data No reference range established. Current interpretive data was last revised 2018. Urine 03/22/2024 1:14 PM SHELLAC POLISHER 03/22/2024 3:28 PM SHELLAC POLISHER Bee Valdes NP LAB URINE ORDERABLES Fi nal Result Performing Organization Address [facility] de Phone Number [facility] [place] [address] * POCT glucose (03/22/2024 11:41 AM SHELLAC POLISHER) Glucose, POC 133 70 - 199 mg/dL Blood 03/22/2024 11:4 1 AM SHELLAC POLISHER 03/22/2024 11:41 AM SHELLAC POLISHER Sanjiv Ge MD LAB POCT ORDERABLES - DEV ICE Final Result Performing Organization Address [facility] de Phone Number [facility] [place] [place] [address] * eGFR (03/22/2024 11:11 AM SHELLAC POLISHER) eGFR 61 >=60 mL/min/1. 73 m2 Comment: [...] reviewed 2021. Blood 03/22/2024 11:1 1 AM SHELLAC POLISHER 03/22/2024 11:19 AM SHELLAC POLISHER us Bee Valdes INDUSTRIAL ECOLOGIST LAB BLOOD ORDERABLES [facility] Result [facility] Department [place] [address] * (ABNORMAL) Basic metabolic panel (03/22/2024 11:11 AM SHELLAC POLISHER) Sodium 131(L) 135 - 145 mmol/L Potassium, pl 4.5 3.3 - 4.9 mmol/L [facility] Chloride 97 97 - 110 mmol/L [facility] CO2 24 22 - 32 mmol/L [facility] Anion gap 10 2 - 15 mmol/L [facility] BUN 23 6 - 25 mg/dL [facility] Creatinine 1.23 0.80 - 1.30 mg/dL [facility] Glucose 118 70 - 199 mg/dL [facility] Comment: Interpretive Data Fasting glucose >/= 126 [...] 2022. Calcium 9.0 8.5 - 10.3 mg/dL [facility] Blood 03/22/2024 11:1 1 AM SHELLAC POLISHER 03/22/2024 11:19 AM SHELLAC POLISHER us Bee Valdes NP LAB BLOOD ORDERABLES Fi nal Result [facility] Department [place] [place] [address] * POCT glucose (03/22/2024 8:37 AM SHELLAC POLISHER) Glucose, POC 115 70 - 199 mg/dL Blood 03/22/2024 8:37 AM SHELLAC POLISHER 03/22/2024 8:37 AM SHELLAC POLISHER us Sanjiv Ge MD LAB POCT ORDERABLES - DEV ICE Final Result [facility] [place] [place] [address] * POCT glucose (03/21/2024 8:43 PM SHELLAC POLISHER) Glucose, POC 110 70 - 199 mg/dL Blood 03/21/2024 8:43 PM SHELLAC POLISHER 03/21/2024 8:43 PM SHELLAC POLISHER us Sanjiv Ge MD LAB POCT ORDERABLES - DEV ICE Final Result Performing Organization Address City/[facility]/ZIP Co de Phone Number [facility] [place] [place] [address] * eGFR (03/21/2024 8:01 PM SHELLAC POLISHER) eGFR 60 >=60 mL/min/1. 73 m2 Comment: [...] last reviewed 2021. Blood 03/21/2024 8:01 PM SHELLAC POLISHER 03/21/2024 8:55 PM SHELLAC POLISHER us Bee Valdes NP LAB BLOOD ORDERABLES Fi nal Result Performing Organization Address City/[facility]/ZIP Co de Phone Number [facility] [place] [place] [address] * (ABNORMAL) Basic metabolic panel (03/21/2024 8:01 PM SHELLAC POLISHER) Pathologist [facility] Sodium 124(L) 135 - 145 mmol/L Potassium, pl 4.2 3.3 - 4.9 mmol/L [facility] Chloride 91(L) 97 - 110 mmol/L [facility] CO2 21(L) 22 - 32 mmol/L [facility] Anion gap 12 2 - 15 mmol/L [facility] BUN 23 6 - 25 mg/dL [facility] Creatinine 1.24 0.80 - 1.30 mg/dL [facility] Glucose 95 70 - 199 mg/dL [facility] Comment: Interpretive Data Fasting glucose >/= 126 [...] 2022. Calcium 9.2 8.5 - 10.3 mg/dL [facility] Blood 03/21/2024 8:01 PM SHELLAC POLISHER 03/21/2024 8:55 PM SHELLAC POLISHER us Bee Valdes NP LAB BLOOD ORDERABLES Fi nal Result [facility] Department [place] [address] * POCT glucose (03/21/2024 6:04 PM SHELLAC POLISHER) Pathologist [facility] Glucose, POC 85 70 - 199 mg/dL Blood 03/21/2024 6:04 PM SHELLAC POLISHER 03/21/2024 6:04 PM SHELLAC POLISHER us Sanjiv Ge MD LAB POCT ORDERABLES - DEV ICE Final Result Performing Organization Address [facility] de Phone Number [place] [address] * POCT glucose (03/21/2024 12:51 PM SHELLAC POLISHER) Glucose, POC 89 70 - 199 mg/dL Blood 03/21/2024 12:5 1 PM SHELLAC POLISHER 03/21/2024 12:51 PM SHELLAC POLISHER Sanjiv Ge MD LAB POCT ORDERABLES - DEV ICE Final Result Performing Organization Address [facility] de Phone Number EMILIA BERNARDO [facility] Department [place] [address] * US Carotids Duplex Bilateral (03/21/2024 12:49 PM SHELLAC POLISHER) Anatomical Region Laterality Modality Vascular Bilateral Ultrasound 03/21/2024 11:3 3 AM SHELLAC POLISHER Narrative 03/21/2024 2:59 PM SHELLAC POLISHER [facility] - Department of Vascular Surgery, Vascular Laboratory [address] [place] [id number] Carotid Duplex Ultrasound Report Patient Name: FRED JEWELL E : 1945 (78y 4m) Study Date: 03/21/2024 11:33:01 AM Gender: M Tech: Location: [id number] Ref Provider: BEE VALDES ?Quality: Adequate Order [...] PSV ?42 ? cm/sec - FINDINGS: Performing Hall Coordinator: Tiffany Bowen RVT. Rt Common Carotid Artery: [...] Electronically Signed By: Jean Paul Reyes MD [facility] 2024-03-21 14:58:33 SHELLAC POLISHER Procedure Note Jean Paul Reyes MD - 03/21/2024 [facility] - Department of Vascular Surgery,Vascular Laboratory [address] [place] [address] Carotid Duplex Ultrasound Report Patient Name: FRED JEWELL E : 1945 (78y 4m) Study Date: 03/21/2024 11:33:01 AM Gender: M Tech: Location: [id number] Ref Provider: BEE VALDES Quality: Adequate Order [...] LT VERT PSV 42cm/sec - FINDINGS: Performing Hall Coordinator: Tiffany Bowen RVT. Rt Common Carotid Artery: [...] Electronically Signed By: Jean Paul Reyes MD [facility] 2024-03-21 14:58:33 SHELLAC POLISHER us Bee Valdes NP IMG US PROCEDURES Final Result * POCT glucose (03/21/2024 12:35 PM SHELLAC POLISHER) Glucose, POC 108 70 - 199 mg/dL Blood 03/21/2024 12:3 5 PM SHELLAC POLISHER 03/21/2024 12:35 PM SHELLAC POLISHER us Sanjiv Ge MD LAB POCT ORDERABLES - DEV ICE Final Result Performing Organization Address [facility]/State/ZIP Co de Phone Number EMILIA [facility] Department [place] [address] * (ABNORMAL) eGFR (03/21/2024 12:33 PM SHELLAC POLISHER) eGFR 55(L) >=60 mL/min/1. 73 m2 Comment: [...] reviewed 2021. Blood 03/21/2024 12:3 3 PM SHELLAC POLISHER 03/21/2024 12:51 PM SHELLAC POLISHER us Bee Valdes NP LAB BLOOD ORDERABLES Fi nal Result [facility] Department [place] [address] * (ABNORMAL) Basic metabolic panel (03/21/2024 12:33 PM SHELLAC POLISHER) Sodium 128(L) 135 - 145 mmol/L Potassium, pl 4.4 3.3 - 4.9 mmol/L [facility] Chloride 94(L) 97 - 110 mmol/L [facility] CO2 25 22 - 32 mmol/L [facility] Anion gap 9 2 - 15 mmol/L [facility] BUN 24 6 - 25 mg/dL [facility] Creatinine 1.33(H) 0.80 - 1.30 mg/dL [facility] Glucose 101 70 - 199 mg/dL [facility] Comment: Interpretive Data Fasting glucose >/= 126 [...] 2022. Calcium 9.0 8.5 - 10.3 mg/dL [facility] Blood 03/21/2024 12:3 3 PM SHELLAC POLISHER 03/21/2024 12:51 PM SHELLAC POLISHER us Bee Valdes INDUSTRIAL ECOLOGIST LAB BLOOD ORDERABLES Fi nal Result [facility] [place] [address] * POCT glucose (03/21/2024 7:47 AM SHELLAC POLISHER) Glucose, POC 112 70 - 199 mg/dL Blood 03/21/2024 7:47 AM SHELLAC POLISHER 03/21/2024 7:47 AM SHELLAC POLISHER us Sanjiv Ge MD LAB POCT ORDERABLES - DEV ICE Final Result Performing Organization Address [facility] Co de Phone Number [facility] Department [place] [address] * (ABNORMAL) eGFR (03/21/2024 2:45 AM SHELLAC POLISHER) eGFR 54(L) >=60 mL/min/1. 73 m2 Comment: [...] last reviewed 2021. Blood 03/21/2024 2:45 AM SHELLAC POLISHER 03/21/2024 3:28 AM SHELLAC POLISHER us Sanjiv Ge MD LAB BLOOD ORDERABLES Svetlana l Result Performing Organization Address [facility] Co de Phone Number [facility] Department [place] [address] * (ABNORMAL) CBC without differential (03/21/2024 2:45 AM SHELLAC POLISHER) [facility] WBC 8.8 3.8 - 9.9 K/cumm Hgb 9.3(L) 13.0 - 17.5 g/dL [facility] Hct 28.7(L) 38.9 - 50.3 % [facility] Plt 199 150 - 400 K/cumm [facility] MPV 10.1 9.1 - 12.3 fL [facility] RBC 3.21(L) 4.30 - 5.80 M/cumm [facility] MCV 89.4 81.3 - 96.4 fL [facility] MCH 29.0 27.1 - 33.3 pg [facility] MCHC 32.4 32.3 - 35.7 g/dL [facility] RDW CV 14.2 11.1 - 14.9 % [facility] RDW SD 46.3 35.7 - 48.1 fL [facility] NRBC abs 0.00 0.00 - 0.01 K/cumm [facility] Blood 03/21/2024 2:45 AM SHELLAC POLISHER 03/21/2024 3:28 AM SHELLAC POLISHER Sanjiv Ge MD LAB BLOOD ORDERABLES Svetlana l Result Performing Organization Address City/[facility] Co de Phone Number [facility] Department [place] [address] * Phosphorus (03/21/2024 2:45 AM SHELLAC POLISHER) [facility] Phosphorus, pl 3.6 2.3 - 4.5 mg/dL Blood 03/21/2024 2:45 AM SHELLAC POLISHER 03/21/2024 3:28 AM SHELLAC POLISHER Sanjiv Ge MD LAB BLOOD ORDERABLES Svetlana l Result [facility] [place] [address] * Magnesium (03/21/2024 2:45 AM SHELLAC POLISHER) [facility] Magnesium 1.7 1.4 - 2.5 mg/dL Blood 03/21/2024 2:45 AM SHELLAC POLISHER 03/21/2024 3:28 AM SHELLAC POLISHER Sanjiv Ge MD LAB BLOOD ORDERABLES Svetlana aleja Result [facility] Department [place] [address] * (ABNORMAL) Comprehensive metabolic panel (03/21/2024 2:45 AM SHELLAC POLISHER) [facility] Sodium 129(L) 135 - 145 mmol/L Potassium, pl 4.7 3.3 - 4.9 mmol/L [facility] Comment:Hemolyzed; Potassium value may be falsely elevated by as much as 0.6-1.0 mmol/L. Suggest redraw and reanalysis. Chloride 94(L) 97 - 110 mmol/L [facility] CO2 25 22 - 32 mmol/L [facility] Anion gap 10 2 - 15 mmol/L [facility] BUN 23 6 - 25 mg/dL [facility] Creatinine 1.36(H) 0.80 - 1.30 mg/dL [facility] Glucose 104 70 - 199 mg/dL [facility] Comment: Interpretive Data Fasting glucose >/= 126 [...] 2022. Calcium 9.0 8.5 - 10.3 mg/dL [facility] Bilirubin, total 0.4 0.1 - 1.2 mg/dL [facility] Protein, pl 6.4(L) 6.5 - 8.5 g/dL [facility] Albumin 3.2(L) 3.5 - 5.0 g/dL [facility] Alk phos 75 40 - 130 Units/L [facility] ALT 18 7 - 55 Units/L [facility] AST 76(H) 10 - 50 Units/L [facility] Comment:Hemolyzed; result ma y be falsely elevated Blood 03/21/2024 2:45 AM SHELLAC POLISHER 03/21/2024 3:28 AM SHELLAC POLISHER Sanjiv Ge MD LAB BLOOD ORDERABLES Svetlana l Result Performing Organization Address [facility] Co de Phone Number [facility] Department [place] [employer] [place] [address] * POCT glucose (03/20/2024 8:22 PM SHELLAC POLISHER) Glucose, POC 87 70 - 199 mg/dL Blood 03/20/2024 8:22 PM SHELLAC POLISHER 03/20/2024 8:22 PM SHELLAC POLISHER Sanjiv Ge MD LAB POCT ORDERABLES - DEV ICE Final Result Performing Organization Address [facility] Co de Phone Number [facility] Department [place] [place] [address] * POCT glucose (03/20/2024 5:19 PM SHELLAC POLISHER) Glucose, POC 115 70 - 199 mg/dL Blood 03/20/2024 5:19 PM SHELLAC POLISHER 03/20/2024 5:19 PM SHELLAC POLISHER Sanjiv Ge MD LAB POCT ORDERABLES - DEV ICE Final Result Performing Organization Address [facility] Co de Phone Number [facility] Department [place] [address] * POCT glucose (03/20/2024 11:34 AM SHELLAC POLISHER) Glucose, POC 112 70 - 199 mg/dL Blood 03/20/2024 11:3 4 AM SHELLAC POLISHER 03/20/2024 11:34 AM SHELLAC POLISHER Sanjiv Ge MD LAB POCT ORDERABLES - DEV ICE Final Result Performing Organization Address City/[facility] Co de Phone Number [facility] [place] [address] * POCT glucose (03/20/2024 8:31 AM SHELLAC POLISHER) Glucose, POC 114 70 - 199 mg/dL Blood 03/20/2024 8:31 AM SHELLAC POLISHER 03/20/2024 8:31 AM SHELLAC POLISHER Sanjiv Ge MD LAB POCT ORDERABLES - DEV ICE Final Result Performing Organization Address [facility] [place] [address] * Potassium, whole blood (03/20/2024 2:40 AM SHELLAC POLISHER) Potassium, bld 4.8 3.3 - 4.9 mmol/L Blood 03/20/2024 2:40 AM SHELLAC POLISHER 03/20/2024 2:49 AM SHELLAC POLISHER Sanjiv Ge MD LAB BLOOD ORDERABLES Svetlana l Result Performing Organization Address City/[facility] [place] [address] * POCT glucose (03/20/2024 2:33 AM SHELLAC POLISHER) Glucose, POC 139 70 - 199 mg/dL Blood 03/20/2024 2:33 AM SHELLAC POLISHER 03/20/2024 2:33 AM SHELLAC POLISHER Sanjiv Ge MD LAB POCT ORDERABLES - DEV ICE Final Result Performing Organization Address [facility] de Phone Number [facility] [place] [employer] [place] [address] * POCT glucose (03/19/2024 9:52 PM SHELLAC POLISHER) Glucose, POC 136 70 - 199 mg/dL Blood 03/19/2024 9:52 PM SHELLAC POLISHER 03/19/2024 9:52 PM SHELLAC POLISHER Sanjiv Ge MD LAB POCT ORDERABLES - DEV ICE Final Result Performing Organization Address [facility] de Phone Number [facility] [place] [address] * (ABNORMAL) eGFR (03/19/2024 9:31 PM SHELLAC POLISHER) Pathologist [facility] eGFR 59(L) >=60 mL/min/1. 73 m2 Comment: [...] Inclusion of Race in Diagnosing Kidney Disease, EDILSONSAlyson 2020). The CKD-EPI equation should not be used for patients with unstable renal function and has not been validated in children and those over 70. Current interpretive data was last reviewed 2021. Blood 03/19/2024 9:31 PM SHELLAC POLISHER 03/19/2024 9:48 PM SHELLAC POLISHER us Sanjiv Ge MD LAB BLOOD ORDERABLES Svetlnaa l Result [facility] Department [place] [address] * (ABNORMAL) CBC without differential (03/19/2024 9:31 PM SHELLAC POLISHER) WBC 11.1(H) 3.8 - 9.9 K/cumm Hgb 10.5(L) 13.0 - 17.5 g/dL [facility] Hct 33.4(L) 38.9 - 50.3 % [facility] Plt 228 150 - 400 K/cumm [facility] MPV 9.3 9.1 - 12.3 fL [facility] RBC 3.63(L) 4.30 - 5.80 M/cumm [facility] MCV 92.0 81.3 - 96.4 fL [facility] MCH 28.9 27.1 - 33.3 pg [facility] MCHC 31.4(L) 32.3 - 35.7 g/dL [facility] RDW CV 14.1 11.1 - 14.9 % [facility] RDW SD 47.9 35.7 - 48.1 fL [facility] NRBC abs 0.00 0.00 - 0.01 K/cumm [facility] Blood 03/19/2024 9:31 PM SHELLAC POLISHER 03/19/2024 9:48 PM SHELLAC POLISHER Sanjiv Ge MD LAB BLOOD ORDERABLES Svetlana l Result [facility] Department [place] [address] * (ABNORMAL) Basic metabolic panel (03/19/2024 9:31 PM SHELLAC POLISHER) Sodium 132(L) 135 - 145 mmol/L Potassium, pl 5.0(H) 3.3 - 4.9 mmol/L [facility] Chloride 98 97 - 110 mmol/L [facility] CO2 23 22 - 32 mmol/L [facility] Anion gap 11 2 - 15 mmol/L [facility] BUN 17 6 - 25 mg/dL [facility] Creatinine 1.27 0.80 - 1.30 mg/dL [facility] Glucose 136 70 - 199 mg/dL [facility] Comment: Interpretive Data Fasting glucose >/= 126 [...] 2022. Calcium 9.2 8.5 - 10.3 mg/dL [facility] Blood 03/19/2024 9:31 PM SHELLAC POLISHER 03/19/2024 9:48 PM SHELLAC POLISHER us Sanjiv Ge MD LAB BLOOD ORDERABLES Svetlana l Result [facility] Department [place] [address] * POCT glucose (03/19/2024 6:24 PM SHELLAC POLISHER) Glucose, POC 106 70 - 199 mg/dL Blood 03/19/2024 6:24 PM SHELLAC POLISHER 03/19/2024 6:24 PM SHELLAC POLISHER Sanjiv Ge MD LAB POCT ORDERABLES - DEV ICE Final Result Performing Organization Address [facility] Co de Phone Number [facility] [place] [address] * XR Pelvis 1 or 2 Views (03/19/2024 2:24 PM SHELLAC POLISHER) Narrative [facility] - 03/19/2024 2:24 PM SHELLAC POLISHER The images from this study are not interpreted by Radiology. ??Please refer to the physician's procedure / OR operative note. Sanjiv Ge MD IMG XR PROCEDURES Final R esult Performing Organization Address [facility] de Phone Number [facility] * POCT glucose (03/19/2024 2:01 PM SHELLAC POLISHER) Glucose, POC 109 70 - 199 mg/dL Blood 03/19/2024 2:01 PM SHELLAC POLISHER 03/19/2024 2:01 PM SHELLAC POLISHER Sanjiv Ge MD LAB POCT ORDERABLES - DEV ICE Final Result Performing Organization Address [facility] Co de Phone Number EMILIA [facility] Department [place] [place] [address] * POCT glucose (03/19/2024 1:24 PM SHELLAC POLISHER) Glucose, POC 73 70 - 199 mg/dL Blood 03/19/2024 1:24 PM SHELLAC POLISHER 03/19/2024 1:24 PM SHELLAC POLISHER Sanjiv Ge MD LAB POCT ORDERABLES - DEV ICE Final Result Performing Organization Address [facility] Co de Phone Number EMILIA [facility] Department [place] [address] * XR Pelvis Ortho View (03/19/2024 12:55 PM SHELLAC POLISHER) Anatomical Region Laterality Modality Body, Pelvis N/A Computed Radiogr aphy 03/19/2024 1:31 PM SHELLAC POLISHER Impressions 03/19/2024 1:31 PM SHELLAC POLISHER In progress left hip arthroplasty with spacer overlying the expected position. Electronically signed by: Thony Gaston MD Narrative 03/19/2024 1:31 PM SHELLAC POLISHER EXAMINATION: XR PELVIS ORTHO VIEW HISTORY: Left [...] Result * Surgical pathology (03/19/2024 12:28 PM SHELLAC POLISHER) Femoral head 03/19/2024 12:2 8 PM SHELLAC POLISHER 03/20/2024 4:57 AM SHELLAC POLISHER Narrative 03/24/2024 11:02 AM SHELLAC POLISHER EPIC results best viewed via link to PDF [facility] Surgical Pathology [facility], [place] [address] Note to Patients: This report may contain [...] Gender: ??M : ??1945 (Age: 78) Address: ??[address] [place] [address] ??[address] Hospital #: ??[id number] Taken:03/19/2024 Received:03/20/2024 Reported: 03/24/2024 Patient Type: [facility] Inpatient ?? Service: Adult Emergency Location: [place] [address] Physician(s): ??Boy Stevens MD PhD Shiraz Howard [...] ??No gross evidence of malignancy is identified. Trailer Steerer sections are submitted: A 1 = member services representative femoral head apparent fracture site; A2 = member services representative additional aggregate. ??Both cassettes submitted following acid decalcification. ??Jar 2. ? sxv/03/20/2024 10:21 PA(s): Ziggy Hannon MS, PA ([facility])CM By this signature, I attest that the above diagnosis is based upon my personal examination of the slides(and/or other material). Addenda/Procedures The performance characteristics of some immunohistochemical stains, fluorescence in-situ hybridization tests and immunophenotyping by flow cytometry cited in this report (if any) were determined by the Surgical Pathology and Flow Cytometry Departments at [facility] as part of an ongoing quality assistant program and in compliance with federally mandated [...] Surgical Pathology and Flow Cytometry Departments of [facility]. ??It has not been cleared or approved by the U. S. Food and Drug Administration. IMAGES AND SCANNED DOCUMENTS, IF INCLUDED, ONLY VIEWABLE IN PDF VERSION OF REPORT Boy Stevens MD PhD LAB PATHOLOGY ORDERA BLES Final Result * POCT glucose (03/19/2024 12:27 PM SHELLAC POLISHER) Glucose, POC 74 70 - 199 mg/dL Blood 03/19/2024 12:2 7 PM SHELLAC POLISHER 03/19/2024 12:27 PM SHELLAC POLISHER Sanjiv Ge MD LAB POCT ORDERABLES - DEV ICE Final Result Performing Organization Address [facility] de Phone Number [facility] [place] [address] * POCT glucose (03/19/2024 12:26 PM SHELLAC POLISHER) [facility] Signature Glucose, POC 72 70 - 199 mg/dL Blood 03/19/2024 12:2 6 PM SHELLAC POLISHER 03/19/2024 12:26 PM SHELLAC POLISHER Sanjiv Ge MD LAB POCT ORDERABLES - DEV ICE Final Result Performing Organization Address [facility] de Phone Number [facility] [place] [address] * WA AN PROCEDURE PLACEHOLDER (03/19/2024 12:10 PM SHELLAC POLISHER) Narrative Brandon Hayes CRNA - 03/19/2024 12:10 PM SHELLAC POLISHER Brandon Hayes CRNA ? 03/19/2024 12:10 PM [...] Olivo MD ANESTHESIA ORDERABLES Final Result * WA AN EMERGENT ENDOTRACHEAL AIRWAY, [place] AN PROCEDURE PLACEHOLDER (03/19/2024 12:07 PM SHELLAC POLISHER) Narrative Brandon Hayes CRNA - 03/19/2024 12:07 PM SHELLAC POLISHER Brandon Hayes CRNA ? 03/19/2024 12:08 PM Airway Patient location: OR Urgency: emergent Indications for airway management: anesthesia Difficult airway: no Staff: Placed by: SCALE RECLAMATION TENDER: Brandon Hayes CRNA Emergent airway documentation: Patient [...] of attempts: 1 Ventilation between attempts: BVM us Sreedhar Olivo MD ANESTHESIA ORDERABLES Final Result * POCT glucose (03/19/2024 8:36 AM SHELLAC POLISHER) Glucose, POC 89 70 - 199 mg/dL Blood 03/19/2024 8:36 AM SHELLAC POLISHER 03/19/2024 8:36 AM SHELLAC POLISHER us Sanjiv Ge MD LAB POCT ORDERABLES - DEV ICE Final Result [facility] Department [place] [address] * Troponin I high-sensitivity 6-hour (03/18/2024 11:33 PM CDT) Trop I hs <4 <=35 ng/L Comment: Interpretive Data For further hscTnI resources including the diagnostic algorithm and an aid in interpretation, copy and paste this link: https://bjhlab.testcatalog.org/show/hsTrop-1 Current Interpretive Data last revised 2019. Trop I hs delta 0 ng/L [facility] Trop I hs interp Insignificant [facility] Blood 03/18/2024 11:3 3 PM CDT 03/18/2024 11:51 PM CDT us Magaly Olivares MD LAB BLOOD ORDERABLES Final Res ult [facility] Department [place] [address] * POCT glucose (03/18/2024 10:54 PM CDT) Glucose, POC 102 70 - 199 mg/dL Blood 03/18/2024 10:5 4 PM CDT 03/18/2024 10:54 PM CDT Sanjiv Ge MD LAB POCT ORDERABLES - DEV ICE Final Result Performing Organization Address [facility] Co de Phone Number [facility] Department [place] [address] * [place] INJECTION AA&/STRD OTHER PERIPHERAL NERVE/BRANCH (03/18/2024 10:35 PM CDT) Narrative Rhona Avila MD - 03/18/2024 10:35 PM CDT Sanjiv Grier MD ? 03/19/2024 ??1:02 AM Nerve Block Date/Time: 03/18/2024 10:35 PM Performed by: Sanjiv Grier MD Authorized by: Rhona Avila MD ?? [place] Protocol: ??Informed consent: ??Patient/member services representative/guardian agrees and accepts ??Allergies confirmed: yes [...] usual sterile fashion ?? Skin anesthesia (see MAR for exact dosages): ??Skin anesthesia method: ??None Procedure details (see MAR for exact dosages): ??Block needle gauge: ??20 [...] 8 PM CDT Impressions 03/19/2024 8:50 AM SHELLAC POLISHER Left comminuted, mildly angulated subcapital left femoral neck fracture. ??No other ??fracture identified. Dictated by: Hemal Guthrie MD The radiology attending physician has personally reviewed this study, and had reviewed and/or edited this written report and agrees with it. Electronically signed by: Fermín Arguello M.D. Narrative 03/19/2024 8:50 AM SHELLAC POLISHER EXAMINATION: CT PELVIS WO CONTRAST TECHNIQUE: Hip [...] I high-sensitivity 4-hour (03/18/2024 9:44 PM CDT) Trop I hs <4 <=35 ng/L Comment: Interpretive Data For further hscTnI resources including the diagnostic algorithm and an aid in interpretation, copy and paste this link: https://bjhlab.testcatalog.org/show/hsTrop-1 Current Interpretive Data last revised 2019. Trop I hs delta 0 ng/L [facility] Trop I hs interp Insignificant [facility] Blood 03/18/2024 9:44 PM CDT 03/18/2024 10:13 PM CDT us Magaly Olivares MD LAB BLOOD ORDERABLES Final Res ult Performing Organization Address [facility] de Phone Number [facility] [place] [address] * POCT glucose (03/18/2024 6:21 PM CDT) Pathologist [facility] Glucose, POC 83 70 - 199 mg/dL Blood 03/18/2024 6:21 PM CDT 03/18/2024 6:21 PM CDT Rhona Avila MD LAB POCT ORDERABLES - DEVICE Final Result Performing Organization Address [facility] de Phone Number [facility] [place] [address] * Troponin I high-sensitivity series (baseline, 2hr, 4hr, 6hr) (03/18/2024 5:13 PM CDT) [facility] Trop I hs <4 <=35 ng/L Comment: Interpretive Data For further hscTnI resources including the diagnostic algorithm and an aid in interpretation, copy and paste this link: https://bjhlab.testcatalog.org/show/hsTrop-1 Current Interpretive Data last revised 2019. Blood 03/18/2024 5:13 PM CDT 03/18/2024 5:33 PM CDT Magaly Olivares MD LAB BLOOD ORDERABLES Final Res ult Performing Organization Address [facility] Co de Phone Number [facility] [place] [address] * (ABNORMAL) Urinalysis reflex to microscopic and culture Urine (03/18/2024 5:13 PM CDT) Pathologist [facility] Color, ur Straw Yellow Clarity, ur Clear Clear [facility] Specific gravity, ur 1.010 1.003 - 1.030 [facility] pH, urine 6.5 [facility] Comment: Interpretive Data ? Urine pH is affected by diet, medications, systemic acid-base disturbances, and renal tubular function. ??pH may affect urinary stone formation. ??For example, urine pH below 6.0 may help reduce the tendency for calcium phosphate stones and pH greater than 6.0 may reduce the tendency for uric acid stone formation. Source: [facility] Current Interpretive Data was last revised on 2017 Protein, ur ql Negative Negative [facility] Glucose, ur ql Negative Negative [facility] Ketones, ur Negative Negative [facility] Bilirubin, ur Negative Negative [facility] Blood, ur Negative Negative [facility] Urobilinogen, ur <2.0 <2.0 mg/dL [facility] Nitrite, ur Positive(A) Negative [facility] Leukocyte esterase, ur 2+(A) Negative [facility] UA reflex comment Reflex to microscopic UA will be performed. [facility] Urine 03/18/2024 5:13 PM CDT 03/18/2024 5:22 PM CDT us Linsey Damon MD LAB MICROBIOLOGY - NERMS ORDERABLES Final Result Performing Organization Address City/[facility]/ZIP Co de Phone Number [facility] [place] [address] * (ABNORMAL) Urinalysis, microscopic only (03/18/2024 5:13 PM CDT) WBC, ur 21-50(A) 0 - 5 /HPF RBC, ur 3-5(A) 0 - 2 /HPF [facility] Bacteria, ur Trace(A) [facility] Culture Reflex Comment Reflex to urine culture will be performed. [facility] Urine 03/18/2024 5:13 PM CDT 03/18/2024 5:22 PM CDT us Linsey Damon MD LAB URINE ORDERABLES Final Result Performing Organization Address City/[facility]/ZIP Co de Phone Number [facility] Department [place] [address] * (ABNORMAL) Urine culture Urine (03/18/2024 5:13 PM CDT) Report Final Report: Greater than or equal to 100,000 colonies/mL of Morganella morganii Plus growth of clinically insignificant bacterial jonelle. (.) Organism MORGANELLA MORGANII [facility] Organism PLUS GROWTH OF CLINICALLY INSIGNIFICANT JONELLE. [facility] Urine 03/18/2024 5:13 PM CDT 03/18/2024 8:02 PM CDT Narrative [facility] - 03/21/2024 7:51 AM SHELLAC POLISHER Urine culture reflexed based upon urinalysis results. Testing performed by [facility] Microbiology Laboratory ([phone]) Organism Antibiotic Method Susceptibility Morganella morganii Ampicillin [...] Susceptible Linsey Damon MD LAB MICROBIOLOGY - [facility] ORDERABLES Final Result [facility] Department [place] [address] * XR Knee Left 3 Views (03/18/2024 [...] it. Electronically signed by: Zacarias Hair M.D. Thony Ordonez MD IMG XR PROCEDURES Final [...] agrees with it. Electronically signed by: Kirk oGuld MD Narrative 03/18/2024 5:19 PM CDT EXAMINATION: [...] by: Kirk Gould MD Magaly Olivares MD IM CT PROCEDURES Final Result * (ABNORMAL) ECG 12-LEAD (03/18/2024 4:07 PM CDT) Narrative [facility] - 03/18/2024 4:07 PM CDT Rhona Avila [...] in the ED Rhona Avila MD 03/18/24 1609 us Magaly Olivares MD ECG ORDERABLES Final Result Performing Organization Address City/[facility] Co de Phone Number [facility] * POCT glucose (03/18/2024 3:05 PM CDT) Glucose, POC 89 70 - 199 mg/dL Blood 03/18/2024 3:05 PM CDT 03/18/2024 3:05 PM CDT us Thony Ordonez MD LAB POCT ORDERABLES - DEV ICE Final Result Performing Organization Address [facility] Co de Phone Number [facility] Department [place] [address] * XR Outside Reference (03/18/2024 2:59 PM CDT) Impressions [facility] - 03/18/2024 2:59 PM CDT These images are for Reference purposes only and have not been reviewed by [facility] Radiology. ??There will be no report generated by a [facility] Radiologist. Narrative [facility] - 03/18/2024 2:59 PM CDT EXAMINATION: ??Images For Reference Purposes Only us Linsey Damon MD IMG XR PROCEDURES Fin al Result [facility] * (ABNORMAL) eGFR (03/18/2024 2:43 PM [...] MD LAB BLOOD ORDERABLES Svetlana masterson Result [facility] Department [place] [address] * (ABNORMAL) Differential, auto (03/18/2024 2:43 PM CDT) Neutrophil abs 7.3(H) 1.5 - 6.5 K/cumm Imm gran abs 0.1 0.0 - 0.1 K/cumm [facility] Lymphocyte abs 1.0 0.8 - 3.3 K/cumm [facility] Monocyte abs 0.5 0.2 - 0.8 K/cumm [facility] Eosinophil abs 0.1 0.0 - 0.5 K/cumm [facility] Basophil abs 0.1 0.0 - 0.1 K/cumm [facility] Neutrophil pct 80.5 % [facility] Comment: Interpretive Data Percent cell count reference ranges are not reported, since discordance with absolute values may lead to misinterpretation of CBC data. Current Interpretive Data was last revised on 2017. Imm gran pct 0.6 % [facility] Comment: Interpretive Data Percent cell count reference ranges are not reported, since discordance with absolute values may lead to misinterpretation of CBC data. Current Interpretive Data was last revised on 2017. Lymphocyte pct 11.0 % [facility] Comment: Interpretive Data Percent cell count reference ranges are not reported, since discordance with absolute values may lead to misinterpretation of CBC data. Current Interpretive Data was last revised on 2017. Monocyte pct 5.7 % [facility] Comment: Interpretive Data Percent cell count reference ranges are not reported, since discordance with absolute values may lead to misinterpretation of CBC data. Current Interpretive Data was last revised on 2017. Eosinophil pct 1.5 % [facility] Comment: Interpretive Data Percent cell count reference ranges are not reported, since discordance with absolute values may lead to misinterpretation of CBC data. Current Interpretive Data was last revised on 2017. Basophil pct 0.7 % [facility] Comment: Interpretive Data Percent cell count reference ranges are not reported, since discordance with absolute values may lead to misinterpretation of CBC data. Current Interpretive Data was last revised on 2017. Blood 03/18/2024 2:43 PM CDT 03/18/2024 2:55 PM CDT us Thony Ordonez MD LAB BLOOD ORDERABLES Svetlana masterson Result [facility] Department [place] [address] * Pro B-type natriuretic peptide (03/18/2024 2:43 [...] MD LAB BLOOD ORDERABLES Final R esult [facility] Department [place] [address] * (ABNORMAL) CBC with auto differential (03/18/2024 2:43 PM CDT) Pathologist [facility] WBC 9.1 3.8 - 9.9 K/cumm Hgb 11.0(L) 13.0 - 17.5 g/dL [facility] Hct 33.7(L) 38.9 - 50.3 % [facility] Plt 258 150 - 400 K/cumm [facility] MPV 9.2 9.1 - 12.3 fL [facility] RBC 3.77(L) 4.30 - 5.80 M/cumm [facility] MCV 89.4 81.3 - 96.4 fL [facility] MCH 29.2 27.1 - 33.3 pg [facility] MCHC 32.6 32.3 - 35.7 g/dL [facility] RDW CV 14.2 11.1 - 14.9 % [facility] RDW SD 46.2 35.7 - 48.1 fL [facility] NRBC abs 0.00 0.00 - 0.01 K/cumm [facility] Blood 03/18/2024 2:43 PM CDT 03/18/2024 2:55 PM CDT Thony Ordonez MD LAB BLOOD ORDERABLES Svetlana l Result Performing Organization Address [facility] de Phone Number [facility] [place] [address] * aPTT (03/18/2024 2:43 PM CDT) aPTT 38 28 - 38 sec Comment: Interpretive Data Heparin therapeutic range: 66.0 - 100.0 seconds. Range based on correlation with therapeutic heparin activity range of 0.3 - 0.7 Units/mL. Current interpretive data was last revised on 2023. Blood 03/18/2024 2:43 PM CDT 03/18/2024 3:03 PM CDT Thony Ordonez MD LAB BLOOD ORDERABLES Svetlana l Result Performing Organization Address [facility] de Phone Number [facility] [place] [place] [address] * (ABNORMAL) Protime-INR (03/18/2024 2:43 PM CDT) PT 13.8(H) 9.7 - 13.0 sec INR 1.27(H) 0.90 - 1.20 [facility] Comment: Interpretive data Oral anticoagulant therapeutic ranges: Venous thromboembolism prophylaxis or treatment: 2.0-3.0 CARDIOLOGY Standard range: 2.0-3.0 High-intensity range: 2.5-3.5 Refer to indication-specific guidelines for appropriate target ranges for prosthetic heart valve replacement. Current interpretive data was last revised on 2019. Blood 03/18/2024 2:43 PM CDT 03/18/2024 3:03 PM CDT Thony Ordonez MD LAB BLOOD ORDERABLES Svetlana l Result Performing Organization Address City/[facility]/[place] [address] * Type and screen (03/18/2024 2:43 PM CDT) [facility] Garcia, indirect Negative ABO Rh B Positive [facility] Blood 03/18/2024 2:43 PM CDT 03/18/2024 3:00 PM CDT Narrative [facility] - 03/18/2024 3:45 PM CDT Has the patient had Daratumumab or Isatuximab in the past 6 months?->Unknown Thony Ordonez MD LAB BLOOD BANK TEST ORDER FELIPE Final Result Performing Organization Address [facility] Co de Phone Number [facility] [place] [address] * (ABNORMAL) Comprehensive metabolic panel (03/18/2024 2:43 PM CDT) [facility] Sodium 136 135 - 145 mmol/L Potassium, pl 4.7 3.3 - 4.9 mmol/L [facility] Chloride 100 97 - 110 mmol/L [facility] CO2 26 22 - 32 mmol/L [facility] Anion gap 10 2 - 15 mmol/L [facility] BUN 21 6 - 25 mg/dL [facility] Creatinine 1.32(H) 0.80 - 1.30 mg/dL [facility] Glucose 93 70 - 199 mg/dL [facility] Comment: Interpretive Data Fasting glucose >/= 126 [...] 2022. Calcium 9.4 8.5 - 10.3 mg/dL [facility] Bilirubin, total 0.2 0.1 - 1.2 mg/dL [facility] Protein, pl 6.9 6.5 - 8.5 g/dL [facility] Albumin 3.7 3.5 - 5.0 g/dL [facility] Alk phos 101 40 - 130 Units/L [facility] ALT 20 7 - 55 Units/L [facility] AST 15 10 - 50 Units/L [facility] Blood 03/18/2024 2:43 PM CDT 03/18/2024 2:55 PM CDT us Thony Ordonez MD LAB BLOOD ORDERABLES Svetlana l Result [facility] Department [place] [address] * POCT hemoglobin A1c (01/27/2024 1:53 PM CDT) Pathologist [facility] Hemoglobin A1C, POC 5.4 4.0 - 5.6 % Blood 01/27/2024 1:53 PM CDT Eliud Cortez MD POINT OF CARE TEST [...] AM CDT 01/12/2024 11:10 AM CDT Narrative [facility] - 01/12/2024 3:07 PM CDT Current interpretive data was last updated April 18, 2021. For adults ages 40-79, the ACC/AHA recommends discussing your 10-year atherosclerotic cardiovascular disease risk with your health care provider. ??https://www.acc.org/ASCVDApp us Teodoro Hill MD LAB BLOOD ORDERABLES Final Re sult Performing Organization Address [facility] Co de Phone Number [facility] * Albumin Creatinine Ratio, Urine (07/13/2022 8:12 AM SHELLAC POLISHER) Creatinine ur 199.2 Not Estab. mg/dL [facility] 01 Microalbumin, ur 9.1 Not Estab. ug/mL [facility] - 01 Microalbumin/cre at ratio 5 0 - 29 mg/g creat [facility] - 01 Comment: ? Normal: ?0 - ??29 ? Moderately increased: 30 - 300 ? Severely increased: ? >300 Urine 07/13/2022 8:12 AM SHELLAC POLISHER 07/13/2022 Narrative [facility] - 07/14/2022 10:11 AM SHELLAC POLISHER Performed at: ??01 - [facility] [address], [place], [place] ??[id number] Offline Editor: Zoran Moody PhD, Phone: ??[phone] us Teodoro Hill MD LAB URINE ORDERABLES Final Re sult Performing Organization Address [facility] Co de Phone Number [facility] from Last 3 Months or Most Recently Relevant to Health Maintenance [place] [address] [address] [employer] [facility] Address: [address] [address] [place] [address] MEDICARE (Home[address] [address] MEDICARE SOLUTIONS [employer] Advance Directives For more information, please contact: [phone] Documents on File Type Date Recorded Patient Trailer Steerer Expl anation ADVANCE DIRECTIVE 11/22/2023 8:03 AM POWER OF ABORIGINAL EDUCATION TEACHER-MEDICAL * Full Code (Latest Code Status on File) Date Activated Date Inactivated Comments 03/18/2024 9:16 PM 03/23/2024 4:01 PM * Full Code Date Activated Date Inactivated Comments 11/24/2023 6:03 PM 11/25/2023 4:31 PM * Full Code Date Activated Date Inactivated Comments 05/25/2018 2:28 PM 05/26/2018 5:17 PM Care Teams Potato Grader Relationship Specialty Start Date End Date Ramone Hemphill MD PCP - General 03/11/07
--- NOTE | 2024-06-16 09:48 | PC.NURSE ---
Report called to Svetlana at [facility].
--- NOTE | 2024-06-16 11:50 | PC.NURSE ---
Mack states their transport will be here approximately 1230 to pick pt up
== END 2024-06-16 12:27 ==
PROVIDERS: Emergency Provider Emergency Medicine; PCP Family Medicine
DX: S80.02XA Contusion of left knee, initial encounter (principal); S80.01XA Contusion of right knee, initial encounter; W18.30XA Fall on same level, unspecified, initial encounter; Z79.01 Long term (current) use of anticoagulants; I48.91 Unspecified atrial fibrillation; N18.30 Chronic kidney disease, stage 3 unspecified; E05.90 Thyrotoxicosis, unspecified without thyrotoxic crisis or storm; G47.33 Obstructive sleep apnea (adult) (pediatric); E11.22 Type 2 diabetes mellitus with diabetic chronic kidney disease; Z87.891 Personal history of nicotine dependence; Z96.653 Presence of artificial knee joint, bilateral; Z96.642 Presence of left artificial hip joint; Z96.619 Presence of unspecified artificial shoulder joint; E66.01 Morbid (severe) obesity due to excess calories; Z68.36 Body mass index [BMI] 36.0-36.9, adult
CPT/HCPCS: 70450; 72125; 73080; 73562; 99284

== ENCOUNTER 2024-06-21 05:56 | Emergency (ER) | payer MEDICARE, MEDICAID, SELFPAY ==
--- NOTE | ~2024-06-21 | XR_ITS ---
Left Knee Technique: AP, lateral, and oblique views were obtained. Clinical History: Pain Findings: No fracture or dislocation is seen. Left knee arthroplasty in place. Soft tissues are unrem arkable. No joint effusion is seen. Impression: No acute abnormality. Left knee arthroplasty. Reviewed, dictated and finalized at [facility]. EL OT Impression: No acute abnormality. Left knee arthroplasty.
--- NOTE | ~2024-06-21 | CT_ITS ---
Noncontrast CT scan of the cervical spine Technique: Multiple contiguous axial [address] images of the cervical spine were obtained and rec onstructed in 2D sagittal and coronal planes on the acquisition scanner. Dose reduction technique was used on this scan by utilizing automated exposure control, adjustment of the mA and/or kV according to patient size. The dose-length product (DLP) was 475.11 mGy-cm. Clinical History: Pain COMPARISON: 06/16/2024 Findings: No fractures or dislocations. Osseous alignment is unchanged from prior exam. Mild reversa l normal cervical lordosis present. Advanced degenerative disc narrowing is present throughout the ce rvical spine. There is fusion of the bilateral facet joints at C2-C3. There is fusion of the right fa cet joints at C4-C5. Stable extensive facet arthropathy otherwise in the cervical spine. No preverteb ral soft tissue swelling. Impression: No fracture or subluxation of the cervical spine. Stable degenerative spondylitic changes. Reviewed, dictated and finalized at [facility]. E REPAIRER Impression: No fracture or subluxation of the cervical spine. Stable degenerative spondylitic changes.
--- NOTE | ~2024-06-21 | XR_ITS ---
EXAMINATION: [id number] DATE: 06/21/2024 08:23 INDICATION: Chest pain post fall TECHNIQUE: A frontal inspiratory view of the chest and 3 views of the left ribs and 3 views of the ri ght ribs were obtained. COMPARISON: Chest radiograph dated 12/24/2022 FINDINGS: Nondisplaced fractures of the anterior left sixth, seventh and eighth and anterior right seventh and eighth ribs segment which can be seen on chest radiograph dated 12/24/[address] dated 06/04/2024. No new rib fractures identified. Mild streaky atelectasis at the lateral left lower lung zone. No other airspace opacities, pulmonary edema, pleural effusion or pneumothorax. Heart size is normal. There ar e bilateral shoulder arthroplasties. IMPRESSION: 1. Old bilateral anterior lower rib fractures. No acute fractures identified. 2. Mild streaky atelectasis in the left lower lung. No other acute cardiopulmonary disease. Reviewed, dictated and finalized at location [facility]. KROOM SUPERVISOR IMPRESSION: 1. Old bilateral anterior lower rib fractures. No acute fractures identified. 2. Mild streaky atelectasis in the left lower lung. No other acute cardiopulmon luke disease.
--- NOTE | ~2024-06-21 | CT_ITS ---
CT head without contrast Indication: Head trauma COMPARISON: 06/16/2024 Technique: Serial scans were obtained through the brain without the administration of contrast. Dose reduction technique was used on this scan by utilizing automated exposure control and iterative recon struction technique. The dose-length product (DLP) was 605.33 mGy-cm. Findings: There is no evidence of intracranial hemorrhage, mass lesion, or acute infarct. The ventri cles and subarachnoid spaces are dilated, consistent with mild atrophy. Low attenuation regions are seen within the periventricular white matter bilaterally, likely representing changes from chronic mi crovascular ischemic disease. There is no evidence of edema, mass effect or midline shift. The visu alized paranasal sinuses and mastoid air cells are clear. Impression: No intracranial hemorrhage, mass, or acute infarct. Atrophy and chronic white matter changes, as above. Reviewed, dictated and finalized at [facility]. SHEET MAKER Impression: No intracranial hemorrhage, mass, or acute infarct. Atrophy and chronic white matter changes, as above.
--- NOTE | ~2024-06-21 | XR_ITS ---
AP view of the pelvis and AP and lateral views of the left hip Clinical history: Pain Findings: No acute fracture or dislocation is seen. Left hip arthroplasty in place. Right hip joint i ntact. Stable vertebroplasty cement at L5 in the left sacrum. Soft tissues are unremarkable. Impression: No acute abnormality. Left hip arthroplasty in place. Reviewed, dictated and finalized at location . CAL INSURANCE CLERK Impression: No acute abnormality. Left hip arthroplasty in place.
[2024-06-21 05:57] VITALS: BP 120/64; PULSE 66; RESP 18; TEMP 36.6; O2SAT 100
[2024-06-21 06:03] VITALS: BP 120/64; PULSE 68; RESP 13; TEMP 36.6; O2SAT 100
--- NOTE | 2024-06-21 06:21 | ECG_ITS ---
Test Date: 2024-06-21 06:44:17 Measurements Intervals [place] Rate: 68 P: 62 IA: 287 QRS: -29 QRSD: 132 T: 34 QT: 459 QTc: 489 Interpretive Statements SINUS RHYTHM WITH FIRST DEGREE AV BLOCK WITH OCCASIONAL SUPRAVENTRICULAR PREMATURE COMPLEXES INTRAVENTRICULAR CONDUCTION DELAY POSSIBLE ANTERIOR MYOCARDIAL INFARCTION , PROBABLY OLD CONSIDER INFERIOR INFARCT, AGE INDETERMINATE BASELINE ARTIFACT- I, II, III, AVR, AVL, AVF, V1-V6 ABNORMAL ECG Compared to ECG 03/18/2024 11:46:55 NO SIGNIFICANT CHANGE Electronically Signed On 06-21-2024 07:07:15 SPRING FORMER HAND by Britton Fang D.O.
--- OUTSIDE RECORDS SUMMARY | 2024-06-21 07:30 | XMS_ITS | Clinical Summary ---
Author Organization [facility] Address [address] [place] [address] Phone Care Team Providers Care Associate Professor Of Kinesiology Name Role Phone Ramone Hemphill MD Primary Care Provider +1- [phone] Allergies No known active allergies Medications traMADol [...] on file Legal Sex Male 6:10 AM DESK TOP PUBLISHER Gender Identity Not on file Sexual Orientation Not on file Last Filed Vital Signs Vital Sign Reading Time Taken Comments Blood Pressure 108/82 04/09/2015 2:03 PM DESK TOP PUBLISHER Pulse 111 04/09/2015 2:03 PM DESK TOP PUBLISHER Temperature - - Respiratory Rate 22 04/09/2015 2:03 PM DESK TOP PUBLISHER Oxygen Saturation 97% 04/09/2015 2:03 PM DESK TOP PUBLISHER RA Inhaled Oxygen Concentration - - Weight 137.7 kg (303 lb 9.3 oz) 04/09/2015 2:03 PM DESK TOP PUBLISHER Height 185.4 cm (6' 1 ) 04/09/2015 2:03 PM DESK TOP PUBLISHER Body Mass Index 40.05 04/09/2015 2:03 PM DESK TOP PUBLISHER Plan of Treatment Health Maintenance Due Date Last Done Comments DTAP/TDAP/TD VACCINES (1 - Tdap) 10/27/1966 PNEUMOCOCCAL VACCINE 65+ YEA RS (1 of 1 - PCV) 10/27/1997 ZOSTER VACCINE (1 of 2) 10/27/1997 RSV VACCINE (60+ or ) (1 - 1-dose 75+ series) 10/27/2022 INFLUENZA VACCINE (#1) 2023 01/15/2015, 2013 Insurance Care Teams Associate Professor Of Kinesiology Relationship Specialty Start Date End Date Ramone Hemphill MD PCP - General Family Practice 12/24/11
--- OUTSIDE RECORDS SUMMARY | 2024-06-21 07:30 | XMS_ITS | Referral Summary ---
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 Name Role Phone Ramone Hemphill MD Primary Care Provider [phone] Encounters Date Type Department Care Team Description 06/20/2024 11:46 AM INVOICE CONTROL CLERK - 06/20/2024 11:59 PM INVOICE CONTROL CLERK Hospital Encounter [address] [address] Type 2 diabetes mellitus without complication, without long-term current use of insulin (CMS/HCC) (HCC); Vitamin D deficiency; Hypothyroidism due to medication; Other closed fracture of left femur with routine healing, unspecified portion of femur, subsequent encounter; Hyponatremia Discharge Disposition: Discharge to home or self care 06/20/2024 11:50 AM INVOICE CONTROL CLERK Lab [facility] Infectious Diseases [address] [facility] [address] [place] [phone] 06/20/2024 10:40 AM INVOICE CONTROL CLERK Office Visit [facility] Endocrinology Metabolism and Lipid [address] [place] [address] [address] [place] [address] Eliud Cortez MD Type 2 diabetes mellitus without complication, without long-term current use of insulin (CMS/HCC) (HCC) (Primary Dx); Class 2 obesity due to excess calories with body mass index (BMI) of 36.0 to 36.9 in adult, unspecified whether serious comorbidity present; Hypothyroidism due to medication; Vitamin D deficiency; Stage 2 chronic kidney disease; Hyponatremia; Other closed fracture of left femur with routine healing, unspecified portion of femur, subsequent encounter; Other specified disorders of bone density and structure, left lower leg 05/04/2024 10:00 AM INVOICE CONTROL CLERK - 05/04/2024 11:59 PM INVOICE CONTROL CLERK Hospital Encounter [facility] [address] [place] [address] Rachael Azul MD #L femoral neck fx Discharge Disposition: Discharge to home or self care 05/04/2024 10:30 AM INVOICE CONTROL CLERK Office Visit [facility] Orthopaedic Surgery [address] [facility] 6th [place] [address] [place] [address] Rachael Azul MD #L femoral neck fx (Primary Dx) 04/12/[address] [address] Marvin Myers RN 03/18/2024 2:25 PM CDT - 03/23/2024 11:45 AM INVOICE CONTROL CLERK Hospital Encounter [address] [phone] Thony Ordonez MD Wynia, MD Luma Frederick, Sanjiv Ghotra MD Fall, initial encounter (Primary Dx); Closed fracture of left femur, unspecified fracture morphology, unspecified portion of femur, initial encounter (HCC); Hyponatremia Discharge Disposition: Discharge to SNF 03/22/2024 10:28 AM INVOICE CONTROL CLERK - 03/22/2024 11:59 PM INVOICE CONTROL CLERK Hospital Encounter [facility] [address] [place] [address] Discharge Disposition: Discharge to home or self care 03/21/2024 10:00 AM INVOICE CONTROL CLERK Ancillary Procedure [facility] Vascular Lab IP [address] [facility] [address] [place] [address] from Last 3 Months Allergies No known active allergies Medications FLUoxetine (PROzac) 40 mg capsule Take 1 capsule (40 mg total) by mouth every morning Active triamcinolone (KENALOG) 0.5 % cream as needed Active BREO ELLIPTA 100-25 mcg/dose diskus inhaler Inhale 1 puff every morning 8 Active tiZANidine (ZANAFLEX) 4 mg tabletIndicati ons:Muscle Spasm Take 1 tablet (4 mg total) by mouth every 6 (six) hours as needed for muscle spasms 0 Active blood-glucose meter kitIndications :Type 2 diabetes mellitus without complication, without long-term current use of insulin ([facility]) ([facility]) Use to test blood glucose once daily 1 kit 1 2 Active lancets miscIndication s:Type 2 diabetes mellitus without complication, without long-term current use of insulin ([facility]) ([facility]) Use to test blood glucose once daily [...] 1 tablet (100 mcg total) by mouth shop worker before 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 90 tablet 3 4 Active CALCIUM ORAL Take 1,200 mg by mouth 2 (two) times a day Active cholecalcifero l, vitamin D3, (VITAMIN D3 ORAL) Take 3,600 [...] mg total) by mouth daily 4 Active lancets 33 gauge miscIndication s:Type 2 diabetes mellitus without complication, without long-term current use of insulin ([facility]) ([facility]) 1 each daily 100 each 3 4 Active blood glucose diagnostic (glucose blood) stripIndicatio ns:Type 2 diabetes mellitus without complication, without long-term current use of insulin ([facility]) ([facility]) Use to test blood glucose once daily [...] Active oxyCODONE (ROXICODONE) 5 mg immediate release tabletIndicati ons:Pain Take 0.5 tablets (2.5 mg total) by mouth every 4 (four) hours as needed for pain 10 tablet 4 Active diazePAM (VALIUM) 5 mg tablet 0 4 Active fluticasone propion-salmet Gabriel (ADVAIR DISKUS) 500-50 mcg/dose diskus inhaler 4 Active Gemtesa 75 mg tablet Take 75 mg by mouth daily 4 Active tirzepatide (Mounjaro) 7.5 mg/0.5 mL pen injector Inject 7.5 mg under the skin once a week 2 mL 11 06/20/19 25 Discontin ued(Thera py completed ) Active Problems Problem Noted Date Diagnosed Date Hyponatremia 03/21/2024 Assessment & Plan (03/23/2024 9:02 AM INVOICE CONTROL CLERK): - Na 129 (132) - 03/21: 500ml NS bolus - Repeat Na 128->124->131->132 - FWR to 1 L - Salt tabs TID->BID - Urine electrolytes - Continue salt tabs x 1 week, recheck BMP at [facility] UTI (urinary tract infection) 03/20/2024 Assessment & Plan (03/22/2024 2:06 PM INVOICE CONTROL CLERK): - + symptoms on admission (burning with urination) - Culture + Morganella morganii - Ceftriaxone started 03/18-03/21 - Susceptible to ceftriaxone, No further treatment needed - Discussed patient's case with the antibiotic stewardship team - Symptoms resolved Syncope 03/20/2024 Assessment & Plan (03/21/2024 1:12 PM INVOICE CONTROL CLERK): - Extensive history of syncopal events - Outpatient work up demonstrated +orthostatics - Recently reduced dose of metoprolol as outpatient - Orthostatics positive 03/20, EMILY cisse and abdominal binder ordered - Lives in [...] 03/20/2024 Assessment & Plan (03/23/2024 10:25 AM INVOICE CONTROL CLERK): - 03/20: DC martina, anticipate dc 03/21 back to SNF. 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 - WBAT with PHP - PT/OT, pain [...] 05/25/2018 Assessment & Plan (03/21/2024 6:37 AM INVOICE CONTROL CLERK): - Pt will return to SNF at discharge Asthma 05/25/2018 Type 2 diabetes mellitus 05/25/2018 Assessment & Plan (03/20/2024 1:33 PM INVOICE CONTROL CLERK): - Insulin sensitive correction [facility] Osteoarthritis of right shoulder 04/12/2018 Overview (04/12/2018): Added automatically from request for surgery [id number] Encounter for monitoring amiodarone therapy 05/2017 Chronic renal failure, stage 2 (mild) 08/23/2017 Renal osteodystrophy 08/23/2017 Aortic root dilatation (CMS/HCC) 06/09/2017 Edema of lower extremity 03/15/2017 Hypertension 09/02/2016 Hypertension 09/02/2016 History of cardiomyopathy 12/04/2015 Hyperkalemia 07/30/2015 Morbid obesity 07/29/2015 Obstructive sleep apnea syndrome 07/29/2015 Chronic systolic heart failure ([facility]) 016 Atrial fibrillation ([facility]) 05/20/2015 Encounter for preventive health examination 04/16 #afib 04/22/2015 Overview (08/20/2016): Atrial fibrillation, controlled Assessment & Plan (03/23/2024 9:00 AM INVOICE CONTROL CLERK): - Held eliquis for OR - Okay to resume per ortho - Continued DVT ppx while terry-op - Continued eliquis at discharge half-way current use of anticoagulant therapy 1 06/23/2014 Overview (08/20/2016): Chronic anticoagulation #CHF 04/22/2015 Overview (08/20/2016): Congestive heart failure with left ventricular dysfunction Assessment & Plan (03/20/2024 1:31 PM INVOICE CONTROL CLERK): Cont metop, amiodarone 01/18/24 EF 55%. LV mildly dilated with low normal systolic function, reduced from prior LUCIO on CPAP 08/30/2014 Assessment & Plan (03/20/2024 1:32 PM INVOICE CONTROL CLERK): Continued on hospital unit Mycobacterium avium complex ([facility]) 03/31/2012 Overview (01/19/2023): In sputum Other nonspecific [...] on file Legal Sex Male 12:33 PM INVOICE CONTROL CLERK Gender Identity Male 01/21/2018 1:29 PM CDT Sexual Orientation Straight 01/09/2021 6: 25 AM CDT Last Filed Vital Signs Vital Sign Reading Time Taken Comments Blood Pressure 104/69 06/20/2024 10:32 AM INVOICE CONTROL CLERK Pulse 62 06/20/2024 10:32 AM INVOICE CONTROL CLERK Temperature 36.5 ??C (97.7 ??F) 06/20/2024 1 0:32 AM INVOICE CONTROL CLERK Respiratory Rate 18 03/23/2024 7:28 AM INVOICE CONTROL CLERK Oxygen Saturation 99% 03/23/2024 7:2 8 AM INVOICE CONTROL CLERK Inhaled Oxygen Concentration - - Weight 117 kg (258 lb) 06/20/2024 10:32 AM INVOICE CONTROL CLERK Done last night at [facility] Height 180.3 cm (5' 10.98 ) 06/20/2024 10:32 AM INVOICE CONTROL CLERK Body Mass Index 36 06/20/2024 10:32 AM INVOICE CONTROL CLERK Plan of Treatment Not on file Medical Devices Implanted Type Area Resource Recovery Specialist Device Identifier Shelf Expiration Date Model / Serial / Lot [employer] Simplex P Radiopaque Full Dose Cement Bone Sterile 6191-1-010 - S0 - [id number] Implanted:Qty: 1 on 03/19/2024 by Boy Stevens MD PhD at [facility] Bone Cement Left: Hip [employer] 03/16/2025 6191-1-010 / 0 / [id number] [employer] Simplex P Radiopaque Full Dose Cement Bone Sterile 6191-1-010 - S0 - [id number] Implanted:Qty: 1 on 03/19/2024 by Boy Stevens MD PhD at [facility] Bone Cement Left: Hip [employer] 03/16/2025 6191-1-010 / 0 / [id number] Knee Tib Ins Tri Sz7 13mm [id number] Implanted:Qty: 1 on 11/24/2023 at [facility] Other - see comments Left: Knee [employer] 01/03/2028 4906-D-314-E / / [id number] [employer] Versys Heritage 15mm 140mm Primary Cement Proximal Centralizer [id number] - S0 - [id number] Implanted:Qty: 1 on 03/19/2024 by Boy Stevens MD PhD at [facility] Other - see comments Left: Hip [employer] [id number] 06/28/2032 [id number] / 0 / [id number] [employer] Versys 13mm Cemented Hip Distal Centralizer Stem Pmma Sterile [id number] - S0 - [id number] Implanted:Qty: 1 on 03/19/2024 by Boy Stevens MD PhD at [facility] Other - see comments Left: Hip [employer] [id number] 12/23/2027 [id number] / 0 / [id number] [employer] Ringloc Bio-Esparza Ii 54mm 28mm 2 Articulate Surface Lock -[id number] - S0 - [id number] Implanted:Qty: 1 on 03/19/2024 by Boy Stevens MD PhD at [facility] Other - see comments Left: Hip [employer] [id number] 04/27/2027 / 0 / [id number] [employer] Trilogy It Continuum 28mm Hip Acetabulum +3.5mm 04/29 Large Head [id number] - S0 - [id number] Implanted:Qty: 1 on 03/19/2024 by Boy Stevens MD PhD at [facility] Other - see comments Left: Hip [employer] [id number] 1 03/23/2032 [id number] / 0 / [id number] [employer]/ Ortho Prep-Im Plug Leggett Sponge Suction Hip Kit Thr Latex Free 066369 - S0 - [id number] Implanted:Qty: 1 on 03/19/2024 by Boy Stevens MD PhD at [facility] Other - see comments Left: Hip [employer] /Ortho [id number] 07/08/2033 [id number] / 0 / [id number] Description:Cement restricto r in kit [employer] 6191-1-010 Simplex P Radiopaque Full Dose Cement Bone Sterile - [id number] Implanted:Qty: 1 on 05/25/2018 by Kevin Duron MD at [facility] Right: Shoulder [employer] [id number] 6191-1-010 / / Depuy [employer] Inc [id number] Global Ap 52mm [place] Glen[place] Peg Fixation Premieron - [id number] Implanted:Qty: 1 on 05/25/2018 by Kevin Duron MD at [facility] Right: Shoulder [employer] Inc [id number] / / Depuy S[employer] [id number] Global Unite 10mm Shoulder 135d Body Humeral [place] Sterile - [id number] Implanted:Qty: 1 on 05/25/2018 by Kevin Duron MD at [facility] Right: Shoulder Depuy [employer] [id number] / / Depuy Orthopa[employer] Inc [id number] Global Unite 10mm 113mm Modular Shoulder Standard Stem Humeral - [id number] Implanted:Qty: 1 on 05/25/2018 by Kevin Duron MD at [facility] Right: Shoulder [employer] Inc [id number] / / Depuy Orth[employer] Inc [id number] Global Unite 52mm 18mm Modular Eccentric Shoulder Head Humeral - [id number] Implanted:Qty: 1 on 05/25/2018 by Kevin Duron MD at [facility] Right: Shoulder Depuy [employer] Inc [id number] / / [employer] Triathlon Tritanium Knee 7 Baseplate Tibial 5536-B-700 - [id number] Implanted:Qty: 1 on 11/24/2023 at [facility] Left: Knee [employer] 05/13/2028 5536-B-700 / / [id number] [employer] Triathlon Cruciate Retain Bead Knee Left 6 Component Femoral Pa 5517-F-601 - [id number] Implanted:Qty: 1 on 11/24/2023 at [facility] Left: Knee [employer] 08/24/2028 5517-F-601 / / [id number] Procedures Procedure Name Priority Date/Time Associated Diagnosis Comments EGFR Routine 06/20/2024 11:46 AM INVOICE CONTROL CLERK Type 2 diabetes mellitus without complication, without long-term current use of insulin (CMS/HCC) ([facility]) Hyponatremia DIFFERENTIAL AUTO Routine 06/20/2024 11: 46 AM INVOICE CONTROL CLERK Type 2 diabetes mellitus without complication, without long-term current use of insulin (CMS/HCC) ([facility]) CBC WITH AUTO DIFFERENTIAL Routine 06/20/2024 11:46 AM INVOICE CONTROL CLERK Type 2 diabetes mellitus without complication, without long-term current use of insulin (CMS/HCC) ([facility]) COMPREHENSIVE METABOLIC PANEL Routine 06/20/2024 11:46 AM INVOICE CONTROL CLERK Type 2 diabetes mellitus without complication, without long-term current use of insulin (CMS/HCC) ([facility]) Hyponatremia PTH Routine 06/20/2024 11:46 AM INVOICE CONTROL CLERK Other closed fracture of left femur with routine healing, unspecified portion of femur, subsequent encounter T4, FREE Routine 06/20/2024 11:46 AM INVOICE CONTROL CLERK Hypothyroidism due to medication Other closed fracture of left femur with routine healing, unspecified portion of femur, subsequent encounter TSH Routine 06/20/2024 11:46 AM INVOICE CONTROL CLERK Hypothyroidism due to medication Other closed fracture of left femur with routine healing, unspecified portion of femur, subsequent encounter VITAMIN D 25 HYDROXY Routine 06/20/2024 11:46 AM INVOICE CONTROL CLERK Type 2 diabetes mellitus without complication, without long-term current use of insulin ([facility]) ([facility]) Vitamin D deficiency POCT GLUCOSE Routine 06/20/2024 10:50 AM INVOICE CONTROL CLERK Type 2 diabetes mellitus without complication, without long-term current use of insulin ([facility]) ([facility]) POCT HEMOGLOBIN A1C Routine 06/20/2024 1 0:50 AM INVOICE CONTROL CLERK Type 2 diabetes mellitus without complication, without long-term current use of insulin ([facility]) ([facility]) XR HIP LEFT W PELVIS 2 OR 3 VIEWS Schedule Routine, Read Routine (OP Routine) 05/04/2024 10:39 AM INVOICE CONTROL CLERK #L femoral neck fx POCT GLUCOSE DEVICE Routine 03/23/2024 8 :14 AM INVOICE CONTROL CLERK EGFR Routine 03/22/2024 10:48 PM INVOICE CONTROL CLERK BASIC METABOLIC PANEL Routine 03/22/2024 10:48 PM INVOICE CONTROL CLERK POCT GLUCOSE DEVICE Routine 03/22/2024 8 :52 PM INVOICE CONTROL CLERK POCT GLUCOSE DEVICE Routine 03/22/2024 5 :51 PM INVOICE CONTROL CLERK CREATININE, URINE, RANDOM Routine 03/22/2024 1:30 PM INVOICE CONTROL CLERK CHLORIDE, URINE, RANDOM Routine 03/22/2024 1:30 PM INVOICE CONTROL CLERK POTASSIUM, URINE, RANDOM Routine 03/22/2024 1:30 PM INVOICE CONTROL CLERK SODIUM, URINE, RANDOM Routine 03/22/2024 1:30 PM INVOICE CONTROL CLERK CHLORIDE, URINE, RANDOM Routine 03/22/2024 1:14 PM INVOICE CONTROL CLERK SODIUM, URINE, RANDOM Routine 03/22/2024 1:14 PM INVOICE CONTROL CLERK POTASSIUM, URINE, RANDOM Routine 03/22/2024 1:14 PM INVOICE CONTROL CLERK CREATININE, URINE, RANDOM Routine 03/22/2024 1:14 PM INVOICE CONTROL CLERK POCT GLUCOSE DEVICE Routine 03/22/2024 1 1:41 AM INVOICE CONTROL CLERK EGFR Routine 03/22/2024 11:11 AM INVOICE CONTROL CLERK BASIC METABOLIC PANEL Routine 03/22/2024 11:11 AM INVOICE CONTROL CLERK POCT GLUCOSE DEVICE Routine 03/22/2024 8 :37 AM INVOICE CONTROL CLERK POCT GLUCOSE DEVICE Routine 03/21/2024 8 :43 PM INVOICE CONTROL CLERK EGFR Routine 03/21/2024 8:01 PM INVOICE CONTROL CLERK BASIC METABOLIC PANEL Routine 03/21/2024 8:01 PM INVOICE CONTROL CLERK POCT GLUCOSE DEVICE Routine 03/21/2024 6 :04 PM INVOICE CONTROL CLERK POCT GLUCOSE DEVICE Routine 03/21/2024 1 2:51 PM INVOICE CONTROL CLERK US CAROTIDS DUPLEX BILATERAL ED Urgent/IP Urgent 03/21/2024 12:49 PM INVOICE CONTROL CLERK POCT GLUCOSE DEVICE Routine 03/21/2024 1 2:35 PM INVOICE CONTROL CLERK EGFR Routine 03/21/2024 12:33 PM INVOICE CONTROL CLERK BASIC METABOLIC PANEL Routine 03/21/2024 12:33 PM INVOICE CONTROL CLERK POCT GLUCOSE DEVICE Routine 03/21/2024 7 :47 AM INVOICE CONTROL CLERK EGFR Routine 03/21/2024 2:45 AM INVOICE CONTROL CLERK PHOSPHORUS Routine 03/21/2024 2:45 AM INVOICE CONTROL CLERK MAGNESIUM Routine 03/21/2024 2:45 AM INVOICE CONTROL CLERK COMPREHENSIVE METABOLIC PANEL Routine 03/21/2024 2:45 AM INVOICE CONTROL CLERK CBC WITHOUT DIFFERENTIAL Routine 03/21/2024 2:45 AM INVOICE CONTROL CLERK LIPID PANEL Routine 01/12/2024 10:51 AM CDT Type 2 diabetes mellitus without complication, without long-term current use of insulin ([facility]) ([facility]) Hypertension, unspecified type ALBUMIN CREATININE RATIO, URINE Routine 07/13/2022 8:12 AM INVOICE CONTROL CLERK Medication course changed Chronic kidney disease, unspecified CKD stage from Last 3 Months or Most Recently Relevant to Health Maintenance Results * (ABNORMAL) eGFR (06/20/2024 11:46 AM INVOICE CONTROL CLERK) [facility] eGFR 56(L) >=60 mL/min/1. 73 m2 Comment: [...] interpretive data was last reviewed 2021. Blood 06/20/2024 11:4 6 AM INVOICE CONTROL CLERK 06/20/2024 9:14 PM INVOICE CONTROL CLERK us Eliud Cortez MD LAB BLOOD ORDERABLES Final Resu lt [facility] [address] [address] Department of Laboratories [place], [place] [id number] * Differential, auto (06/20/2024 11:46 AM INVOICE CONTROL CLERK) Neutrophil abs 4.8 1.5 - 6.5 K/cumm Imm gran abs 0.0 0.0 - 0.1 K/cumm [facility] Lymphocyte abs 1.2 0.8 - 3.3 K/cumm [facility] Monocyte abs 0.6 0.2 - 0.8 K/cumm [facility] Eosinophil abs 0.3 0.0 - 0.5 K/cumm [facility] Basophil abs 0.1 0.0 - 0.1 K/cumm [facility] Neutrophil pct 68.8 % [facility] Comment: Interpretive Data Percent cell count reference ranges are not reported, since discordance with absolute values may lead to misinterpretation of CBC data. Current Interpretive Data was last revised on 2017. Imm gran pct 0.4 % [facility] Comment: Interpretive Data Percent cell count reference ranges are not reported, since discordance with absolute values may lead to misinterpretation of CBC data. Current Interpretive Data was last revised on 2017. Lymphocyte pct 17.5 % [facility] Comment: Interpretive Data Percent cell count reference ranges are not reported, since discordance with absolute values may lead to misinterpretation of CBC data. Current Interpretive Data was last revised on 2017. Monocyte pct 8.0 % [facility] Comment: Interpretive Data Percent cell count reference ranges are not reported, since discordance with absolute values may lead to misinterpretation of CBC data. Current Interpretive Data was last revised on 2017. Eosinophil pct 4.6 % [facility] Comment: Interpretive Data Percent cell count reference ranges are not reported, since discordance with absolute values may lead to misinterpretation of CBC data. Current Interpretive Data was last revised on 2017. Basophil pct 0.7 % [facility] Comment: Interpretive Data Percent cell count reference ranges are not reported, since discordance with absolute values may lead to misinterpretation of CBC data. Current Interpretive Data was last revised on 2017. Blood 06/20/2024 11:4 6 AM INVOICE CONTROL CLERK 06/20/2024 5:15 PM INVOICE CONTROL CLERK us Eliud Cortez MD LAB BLOOD ORDERABLES Final Resu lt [facility] [address] [address] Department [place] [address] * (ABNORMAL) CBC with auto differential (06/20/2024 11:46 AM INVOICE CONTROL CLERK) WBC 7.0 3.8 - 9.9 K/cumm Hgb 11.1(L) 13.0 - 17.5 g/dL [facility] Hct 36.7(L) 38.9 - 50.3 % [facility] Plt 351 150 - 400 K/cumm [facility] MPV 10.3 9.1 - 12.3 fL [facility] RBC 3.85(L) 4.30 - 5.80 M/cumm [facility] MCV 95.3 81.3 - 96.4 fL [facility] MCH 28.8 27.1 - 33.3 pg [facility] MCHC 30.2(L) 32.3 - 35.7 g/dL [facility] RDW CV 15.2(H) 11.1 - 14.9 % [facility] RDW SD 53.5(H) 35.7 - 48.1 fL [facility] NRBC abs 0.00 0.00 - 0.01 K/cumm [facility] Blood 06/20/2024 11:4 6 AM INVOICE CONTROL CLERK 06/20/2024 5:15 PM INVOICE CONTROL CLERK us Eliud Cortez MD LAB BLOOD ORDERABLES Final Resu lt Performing Organization Address [facility] Co de Phone Number EMILIA [address] [address] [facility] [employer] [place] [address] * Vitamin D 25 hydroxy (06/20/2024 11:46 AM INVOICE CONTROL CLERK) Vitamin D 25-OH 40 30 - 80 ng/mL Blood 06/20/2024 11:4 6 AM INVOICE CONTROL CLERK 06/20/2024 5:15 PM INVOICE CONTROL CLERK Eliud Cortez MD LAB BLOOD ORDERABLES Final Resu lt Performing Organization Address [facility] de Phone Number EMILIA [phone] [address] [facility] [place] [place] [address] * TSH (06/20/2024 11:46 AM INVOICE CONTROL CLERK) Thyroid Stimulating Hormone 0.33 0.30 - 4.20 mcIUnit/mL Blood 06/20/2024 11:4 6 AM INVOICE CONTROL CLERK 06/20/2024 5:15 PM INVOICE CONTROL CLERK us Eliud Cortez MD LAB BLOOD ORDERABLES Final Resu lt Performing Organization Address [facility] de Phone Number [facility] [address] [address] [facility] [place] [address] * (ABNORMAL) T4, free (06/20/2024 11:46 AM INVOICE CONTROL CLERK) Free T4 1.84(H) 0.90 - 1.70 ng/dL Blood 06/20/2024 11:4 6 AM INVOICE CONTROL CLERK 06/20/2024 5:15 PM INVOICE CONTROL CLERK us Eliud Cortez MD LAB BLOOD ORDERABLES Final Resu lt EMILIA [place] [address] [facility] [place] [address] * PTH (06/20/2024 11:46 AM INVOICE CONTROL CLERK) Pathologist [facility] PTH 54 15 - 65 pg/mL Blood 06/20/2024 11:4 6 AM INVOICE CONTROL CLERK 06/20/2024 5:15 PM INVOICE CONTROL CLERK Eliud Cortez MD LAB BLOOD ORDERABLES Final Resu lt Performing Organization Address [facility] Co de Phone Number [place] [address] [employer] [place] [address] * (ABNORMAL) Comprehensive metabolic panel (06/20/2024 11:46 AM INVOICE CONTROL CLERK) Pathologist [facility] Sodium 139 135 - 145 mmol/L Potassium, pl 4.2 3.3 - 4.9 mmol/L [facility] Chloride 99 97 - 110 mmol/L [facility] CO2 27 22 - 32 mmol/L [facility] Anion gap 13 2 - 15 mmol/L [facility] BUN 14 6 - 25 mg/dL [facility] Creatinine 1.31(H) 0.80 - 1.30 mg/dL [facility] Glucose 78 70 - 199 mg/dL [facility] Comment: Interpretive Data Fasting glucose >/= 126 [...] interpretive data was last revised 2022. Calcium 9.8 8.5 - 10.3 mg/dL [facility] Bilirubin, total 0.2 0.1 - 1.2 mg/dL [facility] Protein, pl 7.4 6.5 - 8.5 g/dL [facility] Albumin 3.7 3.5 - 5.0 g/dL [facility] Alk phos 83 40 - 130 Units/L [facility] ALT 9 7 - 55 Units/L [facility] AST 22 10 - 50 Units/L [facility] Blood 06/20/2024 11:4 6 AM INVOICE CONTROL CLERK 06/20/2024 5:15 PM INVOICE CONTROL CLERK us Eliud Cortez MD LAB BLOOD ORDERABLES Final Resu lt [place] [address] [address] Department [place] [address] * POCT hemoglobin A1c (06/20/2024 10:50 AM INVOICE CONTROL CLERK) Hemoglobin A1C, POC 5.3 4.0 - 5.6 % Blood 06/20/2024 10:5 0 AM INVOICE CONTROL CLERK us Eliud Cortez MD POINT OF CARE TEST ORDERABLES F inal Result * POCT glucose (06/20/2024 10:50 AM INVOICE CONTROL CLERK) Glucose Blood, POC 131 mg/dL Blood 06/20/2024 10:5 0 AM INVOICE CONTROL CLERK us Eliud Cortez MD POINT OF CARE TEST ORDERABLES F inal Result * XR Hip Left 2 or 3 Views W Pelvis (05/04/2024 10:39 AM INVOICE CONTROL CLERK) Anatomical Region Laterality Modality Lower Extremities, Hip, Pelvis Left C omputed Radiography 05/04/2024 11:2 9 AM INVOICE CONTROL CLERK Impressions 05/04/2024 11:41 AM INVOICE CONTROL CLERK Unchanged left hip hemiarthroplasty in expected position without radiographic evidence of prosthetic complication. Dictated by: Pawel Persaud M.D. The radiology attending physician has personally reviewed this study, and had reviewed and/or edited this written report and agrees with it. Electronically signed by: Petr Mayorga D.O. Narrative 05/04/2024 11:41 AM INVOICE CONTROL CLERK EXAMINATION: XR HIP LEFT 2 OR 3 [...] Result * POCT glucose (03/23/2024 8:14 AM INVOICE CONTROL CLERK) Glucose, POC 105 70 - 199 mg/dL Blood 03/23/2024 8:14 AM INVOICE CONTROL CLERK 03/23/2024 8:14 AM INVOICE CONTROL CLERK us Sanjiv Ge MD LAB POCT ORDERABLES - DEV ICE Final Result [facility] Department [place] [address] * eGFR (03/22/2024 10:48 PM INVOICE CONTROL CLERK) eGFR 74 >=60 mL/min/1. 73 m2 Comment: [...] reviewed 2021. Blood 03/22/2024 10:4 8 PM INVOICE CONTROL CLERK 03/22/2024 11:32 PM INVOICE CONTROL CLERK Bee Valdes NP LAB BLOOD ORDERABLES nal Result [facility] Department [place] [address] * (ABNORMAL) Basic metabolic panel (03/22/2024 10:48 PM INVOICE CONTROL CLERK) Sodium 132(L) 135 - 145 mmol/L Potassium, pl 4.8 3.3 - 4.9 mmol/L [facility] Comment:Hemolyzed; Potassium value may be falsely elevated by as much as 0.6-1.0 mmol/L. Suggest redraw and reanalysis. Chloride 99 97 - 110 mmol/L [facility] CO2 21(L) 22 - 32 mmol/L [facility] Anion gap 12 2 - 15 mmol/L [facility] BUN 22 6 - 25 mg/dL [facility] Creatinine 1.04 0.80 - 1.30 mg/dL [facility] Glucose 114 70 - 199 mg/dL [facility] Comment: Interpretive Data Fasting glucose >/= 126 [...] 2022. Calcium 9.0 8.5 - 10.3 mg/dL [facility] Blood 03/22/2024 10:4 8 PM INVOICE CONTROL CLERK 03/22/2024 11:32 PM INVOICE CONTROL CLERK us Bee Valdes NP LAB BLOOD ORDERABLES Fi nal Result [facility] Department [place] [employer] [place] [address] * POCT glucose (03/22/2024 8:52 PM INVOICE CONTROL CLERK) Glucose, POC 114 70 - 199 mg/dL Blood 03/22/2024 8:52 PM INVOICE CONTROL CLERK 03/22/2024 8:52 PM INVOICE CONTROL CLERK us Sanjiv Ge MD LAB POCT ORDERABLES - DEV ICE Final Result [facility] Department [place] [employer] [place] [address] * POCT glucose (03/22/2024 5:51 PM INVOICE CONTROL CLERK) Glucose, POC 120 70 - 199 mg/dL Blood 03/22/2024 5:51 PM INVOICE CONTROL CLERK 03/22/2024 5:51 PM INVOICE CONTROL CLERK Sanjiv Ge MD LAB POCT ORDERABLES - DEV ICE Final Result Performing Organization Address [facility] de Phone Number [facility] [place] [employer] [place] [address] * Sodium, urine, random (03/22/2024 1:30 PM INVOICE CONTROL CLERK) Sodium, ur <20 mmol/L Comment: Interpretive Data No reference range established. Current interpretive data was last revised 2018. Urine (Urine, Clean Catch) 03/22/2024 1:30 PM INVOICE CONTROL CLERK 03/23/2024 6:47 AM INVOICE CONTROL CLERK Result [facility] Bee Valdes NP LAB URINE ORDERABLES Fi nal Result Performing Organization Address [facility] de Phone Number [facility] [place] [address] * Potassium, urine, random (03/22/2024 1:30 PM INVOICE CONTROL CLERK) Potassium conc, ur 35.3 mmol/L Comment: Interpretive Data No reference range established. Current interpretive data was last revised 2018. Urine (Urine, Clean Catch) 03/22/2024 1:30 PM INVOICE CONTROL CLERK 03/23/2024 6:47 AM INVOICE CONTROL CLERK Bee Valdes NP LAB URINE ORDERABLES Fi nal Result Performing Organization Address [facility] de Phone Number [facility] [employer] [address] * Creatinine, urine, random (03/22/2024 1:30 PM INVOICE CONTROL CLERK) Creatinine Ur 134.8 mg/dL Comment: Interpretive Data No reference range established. Current interpretive data was last revised 2018. Urine 03/22/2024 1:30 PM INVOICE CONTROL CLERK 03/23/2024 6:47 AM INVOICE CONTROL CLERK Bee Valdes SPLICING SUPERVISOR LAB URINE ORDERABLES Fi nal Result Performing Organization Address [facility] de Phone Number [facility] [place] [address] * Chloride, urine, random (03/22/2024 1:30 PM INVOICE CONTROL CLERK) Chloride, ur <25 mmol/L Comment: Interpretive Data No reference range established. Current interpretive data was last revised 2018. Urine (Urine, Clean Catch) 03/22/2024 1:30 PM INVOICE CONTROL CLERK 03/23/2024 6:47 AM INVOICE CONTROL CLERK Bee Valdes SPLICING SUPERVISOR LAB URINE ORDERABLES Fi nal Result Performing Organization Address [facility] de Phone Number [facility] [place] [address] * Sodium, urine, random (03/22/2024 1:14 PM INVOICE CONTROL CLERK) Sodium, ur <20 mmol/L Comment: Interpretive Data No reference range established. Current interpretive data was last revised 2018. Urine 03/22/2024 1:14 PM INVOICE CONTROL CLERK 03/22/2024 3:28 PM INVOICE CONTROL CLERK Bee Valdes SPLICING SUPERVISOR LAB URINE ORDERABLES Fi nal Result Performing Organization Address [facility] de Phone Number [facility] [employer] [place] [address] * Potassium, urine, random (03/22/2024 1:14 PM INVOICE CONTROL CLERK) Potassium conc, ur 23.4 mmol/L Comment: Interpretive Data No reference range established. Current interpretive data was last revised 2018. Urine 03/22/2024 1:14 PM INVOICE CONTROL CLERK 03/22/2024 3:28 PM INVOICE CONTROL CLERK Bee Valdes SPLICING SUPERVISOR LAB URINE ORDERABLES Fi nal Result Performing Organization Address [facility] Co de Phone Number [facility] [place] [address] * Creatinine, urine, random (03/22/2024 1:14 PM INVOICE CONTROL CLERK) Creatinine Ur 60.0 mg/dL Comment: Interpretive Data No reference range established. Current interpretive data was last revised 2018. Urine 03/22/2024 1:14 PM INVOICE CONTROL CLERK 03/22/2024 3:28 PM INVOICE CONTROL CLERK Bee Valdes SPLICING SUPERVISOR LAB URINE ORDERABLES Fi nal Result Performing Organization Address [facility] Co de Phone Number [facility] [place] [address] * Chloride, urine, random (03/22/2024 1:14 PM INVOICE CONTROL CLERK) Chloride, ur <25 mmol/L Comment: Interpretive Data No reference range established. Current interpretive data was last revised 2018. Urine 03/22/2024 1:14 PM INVOICE CONTROL CLERK 03/22/2024 3:28 PM INVOICE CONTROL CLERK Bee Valdes SPLICING SUPERVISOR LAB URINE ORDERABLES Fi nal Result Performing Organization Address [facility] Co de Phone Number [facility] [employer] [place] [address] * POCT glucose (03/22/2024 11:41 AM INVOICE CONTROL CLERK) Glucose, POC 133 70 - 199 mg/dL Blood 03/22/2024 11:4 1 AM INVOICE CONTROL CLERK 03/22/2024 11:41 AM INVOICE CONTROL CLERK us Sanjiv Ge MD LAB POCT ORDERABLES - DEV ICE Final Result Performing Organization Address City/[facility]/ZIP Co de Phone Number [facility] Department [place] [employer] [place] [address] * eGFR (03/22/2024 11:11 AM INVOICE CONTROL CLERK) eGFR 61 >=60 mL/min/1. 73 m2 Comment: [...] reviewed 2021. Blood 03/22/2024 11:1 1 AM INVOICE CONTROL CLERK 03/22/2024 11:19 AM INVOICE CONTROL CLERK us Bee Valdes NP LAB BLOOD ORDERABLES Fi nal Result Performing Organization Address City/[facility]/ZIP Co de Phone Number [facility] Department [place] [address] * (ABNORMAL) Basic metabolic panel (03/22/2024 11:11 AM INVOICE CONTROL CLERK) Sodium 131(L) 135 - 145 mmol/L Potassium, pl 4.5 3.3 - 4.9 mmol/L [facility] Chloride 97 97 - 110 mmol/L [facility] CO2 24 22 - 32 mmol/L [facility] Anion gap 10 2 - 15 mmol/L [facility] BUN 23 6 - 25 mg/dL [facility] Creatinine 1.23 0.80 - 1.30 mg/dL [facility] Glucose 118 70 - 199 mg/dL [facility] Comment: Interpretive Data Fasting glucose >/= 126 [...] 2022. Calcium 9.0 8.5 - 10.3 mg/dL [facility] Blood 03/22/2024 11:1 1 AM INVOICE CONTROL CLERK 03/22/2024 11:19 AM INVOICE CONTROL CLERK us Bee Valdes NP LAB BLOOD ORDERABLES Fi nal Result [facility] Department [place] [address] * POCT glucose (03/22/2024 8:37 AM INVOICE CONTROL CLERK) Glucose, POC 115 70 - 199 mg/dL Blood 03/22/2024 8:37 AM INVOICE CONTROL CLERK 03/22/2024 8:37 AM INVOICE CONTROL CLERK us Sanjiv Ge MD LAB POCT ORDERABLES - DEV ICE Final Result Performing Organization Address City/[facility]/ZIP Co de Phone Number EMILIA BERNARDO [facility] Department [place] [address] * POCT glucose (03/21/2024 8:43 PM INVOICE CONTROL CLERK) Glucose, POC 110 70 - 199 mg/dL Blood 03/21/2024 8:43 PM INVOICE CONTROL CLERK 03/21/2024 8:43 PM INVOICE CONTROL CLERK Sanjiv Ge MD LAB POCT ORDERABLES - DEV ICE Final Result Performing Organization Address [facility] de Phone Number EMILIA BERNARDO [facility] Department [place] [address] * eGFR (03/21/2024 8:01 PM INVOICE CONTROL CLERK) Pathologist [facility] eGFR 60 >=60 mL/min/1. 73 m2 Comment: [...] last reviewed 2021. Blood 03/21/2024 8:01 PM INVOICE CONTROL CLERK 03/21/2024 8:55 PM INVOICE CONTROL CLERK Bee Valdes NP LAB BLOOD ORDERABLES Fi nal Result [facility] Department [place] [address] * (ABNORMAL) Basic metabolic panel (03/21/2024 8:01 PM INVOICE CONTROL CLERK) Sodium 124(L) 135 - 145 mmol/L Potassium, pl 4.2 3.3 - 4.9 mmol/L [facility] Chloride 91(L) 97 - 110 mmol/L [facility] CO2 21(L) 22 - 32 mmol/L [facility] Anion gap 12 2 - 15 mmol/L [facility] BUN 23 6 - 25 mg/dL [facility] Creatinine 1.24 0.80 - 1.30 mg/dL [facility] Glucose 95 70 - 199 mg/dL [facility] Comment: Interpretive Data Fasting glucose >/= 126 [...] 2022. Calcium 9.2 8.5 - 10.3 mg/dL [facility] Blood 03/21/2024 8:01 PM INVOICE CONTROL CLERK 03/21/2024 8:55 PM INVOICE CONTROL CLERK Bee Valdes NP LAB BLOOD ORDERABLES Fi nal Result Performing Organization Address City/[facility]/ZIP [place] [address] * POCT glucose (03/21/2024 6:04 PM INVOICE CONTROL CLERK) Glucose, POC 85 70 - 199 mg/dL Blood 03/21/2024 6:04 PM INVOICE CONTROL CLERK 03/21/2024 6:04 PM INVOICE CONTROL CLERK Sanjiv Ge MD LAB POCT ORDERABLES - DEV ICE Final Result Performing Organization Address [facility] [place] [address] * POCT glucose (03/21/2024 12:51 PM INVOICE CONTROL CLERK) Glucose, POC 89 70 - 199 mg/dL Blood 03/21/2024 12:5 1 PM INVOICE CONTROL CLERK 03/21/2024 12:51 PM INVOICE CONTROL CLERK Sanjiv Ge MD LAB POCT ORDERABLES - DEV ICE Final Result Performing Organization Address [facility] [place] [address] * US Carotids Duplex Bilateral (03/21/2024 12:49 PM INVOICE CONTROL CLERK) Anatomical Region Laterality Modality Vascular Bilateral Ultrasound 03/21/2024 11:3 3 AM INVOICE CONTROL CLERK Narrative 03/21/2024 2:59 PM INVOICE CONTROL CLERK [facility] - Department of Vascular Surgery, Vascular Laboratory [address] [place] [id number] Carotid Duplex Ultrasound Report Patient Name: FRED JEWELL E : 1945 (78y 4m) Study Date: 03/21/2024 11:33:01 AM Gender: M Tech: Location: [id number] Ref Provider: BEE VALDES ?Quality: Adequate Order [...] PSV ?42 ? cm/sec - FINDINGS: Performing Project Crew Worker: Tiffany Bowen RVT. Rt Common Carotid Artery: [...] Electronically Signed By: Jean Paul Reyes MD [facility] 2024-03-21 14:58:33 INVOICE CONTROL CLERK Procedure Note Jean Paul Reyes MD - 03/21/2024 [facility] - Department of Vascular Surgery,Vascular Laboratory [address] [place] [address] Carotid Duplex Ultrasound Report Patient Name: FRED JEWELL E : 1945 (78y 4m) Study Date: 03/21/2024 11:33:01 AM Gender: M Kyung: Location: [id number] Ref Provider: BEE VALDES Quality: Adequate Order [...] LT VERT PSV 42cm/sec - FINDINGS: Performing Project Crew Worker: Tiffany Bowen RVT. Rt Common Carotid Artery: [...] Electronically Signed By: Jean Paul Reyes MD [facility] 2024-03-21 14:58:33 INVOICE CONTROL CLERK us Bee Valdes SPLICING SUPERVISOR IMG US PROCEDURES Final Result * POCT glucose (03/21/2024 12:35 PM INVOICE CONTROL CLERK) Glucose, POC 108 70 - 199 mg/dL Blood 03/21/2024 12:3 5 PM INVOICE CONTROL CLERK 03/21/2024 12:35 PM INVOICE CONTROL CLERK Sanjiv Ge MD LAB POCT ORDERABLES - DEV ICE Final Result [facility] Department [place] [address] * (ABNORMAL) eGFR (03/21/2024 12:33 PM INVOICE CONTROL CLERK) eGFR 55(L) >=60 mL/min/1. 73 m2 Comment: [...] reviewed 2021. Blood 03/21/2024 12:3 3 PM INVOICE CONTROL CLERK 03/21/2024 12:51 PM INVOICE CONTROL CLERK Bee Valdes SPLICING SUPERVISOR LAB BLOOD ORDERABLES nal Result [facility] Department [place] [address] * (ABNORMAL) Basic metabolic panel (03/21/2024 12:33 PM INVOICE CONTROL CLERK) Sodium 128(L) 135 - 145 mmol/L Potassium, pl 4.4 3.3 - 4.9 mmol/L [facility] Chloride 94(L) 97 - 110 mmol/L [facility] CO2 25 22 - 32 mmol/L [facility] Anion gap 9 2 - 15 mmol/L [facility] BUN 24 6 - 25 mg/dL [facility] Creatinine 1.33(H) 0.80 - 1.30 mg/dL [facility] Glucose 101 70 - 199 mg/dL [facility] Comment: Interpretive Data Fasting glucose >/= 126 [...] 2022. Calcium 9.0 8.5 - 10.3 mg/dL [facility] Blood 03/21/2024 12:3 3 PM INVOICE CONTROL CLERK 03/21/2024 12:51 PM INVOICE CONTROL CLERK us Bee Valdes NP LAB BLOOD ORDERABLES Fi nal Result [facility] [place] [address] * POCT glucose (03/21/2024 7:47 AM INVOICE CONTROL CLERK) Glucose, POC 112 70 - 199 mg/dL Blood 03/21/2024 7:47 AM INVOICE CONTROL CLERK 03/21/2024 7:47 AM INVOICE CONTROL CLERK Sanjiv Ge MD LAB POCT ORDERABLES - DEV ICE Final Result Performing Organization Address [facility] Co de Phone Number [facility] Department [place] [address] * (ABNORMAL) eGFR (03/21/2024 2:45 AM INVOICE CONTROL CLERK) eGFR 54(L) >=60 mL/min/1. 73 m2 Comment: [...] last reviewed 2021. Blood 03/21/2024 2:45 AM INVOICE CONTROL CLERK 03/21/2024 3:28 AM INVOICE CONTROL CLERK Sanjiv Ge MD LAB BLOOD ORDERABLES Svetlana l Result Performing Organization Address [facility] Co de Phone Number [facility] Department [place] [address] * (ABNORMAL) CBC without differential (03/21/2024 2:45 AM INVOICE CONTROL CLERK) Pathologist [facility] WBC 8.8 3.8 - 9.9 K/cumm Hgb 9.3(L) 13.0 - 17.5 g/dL [facility] Hct 28.7(L) 38.9 - 50.3 % [facility] Plt 199 150 - 400 K/cumm [facility] MPV 10.1 9.1 - 12.3 fL [facility] RBC 3.21(L) 4.30 - 5.80 M/cumm [facility] MCV 89.4 81.3 - 96.4 fL [facility] MCH 29.0 27.1 - 33.3 pg [facility] MCHC 32.4 32.3 - 35.7 g/dL [facility] RDW CV 14.2 11.1 - 14.9 % [facility] RDW SD 46.3 35.7 - 48.1 fL [facility] NRBC abs 0.00 0.00 - 0.01 K/cumm [facility] Blood 03/21/2024 2:45 AM INVOICE CONTROL CLERK 03/21/2024 3:28 AM INVOICE CONTROL CLERK Sanjiv Ge MD LAB BLOOD ORDERABLES Svetlana l Result Performing Organization Address [facility]/ZIP Co de Phone Number [facility] Department [place] [address] * Phosphorus (03/21/2024 2:45 AM INVOICE CONTROL CLERK) [facility] Phosphorus, pl 3.6 2.3 - 4.5 mg/dL Blood 03/21/2024 2:45 AM INVOICE CONTROL CLERK 03/21/2024 3:28 AM INVOICE CONTROL CLERK Sanjiv Ge MD LAB BLOOD ORDERABLES Svetlana l Result Performing Organization Address City/[facility]/ZIP Co de Phone Number [facility] Department [place] [employer] [place] [address] * Magnesium (03/21/2024 2:45 AM INVOICE CONTROL CLERK) [facility] Magnesium 1.7 1.4 - 2.5 mg/dL Blood 03/21/2024 2:45 AM INVOICE CONTROL CLERK 03/21/2024 3:28 AM INVOICE CONTROL CLERK Sanjiv Ge MD LAB BLOOD ORDERABLES Svetlana l Result Performing Organization Address [facility] Co de Phone Number [facility] [employer] [place] [address] * (ABNORMAL) Comprehensive metabolic panel (03/21/2024 2:45 AM INVOICE CONTROL CLERK) [facility] Sodium 129(L) 135 - 145 mmol/L Potassium, pl 4.7 3.3 - 4.9 mmol/L [facility] Comment:Hemolyzed; Potassium value may be falsely elevated by as much as 0.6-1.0 mmol/L. Suggest redraw and reanalysis. Chloride 94(L) 97 - 110 mmol/L [facility] CO2 25 22 - 32 mmol/L [facility] Anion gap 10 2 - 15 mmol/L [facility] BUN 23 6 - 25 mg/dL [facility] Creatinine 1.36(H) 0.80 - 1.30 mg/dL [facility] Glucose 104 70 - 199 mg/dL [facility] Comment: Interpretive Data Fasting glucose >/= 126 [...] 2022. Calcium 9.0 8.5 - 10.3 mg/dL [facility] Bilirubin, total 0.4 0.1 - 1.2 mg/dL [facility] Protein, pl 6.4(L) 6.5 - 8.5 g/dL [facility] Albumin 3.2(L) 3.5 - 5.0 g/dL [facility] Alk phos 75 40 - 130 Units/L [facility] ALT 18 7 - 55 Units/L [facility] AST 76(H) 10 - 50 Units/L [facility] Comment:Hemolyzed; result ma y be falsely elevated Blood 03/21/2024 2:45 AM INVOICE CONTROL CLERK 03/21/2024 3:28 AM INVOICE CONTROL CLERK Sanjiv Ge MD LAB BLOOD ORDERABLES Svetlana masterson Result [facility] Department [place] [address] * Lipid panel (01/12/2024 10:51 AM CDT) Pathologist [facility] Triglycerides 93 <150 mg/dL [facility] [...] AM CDT 01/12/2024 11:10 AM CDT Narrative [facility] - 01/12/2024 3:07 PM CDT Current interpretive data was last updated April 18, 2021. For adults ages 40-79, the ACC/AHA recommends discussing your 10-year atherosclerotic cardiovascular disease risk with your health care provider. ??https://www.acc.org/ASCVDApp us Teodoro Hill MD LAB BLOOD ORDERABLES Final Re sult Performing Organization Address [facility] Co de Phone Number [facility] * Albumin Creatinine Ratio, Urine (07/13/2022 8:12 AM INVOICE CONTROL CLERK) Creatinine ur 199.2 Not Estab. mg/dL [facility] 01 Microalbumin, ur 9.1 Not Estab. ug/mL [facility] 01 Microalbumin/cre at ratio 5 0 - 29 mg/g creat [facility] - 01 Comment: ? Normal: ?0 - ??29 ? Moderately increased: 30 - 300 ? Severely increased: ? >300 Urine 07/13/2022 8:12 AM INVOICE CONTROL CLERK 07/13/2022 Narrative [facility] - 07/14/2022 10:11 AM INVOICE CONTROL CLERK Performed at: ??01 - [facility] [address] ??[id number] Lockstitch Collar Setter: Zoran Moody PhD, Phone: ??[phone] us Teodoro Hill MD LAB URINE ORDERABLES Final Re sult Performing Organization Address [facility] de Phone Number [facility] from Last 3 Months or Most Recently Relevant to Health [place] [address] MEDICARE [facility] MEDICARE [facility] Address: [address] [address] [place] [address] MEDICARE MEDICARE [facility] Address: [address] [address] [place] [address] [employer]PA Advance Directives For more information, please contact: [phone] Documents on File Type Date Recorded Patient News Video Editor Expl anation ADVANCE DIRECTIVE 11/22/2023 8:03 AM POWER OF AUXILIARY ENGINEER-MEDICAL * Full Code (Latest Code Status on File) Date Activated Date Inactivated Comments 03/18/2024 9:16 PM 03/23/2024 4:01 PM * Full Code Date Activated Date Inactivated Comments 11/24/2023 6:03 PM 11/25/2023 4:31 PM * Full Code Date Activated Date Inactivated Comments 05/25/2018 2:28 PM 05/26/2018 5:17 PM Care Teams Fiberglass Pipe Covering Supervisor Relationship Specialty Start Date End Date Ramone Hemphill MD PCP - General 03/11/07
--- OUTSIDE RECORDS SUMMARY | 2024-06-21 07:31 | XMS_ITS | Encounter Summary ---
Author Organization [facility] Address [address] [place] [address] Phone Care Team Providers Care Director Of Field Service Name Role Phone Ramone Hemphill MD Primary Care Provider [phone] Reason for Referral * Diagnostic Imaging (Routine) - Authorized Specialty Diagnoses / Procedures Referred By Contac t Referred To Contact Diagnoses Other closed fracture of left femur with routine healing, unspecified portion of femur, subsequent encounter Other specified disorders of bone density and structure, left lower leg Procedures Dexa Axial Skeleton Bone Density 1 or 2 Site Eliud Cortez MD [address] [place] [address] Phone: tel: fax: [facility] (All Locations) Referral ID Status Reason Start Date Expiration Date V isits Requested Visits Authorized [id number] Authorized 06/20/2024 07/20/2025 1 1 EL PLANT OPERATOR Encounter Details Date Type Department Care Team (Latest Contact Info) Description 06/20/2024 10:40 AM DIESEL PLANT OPERATOR Office Visit [facility] Endocrinology Metabolism and Lipid 1 [facility] [address] [place] [address] Eliud Cortez MD [address] [place] [address] Type 2 diabetes mellitus without complication, without [...] bone density and structure, left lower leg Social History Tobacco Use Types Packs/Day Years [...] on file Legal Sex Male 12:33 PM DIESEL PLANT OPERATOR Gender Identity Male 01/21/2018 1:29 PM CDT Sexual Orientation Straight 01/09/2021 6: 25 AM CDT documented as of this encounter Last Filed Vital Signs Vital Sign Reading Time Taken Comments Blood Pressure 104/69 06/20/2024 10:32 AM DIESEL PLANT OPERATOR Pulse 62 06/20/2024 10:32 AM DIESEL PLANT OPERATOR Temperature 36.5 ??C (97.7 ??F) 06/20/2024 1 0:32 AM DIESEL PLANT OPERATOR Respiratory Rate - - Oxygen Saturation - - Inhaled Oxygen Concentration - - Weight 117 kg (258 lb) 06/20/2024 10:32 AM DIESEL PLANT OPERATOR Done last night at fdc Height 180.3 cm (5' 10.98 ) 06/20/2024 10:32 AM DIESEL PLANT OPERATOR Body Mass Index 36 06/20/2024 10:32 AM DIESEL PLANT OPERATOR documented in this encounter Patient Instructions * Patient Instructions* Eliud Cortez MD - 06/20/2024 10:40 AM DIESEL PLANT OPERATOR Mounjaro 5mg weekly. If you are still having diarrhea, hold the doses and let us know. We will get labs today for the bones, thyroid, and sodium. We will also do a bone density. We will try to get you scheduled on 07/13. EL PLANT OPERATOR documented in this encounter Progress Notes * Eliud Cortez MD - 06/20/2024 10:40 AM CST [facility] Endocrinology Clinic Return Visit Patient: Fred Jewell, 78 y.o. male (: 1945) PCP: Ramone Hemphill MD (Referring: Referral, Self) Fred Jewell is a 78 y.o. male with a history of HTN, DMII, LUCIO, CKD III, a fib on amiodarone,tachycardia induced CMP that is now resolved, and h/o LLE DVT. He is being seen in endocrine clinicfor management of amiodarone induced thyroid dysfunction. HPI Prior history: Patient has been on amiodarone since 03/2015 when he was first diagnosed with atrial fibrillation. He has tolerated the medication well without any lung, liver, or thyroid toxicity previously. He developed amiodarone induced hyperthyroidism in 12/2017, TSH <0.01, fT4 4.9. TSI 0.44 (normal). He reported heat intolerance and tremor for last 2 years that had been stable. He was started on methimazole 5 mg daily. In 04/2018 he noted faituge, weight gain, constipation. TSH 95, fT4 0.49. MMIdiscontinued and he was started on levothyroxine 100 mcg daily. Interval history: Underwent knee replacement. Later had a femur fracture. Had a syncopal episode and fell from a standing height. In a wheelchairtoday. Has known afib. Does not remember if he was in AFib when he had the syncopal episode. He is in a fdc and they stopped his Mounjaro due to frequent stools. He last took Mounjaro7.5 mg 10 days ago. He would like to resume as he has had significant weight loss. Bones health- has hx of falling from the 3rd step of his ladder and had compression fractres of Lspine and Spine. Vitamin D 40 - 8 months ago. GFR 70 no history of kidney stone No family history of osteoporosis Complications: Eyes- Eye exam 08/2023 no retinopathy. Followed by Dr. William Trinh in [place]. Renal- CKD stage III, no microalbuminuria (last 06/2022). CVD- no known CAD, hx of tachycardia induced cardiomyopathy with HFrEF (LVEF 15% 03/2015 > 65% 06/2017, most recently LVEF 39% in 12/2020 but felt to be underestimated. Peripheral neuropathy- denies Feet- today, reports toe issues and swelling He is taking vit D 4000 IU daily per his PCP. PMH / PSH Past Medical History: Diagnosis Date Anemia 1975 Cataract Congestive heart failure (CHF) ([facility]) ([facility]) 2014 Glaucoma History of total knee replacement 11/26/2023 Left knee Hyperthyroidism Mycobacterium avium complex ([facility]) ([facility]) 2012 - 2014 Osteoarthritis Personal history of other diseases of the circulatory system History of cardiomyopathy - (Added by TW Conv) Psychiatric disorder 1990 Psychiatric/Emotional Disorder Sleep apnea Spinal headache 2001 with R TKA; reports lasted into day following surgery; has not had to have spinal anesthesia since Weakness Past Surgical History: Procedure Laterality Date APPENDECTOMY 1967 BACK SURGERY 01/2023 L5 vertebral augmentation, left sacroplasty, left sacral biopsy under sedation BUNIONECTOMY Left 2017 BUNIONECTOMY Right 2016 CORRECTION HAMMER TOE Left 2017 CORRECTION HAMMER TOE Right 2016 KNEE CARTILAGE SURGERY Left 1980 KNEE CARTILAGE SURGERY Right 1966 TOTAL HIP ARTHROPLASTY Left 03/19/2024 TOTAL KNEE ARTHROPLASTY Right 2002 TOTAL SHOULDER ARTHROPLASTY Left 2017 TOTAL SHOULDER ARTHROPLASTY Right 2019 Social & Family History Social History Tobacco Use Smoking status: Former Smoker Packs/day: 3.00 Quit date: 1981 Years since quittin.1 Smokeless tobacco: Never Used Substance and Sexual Activity Alcohol use: Yes Comment: Quit 1980 Drug use: Yes Comment: Quit 1984 Family History Problem Relation Age of Onset Breast cancer Mother Cancer, breast; Cause of : Cancer, breast Heart failure Mother Congestive heart failure; Cause of : Congestive heart failure Cancer Mother Family history of malignant neoplasm - (Added by TW Conv) Thyroid disease Mother Other Father Unknown; Cause of : Unknown Cancer Father Family history of malignant neoplasm - (Added by TW Conv) Thyroid disease Sister Anesthesia problems Neg Hx Review of Systems Twelve point ROS reviewed and negative except as noted in HPI. All other systems negative. Vitals & Physical Exam BP 104/69 (BP Location: Right arm, Patient Position: Sitting) Pulse 62 Temp 36.5 ??C (97.7 ??F)(Temporal) Ht 180.3 cm (5' 10.98 ) Wt 117 kg (258 lb) Comment: Done last night at fdc BMI 36.00 kg/m?? Physical Exam Gen : no acute distress, alert, appropriate, cooperative, appears stated age, well-developed, well-nourished, obese HENT : normocephalic, atraumatic, moist mucus membranes, Eyes : conjunctiva clear, anicteric, EOMI CV : RRR Pulm : non labored on RA Ext : has some bruising on his arms Diabetic foot exam: Left monofilament exam: abnormal Right monofilament exam: abnormal Neuro : alert, speech fluent, comprehension intact Psych : cooperative, appropriate affect & mood, good insight & judgment Data Medications, labs, imaging, and diagnostics independently reviewed in Epic and commented on below. Allergies: Patient has no known allergies. HOME MEDICATIONS : acetaminophen (TYLENOL) 500 mg tablet amiodarone (PACERONE) 200 mg tablet amoxicillin 500 mg capsule apixaban (Eliquis) 2.5 mg tablet blood glucose diagnostic (glucose blood) strip blood-glucose meter kit BREO ELLIPTA 100-25 mcg/dose diskus inhaler CALCIUM ORAL cholecalciferol, vitamin D3, (VITAMIN D3 ORAL) diazePAM (VALIUM) [address] (CYMBALTA) 60 mg capsule famotidine (PEPCID) 20 mg tablet fluticasone propion-salmeteroL (ADVAIR DISKUS) 500-50 mcg/dose diskus inhaler guaiFENesin (Mucinex) 1,200 mg tablet extended release 12hr lancets 33 gauge misc lancets misc levothyroxine (SYNTHROID) 100 mcg tablet methocarbamoL (ROBAXIN) 500 mg tablet metoprolol XL (TOPROL-XL) 25 mg extended release tablet oxyBUTYnin XL (DITROPAN-XL) 5 mg 24 hr tablet oxyCODONE (ROXICODONE) 5 mg immediate release tablet senna-docusate (Senna-S) 8.6-50 mg tiZANidine (ZANAFLEX) 4 mg tablet triamcinolone (KENALOG) 0.5 % cream bisacodyL 5 mg tablet FLUoxetine (PROzac) 40 mg capsule gabapentin (NEURONTIN) 100 mg capsule Gemtesa 75 mg tablet sodium chloride 1 gram tablet tirzepatide (Mounjaro) 7.5 mg/0.5 mL pen injector Chemistry Lab Results Component Value Date SODIUM 132 (L) 03/22/2024 SODIUM 136 09/02/2023 POTASSIUM 4.8 03/22/2024 CHLORIDE 99 03/22/2024 CHLORIDE 101 09/02/2023 CO2 21 (L) 03/22/2024 CO2 20 09/02/2023 ANIONGAP 12 03/22/2024 BUNSER 22 03/22/2024 BUNSER 23 09/02/2023 CREATININE 1.04 03/22/2024 CREATININE 1.50 (H) 09/02/2023 GLUCOSE 105 03/23/2024 GLUCOSE 114 03/22/2024 GLUCOSE 105 (H) 09/02/2023 CALCIUM 9.0 03/22/2024 CALCIUM 9.1 09/02/2023 BILITOT 0.4 03/21/2024 BILITOT 0.5 01/05/2019 PROTEIN 7.7 01/05/2019 ALBUMIN 3.2 (L) 03/21/2024 ALBUMIN 4.4 01/05/2019 GFRNAA 74 03/22/2024 GFRAA 60.8 07/05/2019 ALKPHOS 75 03/21/2024 ALKPHOS 113 01/05/2019 AST 76 (H) 03/21/2024 AST 18 01/11/2020 ALT 18 03/21/2024 ALT 22 01/11/2020 PHOS 3.6 03/21/2024 MAGNESIUM 1.7 03/21/2024 Lab Results Component Value Date HGBA1C 5.3 06/20/2024 MHAZ1JHCS 5.8 05/12/2018 Lab Results Component Value Date TSH 1.63 06/30/2023 FREET4 1.45 12/26/2021 Lab Results Component Value Date CHOL 156 01/12/2024 TRIG 93 01/12/2024 HDL 50 01/11/2020 LDLCALC 82 01/11/2020 LDLDIRECT 73 01/12/2024 Lab Results Component Value Date 25HYDROVITD 40 10/21/2023 Assessment & Plan Fred Mera is a 78 yoM with history of HTN, DMII, LUCIO, CKD stge 3, a fib on amiodarone, tachycardia induced CMP that is now resolved, and h/o LLE DVT. He is being seen in endocrine clinic for management of thyroid dysfunction. Initially with amiodarone induced hyperthyroidism which quickly evolved to hypothyroidism and also T2D and obesity. #Femur Fracture - fall from standing height, previous falls from ladder with spinal compression fractures. #osteoporosis Patient's fall from standing height is concerning for osteoporosis. He has history of another fall and fracture in the setting of being on a ladder. We will check vitamin-D, parathyroid hormone, kidney function. We will obtain a baseline DEXA. He has a dental appointment in 1 month. He denies toothissues. Diagnosis is vitamin-D deficiency versus hyperparathyroidism. - PTH, CMP, Vitamin D - obtain DEXA; we will get bone density of the same day as other appointments if able - Discussed IV bisphosphonate treatment pending workup. 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 - repeat TSH - Cont levothyroxine 100 mcg daily, - Remains on amiodarone #T2DM, controlled c/b CKD 3 without albuminuria - A1c today 5.4; - Recommend x weekly AM BG checks. - He would like to resume on mounjaro. We recommended dose decreased to 5 mg weekly. This will provide cardiovascular disease protection and maintenance of weight loss - Statin: lipids at goal; reviewed lipid panel from cardiology; will repeat today - SHASHANK-I/ARB: BP getting monitored by cardiology - Needs eye exam yearly - Neuropathy: decreased sensation in bilateral feet. Foot exam today was abnormal. Will try to schedule with foot nurse Tao #Obesity:Congratulated on weight loss. - advised increased activity, provided dietary conseuling; he is currently getting physical therapyfrom nursing. -mounjaro as above. #hyponatremia as low as 124 in the hospital. He was found to have a urine sodium of less than 20. Unknown volume status. Has known CHF but did not comment on significant volume overload. Improved at d/c with salt tabs., fluid restriction - repeat bmp today Orders Placed This Encounter Dexa Axial Skeleton Bone Density 1 or 2 Site CANCELED: Comprehensive metabolic panel CANCELED: Vitamin D 25 hydroxy CANCELED: CBC with auto differential CANCELED: PTH CANCELED: TSH CANCELED: T4, free CBC with auto differential Comprehensive metabolic panel PTH T4, free TSH Vitamin D 25 hydroxy POCT hemoglobin A1c POCT glucose RTC2 [facility] -- Eliud Cortez MD EL PLANT OPERATOR documented in this encounter Plan of Treatment Scheduled Orders Name Type Priority Associated Diagnoses Orde r Schedule Dexa Axial Skeleton Bone Density 1 or 2 Site Imaging Schedule Routine, Read Routine (OP Routine) Other closed fracture of left femur with routine healing, unspecified portion of femur, subsequent encounter Other specified disorders of bone density and structure, left lower leg Expected: 07/13/2024, Expires: 12/18/2025 documented as of this encounter Procedures Procedure Name Priority Date/Time Associated Diagnosis Comments POCT HEMOGLOBIN A1C Routine 06/20/2024 1 0:50 AM DIESEL PLANT OPERATOR Type 2 diabetes mellitus without complication, without long-term current use of insulin ([facility]) ([facility]) POCT GLUCOSE Routine 06/20/2024 10:50 AM DIESEL PLANT OPERATOR Type 2 diabetes mellitus without complication, without long-term current use of insulin ([facility]) ([facility]) documented in this encounter Results * Vitamin D 25 hydroxy (06/20/2024 11:46 AM DIESEL PLANT OPERATOR) Vitamin D 25-OH 40 30 - 80 ng/mL Blood 06/20/2024 11:4 6 AM DIESEL PLANT OPERATOR 06/20/2024 5:15 PM DIESEL PLANT OPERATOR us Eliud Cortez MD LAB BLOOD ORDERABLES Final Resu lt EMILIA [address] Department [place] [address] * TSH (06/20/2024 11:46 AM DIESEL PLANT OPERATOR) Thyroid Stimulating Hormone 0.33 0.30 - 4.20 mcIUnit/mL Blood 06/20/2024 11:4 6 AM DIESEL PLANT OPERATOR 06/20/2024 5:15 PM DIESEL PLANT OPERATOR us Eliud Cortez MD LAB BLOOD ORDERABLES Final Resu lt Performing Organization Address [facility] Co de Phone Number [place] [address] [address] [facility] [place] [address] * (ABNORMAL) T4, free (06/20/2024 11:46 AM DIESEL PLANT OPERATOR) Free T4 1.84(H) 0.90 - 1.70 ng/dL Blood 06/20/2024 11:4 6 AM DIESEL PLANT OPERATOR 06/20/2024 5:15 PM DIESEL PLANT OPERATOR Eliud Cortez MD LAB BLOOD ORDERABLES Final Resu lt Performing Organization Address [facility] [employer] de Phone Number [place] [address] [address] [facility] [place] [address] * PTH (06/20/2024 11:46 AM DIESEL PLANT OPERATOR) PTH 54 15 - 65 pg/mL Blood 06/20/2024 11:4 6 AM DIESEL PLANT OPERATOR 06/20/2024 5:15 PM DIESEL PLANT OPERATOR Eliud Cortez MD LAB BLOOD ORDERABLES Final Resu lt Performing Organization Address [facility] Co de Phone Number [place] [address] [address] [facility] [place] [address] * (ABNORMAL) Comprehensive metabolic panel (06/20/2024 11:46 AM DIESEL PLANT OPERATOR) Sodium 139 135 - 145 mmol/L Potassium, pl 4.2 3.3 - 4.9 mmol/L [facility] Chloride 99 97 - 110 mmol/L [facility] CO2 27 22 - 32 mmol/L [facility] Anion gap 13 2 - 15 mmol/L [facility] BUN 14 6 - 25 mg/dL [facility] Creatinine 1.31(H) 0.80 - 1.30 mg/dL [facility] Glucose 78 70 - 199 mg/dL [facility] Comment: Interpretive Data Fasting glucose >/= 126 [...] Calcium 9.8 8.5 - 10.3 mg/dL [facility] Bilirubin, total 0.2 0.1 - 1.2 mg/dL [facility] Protein, pl 7.4 6.5 - 8.5 g/dL [facility] Albumin 3.7 3.5 - 5.0 g/dL [facility] Alk phos 83 40 - 130 Units/L [facility] ALT 9 7 - 55 Units/L [facility] AST 22 10 - 50 Units/L [facility] Blood 06/20/2024 11:4 6 AM DIESEL PLANT OPERATOR 06/20/2024 5:15 PM DIESEL PLANT OPERATOR us Eliud Cotrez MD LAB BLOOD ORDERABLES Final Resu lt [facility] [address] Department [place] [address] * (ABNORMAL) CBC with auto differential (06/20/2024 11:46 AM DIESEL PLANT OPERATOR) [facility] WBC 7.0 3.8 - 9.9 K/cumm Hgb 11.1(L) 13.0 - 17.5 g/dL [facility] Hct 36.7(L) 38.9 - 50.3 % [facility] Plt 351 150 - 400 K/cumm [facility] MPV 10.3 9.1 - 12.3 fL [facility] RBC 3.85(L) 4.30 - 5.80 M/cumm [facility] MCV 95.3 81.3 - 96.4 fL [facility] MCH 28.8 27.1 - 33.3 pg [facility] MCHC 30.2(L) 32.3 - 35.7 g/dL EM[facility] RDW CV 15.2(H) 11.1 - 14.9 % [facility] RDW SD 53.5(H) 35.7 - 48.1 fL [facility] NRBC abs 0.00 0.00 - 0.01 K/cumm [facility] Blood 06/20/2024 11:4 6 AM DIESEL PLANT OPERATOR 06/20/2024 5:15 PM DIESEL PLANT OPERATOR us Eliud Cortez MD LAB BLOOD ORDERABLES Final Resu lt [place] [address] [address] Department [place] [address] * POCT glucose (06/20/2024 10:50 AM DIESEL PLANT OPERATOR) Glucose Blood, POC 131 mg/dL Blood 06/20/2024 10:5 0 AM DIESEL PLANT OPERATOR us Eliud Cortez MD POINT OF CARE TEST ORDERABLES F inal Result * POCT hemoglobin A1c (06/20/2024 10:50 AM DIESEL PLANT OPERATOR) Hemoglobin A1C, POC 5.3 4.0 - 5.6 % Blood 06/20/2024 10:5 0 AM DIESEL PLANT OPERATOR us Eliud Cortez MD POINT OF CARE TEST ORDERABLES F inal Result documented in this encounter Visit Diagnoses Diagnosis Type 2 diabetes mellitus without complication, without long-term current use of insulin (CMS/HCC) ([facility])- Primary Class 2 obesity due to excess calories with body mass index (BMI) of 36.0 to 36.9 in adult, unspecified whether serious comorbidity present Hypothyroidism due to medication Vitamin D deficiency Stage 2 chronic kidney disease Hyponatremia Hyposmolality and/or hyponatremia Other closed fracture of left femur with routine healing, unspecified portion of femur, subsequent encounter Other specified disorders of bone density and structure, left lower leg documented in this encounter Discontinued Medications Medication Sig Discontinue Reason Start Date End Da te tirzepatide (Mounjaro) 7.5 mg/0.5 mL pen injector Inject 7.5 mg under the skin once a week Therapy completed 01/27/2024 06/20/2024 documented as of this encounter Care Teams Director Of Field Service Relationship Specialty Start Date End Date Ramone Hemphill MD PCP - General 03/11/07 documented as of this encounter
--- OUTSIDE RECORDS SUMMARY | 2024-06-21 07:31 | XMS_ITS | Encounter Summary ---
Author Organization [facility] Healthcare Address [address] [place] [address] Care Team Providers Care Cloth Spreader Screen Printing Name Role Phone Ramone Hemphill MD Primary Care Provider [phone] Encounter Details Date Type Department Care Team (Latest Contact Info) Description 06/20/2024 11:46 AM LOAD DISPATCHER LOCAL - 06/20/2024 11:59 PM LOAD DISPATCHER LOCAL Hospital Encounter [address] [address] Type 2 diabetes mellitus without complication, without long-term current use of insulin ([facility]/HCC) ([facility]); Vitamin D deficiency; Hypothyroidism due to medication; Other closed fracture of left femur with routine healing, unspecified portion of femur, subsequent encounter; Hyponatremia Discharge Disposition: Discharge to home or self care Social History Tobacco Use Types Packs/Day Years Used Date Smoking Tobacco: Former Cigarettes Q uit: 1981 Smokeless Tobacco: Never Alcohol Use Standard Drinks/Week Comments Yes 0 [...] on file Legal Sex Male 12:33 PM LOAD DISPATCHER LOCAL Gender Identity Male 01/21/2018 1:29 PM CDT Sexual Orientation Straight 01/09/2021 6: 25 AM CDT documented as of this encounter Medications at Time of Discharge acetaminophen (TYLENOL) 500 mg tablet Take 2 tablets (1,000 mg total) by mouth every 8 (eight) hours 90 tablet 1 11/25/2023 amiodarone (PACERONE) 200 mg tablet Take 1 tablet (200 mg total) by mouth every morning 90 tablet 2 11/23/2023 amoxicillin 500 mg capsule TK FOUR CS PO 1 HOUR B DAPP 06/30/2023 apixaban (Eliquis) 2.5 mg tablet Take 1 tablet (2.5 mg total) by mouth 2 (two) times a day Please start Eliquis 2.5mg twice daily starting on 11/[address] Quinteros. You may resume your normal home dose of Eliquis 5mg twice daily one week post operatively 14 tablet 11/26/2023 bisacodyL 5 mg tablet Take 1 tablet by mouth as needed blood glucose diagnostic (glucose blood) stripIndications :Type 2 diabetes mellitus without complication, without long-term current use of insulin ([facility]) ([facility]) Use to test blood glucose once daily Onetouch Verio 100 strip 3 02/02/2024 blood-glucose meter kitIndications:T ype 2 diabetes mellitus without complication, without long-term current use of insulin ([facility]) ([facility]) Use to test blood glucose once daily 1 kit 1 09/24/2021 BREO ELLIPTA 100-25 mcg/dose diskus inhaler Inhale 1 puff every morning 11/16/2017 CALCIUM ORAL Take 1,200 mg by mouth 2 (two) times a day cholecalciferol, vitamin D3, (VITAMIN D3 ORAL) Take 3,600 Units by mouth every morning 1600 units PM diazePAM (VALIUM) 5 mg tablet 0 04/08/[address] (CYMBALTA) 60 mg capsule Take 1 capsule (60 mg total) by mouth every morning 12/09/2022 famotidine (PEPCID) 20 mg tablet Take 1 tablet (20 mg total) by mouth as needed FLUoxetine (PROzac) 40 mg capsule Take 1 capsule (40 mg total) by mouth every morning fluticasone propion-salmeter oL (ADVAIR DISKUS) 500-50 mcg/dose diskus inhaler 03/08/2024 gabapentin (NEURONTIN) 100 mg capsule Take 2 capsules (200 mg total) by mouth 3 (three) times a day 03/23/2024 Gemtesa 75 mg tablet Take 75 mg by mouth daily 04/18/2024 guaiFENesin (Mucinex) 1,200 mg tablet extended release 12hr Take 1 tablet/capsule by mouth as needed lancets 33 gauge miscIndications: Type 2 diabetes mellitus without complication, without long-term current use of insulin ([facility]) ([facility]) 1 each daily 100 each 3 02/02/2024 lancets miscIndications: Type 2 diabetes mellitus without complication, without long-term current use of insulin (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 90 tablet 3 10/11/2023 methocarbamoL (ROBAXIN) 500 mg tablet Take 1 tablet (500 mg total) by mouth 3 (three) times a day 03/23/2024 metoprolol XL (TOPROL-XL) 25 mg extended release tablet Take 0.5 tablets (12.5 mg total) by mouth daily 03/23/2024 oxyBUTYnin XL (DITROPAN-XL) 5 mg 24 hr tablet Take 1 tablet (5 mg total) by mouth daily 01/11/2024 oxyCODONE (ROXICODONE) 5 mg immediate release tabletIndication s:Pain Take 0.5 tablets (2.5 mg total) by mouth every 4 (four) hours as needed for pain 10 tablet 03/23/2024 senna-docusate (Senna-S) 8.6-50 mg Take 2 tablets by mouth 2 (two) times a day 80 tablet 1 11/25/2023 tiZANidine (ZANAFLEX) 4 mg tabletIndication s:Muscle Spasm Take 1 tablet (4 mg total) by mouth every 6 (six) hours as needed for muscle spasms 12/06/2019 triamcinolone (KENALOG) 0.5 % cream as needed documented as of this encounter Discharge Disposition Disposition Code Departure Means Destination Discharge to home or self care documented in this encounter Plan of Treatment Not on file documented as of this encounter Procedures Procedure Name Priority Date/Time Associated Diagnosis Comments EGFR Routine 06/20/2024 11:46 AM LOAD DISPATCHER LOCAL Type 2 diabetes mellitus without complication, without long-term current use of insulin ([facility]) ([facility]) Hyponatremia DIFFERENTIAL AUTO Routine 06/20/2024 11: 46 AM LOAD DISPATCHER LOCAL Type 2 diabetes mellitus without complication, without long-term current use of insulin ([facility]) ([facility]) CBC WITH AUTO DIFFERENTIAL Routine 06/20/2024 11:46 AM LOAD DISPATCHER LOCAL Type 2 diabetes mellitus without complication, without long-term current use of insulin ([facility]) ([facility]) VITAMIN D 25 HYDROXY Routine 06/20/2024 11:46 AM LOAD DISPATCHER LOCAL Type 2 diabetes mellitus without complication, without long-term current use of insulin ([facility]) ([facility]) Vitamin D deficiency TSH Routine 06/20/2024 11:46 AM LOAD DISPATCHER LOCAL Hypothyroidism due to medication Other closed fracture of left femur with routine healing, unspecified portion of femur, subsequent encounter T4, FREE Routine 06/20/2024 11:46 AM LOAD DISPATCHER LOCAL Hypothyroidism due to medication Other closed fracture of left femur with routine healing, unspecified portion of femur, subsequent encounter PTH Routine 06/20/2024 11:46 AM LOAD DISPATCHER LOCAL Other closed fracture of left femur with routine healing, unspecified portion of femur, subsequent encounter COMPREHENSIVE METABOLIC PANEL Routine 06/20/2024 11:46 AM LOAD DISPATCHER LOCAL Type 2 diabetes mellitus without complication, without long-term current use of insulin ([facility]) ([facility]) Hyponatremia documented in this encounter Results * (ABNORMAL) eGFR (06/20/2024 11:46 AM LOAD DISPATCHER LOCAL) eGFR 56(L) >=60 mL/min/1. 73 m2 Comment: [...] reviewed 2021. Blood 06/20/2024 11:4 6 AM LOAD DISPATCHER LOCAL 06/20/2024 9:14 PM LOAD DISPATCHER LOCAL us Eliud Cortez MD LAB BLOOD ORDERABLES Final Resu lt [facility] [id number] [address] Department [place] [address] * Differential, auto (06/20/2024 11:46 AM LOAD DISPATCHER LOCAL) Neutrophil abs 4.8 1.5 - 6.5 K/cumm Imm gran abs 0.0 0.0 - 0.1 K/cumm [facility] Lymphocyte abs 1.2 0.8 - 3.3 K/cumm [facility] Monocyte abs 0.6 0.2 - 0.8 K/cumm [facility] Eosinophil abs 0.3 0.0 - 0.5 K/cumm [facility] Basophil abs 0.1 0.0 - 0.1 K/cumm [facility] Neutrophil pct 68.8 % [facility] Comment: Interpretive Data Percent cell count reference ranges are not reported, since discordance with absolute values may lead to misinterpretation of CBC data. Current Interpretive Data was last revised on 2017. Imm gran pct 0.4 % [facility] Comment: Interpretive Data Percent cell count reference ranges are not reported, since discordance with absolute values may lead to misinterpretation of CBC data. Current Interpretive Data was last revised on 2017. Lymphocyte pct 17.5 % [facility] Comment: Interpretive Data Percent cell count reference ranges are not reported, since discordance with absolute values may lead to misinterpretation of CBC data. Current Interpretive Data was last revised on 2017. Monocyte pct 8.0 % [facility] Comment: Interpretive Data Percent cell count reference ranges are not reported, since discordance with absolute values may lead to misinterpretation of CBC data. Current Interpretive Data was last revised on 2017. Eosinophil pct 4.6 % [facility] Comment: Interpretive Data Percent cell count reference ranges are not reported, since discordance with absolute values may lead to misinterpretation of CBC data. Current Interpretive Data was last revised on 2017. Basophil pct 0.7 % [facility] Comment: Interpretive Data Percent cell count reference ranges are not reported, since discordance with absolute values may lead to misinterpretation of CBC data. Current Interpretive Data was last revised on 2017. Blood 06/20/2024 11:4 6 AM LOAD DISPATCHER LOCAL 06/20/2024 5:15 PM LOAD DISPATCHER LOCAL us Eliud Cortez MD LAB BLOOD ORDERABLES Final Resu lt [facility] [id number] [address] Department [place] [address] * (ABNORMAL) CBC with auto differential (06/20/2024 11:46 AM LOAD DISPATCHER LOCAL) WBC 7.0 3.8 - 9.9 K/cumm Hgb 11.1(L) 13.0 - 17.5 g/dL [facility] Hct 36.7(L) 38.9 - 50.3 % [facility] Plt 351 150 - 400 K/cumm [facility] MPV 10.3 9.1 - 12.3 fL [facility] RBC 3.85(L) 4.30 - 5.80 M/cumm [facility] MCV 95.3 81.3 - 96.4 fL [facility] MCH 28.8 27.1 - 33.3 pg [facility] MCHC 30.2(L) 32.3 - 35.7 g/dL [facility] RDW CV 15.2(H) 11.1 - 14.9 % [facility] RDW SD 53.5(H) 35.7 - 48.1 fL [facility] NRBC abs 0.00 0.00 - 0.01 K/cumm [facility] Blood 06/20/2024 11:4 6 AM LOAD DISPATCHER LOCAL 06/20/2024 5:15 PM LOAD DISPATCHER LOCAL us Eliud Cortez MD LAB BLOOD ORDERABLES Final Resu lt [facility] [address] [address] Department of Laboratories [place] [phone] * (ABNORMAL) Comprehensive metabolic panel (06/20/2024 11:46 AM LOAD DISPATCHER LOCAL) Sodium 139 135 - 145 mmol/L Potassium, pl 4.2 3.3 - 4.9 mmol/L [facility] Chloride 99 97 - 110 mmol/L [facility] CO2 27 22 - 32 mmol/L [facility] Anion gap 13 2 - 15 mmol/L [facility] BUN 14 6 - 25 mg/dL [facility] Creatinine 1.31(H) 0.80 - 1.30 mg/dL [facility] Glucose 78 70 - 199 mg/dL [facility] Comment: Interpretive Data Fasting glucose >/= 126 [...] [facility] Blood 06/20/2024 11:4 6 AM LOAD DISPATCHER LOCAL 06/20/2024 5:15 PM LOAD DISPATCHER LOCAL us Eliud Cortez MD LAB BLOOD ORDERABLES Final Resu lt Performing Organization Address [facility] de Phone Number [facility] [address] [address] Department [place] [address] * PTH (06/20/2024 11:46 AM LOAD DISPATCHER LOCAL) PTH 54 15 - 65 pg/mL Blood 06/20/2024 11:4 6 AM LOAD DISPATCHER LOCAL 06/20/2024 5:15 PM LOAD DISPATCHER LOCAL Eliud Cortez MD LAB BLOOD ORDERABLES Final Resu lt Performing Organization Address [facility] de Phone Number [facility] [address] [address] Department [place] [address] * (ABNORMAL) T4, free (06/20/2024 11:46 AM LOAD DISPATCHER LOCAL) Free T4 1.84(H) 0.90 - 1.70 ng/dL Blood 06/20/2024 11:4 6 AM LOAD DISPATCHER LOCAL 06/20/2024 5:15 PM LOAD DISPATCHER LOCAL us Eliud Cortez MD LAB BLOOD ORDERABLES Final Resu lt Performing Organization Address [facility]/ZIP Co de Phone Number [place] [address] [address] Department [place] [address] * TSH (06/20/2024 11:46 AM LOAD DISPATCHER LOCAL) Thyroid Stimulating Hormone 0.33 0.30 - 4.20 mcIUnit/mL Blood 06/20/2024 11:4 6 AM LOAD DISPATCHER LOCAL 06/20/2024 5:15 PM LOAD DISPATCHER LOCAL Eliud Cortez MD LAB BLOOD ORDERABLES Final Resu lt Performing Organization Address [facility] de Phone Number [facility] [place] [address] [address] Department [place] [address] * Vitamin D 25 hydroxy (06/20/2024 11:46 AM LOAD DISPATCHER LOCAL) Vitamin D 25-OH 40 30 - 80 ng/mL Blood 06/20/2024 11:4 6 AM LOAD DISPATCHER LOCAL 06/20/2024 5:15 PM LOAD DISPATCHER LOCAL Eliud Cortez MD LAB BLOOD ORDERABLES Final Resu lt Performing Organization Address [facility] de Phone Number [place] [place] [address] [address] [employer] [place] [address] documented in this encounter Visit Diagnoses Diagnosis Type 2 diabetes mellitus without complication, without long-term current use of insulin ([facility]) ([facility]) Vitamin D deficiency Hypothyroidism due to medication Other closed fracture of left femur with routine healing, unspecified portion of femur, subsequent encounter Hyponatremia Hyposmolality and/or hyponatremia documented in this encounter Care Teams Cloth Spreader Screen Printing Relationship Specialty Start Date End Date Ramone Hemphill MD PCP - General 03/11/07 documented as of this encounter
--- OUTSIDE RECORDS SUMMARY | 2024-06-21 07:31 | XMS_ITS | Clinical Summary ---
Author Organization [facility] Address [address] [place] [address] Care Team Providers Care Electrical Panel Builder Name Role Phone Ramone Hemphill MD Primary Care Provider [phone] Allergies No known active allergies Medications FLUoxetine [...] complication, without long-term current use of insulin ([facility]) ([facility]) Use to test blood glucose once daily 1 kit 1 2 Active lancets miscIndication s:Type 2 diabetes mellitus without complication, without long-term current use of insulin ([facility]) ([facility]) Use to test blood glucose [...] 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 90 tablet 3 4 Active [...] complication, without long-term current use of insulin ([facility]) ([facility]) 1 each daily 100 each 3 4 Active blood glucose diagnostic (glucose blood) stripIndicatio ns:Type 2 diabetes mellitus without complication, without long-term current use of insulin (CMS/HCC) ([facility]) Use to test blood glucose [...] once a week 2 mL 11 4 06/20/19 25 Discontin ued(Thera py completed ) Active Problems Problem Noted Date Diagnosed Date Hyponatremia 03/21/2024 Assessment & Plan (03/23/2024 9:02 AM SCHEDULER MAINTENANCE): - Na 129 (132) - 03/21: 500ml NS bolus - Repeat Na 128->124->131->132 - FWR to 1 L - Salt tabs TID->BID - Urine electrolytes - Continue salt tabs x 1 week, recheck BMP at [facility] UTI (urinary tract infection) 03/20/2024 Assessment & Plan (03/22/2024 2:06 PM SCHEDULER MAINTENANCE): - + symptoms on admission (burning with urination) - Culture + Morganella morganii - Ceftriaxone started 03/18-03/21 - Susceptible to ceftriaxone, No further treatment needed - Discussed patient's case with the antibiotic stewardship team - Symptoms resolved Syncope 03/20/2024 Assessment & Plan (03/21/2024 1:12 PM SCHEDULER MAINTENANCE): - Extensive history of syncopal events - [...] 03/20/2024 Assessment & Plan (03/23/2024 10:25 AM SCHEDULER MAINTENANCE): - 03/20: DC martina, anticipate dc 03/21 [...] 03/18/2024 Assessment & Plan (03/21/2024 9:43 AM SCHEDULER MAINTENANCE): - Ortho consult - OR 03/19 for L VASCULAR RADIOLOGIST - WBAT with PHP - PT/OT, pain [...] 05/25/2018 Assessment & Plan (03/21/2024 6:37 AM SCHEDULER MAINTENANCE): - Pt will return to SNF at discharge Asthma 05/25/2018 Type 2 diabetes mellitus 05/25/2018 Assessment & Plan (03/20/2024 1:33 PM SCHEDULER MAINTENANCE): - Insulin sensitive correction scale - Acchuchecks QID Osteoarthritis of right shoulder 04/12/2018 Overview (04/12/2018): Added automatically from request for surgery [id number] Encounter for monitoring amiodarone therapy 05/2017 Chronic renal failure, stage 2 (mild) 08/23/2017 Renal osteodystrophy 08/23/2017 Aortic root dilatation ([facility]/HCC) 06/09/2017 Edema of lower extremity 03/15/2017 Hypertension 09/02/2016 Hypertension 09/02/2016 History of cardiomyopathy 12/04/2015 Hyperkalemia 07/30/2015 Morbid obesity 07/29/2015 Obstructive sleep apnea syndrome 07/29/2015 Chronic systolic heart failure (CMS/HCC) 016 Atrial fibrillation ([facility]/HCC) 05/20/2015 Encounter for preventive health examination 04/16 #afib 04/22/2015 Overview (08/20/2016): Atrial fibrillation, controlled Assessment & Plan (03/23/2024 9:00 AM SCHEDULER MAINTENANCE): - Held eliquis for OR - Okay to resume per ortho - Continued DVT ppx while terry-op - 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 LV mildly dilated with low normal systolic function, reduced from prior LUCIO on CPAP 08/30/2014 Assessment & Plan (03/20/2024 1:32 PM SCHEDULER MAINTENANCE): Continued on hospital unit Mycobacterium avium complex ([facility]/HCC) 03/31/2012 Overview (01/19/2023): In sputum Other nonspecific abnormal finding of lung field 03/31/2012 Overview (01/19/2023): Multiple pulmonary nodules Acute postoperative pain Acute pain of right shoulder Status post total replacement of right shoulder Encounters Date Type Department Care Team Description 06/20/2024 11:50 AM SCHEDULER MAINTENANCE Lab [facility] Infectious Diseases [address] [facility] [address] [place] [address] 06/20/2024 11:46 AM SCHEDULER MAINTENANCE - 06/20/2024 11:59 PM SCHEDULER MAINTENANCE Hospital Encounter [address] [address] Type 2 diabetes mellitus without complication, without long-term current use of insulin (CMS/HCC) ([facility]); Vitamin D deficiency; Hypothyroidism due to medication; Other closed fracture of left femur with routine healing, unspecified portion of femur, subsequent encounter; Hyponatremia Discharge Disposition: Discharge to home or self care 06/20/2024 10:40 AM SCHEDULER MAINTENANCE Office Visit [facility] Endocrinology Metabolism and Lipid [address] [facility] [address] [place] [address] Eliud Cortez MD Type 2 diabetes mellitus without complication, without long-term current use of insulin (CMS/HCC) ([facility]) (Primary Dx); Class 2 obesity due to [...] density and structure, left lower leg 05/04/2024 10:30 AM SCHEDULER MAINTENANCE Office Visit [facility] Orthopaedic Surgery [address] [facility] 6th [place] [address] [place] [address] Rachael Azul MD #L femoral neck fx (Primary Dx) 05/04/2024 10:00 AM SCHEDULER MAINTENANCE - 05/04/2024 11:59 PM SCHEDULER MAINTENANCE Hospital Encounter [facility] [address] [place] [address] Rachael Azul MD #L femoral neck fx Discharge Disposition: Discharge to home or self care 04/12/[address] [address] Marvin Myers RN 03/22/2024 10:28 AM SCHEDULER MAINTENANCE - 03/22/2024 11:59 PM SCHEDULER MAINTENANCE Hospital Encounter [facility] [address] [place] [address] Discharge Disposition: Discharge to home or self care 03/21/2024 10:00 AM SCHEDULER MAINTENANCE Ancillary Procedure [facility] Vascular Lab IP [address] [facility] [address] [place] [address] 03/18/2024 2:25 PM CDT - 03/23/2024 11:45 AM SCHEDULER MAINTENANCE Hospital Encounter [address] [address] Thony Ordonez MD Wynia, MD Luma Frederick, [...] left sacroplasty, left sacral biopsy under sedation TOTAL HIP ARTHROPLASTY 03/19/2024 Left Medical History Medical History Date Comments Personal history of other di seases of the circulatory system History of cardiomyopathy - (Added by TW Conv) Congestive heart failure (CH F) ([facility]) ([facility]) 2014 Weakness Glaucoma Cataract Mycobacterium avium complex ([facility]) ([facility]) 2012 - 2014 Anemia 1976 Psychiatric disorder 1990 Psychiatric /Emotional Disorder Hyperthyroidism Sleep apnea Osteoarthritis Spinal headache 2001 with R TKA; repo rts lasted into day following surgery; has not had to have spinal anesthesia since History of total knee replacement 11/26/2023 Left knee Family History Medical History Relation Name Comments [...] on file Legal Sex Male 12:33 PM SCHEDULER MAINTENANCE Gender Identity Male 01/21/2018 1:29 PM CDT Sexual Orientation Straight 01/09/2021 6: 25 AM CDT Obstetrics History Last Filed Vital Signs Vital Sign Reading Time Taken Comments Blood Pressure 104/69 06/20/2024 10:32 AM SCHEDULER MAINTENANCE Pulse 62 06/20/2024 10:32 AM SCHEDULER MAINTENANCE Temperature 36.5 ??C (97.7 ??F) 06/20/2024 1 0:32 AM SCHEDULER MAINTENANCE Respiratory Rate 18 03/23/2024 7:28 AM SCHEDULER MAINTENANCE Oxygen Saturation 99% 03/23/2024 7:2 8 AM SCHEDULER MAINTENANCE Inhaled Oxygen Concentration - - Weight 117 kg (258 lb) 06/20/2024 10:32 AM SCHEDULER MAINTENANCE Done last night at longterm Height 180.3 cm (5' 10.98 ) 06/20/2024 10:32 AM SCHEDULER MAINTENANCE Body Mass Index 36 06/20/2024 10:32 AM SCHEDULER MAINTENANCE Plan of Treatment Health Maintenance Due Date Last Done Comments Depression Screening 1945 Hepatitis C Screening 1945 Dilated Eye Exam 1945 Pneumococcal vaccine 65+ (1 of 2 - PCV) 10/27/1953 Hepatitis B Screening 10/27/1965 Zoster Vaccine (1 of 2) 10/27/1997 DTaP/Tdap/Td Vaccine (1 - Tdap) 07/22/2001 2 Abdominal Aortic Aneurysm (A AA) Screen 10/27/2012 Well Visit 65+ 10/27/2012 Albumin Creatinine Ratio, Urine 07/13/2023 07/13/2022, 06/27/2021, 01/11/2020, Additional history exists Influenza Vaccine (#1) 2024 , 01/30/2019, 01/06/2018, Additional history exists Hemoglobin A1C 12/18/2024 06/20/2024, 01/15, 09/10/2023, Additional history exists Lipid Panel 01/11/2025 01/12/2024, 06/17, 01/11/2020, Additional history exists Fall Risk Assessment 03/23/2025 03/23/2024 Foot Exam 06/20/2025 06/20/2024 eGFR 06/20/2025 06/20/2024, 10/2023, 03/22/2024, Additional history exists Medical Devices Implanted Type Area Configuration Analyst Device Identifier Shelf Expiration Date Model / Serial / Lot [employer] Simplex P Radiopaque Full Dose Cement Bone Sterile 6191-1-010 - S0 - [id number] Implanted:Qty: 1 on 03/19/2024 by Boy Stevens MD PhD at [facility] Bone Cement Left: Hip [employer] 03/16/2025 6191-1-010 / 0 / [id number] [employer] Simplex P Radiopaque Full Dose Cement Bone Sterile 6191-1-010 - S0 - [id number] Implanted:Qty: 1 on 03/19/2024 by Boy Stevens MD PhD at [facility] Bone Cement Left: Hip [employer] 03/16/2025 6191-1-010 / 0 / [id number] Knee Tib Ins Tri Sz7 13mm [id number] Implanted:Qty: 1 on 11/24/2023 at [facility] Other - see comments Left: Knee Katharine 01/03/2028 6199-J-505-E / / [id number] [employer] Versys Heritage 15mm 140mm Primary Cement Proximal Centralizer [id number] - S0 - [id number] Implanted:Qty: 1 on 03/19/2024 by Boy Stevens MD PhD at [facility] Other - see comments Left: Hip [employer] [id number] 06/28/2032 [id number] / 0 / [id number] [employer] Versys 13mm Cemented Hip Distal Centralizer Stem Pmma Sterile [id number] - S0 - [id number] Implanted:Qty: 1 on 03/19/2024 by Boy Stevens MD PhD at [facility] Other - see comments Left: Hip [employer] [id number] 12/23/2027 [id number] / 0 / [id number] [employer] Ringloc Bio-Esparza Ii 54mm 28mm 2 Articulate Surface Lock - S0 - [id number] Implanted:Qty: 1 on 03/19/2024 by Boy Stevens MD PhD at [facility] Other - see comments Left: Hip [employer] [id number] 04/27/202723 / [id number] [employer] Trilogy It Continuum 28mm Hip Acetabulum +3.5mm 04/29 Large Head [id number] - S0 - [id number] Implanted:Qty: 1 on 03/19/2024 by Boy Stevens MD PhD at [facility] Other - see comments Left: Hip [employer] [id number] 03/23/2032 [id number] / 0 / [id number] [employer]/ Ortho Prep-Im Plug [place] Sponge Suction Hip Kit Thr Latex Free [id number] - S0 - [id number] Implanted:Qty: 1 on 03/19/2024 by Boy Stevens MD PhD at [facility] Other - see comments Left: Hip [employer] /Ortho [id number] 07/08/2033 930514 / 0 / [id number] Description:Cement restricto r in kit [employer] 6191-1-010 Simplex P Radiopaque Full Dose Cement Bone Sterile - [id number] Implanted:Qty: 1 on 05/25/2018 by Kevin Duron MD at [facility] Right: Shoulder [employer] [id number] 6191-1-010 / / Depuy [employer] [id number] Global Ap 52mm [place] Glenoid Peg Fixation Premieron - [id number] Implanted:Qty: 1 on 05/25/2018 by Kevin Duron MD at [facility] Right: Shoulder [employer] [id number] / / Depuy [employer] [id number] Global Unite 10mm Shoulder 135d Body Humeral [place]oat Sterile - [id number] Implanted:Qty: 1 on 05/25/2018 by Kevin Duron MD at [facility] Right: Shoulder [employer]uy [employer] [id number] / / Depuy Orth[employer] Inc [id number] Global Unite 10mm 113mm Modular Shoulder Standard Stem Humeral - [id number] Implanted:Qty: 1 on 05/25/2018 by Kevin Duron MD at [facility] Right: Shoulder [employer] [id number] / / Depuy [employer] Inc [id number] Global Unite 52mm 18mm Modular Eccentric Shoulder Head Humeral - [id number] Implanted:Qty: 1 on 05/25/2018 by Kevin Duron MD at [facility] Right: Shoulder [employer] Inc [id number] / / [employer] Triathlon Tritanium Knee 7 Baseplate Tibial 5536-B-700 - [id number] Implanted:Qty: 1 on 11/24/2023 at [facility] Left: Knee [employer] 05/13/2028 5536-B-700 / / [id number] [employer] Triathlon Cruciate Retain Bead Knee Left 6 Component Femoral Pa 5517-F-601 - [id number] Implanted:Qty: 1 on 11/24/2023 at [facility] Left: Knee [employer] 08/24/2028 5517-F-601 / / [id number] Procedures Procedure Name Priority Date/Time Associated Diagnosis Comments EGFR Routine 06/20/2024 11:46 AM SCHEDULER MAINTENANCE Type 2 diabetes mellitus without complication, without long-term current use of insulin (CMS/HCC) ([facility]) Hyponatremia DIFFERENTIAL AUTO Routine 06/20/2024 11: 46 AM SCHEDULER MAINTENANCE Type 2 diabetes mellitus without complication, without long-term current use of insulin (CMS/HCC) ([facility]) CBC WITH AUTO DIFFERENTIAL Routine 06/20/2024 11:46 AM SCHEDULER MAINTENANCE Type 2 diabetes mellitus without complication, without long-term current use of insulin (CMS/HCC) ([facility]) COMPREHENSIVE METABOLIC PANEL Routine 06/20/2024 11:46 AM SCHEDULER MAINTENANCE Type 2 diabetes mellitus without complication, without long-term current use of insulin (CMS/HCC) ([facility]) Hyponatremia PTH Routine 06/20/2024 11:46 AM SCHEDULER MAINTENANCE Other closed fracture of left femur with routine healing, unspecified portion of femur, subsequent encounter T4, FREE Routine 06/20/2024 11:46 AM SCHEDULER MAINTENANCE Hypothyroidism due to medication Other closed fracture of left femur with routine healing, unspecified portion of femur, subsequent encounter TSH Routine 06/20/2024 11:46 AM SCHEDULER MAINTENANCE Hypothyroidism due to medication Other closed fracture of left femur with routine healing, unspecified portion of femur, subsequent encounter VITAMIN D 25 HYDROXY Routine 06/20/2024 11:46 AM SCHEDULER MAINTENANCE Type 2 diabetes mellitus without complication, without long-term current use of insulin ([facility]/HCC) ([facility]) Vitamin D deficiency POCT GLUCOSE Routine 06/20/2024 10:50 AM SCHEDULER MAINTENANCE Type 2 diabetes mellitus without complication, without long-term current use of insulin (CMS/HCC) ([facility]) POCT HEMOGLOBIN A1C Routine 06/20/2024 1 0:50 AM SCHEDULER MAINTENANCE Type 2 diabetes mellitus without complication, without long-term current use of insulin (CMS/HCC) ([facility]) XR HIP LEFT W PELVIS 2 OR 3 VIEWS Schedule Routine, Read Routine (OP Routine) 05/04/2024 10:39 AM SCHEDULER MAINTENANCE #L femoral neck fx POCT GLUCOSE DEVICE Routine 03/23/2024 8 :14 AM SCHEDULER MAINTENANCE EGFR Routine 03/22/2024 10:48 PM SCHEDULER MAINTENANCE BASIC METABOLIC PANEL Routine 03/22/2024 10:48 PM SCHEDULER MAINTENANCE POCT GLUCOSE DEVICE Routine 03/22/2024 8 :52 PM SCHEDULER MAINTENANCE POCT GLUCOSE DEVICE Routine 03/22/2024 5 :51 PM SCHEDULER MAINTENANCE CREATININE, URINE, RANDOM Routine 03/22/2024 1:30 PM SCHEDULER MAINTENANCE CHLORIDE, URINE, RANDOM Routine 03/22/2024 1:30 PM SCHEDULER MAINTENANCE POTASSIUM, URINE, RANDOM Routine 03/22/2024 1:30 PM SCHEDULER MAINTENANCE SODIUM, URINE, RANDOM Routine 03/22/2024 1:30 PM SCHEDULER MAINTENANCE CHLORIDE, URINE, RANDOM Routine 03/22/2024 1:14 PM SCHEDULER MAINTENANCE SODIUM, URINE, RANDOM Routine 03/22/2024 1:14 PM SCHEDULER MAINTENANCE POTASSIUM, URINE, RANDOM Routine 03/22/2024 1:14 PM SCHEDULER MAINTENANCE CREATININE, URINE, RANDOM Routine 03/22/2024 1:14 PM SCHEDULER MAINTENANCE POCT GLUCOSE DEVICE Routine 03/22/2024 1 1:41 AM SCHEDULER MAINTENANCE EGFR Routine 03/22/2024 11:11 AM SCHEDULER MAINTENANCE BASIC METABOLIC PANEL Routine 03/22/2024 11:11 AM SCHEDULER MAINTENANCE POCT GLUCOSE DEVICE Routine 03/22/2024 8 :37 AM SCHEDULER MAINTENANCE POCT GLUCOSE DEVICE Routine 03/21/2024 8 :43 PM SCHEDULER MAINTENANCE EGFR Routine 03/21/2024 8:01 PM SCHEDULER MAINTENANCE BASIC METABOLIC PANEL Routine 03/21/2024 8:01 PM SCHEDULER MAINTENANCE POCT GLUCOSE DEVICE Routine 03/21/2024 6 :04 PM SCHEDULER MAINTENANCE POCT GLUCOSE DEVICE Routine 03/21/2024 1 2:51 PM SCHEDULER MAINTENANCE US CAROTIDS DUPLEX BILATERAL ED Urgent/IP Urgent 03/21/2024 12:49 PM SCHEDULER MAINTENANCE POCT GLUCOSE DEVICE Routine 03/21/2024 1 2:35 PM SCHEDULER MAINTENANCE EGFR Routine 03/21/2024 12:33 PM SCHEDULER MAINTENANCE BASIC METABOLIC PANEL Routine 03/21/2024 12:33 PM SCHEDULER MAINTENANCE POCT GLUCOSE DEVICE Routine 03/21/2024 7 :47 AM SCHEDULER MAINTENANCE EGFR Routine 03/21/2024 2:45 AM SCHEDULER MAINTENANCE PHOSPHORUS Routine 03/21/2024 2:45 AM SCHEDULER MAINTENANCE MAGNESIUM Routine 03/21/2024 2:45 AM SCHEDULER MAINTENANCE COMPREHENSIVE METABOLIC PANEL Routine 03/21/2024 2:45 AM SCHEDULER MAINTENANCE CBC WITHOUT DIFFERENTIAL Routine 03/21/2024 2:45 AM SCHEDULER MAINTENANCE LIPID PANEL Routine 01/12/2024 10:51 AM CDT Type 2 diabetes mellitus without complication, without long-term current use of insulin ([facility]) (HCC) Hypertension, unspecified type ALBUMIN CREATININE RATIO, URINE Routine 07/13/2022 8:12 AM SCHEDULER MAINTENANCE Medication course changed Chronic kidney disease, unspecified CKD stage from Last 3 Months or Most Recently Relevant to Health Maintenance Results * (ABNORMAL) eGFR (06/20/2024 11:46 AM SCHEDULER MAINTENANCE) eGFR 56(L) >=60 mL/min/1. 73 m2 Comment: [...] reviewed 2021. Blood 06/20/2024 11:4 6 AM SCHEDULER MAINTENANCE 06/20/2024 9:14 PM SCHEDULER MAINTENANCE us Eliud Cortez MD LAB BLOOD ORDERABLES Final Resu lt [place] [address] [place] [address] * Differential, auto (06/20/2024 11:46 AM SCHEDULER MAINTENANCE) Neutrophil abs 4.8 1.5 - 6.5 K/cumm Imm gran abs 0.0 0.0 - 0.1 K/cumm [facility] Lymphocyte abs 1.2 0.8 - 3.3 K/cumm [facility] Monocyte abs 0.6 0.2 - 0.8 K/cumm [facility] Eosinophil abs 0.3 0.0 - 0.5 K/cumm [facility] Basophil abs 0.1 0.0 - 0.1 K/cumm [facility] Neutrophil pct 68.8 % [facility] Comment: Interpretive Data Percent cell count reference ranges are not reported, since discordance with absolute values may lead to misinterpretation of CBC data. Current Interpretive Data was last revised on 2017. Imm gran pct 0.4 % [facility] Comment: Interpretive Data Percent cell count reference ranges are not reported, since discordance with absolute values may lead to misinterpretation of CBC data. Current Interpretive Data was last revised on 2017. Lymphocyte pct 17.5 % [facility] Comment: Interpretive Data Percent cell count reference ranges are not reported, since discordance with absolute values may lead to misinterpretation of CBC data. Current Interpretive Data was last revised on 2017. Monocyte pct 8.0 % [facility] Comment: Interpretive Data Percent cell count reference ranges are not reported, since discordance with absolute values may lead to misinterpretation of CBC data. Current Interpretive Data was last revised on 2017. Eosinophil pct 4.6 % [facility] Comment: Interpretive Data Percent cell count reference ranges are not reported, since discordance with absolute values may lead to misinterpretation of CBC data. Current Interpretive Data was last revised on 2017. Basophil pct 0.7 % [facility] Comment: Interpretive Data Percent cell count reference ranges are not reported, since discordance with absolute values may lead to misinterpretation of CBC data. Current Interpretive Data was last revised on 2017. Blood 06/20/2024 11:4 6 AM SCHEDULER MAINTENANCE 06/20/2024 5:15 PM SCHEDULER MAINTENANCE us Eliud Cortez MD LAB BLOOD ORDERABLES Final Resu lt [place] [address] [address] [place] [address] * (ABNORMAL) CBC with auto differential (06/20/2024 11:46 AM SCHEDULER MAINTENANCE) [facility] WBC 7.0 3.8 - 9.9 K/cumm Hgb 11.1(L) 13.0 - 17.5 g/dL [facility] Hct 36.7(L) 38.9 - 50.3 % [facility] Plt 351 150 - 400 K/cumm [facility] MPV 10.3 9.1 - 12.3 fL [facility] RBC 3.85(L) 4.30 - 5.80 M/cumm [facility] MCV 95.3 81.3 - 96.4 fL [facility] MCH 28.8 27.1 - 33.3 pg [facility] MCHC 30.2(L) 32.3 - 35.7 g/dL [facility] RDW CV 15.2(H) 11.1 - 14.9 % [facility] RDW SD 53.5(H) 35.7 - 48.1 fL [facility] NRBC abs 0.00 0.00 - 0.01 K/cumm [facility] Blood 06/20/2024 11:4 6 AM SCHEDULER MAINTENANCE 06/20/2024 5:15 PM SCHEDULER MAINTENANCE Eliud Cortez MD LAB BLOOD ORDERABLES Final Resu lt Performing Organization Address [facility] Co de Phone Number [place] [address] [place] [address] * Vitamin D 25 hydroxy (06/20/2024 11:46 AM SCHEDULER MAINTENANCE) [facility] Vitamin D 25-OH 40 30 - 80 ng/mL Blood 06/20/2024 11:4 6 AM SCHEDULER MAINTENANCE 06/20/2024 5:15 PM SCHEDULER MAINTENANCE Eliud Cortez MD LAB BLOOD ORDERABLES Final Resu lt Performing Organization Address [facility] Co de Phone Number [place] [address] [place] [address] * TSH (06/20/2024 11:46 AM SCHEDULER MAINTENANCE) [facility] Thyroid Stimulating Hormone 0.33 0.30 - 4.20 mcIUnit/mL Blood 06/20/2024 11:4 6 AM SCHEDULER MAINTENANCE 06/20/2024 5:15 PM SCHEDULER MAINTENANCE Eliud Cortez MD LAB BLOOD ORDERABLES Final Resu lt Performing Organization Address [facility] Co de Phone Number [place] [address] [place] [address] * (ABNORMAL) T4, free (06/20/2024 11:46 AM SCHEDULER MAINTENANCE) [facility] Free T4 1.84(H) 0.90 - 1.70 ng/dL Blood 06/20/2024 11:4 6 AM SCHEDULER MAINTENANCE 06/20/2024 5:15 PM SCHEDULER MAINTENANCE Eliud Cortez MD LAB BLOOD ORDERABLES Final Resu lt Performing Organization Address [facility] Co de Phone Number [place] [address] [address] [place] [address] * PTH (06/20/2024 11:46 AM SCHEDULER MAINTENANCE) [facility] PTH 54 15 - 65 pg/mL Blood 06/20/2024 11:4 6 AM SCHEDULER MAINTENANCE 06/20/2024 5:15 PM SCHEDULER MAINTENANCE Eliud Cortez MD LAB BLOOD ORDERABLES Final Resu lt Performing Organization Address [facility] Co de Phone Number [place] [phone] [address] [place] [address] * (ABNORMAL) Comprehensive metabolic panel (06/20/2024 11:46 AM SCHEDULER MAINTENANCE) [facility] Sodium 139 135 - 145 mmol/L Potassium, pl 4.2 3.3 - 4.9 mmol/L [facility] Chloride 99 97 - 110 mmol/L [facility] CO2 27 22 - 32 mmol/L [facility] Anion gap 13 2 - 15 mmol/L [facility] BUN 14 6 - 25 mg/dL [facility] Creatinine 1.31(H) 0.80 - 1.30 mg/dL [facility] Glucose 78 70 - 199 mg/dL [facility] Comment: Interpretive Data Fasting glucose >/= 126 [...] Protein, pl 7.4 6.5 - 8.5 g/dL [facility] Albumin 3.7 3.5 - 5.0 g/dL [facility] Alk phos 83 40 - 130 Units/L [facility] ALT 9 7 - 55 Units/L [facility] AST 22 10 - 50 Units/L [facility] Blood 06/20/2024 11:4 6 AM SCHEDULER MAINTENANCE 06/20/2024 5:15 PM SCHEDULER MAINTENANCE us Eliud Cortez MD LAB BLOOD ORDERABLES Final Resu lt [facility] [id number] [place] [address] * POCT hemoglobin A1c (06/20/2024 10:50 AM SCHEDULER MAINTENANCE) [facility] Hemoglobin A1C, POC 5.3 4.0 - 5.6 % Blood 06/20/2024 10:5 0 AM SCHEDULER MAINTENANCE us Eliud Cortez MD POINT OF CARE TEST ORDERABLES F inal Result * POCT glucose (06/20/2024 10:50 AM SCHEDULER MAINTENANCE) Glucose Blood, POC 131 mg/dL Blood 06/20/2024 10:5 0 AM SCHEDULER MAINTENANCE Eliud Cortez MD POINT OF CARE TEST ORDERABLES F inal Result * XR Hip Left 2 or 3 Views W Pelvis (05/04/2024 10:39 AM SCHEDULER MAINTENANCE) Anatomical Region Laterality Modality Lower Extremities, Hip, Pelvis Left C omputed Radiography 05/04/2024 11:2 9 AM SCHEDULER MAINTENANCE Impressions 05/04/2024 11:41 AM SCHEDULER MAINTENANCE Unchanged left hip hemiarthroplasty in expected position without radiographic evidence of prosthetic complication. Dictated by: Pawel Persaud M.D. The radiology attending physician has personally reviewed this study, and had reviewed and/or edited this written report and agrees with it. Electronically signed by: Petr Mayorga D.O. Narrative 05/04/2024 11:41 AM SCHEDULER MAINTENANCE EXAMINATION: XR HIP LEFT 2 OR 3 VIEWS W PELVIS HISTORY: Left hip arthroplasty follow-up. COMPARISON: 03/19/2024 FINDINGS: ?? Postsurgical changes of left hip hemiarthroplasty in expected position. ??No evidence of periprosthetic fracture or osteolysis. ??No new fracture or dislocation. ??Normal bone alignment. Sacroplasty noted. Procedure Note AntwilianPetramxi, DO - 05/04/2024 EXAMINATION: XR HIP LEFT [...] Result * POCT glucose (03/23/2024 8:14 AM SCHEDULER MAINTENANCE) Glucose, POC 105 70 - 199 mg/dL Blood 03/23/2024 8:14 AM SCHEDULER MAINTENANCE 03/23/2024 8:14 AM SCHEDULER MAINTENANCE Sanjiv Ge MD LAB POCT ORDERABLES - DEV ICE Final Result [facility] [place] [address] * eGFR (03/22/2024 10:48 PM SCHEDULER MAINTENANCE) eGFR 74 >=60 mL/min/1. 73 m2 Comment: [...] reviewed 2021. Blood 03/22/2024 10:4 8 PM SCHEDULER MAINTENANCE 03/22/2024 11:32 PM SCHEDULER MAINTENANCE Bee Valdes NP LAB BLOOD ORDERABLES Fi nal Result Performing Organization Address City/[facility]/ZIP Co de Phone Number [facility] [place] [address] * (ABNORMAL) Basic metabolic panel (03/22/2024 10:48 PM SCHEDULER MAINTENANCE) Sodium 132(L) 135 - 145 mmol/L Potassium, pl 4.8 3.3 - 4.9 mmol/L [facility] Comment:Hemolyzed; Potassium value may be falsely elevated by as much as 0.6-1.0 mmol/L. Suggest redraw and reanalysis. Chloride 99 97 - 110 mmol/L [facility] CO2 21(L) 22 - 32 mmol/L [facility] Anion gap 12 2 - 15 mmol/L [facility] BUN 22 6 - 25 mg/dL [facility] Creatinine 1.04 0.80 - 1.30 mg/dL [facility] Glucose 114 70 - 199 mg/dL [facility] Comment: Interpretive Data Fasting glucose >/= [...] 2022. Calcium 9.0 8.5 - 10.3 mg/dL [facility] Blood 03/22/2024 10:4 8 PM SCHEDULER MAINTENANCE 03/22/2024 11:32 PM SCHEDULER MAINTENANCE Bee Valdes NP LAB BLOOD ORDERABLES Fi nal Result Performing Organization Address City/[facility]/ZIP Co de Phone Number [facility] [place] [address] * POCT glucose (03/22/2024 8:52 PM SCHEDULER MAINTENANCE) Glucose, POC 114 70 - 199 mg/dL Blood 03/22/2024 8:52 PM SCHEDULER MAINTENANCE 03/22/2024 8:52 PM SCHEDULER MAINTENANCE Sanjiv Ge MD LAB POCT ORDERABLES - DEV ICE Final Result Performing Organization Address City/[facility] [place] [address] * POCT glucose (03/22/2024 5:51 PM SCHEDULER MAINTENANCE) Glucose, POC 120 70 - 199 mg/dL Blood 03/22/2024 5:51 PM SCHEDULER MAINTENANCE 03/22/2024 5:51 PM SCHEDULER MAINTENANCE Sanjiv Ge MD LAB POCT ORDERABLES - DEV ICE Final Result Performing Organization Address [facility] [place] [address] * Sodium, urine, random (03/22/2024 1:30 PM SCHEDULER MAINTENANCE) Pathologist [facility] Sodium, ur <20 mmol/L Comment: Interpretive Data No reference range established. Current interpretive data was last revised 2018. Urine (Urine, Clean Catch) 03/22/2024 1:30 PM SCHEDULER MAINTENANCE 03/23/2024 6:47 AM SCHEDULER MAINTENANCE Bee Valdes NP LAB URINE ORDERABLES Fi nal Result Performing Organization Address City/[facility] [place] [address] * Potassium, urine, random (03/22/2024 1:30 PM SCHEDULER MAINTENANCE) Potassium conc, ur 35.3 mmol/L Comment: Interpretive Data No reference range established. Current interpretive data was last revised 2018. Urine (Urine, Clean Catch) 03/22/2024 1:30 PM SCHEDULER MAINTENANCE 03/23/2024 6:47 AM SCHEDULER MAINTENANCE Bee Valdes GROUP LEADER SEMICONDUCTOR TESTING LAB URINE ORDERABLES Fi nal Result Performing Organization Address [facility] Co de Phone Number [facility] [place] [address] * Creatinine, urine, random (03/22/2024 1:30 PM SCHEDULER MAINTENANCE) Creatinine Ur 134.8 mg/dL Comment: Interpretive Data No reference range established. Current interpretive data was last revised 2018. Urine 03/22/2024 1:30 PM SCHEDULER MAINTENANCE 03/23/2024 6:47 AM SCHEDULER MAINTENANCE Bee Valdes NP LAB URINE ORDERABLES Fi nal Result Performing Organization Address [facility] de Phone Number [facility] [place] [address] * Chloride, urine, random (03/22/2024 1:30 PM SCHEDULER MAINTENANCE) Chloride, ur <25 mmol/L Comment: Interpretive Data No reference range established. Current interpretive data was last revised 2018. Urine (Urine, Clean Catch) 03/22/2024 1:30 PM SCHEDULER MAINTENANCE 03/23/2024 6:47 AM SCHEDULER MAINTENANCE Bee Valdes GROUP LEADER SEMICONDUCTOR TESTING LAB URINE ORDERABLES Fi nal Result Performing Organization Address [facility] Co de Phone Number [facility] [place] [address] * Sodium, urine, random (03/22/2024 1:14 PM SCHEDULER MAINTENANCE) Sodium, ur <20 mmol/L Comment: Interpretive Data No reference range established. Current interpretive data was last revised 2018. Urine 03/22/2024 1:14 PM SCHEDULER MAINTENANCE 03/22/2024 3:28 PM SCHEDULER MAINTENANCE Bee Valdes GROUP LEADER SEMICONDUCTOR TESTING LAB URINE ORDERABLES Fi nal Result Performing Organization Address City/[facility] Co de Phone Number [facility] [place] [address] * Potassium, urine, random (03/22/2024 1:14 PM SCHEDULER MAINTENANCE) Potassium conc, ur 23.4 mmol/L Comment: Interpretive Data No reference range established. Current interpretive data was last revised 2018. Urine 03/22/2024 1:14 PM SCHEDULER MAINTENANCE 03/22/2024 3:28 PM SCHEDULER MAINTENANCE Bee Valdes GROUP LEADER SEMICONDUCTOR TESTING LAB URINE ORDERABLES Fi nal Result Performing Organization Address [facility] de Phone Number [facility] [place] [address] * Creatinine, urine, random (03/22/2024 1:14 PM SCHEDULER MAINTENANCE) Creatinine Ur 60.0 mg/dL Comment: Interpretive Data No reference range established. Current interpretive data was last revised 2018. Urine 03/22/2024 1:14 PM SCHEDULER MAINTENANCE 03/22/2024 3:28 PM SCHEDULER MAINTENANCE Bee Valdes GROUP LEADER SEMICONDUCTOR TESTING LAB URINE ORDERABLES Fi nal Result Performing Organization Address City/[facility] Co de Phone Number [facility] [place] [address] * Chloride, urine, random (03/22/2024 1:14 PM SCHEDULER MAINTENANCE) Chloride, ur <25 mmol/L Comment: Interpretive Data No reference range established. Current interpretive data was last revised 2018. Urine 03/22/2024 1:14 PM SCHEDULER MAINTENANCE 03/22/2024 3:28 PM SCHEDULER MAINTENANCE Bee Valdes NP LAB URINE ORDERABLES Fi nal Result Performing Organization Address [facility] de Phone [facility] [place] [address] * POCT glucose (03/22/2024 11:41 AM SCHEDULER MAINTENANCE) [facility] Glucose, POC 133 70 - 199 mg/dL Blood 03/22/2024 11:4 1 AM SCHEDULER MAINTENANCE 03/22/2024 11:41 AM SCHEDULER MAINTENANCE Sanjiv Ge MD LAB POCT ORDERABLES - DEV ICE Final Result Performing Organization Address [facility] de Phone Number [facility] [place] [address] * eGFR (03/22/2024 11:11 AM SCHEDULER MAINTENANCE) eGFR 61 >=60 mL/min/1. 73 m2 Comment: [...] reviewed 2021. Blood 03/22/2024 11:1 1 AM SCHEDULER MAINTENANCE 03/22/2024 11:19 AM SCHEDULER MAINTENANCE Bee Valdes NP LAB BLOOD ORDERABLES nal Result [facility] [place] [address] * (ABNORMAL) Basic metabolic panel (03/22/2024 11:11 AM SCHEDULER MAINTENANCE) Pathologist [facility] Sodium 131(L) 135 - 145 mmol/L Potassium, pl 4.5 3.3 - 4.9 mmol/L [facility] Chloride 97 97 - 110 mmol/L [facility] CO2 24 22 - 32 mmol/L [facility] Anion gap 10 2 - 15 mmol/L [facility] BUN 23 6 - 25 mg/dL [facility] Creatinine 1.23 0.80 - 1.30 mg/dL [facility] Glucose 118 70 - 199 mg/dL [facility] Comment: Interpretive Data Fasting glucose >/= [...] 2022. Calcium 9.0 8.5 - 10.3 mg/dL [facility] Blood 03/22/2024 11:1 1 AM SCHEDULER MAINTENANCE 03/22/2024 11:19 AM SCHEDULER MAINTENANCE Bee Valdes NP LAB BLOOD ORDERABLES Fi nal Result Performing Organization Address [facility] de Phone Number [facility] [place] [address] * POCT glucose (03/22/2024 8:37 AM SCHEDULER MAINTENANCE) Glucose, POC 115 70 - 199 mg/dL Blood 03/22/2024 8:37 AM SCHEDULER MAINTENANCE 03/22/2024 8:37 AM SCHEDULER MAINTENANCE Sanjiv Ge MD LAB POCT ORDERABLES - DEV ICE Final Result Performing Organization Address [facility] de Phone Number [facility] [place] [address] * POCT glucose (03/21/2024 8:43 PM SCHEDULER MAINTENANCE) Glucose, POC 110 70 - 199 mg/dL Blood 03/21/2024 8:43 PM SCHEDULER MAINTENANCE 03/21/2024 8:43 PM SCHEDULER MAINTENANCE Sanjiv Ge MD LAB POCT ORDERABLES - DEV ICE Final Result Performing Organization Address [facility] de Phone Number [facility] [place] [address] * eGFR (03/21/2024 8:01 PM SCHEDULER MAINTENANCE) eGFR 60 >=60 mL/min/1. 73 m2 Comment: [...] last reviewed 2021. Blood 03/21/2024 8:01 PM SCHEDULER MAINTENANCE 03/21/2024 8:55 PM SCHEDULER MAINTENANCE Bee Valdes NP LAB BLOOD ORDERABLES nal Result [facility] [place] [address] * (ABNORMAL) Basic metabolic panel (03/21/2024 8:01 PM SCHEDULER MAINTENANCE) Sodium 124(L) 135 - 145 mmol/L Potassium, pl 4.2 3.3 - 4.9 mmol/L [facility] Chloride 91(L) 97 - 110 mmol/L [facility] CO2 21(L) 22 - 32 mmol/L [facility] Anion gap 12 2 - 15 mmol/L [facility] BUN 23 6 - 25 mg/dL [facility] Creatinine 1.24 0.80 - 1.30 mg/dL [facility] Glucose 95 70 - 199 mg/dL [facility] Comment: Interpretive Data Fasting glucose >/= [...] 2022. Calcium 9.2 8.5 - 10.3 mg/dL [facility] Blood 03/21/2024 8:01 PM SCHEDULER MAINTENANCE 03/21/2024 8:55 PM SCHEDULER MAINTENANCE Bee Valdes NP LAB BLOOD ORDERABLES Fi nal Result Performing Organization Address [facility] de Phone Number [facility] [place] [address] * POCT glucose (03/21/2024 6:04 PM SCHEDULER MAINTENANCE) Glucose, POC 85 70 - 199 mg/dL Blood 03/21/2024 6:04 PM SCHEDULER MAINTENANCE 03/21/2024 6:04 PM SCHEDULER MAINTENANCE Sanjiv Ge MD LAB POCT ORDERABLES - DEV ICE Final Result Performing Organization Address [facility] de Phone Number [facility] [place] [address] * POCT glucose (03/21/2024 12:51 PM SCHEDULER MAINTENANCE) Glucose, POC 89 70 - 199 mg/dL Blood 03/21/2024 12:5 1 PM SCHEDULER MAINTENANCE 03/21/2024 12:51 PM SCHEDULER MAINTENANCE Sanjiv Ge MD LAB POCT ORDERABLES - DEV ICE Final Result Performing Organization Address [facility] de Phone Number [facility] [place] [address] * US Carotids Duplex Bilateral (03/21/2024 12:49 PM SCHEDULER MAINTENANCE) Anatomical Region Laterality Modality Vascular Bilateral Ultrasound 03/21/2024 11:3 3 AM SCHEDULER MAINTENANCE Narrative 03/21/2024 2:59 PM SCHEDULER MAINTENANCE [facility] [employer] [facility] - Department of Vascular Surgery, Vascular Laboratory [address] [place] [id number] Carotid Duplex Ultrasound Report Patient Name: KATHY JEWELL E : 1945 (78y 4m) Study Date: 03/21/2024 11:33:01 AM Gender: M Tech: DR Location: [id number] Ref Provider: BEE VALDES ?Quality: Adequate Order [...] PSV ?42 ? cm/sec - FINDINGS: Performing Office Runner: SULTAAN DuqueT. Rt Common Carotid Artery: Duplex imaging of [...] Jean Paul Reyes MD FACS 2024-03-21 14:58:33 SCHEDULER MAINTENANCE Procedure Note Jean Paul Reyes MD - 03/21/2024 [facility] [employer] [facility] - Department of Vascular Surgery,Vascular Laboratory [address] [place] [address] Carotid Duplex Ultrasound Report Patient Name: KATHY JEWELL E : 1945 (78y 4m) Study Date: 03/21/2024 11:33:01 AM Gender: M Tech: Location: [id number] Ref Provider: BEE VALDES Quality: Adequate Order [...] LT VERT PSV 42cm/sec - FINDINGS: Performing Office Runner: SULTANA DuqueT. Rt Common Carotid Artery: Duplex imaging of [...] Electronically Signed By: Jean Paul Reyes MD [facility] 2024-03-21 14:58:33 SCHEDULER MAINTENANCE us Bee Valdes NP IMG US PROCEDURES Final Result * POCT glucose (03/21/2024 12:35 PM SCHEDULER MAINTENANCE) Glucose, POC 108 70 - 199 mg/dL Blood 03/21/2024 12:3 5 PM SCHEDULER MAINTENANCE 03/21/2024 12:35 PM SCHEDULER MAINTENANCE us Sanjiv Ge MD LAB POCT ORDERABLES - DEV ICE Final Result [facility] [place] [address] * (ABNORMAL) eGFR (03/21/2024 12:33 PM SCHEDULER MAINTENANCE) eGFR 55(L) >=60 mL/min/1. 73 m2 Comment: [...] reviewed 2021. Blood 03/21/2024 12:3 3 PM SCHEDULER MAINTENANCE 03/21/2024 12:51 PM SCHEDULER MAINTENANCE Bee Valdes GROUP LEADER SEMICONDUCTOR TESTING LAB BLOOD ORDERABLES Fi nal Result Performing Organization Address City/State/[facility] Co de Phone Number [facility] [place] [address] * (ABNORMAL) Basic metabolic panel (03/21/2024 12:33 PM SCHEDULER MAINTENANCE) Sodium 128(L) 135 - 145 mmol/L Potassium, pl 4.4 3.3 - 4.9 mmol/L [facility] Chloride 94(L) 97 - 110 mmol/L [facility] CO2 25 22 - 32 mmol/L [facility] Anion gap 9 2 - 15 mmol/L [facility] BUN 24 6 - 25 mg/dL [facility] Creatinine 1.33(H) 0.80 - 1.30 mg/dL [facility] Glucose 101 70 - 199 mg/dL [facility] Comment: Interpretive Data Fasting glucose >/= [...] 2022. Calcium 9.0 8.5 - 10.3 mg/dL [facility] Blood 03/21/2024 12:3 3 PM SCHEDULER MAINTENANCE 03/21/2024 12:51 PM SCHEDULER MAINTENANCE Bee Valdes NP LAB BLOOD ORDERABLES Fi nal Result Performing Organization Address City/[facility]/ZIP Co de Phone Number [facility] [place] [address] * POCT glucose (03/21/2024 7:47 AM SCHEDULER MAINTENANCE) Pathologist [facility] Glucose, POC 112 70 - 199 mg/dL Blood 03/21/2024 7:47 AM SCHEDULER MAINTENANCE 03/21/2024 7:47 AM SCHEDULER MAINTENANCE us Sanjiv Ge MD LAB POCT ORDERABLES - DEV ICE Final Result Performing Organization Address [facility] Co de Phone Number [facility] [place] [address] * (ABNORMAL) eGFR (03/21/2024 2:45 AM SCHEDULER MAINTENANCE) Pathologist [facility] eGFR 54(L) >=60 mL/min/1. 73 m2 Comment: [...] last reviewed 2021. Blood 03/21/2024 2:45 AM SCHEDULER MAINTENANCE 03/21/2024 3:28 AM SCHEDULER MAINTENANCE Sanjiv Ge MD LAB BLOOD ORDERABLES Svetlana masterson Result [facility] [place] [address] * (ABNORMAL) CBC without differential (03/21/2024 2:45 AM SCHEDULER MAINTENANCE) Pathologist [facility] WBC 8.8 3.8 - 9.9 K/cumm Hgb 9.3(L) 13.0 - 17.5 g/dL [facility] Hct 28.7(L) 38.9 - 50.3 % [facility] Plt 199 150 - 400 K/cumm [facility] MPV 10.1 9.1 - 12.3 fL [facility] RBC 3.21(L) 4.30 - 5.80 M/cumm [facility] MCV 89.4 81.3 - 96.4 fL [facility] MCH 29.0 27.1 - 33.3 pg [facility] MCHC 32.4 32.3 - 35.7 g/dL [facility] RDW CV 14.2 11.1 - 14.9 % [facility] RDW SD 46.3 35.7 - 48.1 fL [facility] NRBC abs 0.00 0.00 - 0.01 K/cumm [facility] Blood 03/21/2024 2:45 AM SCHEDULER MAINTENANCE 03/21/2024 3:28 AM SCHEDULER MAINTENANCE Sanjiv Ge MD LAB BLOOD ORDERABLES Svetlana l Result Performing Organization Address City/[facility] Co de Phone Number [facility] [place] [address] * Phosphorus (03/21/2024 2:45 AM SCHEDULER MAINTENANCE) Phosphorus, pl 3.6 2.3 - 4.5 mg/dL Blood 03/21/2024 2:45 AM SCHEDULER MAINTENANCE 03/21/2024 3:28 AM SCHEDULER MAINTENANCE Sanjiv Ge MD LAB BLOOD ORDERABLES Svetlana l Result Performing Organization Address City/[facility] Co de Phone Number [facility] Department [place] [address] * Magnesium (03/21/2024 2:45 AM SCHEDULER MAINTENANCE) Magnesium 1.7 1.4 - 2.5 mg/dL Blood 03/21/2024 2:45 AM SCHEDULER MAINTENANCE 03/21/2024 3:28 AM SCHEDULER MAINTENANCE Sanjiv Ge MD LAB BLOOD ORDERABLES Svetlana l Result Performing Organization Address City/[facility] Co de Phone Number [facility] Department [place] [address] * (ABNORMAL) Comprehensive metabolic panel (03/21/2024 2:45 AM SCHEDULER MAINTENANCE) Sodium 129(L) 135 - 145 mmol/L Potassium, pl 4.7 3.3 - 4.9 mmol/L [facility] Comment:Hemolyzed; Potassium value may be falsely elevated by as much as 0.6-1.0 mmol/L. Suggest redraw and reanalysis. Chloride 94(L) 97 - 110 mmol/L [facility] CO2 25 22 - 32 mmol/L [facility] Anion gap 10 2 - 15 mmol/L [facility] BUN 23 6 - 25 mg/dL [facility] Creatinine 1.36(H) 0.80 - 1.30 mg/dL [facility] Glucose 104 70 - 199 mg/dL [facility] Comment: Interpretive Data Fasting glucose >/= [...] 2022. Calcium 9.0 8.5 - 10.3 mg/dL [facility] Bilirubin, total 0.4 0.1 - 1.2 mg/dL [facility] Protein, pl 6.4(L) 6.5 - 8.5 g/dL [facility] Albumin 3.2(L) 3.5 - 5.0 g/dL [facility] Alk phos 75 40 - 130 Units/L [facility] ALT 18 7 - 55 Units/L [facility] AST 76(H) 10 - 50 Units/L [facility] Comment:Hemolyzed; result ma y be falsely elevated Blood 03/21/2024 2:45 AM SCHEDULER MAINTENANCE 03/21/2024 3:28 AM SCHEDULER MAINTENANCE us Sanjiv Ge MD LAB BLOOD ORDERABLES Svetlana l Result [facility] [place] [address] * Lipid panel (01/12/2024 10:51 AM CDT) [...] AM CDT 01/12/2024 11:10 AM CDT Narrative [facility] - 01/12/2024 3:07 PM CDT Current interpretive data was last updated April 18, 2021. For adults ages 40-79, the ACC/AHA recommends discussing your 10-year atherosclerotic cardiovascular disease risk with your health care provider. ??https://www.acc.org/ASCVDApp us Teodoro Hill MD LAB BLOOD ORDERABLES Final Re sult [facility] * Albumin Creatinine Ratio, Urine (07/13/2022 8:12 AM SCHEDULER MAINTENANCE) Creatinine ur 199.2 Not Estab. mg/dL [facility] - 01 Microalbumin, ur 9.1 Not Estab. ug/mL [facility] - 01 Microalbumin/cre at ratio 5 0 - 29 mg/g creat [facility] - 01 Comment: ? Normal: ?0 - ??29 ? Moderately increased: 30 - 300 ? Severely increased: ? >300 Urine 07/13/2022 8:12 AM SCHEDULER MAINTENANCE 07/13/2022 Narrative [facility] - 07/14/2022 10:11 AM SCHEDULER MAINTENANCE Performed at: ??01 - [facility] [address] ??[id number] Recreation Coordinator: Zoran Moody PhD, Phone: ??[phone] us Teodoro Hill MD LAB URINE ORDERABLES Final Re blast [facility] - 01 from Last 3 Months or Most Recently Relevant to Health Maintenance [place] [address] MEDICARE [facility] MEDICARE SOLUTIONS MEDICARE MEDICARE SOLUTIONS [facility] Advance Directives For more information, please contact: [phone] Documents on File Type Date Recorded Patient Receiving Weigher Expl anation ADVANCE DIRECTIVE 11/22/2023 8:03 AM 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
--- OUTSIDE RECORDS SUMMARY | 2024-06-21 07:31 | XMS_ITS | Encounter Summary ---
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 Lab [facility] Infectious Diseases [address] [place] [address] [address] [place] [address] Social History Tobacco Use Types Packs/Day Years Used Date Smoking Tobacco: Former Cigarettes Q uit: 1982 Smokeless Tobacco: Never Alcohol Use Standard Drinks/Week [...] on file Legal Sex Male 12:33 PM [employer]CHOOL SOC[employer] WORK[employer] Gender Identity Male 01/21/2018 1:29 PM CDT Sexual Orientation Straight 01/09/2021 6: 25 AM CDT documented as of this encounter Plan of Treatment Not on file documented as of this encounter Visit Diagnoses Not on filedocumented in this encounter Care Teams Territory Sales Executive Relationship Specialty Start Date End Date Ramone Hemphill MD PCP - General 03/11/07 documented as of this encounter
--- NOTE | 2024-06-21 09:12 | ED_ITS ---
HPI - General Adult General Chief complaint: Fall Stated complaint: FALL, SKIN TEAR TO ELBOW & ELBOW PAIN. Time Seen by Provider: 06/21/24 07:24 History of Present Illness HPI narrative: patient 78-year-old gentleman presents emergency department with chief complaint of ground level fall. Patient reports he was getting up to go the bathroom lost his balance and landed on the ground the patient had uses elbows to pull himself up and had a skin tear on the right elbow this patient reports that he had no loss of consciousness the patient is on anticoagulants and the nursing staff was concerned for possible head injury. Related Data Home Medications ?Medication ?Instructions ?Recorded ?Confirmed ?Last Taken ?Type amiodarone 200 mg tablet 200 mg PO QAM 04/19/19 06/16/24 02/25/24 History famotidine 20 mg tablet (Pepcid) 20 mg PO BID 05/19/23 06/16/24 02/25/24 History blood sugar diagnostic (OneTouch #10 ea 08/09/23 11/30/23 Unknown History Ultra Test strips) acetaminophen 500 mg tablet 1,000 mg PO Q8H 11/30/23 02/25/24 02/25/24 History bisacodyl 5 mg tablet 5 mg PO BID 11/30/23 02/25/24 01/13/24 History calcium carb-ergocalciferol (vit 2 tablet PO BID 11/30/23 02/25/24 02/25/24 History D2) 600 mg calcium-200 unit tablet cholecalciferol (vitamin D3) 50 50 mcg PO QAM 11/30/23 02/25/24 02/25/24 History mcg (2,000 unit) tablet (Vitamin D3) fluoxetine 40 mg capsule 40 mg PO QAM 11/30/23 02/25/24 02/25/24 History fluticasone furoate 100 1 inh inhalation DAILY 11/30/23 02/25/24 02/25/24 History mcg-vilanterol 25 mcg/dose inhalation powder (Breo Ellipta) metoprolol succinate 100 mg 100 mg PO DAILY 11/30/23 06/16/24 02/25/24 History tablet,extended release 24 hr (Toprol XL) tizanidine 4 mg tablet (Zanaflex) 4 mg PO Q6H PRN Muscle Spasm 11/30/23 06/16/24 02/25/24 History diazepam 5 mg tablet 5 mg PO HS 02/25/24 06/16/24 02/24/24 History duloxetine 60 mg capsule,delayed 60 mg PO DAILY 02/25/24 06/16/24 02/25/24 History release levothyroxine 100 mcg tablet 100 mcg PO DAILY 02/25/24 06/16/24 02/25/24 History mirabegron 25 mg tablet,extended 25 mg PO DAILY 02/25/24 02/25/24 02/25/24 History release 24 hr (Myrbetriq) oxybutynin chloride 5 mg 5 mg PO HS 02/25/24 02/25/24 02/09/24 History tablet,extended release 24 hr sennosides 8.6 mg-docusate sodium 2 tab-cap PO BID PRN Constipation 02/25/24 06/16/24 01/14/24 History 50 mg capsule (Senna Plus) tirzepatide 5 mg/0.5 mL 5 mg subcut SA 02/25/24 02/25/24 02/19/24 History subcutaneous pen injector (Mounjaro) vibegron 75 mg tablet 75 mg PO DAILY 02/25/24 02/25/24 02/25/24 History Allergies Allergy/AdvReac Type Severity Reaction Status Date / Time No Known Allergies Allergy Verified 06/21/24 06:06 Review of Systems Review of Systems: A 10 system review of systems was completed on the patient and is negative except for what is stated in the HPI. Nursing and ancillary documentation was reviewed. 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) Hyperthyroidism Left ventricular failure Major depressive disorder, single episode, unspecified Morbid (severe) obesity with alveolar hypoventilation Obstructive sleep apnea (adult) (pediatric) Peripheral neuropathy due to disorder of metabolism Primary pulmonary hypertension 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 Type 2 diabetes mellitus with hyperglycemia Ventricular premature depolarization Surgical History Surgical History S/P total left hip arthroplasty History of total knee arthroplasty Left 2023 S/P left knee arthroscopy H/O vertebroplasty History of total right knee replacement (TKR) History of shoulder replacement H/O arthroscopy of right knee History of appendectomy H/O arthroscopy of left knee Family History Family History Mother Family history of thyroid disease Family history of alcoholism Family history of malignant neoplasm of breast in first degree relative, Onset Age: 75 Father Family history of alcoholism Malignant neoplasm of prostate, Onset Age: 92 Family history of throat cancer, Onset Age: 92 Family history of malignant neoplasm of testis, Onset Age: 92 Other Depression Diabetes mellitus Family history of malignant neoplasm Family history of malignant neoplasm of breast Family history of mental disorder Social History Social History Smoking packs per day: 2 Smoking cigarettes per day: 40.0 Smoking status: Former smoker Smoking end date: 05/17/81 Alcohol intake: never Alcohol use details: stopped in Substance use: never 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 HEAD: Normocephalic, atraumatic. EYES: PERRLA and EOMI. ENT: Nares clear, no rhinorrhea or epistaxis. Mucous membranes moist. NECK: Supple. CHEST: Clear to auscultation. No respiratory distress. chest wall is tender to palpation no crepitance no HEART: Regular rate and rhythm. No murmur heard. Normal peripheral pulses. ABDOMEN: Soft, nontender, nondistended, normal active bowel sounds. EXTREMITIES: Normal range of motion Skin tear to the right upper extremity, tenderness to palpation to the left hip left knee and bilateral elbows. No edema. SKIN: Warm, dry, no rash. NEURO: No focal deficits. Alert and oriented x3. PSYCH: Normal mood and affect. Course Vital Signs Vital signs: Vital Signs Temperature 36.6 C 06/21/24 05:57 Pulse Rate 66 06/21/24 05:57 Respiratory Rate 18 06/21/24 05:57 Blood Pressure 120/64 06/21/24 05:57 Pulse Oximetry 100 06/21/24 05:57 Oxygen Delivery Room Air 06/21/24 05:57 Temperature 36.6 C 06/21/24 06:03 Pulse Rate 68 06/21/24 06:03 Respiratory Rate 13 06/21/24 06:03 Blood Pressure 120/64 06/21/24 06:03 Pulse Oximetry 100 06/21/24 06:03 Oxygen Delivery Room Air 06/21/24 05:57 Medical Decision Making MDM Narrative Medical decision making narrative: differential diagnosis includes intracranial hemorrhage, cervical spine fracture, multiple rib fractures, pneumothorax, pulmonary contusion, left knee fracture, left hip fracture, plain film x-rays were obtained that showed no evidence of knee hip or elbow fracture. Plain film x-rays of the ribs showed old rib fractures CT head CT C- spine showed no acute abnormality Vital Signs Vital Signs: Vital Signs Temperature 36.6 C 06/21/24 05:57 Pulse Rate 66 06/21/24 05:57 Respiratory Rate 18 06/21/24 05:57 Blood Pressure 120/64 06/21/24 05:57 Pulse Oximetry 100 06/21/24 05:57 Oxygen Delivery Room Air 06/21/24 05:57 Temperature 36.6 C 06/21/24 06:03 Pulse Rate 68 06/21/24 06:03 Respiratory Rate 13 06/21/24 06:03 Blood Pressure 120/64 06/21/24 06:03 Pulse Oximetry 100 06/21/24 06:03 Oxygen Delivery Room Air 06/21/24 05:57 Discharge Plan Discharge Clinical Impression: Ground-level fall, Skin tear of right upper extremity, Head injury, Contusion Patient Disposition: Home, Self-Care Condition: Stable Instructions: Antibiotic Form, Head Injury (ED), Contusion in Adults (ED), Skin Avulsion (ED) Patient Language: Vietnamese Prescriptions: No Action (DME) OneTouch Ultra Test Strip See Rx Instructions .ROUTE .MEDSUPPLY Qty: 10 Rx Instructions: As directed amiodarone 200 mg tablet 200 mg PO QAM metoprolol succinate [Toprol XL] 100 mg Tablet Extended Release 24 Hr 100 mg PO DAILY acetaminophen 500 mg tablet 1,000 mg PO Q8H calcium carbonate-vitamin D2 600 mg calcium- 200 unit Tablet 2 tablet PO BID bisacodyl 5 mg Tablet 5 mg PO BID cholecalciferol (vitamin D3) [Vitamin D3] 50 mcg (2,000 unit) Tablet 50 mcg PO QAM fluoxetine 40 mg capsule 40 mg PO QAM tizanidine [Zanaflex] 4 mg tablet 4 mg PO Q6H PRN (Reason: Muscle Spasm) fluticasone furoate-vilanterol [Breo Ellipta] 100-25 mcg/dose blister with device 1 inh inhalation DAILY Eliquis 5 mg tablet 5 mg PO BID Qty: 60 0RF Rx Instructions: RESUME 5MG HOME DOSAGE ON 12/03/2023 mirabegron [Myrbetriq] 25 mg tablet extended release 24 hr 25 mg PO DAILY levothyroxine 100 mcg tablet 100 mcg PO DAILY oxybutynin chloride 5 mg tablet extended release 24hr 5 mg PO HS diazepam 5 mg tablet 5 mg PO HS duloxetine 60 mg capsule,delayed release(DR/EC) 60 mg PO DAILY Senna Plus 8.6-50 mg Capsule 2 tab-cap PO BID PRN (Reason: Constipation) vibegron 75 mg Tablet 75 mg PO DAILY Mounjaro 5 mg/0.5 mL pen injector 5 mg SUBCUT SA (DME) Walker See Rx Instructions .Route .MEDSUPPLY Qty: 1 0RF Rx Instructions: As directed ( no wheels) famotidine [Pepcid] 20 mg tablet 20 mg PO BID tramadol 50 mg tablet 50 mg PO Q6H PRN (Reason: pain) Qty: 90 1RF Follow-up/Referrals: Ramone Hemphill MD [Primary Care Provider] - Time of Disposition: 09:35
[2024-06-21] MEDS: TETANUS,DIPHTHERIA,AC PERTUSSIS ADULT (0.5 ML) BOOSTRIX IM (09:34)
[2024-06-21 10:06] VITALS: BP 120/65; PULSE 78; O2SAT 98
== END 2024-06-21 10:09 | disposition home or self-care (01) ==
PROVIDERS: Emergency Provider Emergency Medicine; PCP Family Medicine
DX: S51.011A Laceration without foreign body of right elbow, initial encounter (principal); S09.90XA Unspecified injury of head, initial encounter; W19.XXXA Unspecified fall, initial encounter; I48.20 Chronic atrial fibrillation, unspecified; E05.90 Thyrotoxicosis, unspecified without thyrotoxic crisis or storm; G47.33 Obstructive sleep apnea (adult) (pediatric); E11.22 Type 2 diabetes mellitus with diabetic chronic kidney disease; N18.30 Chronic kidney disease, stage 3 unspecified; Z96.642 Presence of left artificial hip joint; Z96.653 Presence of artificial knee joint, bilateral; Z87.891 Personal history of nicotine dependence; W18.30XA Fall on same level, unspecified, initial encounter; Z23 Encounter for immunization
CPT/HCPCS: 70450; 71111; 72125; 73502; 73562; 90471; 90715; 93005; 99284

== ENCOUNTER 2024-06-24 03:01 | Emergency (ER) | payer MEDICARE, MEDICAID, SELFPAY ==
--- NOTE | ~2024-06-24 | XR_ITS ---
EXAMINATION: XR sacrum coccyx min 2V DATE: 06/24/2024 03:35 INDICATION: Back pain after fall. TECHNIQUE: 3 views of the sacrum and coccyx were obtained. COMPARISON: Pelvis radiograph 06/21/2024, 03/18/2024 FINDINGS: Partially visualizes a bipolar left hip arthroplasty. No acute fracture. There is severe steffanie mbar spondylosis. There are changes of vertebroplasty at L5. There are changes of sacroplasty on the left. There is mild osteoarthritis of the sacroiliac joints. IMPRESSION: 1. No acute fracture. Reviewed, dictated and finalized at location A. [employer] IMPRESSION: 1. No acute fracture.
--- NOTE | ~2024-06-24 | XR_ITS ---
EXAMINATION: XR hip LT 2V w AP pelvis DATE: 06/24/2024 03:35 INDICATION: Left hip pain. Fall. TECHNIQUE: An anteroposterior view of the pelvis and 2 views of left hip were obtained. COMPARISON: Pelvis and left hip radiographs 06/21/2024, CT abdomen and pelvis 05/25/2024 FINDINGS: There is lumbar levoscoliosis and severe spondylosis. No acute fracture. There is a bipolar left hip hemiarthroplasty in near-anatomic alignment. No periprosthetic lucencies to suggest looseni ng or infection. There is mild right hip osteoarthritis. There are changes of vertebroplasty at L5. T here are changes of sacroplasty on the left. IMPRESSION: 1. No acute fracture. 2. Bipolar left hip hemiarthroplasty in near-anatomic alignment. 3. Mild right hip osteoarthritis. Reviewed, dictated and finalized at location A. MAN
[2024-06-24 03:03] VITALS: BP 121/69; PULSE 61; RESP 15; TEMP 36.6; O2SAT 100
[2024-06-24 04:37] VITALS: BP 134/72; PULSE 61; RESP 14; O2SAT 100
--- OUTSIDE RECORDS SUMMARY | 2024-06-24 07:05 | XMS_ITS | Clinical Summary ---
Author Organization [facility] Address [address] [place] [address] Care Team Providers Care Plate Glass Polisher Name Role Phone Ramone Hemphill MD Primary Care Provider [phone] Allergies No known active allergies Medications FLUoxetine [...] complication, without long-term current use of insulin ([facility]) ([facility]) Use to test blood glucose once daily 1 kit 1 2 Active lancets miscIndication s:Type 2 diabetes mellitus without complication, without long-term current use of insulin ([facility]) ([facility]) Use to test blood glucose once daily [...] 1 tablet (100 mcg total) by mouth pulmonary fellow before breakfast 90 tablet 3 4 Active [...] complication, without long-term current use of insulin ([facility]) ([facility]) 1 each daily 100 each 3 4 Active blood glucose diagnostic (glucose blood) stripIndicatio ns:Type 2 diabetes mellitus without complication, without long-term current use of insulin (CMS/HCC) ([facility]) Use to test blood glucose once daily [...] 03/21/2024 Assessment & Plan (03/23/2024 9:02 AM DIRECTOR OF DIGITAL MARKETING): - Na 129 (132) - 03/21: 500ml NS bolus - Repeat Na 128->124->131->132 - FWR to 1 L - Salt tabs TID->BID - Urine electrolytes - Continue salt tabs x 1 week, recheck BMP at [facility] UTI (urinary tract infection) 03/20/2024 Assessment & Plan (03/22/2024 2:06 PM DIRECTOR OF DIGITAL MARKETING): - + symptoms on admission (burning with urination) - Culture + Morganella morganii - Ceftriaxone started 03/18-03/21 - Susceptible to ceftriaxone, No further treatment needed - Discussed patient's case with the antibiotic stewardship team - Symptoms resolved Syncope 03/20/2024 Assessment & Plan (03/21/2024 1:12 PM DIRECTOR OF DIGITAL MARKETING): - Extensive history of syncopal events - [...] 03/20/2024 Assessment & Plan (03/23/2024 10:25 AM DIRECTOR OF DIGITAL MARKETING): - 03/20: DC martina, anticipate dc 03/21 [...] 03/18/2024 Assessment & Plan (03/21/2024 9:43 AM DIRECTOR OF DIGITAL MARKETING): - Ortho consult - 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 - WBAT with PHP - PT/OT, pain [...] 05/25/2018 Assessment & Plan (03/21/2024 6:37 AM DIRECTOR OF DIGITAL MARKETING): - Pt will return to SNF at discharge Asthma 05/25/2018 Type 2 diabetes mellitus 05/25/2018 Assessment & Plan (03/20/2024 1:33 PM DIRECTOR OF DIGITAL MARKETING): - Insulin sensitive correction scale - Acchuchecks QID Osteoarthritis of right shoulder 04/12/2018 Overview (04/12/2018): Added automatically from request for surgery [id number] Encounter for monitoring amiodarone therapy 05/2017 Chronic renal failure, stage 2 (mild) 08/23/2017 Renal osteodystrophy 08/23/2017 Aortic root dilatation ([facility]/HCC) 06/09/2017 Edema of lower extremity 03/15/2017 Hypertension 09/02/2016 Hypertension 09/02/2016 History of cardiomyopathy 12/04/2015 Hyperkalemia 07/30/2015 Morbid obesity 07/29/2015 Obstructive sleep apnea syndrome 07/29/2015 Chronic systolic heart failure (CMS/HCC) 016 Atrial fibrillation ([facility]/HCC) 05/20/2015 Encounter for preventive health examination 04/16 #afib 04/22/2015 Overview (08/20/2016): Atrial fibrillation, controlled Assessment & Plan (03/23/2024 9:00 AM DIRECTOR OF DIGITAL MARKETING): - Held eliquis for OR - Okay to resume per ortho - Continued DVT ppx while terry-op - 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 LV mildly dilated with low normal systolic function, reduced from prior LUCIO on CPAP 08/30/2014 Assessment & Plan (03/20/2024 1:32 PM DIRECTOR OF DIGITAL MARKETING): Continued on hospital unit Mycobacterium avium complex ([facility]/HCC) 03/31/2012 Overview (01/19/2023): In sputum Other nonspecific abnormal finding of lung field 03/31/2012 Overview (01/19/2023): Multiple pulmonary nodules Acute postoperative pain Acute pain of right shoulder Status post total replacement of right shoulder Encounters Date Type Department Care Team Description 06/20/2024 11:50 AM DIRECTOR OF DIGITAL MARKETING Lab [facility] Infectious Diseases [address] [facility] [address] [place] [address] 06/20/2024 11:46 AM DIRECTOR OF DIGITAL MARKETING - 06/20/2024 11:59 PM DIRECTOR OF DIGITAL MARKETING Hospital Encounter [address] [address] Type 2 diabetes mellitus without complication, without long-term current use of insulin (CMS/HCC) ([facility]); Vitamin D deficiency; Hypothyroidism due to medication; Other closed fracture of left femur with routine healing, unspecified portion of femur, subsequent encounter; Hyponatremia Discharge Disposition: Discharge to home or self care 06/20/2024 10:40 AM DIRECTOR OF DIGITAL MARKETING Office Visit [facility] Endocrinology Metabolism and Lipid [address] [facility] [address] [place] [address] Eliud Cortez MD Type 2 diabetes mellitus without complication, without long-term current use of insulin (CMS/HCC) ([facility]) (Primary Dx); Class 2 obesity due to [...] structure, left lower leg 05/04/2024 10:30 AM DIRECTOR OF DIGITAL MARKETING Office Visit [facility] Orthopaedic Surgery [address] [facility] 6th [place] [address] [place] [address] Rachael Azul MD #L femoral neck fx (Primary Dx) 05/04/2024 10:00 AM DIRECTOR OF DIGITAL MARKETING - 05/04/2024 11:59 PM DIRECTOR OF DIGITAL MARKETING Hospital Encounter [facility] [address] [place] [address] Rachael Azul MD #L femoral neck fx Discharge Disposition: Discharge to home or self care 04/12/2024 Telephone [facility] [address] [place] [address] Marvin Myers RN from Last 3 Months Immunizations Name Administration [...] TW Conv) Congestive heart failure (CH F) ([facility]) ([facility]) 2014 Weakness Glaucoma Cataract Mycobacterium avium complex ([facility]) ([facility]) 2012 - 2014 Anemia 1976 Psychiatric disorder 1990 Psychiatric /Emotional Disorder Hyperthyroidism Sleep apnea Osteoarthritis Spinal headache 2002 with R TKA; repo rts lasted into [...] on file Legal Sex Male 12:33 PM DIRECTOR OF DIGITAL MARKETING Gender Identity Male 01/21/2018 1:29 PM CDT Sexual Orientation Straight 01/09/2021 6: 25 AM CDT Obstetrics History Last Filed Vital Signs Vital Sign Reading Time Taken Comments Blood Pressure 104/69 06/20/2024 10:32 AM DIRECTOR OF DIGITAL MARKETING Pulse 62 06/20/2024 10:32 AM DIRECTOR OF DIGITAL MARKETING Temperature 36.5 C (97.7 F) 06/20/2024 10:32 AM DIRECTOR OF DIGITAL MARKETING Respiratory Rate 18 03/23/2024 7:28 AM DIRECTOR OF DIGITAL MARKETING Oxygen Saturation 99% 03/23/2024 7:2 8 AM DIRECTOR OF DIGITAL MARKETING Inhaled Oxygen Concentration - - Weight 117 kg (258 lb) 06/20/2024 10:32 AM DIRECTOR OF DIGITAL MARKETING Done last night at halfway Height 180.3 cm (5' 10.98 ) 06/20/2024 10:32 AM DIRECTOR OF DIGITAL MARKETING Body Mass Index 36 06/20/2024 10:32 AM DIRECTOR OF DIGITAL MARKETING Plan of Treatment Health Maintenance Due Date [...] history exists Medical Devices Implanted Type Area Surgery Scheduling Coordinator Device Identifier Shelf Expiration Date Model / Serial / Lot [employer] Simplex P Radiopaque Full Dose Cement Bone Sterile 6191-1-010 - S0 - [id number] Implanted:Qty: 1 on 03/19/2024 by Boy Stevens MD PhD at [facility] Bone Cement Left: Hip [employer] 03/16/2025 6191-1-010 / 0 / [id number] [employer] Simplex P Radiopaque Full Dose Cement Bone Sterile 6191-1-010 - S0 - [id number] Implanted:Qty: 1 on 03/19/2024 by Boy Stevens MD PhD at [facility] Bone Cement Left: Hip [employer] 03/16/2025 6191-1-010 / 0 / [id number] Knee Tib Ins Tri Sz7 13mm [id number] Implanted:Qty: 1 on 11/24/2023 at [facility] Other - see comments Left: Knee [place] 01/03/2028 7593-L-424-E / / [id number] [employer] Versys Heritage 15mm 140mm Primary Cement Proximal Centralizer [id number] - S0 - [id number] Implanted:Qty: 1 on 03/19/2024 by Boy Stevens MD PhD at [facility] Other - see comments Left: Hip [employer] [id number] 1 06/28/2032 [id number] / 0 / [id number] [employer] Versys 13mm Cemented Hip Distal Centralizer Stem Pmma Sterile [id number] - S0 - [id number] Implanted:Qty: 1 on 03/19/2024 by Boy Stevens MD PhD at [facility] Other - see comments Left: Hip [employer] [id number] 12/23/2027 [id number] / 0 / [id number] [employer] Ringloc Bio-Esparza Ii 54mm 28mm 2 Articulate Surface Lock [id number] - S0 - [id number] Implanted:Qty: 1 on 03/19/2024 by Boy Stevens MD PhD at [facility] Other - see comments Left: Hip [employer] [id number] 04/27/2027232 / 0 / [id number] [employer] Trilogy It Continuum 28mm Hip Acetabulum +3.5mm 04/29 Large Head [id number] - S0 - [id number] Implanted:Qty: 1 on 03/19/2024 by Boy Stevens MD PhD at [facility] Other - see comments Left: Hip [employer] [id number] 1 03/23/2032 [id number] / 0 / [id number] [employer]/ Ortho Prep-Im Plug Ransom Sponge Suction Hip Kit Thr Latex Free 495257 - S0 - [id number] Implanted:Qty: 1 on 03/19/2024 by Boy Stevens MD PhD at [facility] Other - see comments Left: Hip [employer] /Ortho [id number] 07/08/2033 659407 / 0 / [id number] Description:Cement restricto r in kit [employer] 6191-1-010 Simplex P Radiopaque Full Dose Cement Bone Sterile - [id number] Implanted:Qty: 1 on 05/25/2018 by Kevin Duron MD at [facility] Right: Shoulder [employer] [id number] 6191-1-010 / / Depuy [employer] Inc [id number] Global Ap 52mm [place] Glenoid Peg Fixation Premieron - [id number] Implanted:Qty: 1 on 05/25/2018 by Kevin Duron MD at [facility] Right: Shoulder [employer] Inc [id number] / / Depuy [employer] [id number] Global Unite 10mm Shoulder 135d Body Humeral [place] Sterile - [id number] Implanted:Qty: 1 on 05/25/2018 by Kevin Duron MD at [facility] Right: Shoulder Depuy [employer] [id number] / / Depuy Orthopa[employer] Inc [id number] Global Unite 10mm 113mm Modular Shoulder Standard Stem Humeral - [id number] Implanted:Qty: 1 on 05/25/2018 by Kevin Duron MD at [facility] Right: Shoulder [employer] Inc [id number] / / Depuy [employer] Inc [id number] Global Unite 52mm 18mm Modular Eccentric Shoulder Head Humeral - [id number] Implanted:Qty: 1 on 05/25/2018 by Kevin Duron MD at [facility] Right: Shoulder [employer] Inc [id number] / / [employer] Triathlon Tritanium Knee 7 Baseplate Tibial 5536-B-700 - [id number] Implanted:Qty: 1 on 11/24/2023 at [facility] Left: Knee [employer] 05/13/2028 5536-B-700 / / [id number] [employer] Triathlon Cruciate Retain Bead Knee Left 6 Component Femoral Pa 5517-F-601 - [id number] Implanted:Qty: 1 on 11/24/2023 at [facility] Left: Knee [employer] 08/24/2028 5517-F-601 / / [id number] Procedures Procedure Name Priority Date/Time Associated Diagnosis Comments EGFR Routine 06/20/2024 11:46 AM DIRECTOR OF DIGITAL MARKETING Type 2 diabetes mellitus without complication, without long-term current use of insulin (CMS/HCC) ([facility]) Hyponatremia DIFFERENTIAL AUTO Routine 06/20/2024 11: 46 AM DIRECTOR OF DIGITAL MARKETING Type 2 diabetes mellitus without complication, without long-term current use of insulin (CMS/HCC) (HCC) CBC WITH AUTO DIFFERENTIAL Routine 06/20/2024 11:46 AM DIRECTOR OF DIGITAL MARKETING Type 2 diabetes mellitus without complication, without long-term current use of insulin (CMS/HCC) (HCC) COMPREHENSIVE METABOLIC PANEL Routine 06/20/2024 11:46 AM DIRECTOR OF DIGITAL MARKETING Type 2 diabetes mellitus without complication, without long-term current use of insulin (CMS/HCC) ([facility]) Hyponatremia PTH Routine 06/20/2024 11:46 AM DIRECTOR OF DIGITAL MARKETING Other closed fracture of left femur with routine healing, unspecified portion of femur, subsequent encounter T4, FREE Routine 06/20/2024 11:46 AM DIRECTOR OF DIGITAL MARKETING Hypothyroidism due to medication Other closed fracture of left femur with routine healing, unspecified portion of femur, subsequent encounter TSH Routine 06/20/2024 11:46 AM DIRECTOR OF DIGITAL MARKETING Hypothyroidism due to medication Other closed fracture of left femur with routine healing, unspecified portion of femur, subsequent encounter VITAMIN D 25 HYDROXY Routine 06/20/2024 11:46 AM DIRECTOR OF DIGITAL MARKETING Type 2 diabetes mellitus without complication, without long-term current use of insulin ([facility]) ([facility]) Vitamin D deficiency POCT GLUCOSE Routine 06/20/2024 10:50 AM DIRECTOR OF DIGITAL MARKETING Type 2 diabetes mellitus without complication, without long-term current use of insulin ([facility]) ([facility]) POCT HEMOGLOBIN A1C Routine 06/20/2024 1 0:50 AM DIRECTOR OF DIGITAL MARKETING Type 2 diabetes mellitus without complication, without long-term current use of insulin ([facility]) ([facility]) XR HIP LEFT W PELVIS 2 OR 3 VIEWS Schedule Routine, Read Routine (OP Routine) 05/04/2024 10:39 AM DIRECTOR OF DIGITAL MARKETING #L femoral neck fx LIPID PANEL Routine 01/12/2024 10:51 AM CDT Type 2 diabetes mellitus without complication, without long-term current use of insulin ([facility]) ([facility]) Hypertension, unspecified type ALBUMIN CREATININE RATIO, URINE Routine 07/13/2022 8:12 AM DIRECTOR OF DIGITAL MARKETING Medication course changed Chronic kidney disease, unspecified CKD stage from Last 3 Months or Most Recently Relevant to Health Maintenance Results * (ABNORMAL) eGFR (06/20/2024 11:46 AM DIRECTOR OF DIGITAL MARKETING) eGFR 56(L) >=60 mL/min/1. 73 m2 Comment: Interpretive Data Reference Interval Normal >/= 90 mL/min/1.73m2 Mildly decreased* 60 - 89 mL/min/1.73m2 Mildly to moderately decreased 45 - 59 mL/min/1.73m2 Moderately to severely decreased 30 - 44 mL/min/1.73m2 Severely decreased 15 - 29 mL/min/1.73m2 Kidney Failure < 15 mL/min/1.73m2 *Relative to young adult level Estimated glomerular [...] reviewed 2021. Blood 06/20/2024 11:4 6 AM DIRECTOR OF DIGITAL MARKETING 06/20/2024 9:14 PM DIRECTOR OF DIGITAL MARKETING us Eliud Cortez MD LAB BLOOD ORDERABLES Final Resu lt [facility] [address] Department [place] [address] * Differential, auto (06/20/2024 11:46 AM DIRECTOR OF DIGITAL MARKETING) Neutrophil abs 4.8 1.5 - 6.5 K/cumm Imm gran abs 0.0 0.0 - 0.1 K/cumm [facility] Lymphocyte abs 1.2 0.8 - 3.3 K/cumm [facility] Monocyte abs 0.6 0.2 - 0.8 K/cumm [facility] Eosinophil abs 0.3 0.0 - 0.5 K/cumm [facility] Basophil abs 0.1 0.0 - 0.1 K/cumm [facility] Neutrophil pct 68.8 % [facility] Comment: Interpretive Data Percent cell count reference ranges are not reported, since discordance with absolute values may lead to misinterpretation of CBC data. Current Interpretive Data was last revised on 2017. Imm gran pct 0.4 % [facility] Comment: Interpretive Data Percent cell count reference ranges are not reported, since discordance with absolute values may lead to misinterpretation of CBC data. Current Interpretive Data was last revised on 2017. Lymphocyte pct 17.5 % [facility] Comment: Interpretive Data Percent cell count reference ranges are not reported, since discordance with absolute values may lead to misinterpretation of CBC data. Current Interpretive Data was last revised on 2017. Monocyte pct 8.0 % [facility] Comment: Interpretive Data Percent cell count reference ranges are not reported, since discordance with absolute values may lead to misinterpretation of CBC data. Current Interpretive Data was last revised on 2017. Eosinophil pct 4.6 % [facility] Comment: Interpretive Data Percent cell count reference ranges are not reported, since discordance with absolute values may lead to misinterpretation of CBC data. Current Interpretive Data was last revised on 2017. Basophil pct 0.7 % [facility] Comment: Interpretive Data Percent cell count reference ranges are not reported, since discordance with absolute values may lead to misinterpretation of CBC data. Current Interpretive Data was last revised on 2017. Blood 06/20/2024 11:4 6 AM DIRECTOR OF DIGITAL MARKETING 06/20/2024 5:15 PM DIRECTOR OF DIGITAL MARKETING us Eliud Cortez MD LAB BLOOD ORDERABLES Final Resu lt [facility] [address] [address] Department of Laboratories [place], [place] [id number] * (ABNORMAL) CBC with auto differential (06/20/2024 11:46 AM DIRECTOR OF DIGITAL MARKETING) WBC 7.0 3.8 - 9.9 K/cumm Hgb 11.1(L) 13.0 - 17.5 g/dL [facility] Hct 36.7(L) 38.9 - 50.3 % [facility] Plt 351 150 - 400 K/cumm [facility] MPV 10.3 9.1 - 12.3 fL [facility] RBC 3.85(L) 4.30 - 5.80 M/cumm [facility] MCV 95.3 81.3 - 96.4 fL [facility] MCH 28.8 27.1 - 33.3 pg [facility] MCHC 30.2(L) 32.3 - 35.7 g/dL [facility] RDW CV 15.2(H) 11.1 - 14.9 % [facility] RDW SD 53.5(H) 35.7 - 48.1 fL [facility] NRBC abs 0.00 0.00 - 0.01 K/cumm [facility] Blood 06/20/2024 11:4 6 AM DIRECTOR OF DIGITAL MARKETING 06/20/2024 5:15 PM DIRECTOR OF DIGITAL MARKETING Eliud Cortez MD LAB BLOOD ORDERABLES Final Resu lt Performing Organization Address [facility] Co de Phone Number [facility] [place] [address] [address] [facility] [place] [address] * Vitamin D 25 hydroxy (06/20/2024 11:46 AM DIRECTOR OF DIGITAL MARKETING) Vitamin D 25-OH 40 30 - 80 ng/mL Blood 06/20/2024 11:4 6 AM DIRECTOR OF DIGITAL MARKETING 06/20/2024 5:15 PM DIRECTOR OF DIGITAL MARKETING Eliud Cortez MD LAB BLOOD ORDERABLES Final Resu lt Performing Organization Address [facility] de Phone Number [place] [address] [address] [facility] [place] [address] * TSH (06/20/2024 11:46 AM DIRECTOR OF DIGITAL MARKETING) Thyroid Stimulating Hormone 0.33 0.30 - 4.20 mcIUnit/mL Blood 06/20/2024 11:4 6 AM DIRECTOR OF DIGITAL MARKETING 06/20/2024 5:15 PM DIRECTOR OF DIGITAL MARKETING Eliud Cortez MD LAB BLOOD ORDERABLES Final Resu lt Performing Organization Address [facility] de Phone Number [place] [address] [address] [facility] [employer] [place] [address] * (ABNORMAL) T4, free (06/20/2024 11:46 AM DIRECTOR OF DIGITAL MARKETING) Free T4 1.84(H) 0.90 - 1.70 ng/dL Blood 06/20/2024 11:4 6 AM DIRECTOR OF DIGITAL MARKETING 06/20/2024 5:15 PM DIRECTOR OF DIGITAL MARKETING Eliud Cortez MD LAB BLOOD ORDERABLES Final Resu lt Performing Organization Address City/[facility]/ZIP Co de Phone Number [place] [address] [address] [facility] [employer] [place] [address] * PTH (06/20/2024 11:46 AM DIRECTOR OF DIGITAL MARKETING) PTH 54 15 - 65 pg/mL Blood 06/20/2024 11:4 6 AM DIRECTOR OF DIGITAL MARKETING 06/20/2024 5:15 PM DIRECTOR OF DIGITAL MARKETING Eliud Cortez MD LAB BLOOD ORDERABLES Final Resu lt Performing Organization Address [facility] de Phone Number [place] [address] [address] [employer] [place] [address] * (ABNORMAL) Comprehensive metabolic panel (06/20/2024 11:46 AM DIRECTOR OF DIGITAL MARKETING) Pathologist [facility] Sodium 139 135 - 145 mmol/L Potassium, pl 4.2 3.3 - 4.9 mmol/L [facility] Chloride 99 97 - 110 mmol/L [facility] CO2 27 22 - 32 mmol/L [facility] Anion gap 13 2 - 15 mmol/L [facility] BUN 14 6 - 25 mg/dL [facility] Creatinine 1.31(H) 0.80 - 1.30 mg/dL [facility] Glucose 78 70 - 199 mg/dL [facility] Comment: Interpretive Data Fasting glucose >/= 126 mg/dl is diagnostic for diabetes. Fasting is defined as no caloric intake [...] [facility] Blood 06/20/2024 11:4 6 AM DIRECTOR OF DIGITAL MARKETING 06/20/2024 5:15 PM DIRECTOR OF DIGITAL MARKETING us Eliud Cortez MD LAB BLOOD ORDERABLES Final Resu lt [facility] [address] [address] Department [place] [address] * POCT hemoglobin A1c (06/20/2024 10:50 AM DIRECTOR OF DIGITAL MARKETING) Hemoglobin A1C, POC 5.3 4.0 - 5.6 % Blood 06/20/2024 10:5 0 AM DIRECTOR OF DIGITAL MARKETING us Eliud Cortez MD POINT OF CARE TEST ORDERABLES F inal Result * POCT glucose (06/20/2024 10:50 AM DIRECTOR OF DIGITAL MARKETING) Glucose Blood, POC 131 mg/dL Blood 06/20/2024 10:5 0 AM DIRECTOR OF DIGITAL MARKETING us Eliud Cortez MD POINT OF CARE TEST ORDERABLES F inal Result * XR Hip Left 2 or 3 Views W Pelvis (05/04/2024 10:39 AM DIRECTOR OF DIGITAL MARKETING) Anatomical Region Laterality Modality Lower Extremities, Hip, Pelvis Left C omputed Radiography 05/04/2024 11:2 9 AM DIRECTOR OF DIGITAL MARKETING Impressions 05/04/2024 11:41 AM DIRECTOR OF DIGITAL MARKETING Unchanged left hip hemiarthroplasty in expected position without radiographic evidence of prosthetic complication. Dictated by: Pawel Persaud M.D. The radiology attending physician has personally reviewed this study, and had reviewed and/or edited this written report and agrees with it. Electronically signed by: Petr Mayorga D.O. Narrative 05/04/2024 11:41 AM DIRECTOR OF DIGITAL MARKETING EXAMINATION: XR HIP LEFT 2 OR 3 VIEWS W PELVIS HISTORY: Left hip arthroplasty follow-up. COMPARISON: 03/19/2024 FINDINGS: Postsurgical changes of left hip hemiarthroplasty in expected position. No evidence of periprosthetic fracture or osteolysis. No new fracture or dislocation. Normal bone alignment. Sacroplasty noted. Procedure Note Petr [...] MD IMG XR PROCEDURES Final Result * Lipid panel (01/12/2024 10:51 AM CDT) Triglycerides 93 <150 mg/dL [facility] Comment: Desirable: <150 mg/dL, fasting <175 mg/dL, non-fasting Persistently elevated triglycerides may enhance atherosclerotic cardiovascular disease. Total Cholesterol 156 <200 mg/dL [facility] Total HDL-C Direct 64 >40 mg/dL [facility] Non-HDL cholesterol 92 <220 mg/dL [facility] [place] LDL Chol 73 <190 mg/dL [facility] Blood 01/12/2024 10:5 1 AM CDT 01/12/2024 11:10 AM CDT Narrative [facility] - 01/12/2024 3:07 PM CDT Current interpretive data was last updated April 18, 2021. For adults ages 40-79, the ACC/AHA recommends discussing your 10-year atherosclerotic cardiovascular disease risk with your health care provider. [email or web address] us Teodoro Hill MD LAB BLOOD ORDERABLES Final Re sult Performing Organization Address [facility] Co de Phone Number [facility] * Albumin Creatinine Ratio, Urine (07/13/2022 8:12 AM DIRECTOR OF DIGITAL MARKETING) Creatinine ur 199.2 Not Estab. mg/dL [facility] - 01 Microalbumin, ur 9.1 Not Estab. ug/mL [facility] - 01 Microalbumin/cre at ratio 5 0 - 29 mg/g creat [facility] - 01 Comment: Normal: 0 - 29 Moderately increased: 30 - 300 Severely increased: >300 Urine 07/13/2022 8:12 AM DIRECTOR OF DIGITAL MARKETING 07/13/2022 Narrative [facility] - 07/14/2022 10:11 AM DIRECTOR OF DIGITAL MARKETING Performed at: 01 - [facility] [place] [address] [address] Sales Associate: Zoran Moody PhD, Phone: [phone] us Teodoro Hill MD LAB URINE ORDERABLES Final Re sult Performing Organization Address [facility] de Phone Number [facility] - 01 from Last 3 Months or Most Recently Relevant to Health Maintenance [place] [address] [address] MEDICARE [facility] MEDICARE SOLUTIONS MEDICARE MEDICARE SOLUTIONS IDPA Advance Directives For more information, please contact: [phone] Documents on File Type Date Recorded Patient Manager In Home Expl anation ADVANCE DIRECTIVE 11/22/2023 8:03 AM POWER OF SHEET METAL INSULATOR-MEDICAL * Full Code (Latest Code Status on File) Date Activated Date Inactivated Comments 03/18/2024 9:16 PM 03/23/2024 4:01 PM * Full Code Date Activated Date Inactivated Comments 11/24/2023 6:03 PM 11/25/2023 4:31 PM * Full Code Date Activated Date Inactivated Comments 05/25/2018 2:28 PM 05/26/2018 5:17 PM Care Teams Plate Glass Polisher Relationship Specialty Start Date End Date Ramone Hemphill MD PCP - General 03/11/07
--- OUTSIDE RECORDS SUMMARY | 2024-06-24 07:05 | XMS_ITS | Referral Summary ---
Author Organization [facility] [place] Address [address] [place] [address] Care Team Providers Care Traffic Inspector Name Role Phone Ramone Hemphill MD Primary Care Provider [phone] Encounters Date Type Department Care Team Description 06/20/2024 11:46 AM MANAGER CARDIAC CATH - 06/20/2024 11:59 PM MANAGER CARDIAC CATH Hospital Encounter [address] [address] Type 2 diabetes mellitus without complication, without long-term current use of insulin (CMS/HCC) (HCC); Vitamin D deficiency; Hypothyroidism due to medication; Other closed fracture of left femur with routine healing, unspecified portion of femur, subsequent encounter; Hyponatremia Discharge Disposition: Discharge to home or self care 06/20/2024 11:50 AM MANAGER CARDIAC CATH Lab [facility] Infectious Diseases 1 [facility] [address] [place] [phone] 06/20/2024 10:40 AM MANAGER CARDIAC CATH Office Visit [facility] Endocrinology Metabolism and Lipid [address] [place] [address] [address] [place] [address] Eliud Cortez MD Type 2 diabetes mellitus [...] structure, left lower leg 05/04/2024 10:00 AM MANAGER CARDIAC CATH - 05/04/2024 11:59 PM MANAGER CARDIAC CATH Hospital Encounter [facility] [address] [place] [address] Rachael Azul MD #L femoral neck fx Discharge Disposition: Discharge to home or self care 05/04/2024 10:30 AM MANAGER CARDIAC CATH Office Visit [facility] Orthopaedic Surgery [address] [facility] 6th [place] [address] [place] [address] Rachael Azul MD #L femoral neck fx (Primary Dx) 04/12/2024 Telephone [facility] [address] [place] [address] Marvin Myers RN from Last 3 Months Allergies No known [...] complication, without long-term current use of insulin ([facility]) ([facility]) Use to test blood glucose once daily 1 kit 1 2 Active lancets miscIndication s:Type 2 diabetes mellitus without complication, without long-term current use of insulin ([facility]) ([facility]) Use to test blood glucose once [...] 1 tablet (100 mcg total) by mouth aquatic biologist before breakfast 90 tablet 3 4 Active [...] without long-term current use of insulin (CMS/HCC) ([facility]) 1 each daily 100 each 3 4 Active blood glucose diagnostic (glucose blood) stripIndicatio ns:Type 2 diabetes mellitus without complication, without long-term current use of insulin (CMS/HCC) ([facility]) Use to test blood glucose once [...] the skin once a week 2 mL 4 06/20/19 25 Discontin ued(Thera py completed ) Active Problems Problem Noted Date Diagnosed Date Hyponatremia 03/21/2024 Assessment & Plan (03/23/2024 9:02 AM MANAGER CARDIAC CATH): - Na 129 (132) - 03/21: 500ml NS bolus - Repeat Na 128->124->131->132 - FWR to 1 L - Salt tabs TID->BID - Urine electrolytes - Continue salt tabs x 1 week, recheck BMP at [facility] UTI (urinary tract infection) 03/20/2024 Assessment & Plan (03/22/2024 2:06 PM MANAGER CARDIAC CATH): - + symptoms on admission (burning with urination) - Culture + Morganella morganii - Ceftriaxone started 03/18-03/21 - Susceptible to ceftriaxone, No further treatment needed - Discussed patient's case with the antibiotic stewardship team - Symptoms resolved Syncope 03/20/2024 Assessment & Plan (03/21/2024 1:12 PM MANAGER CARDIAC CATH): - Extensive history of syncopal events - Outpatient work up demonstrated +orthostatics - Recently reduced dose of metoprolol as outpatient - Orthostatics positive 03/20, EMILY smileyadan and abdominal binder ordered - Lives in a nursing facility - Last ECHO done 01/2024 - EKG with complete LBBB, No change from prior EKG 2018 - 03/21 Reduced metoprolol dose to 12.5mg [...] 03/20/2024 Assessment & Plan (03/23/2024 10:25 AM MANAGER CARDIAC CATH): - 03/20: SELENA mack, anticipate dc 03/21 [...] 03/18/2024 Assessment & Plan (03/21/2024 9:43 AM MANAGER CARDIAC CATH): - Ortho consult - 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 - WBAT with PHP - PT/OT, pain [...] 05/25/2018 Assessment & Plan (03/21/2024 6:37 AM MANAGER CARDIAC CATH): - Pt will return to SNF at discharge Asthma 05/25/2018 Type 2 diabetes mellitus 05/25/2018 Assessment & Plan (03/20/2024 1:33 PM MANAGER CARDIAC CATH): - Insulin sensitive correction scale - Acchuchecks QID Osteoarthritis of right shoulder 04/12/2018 Overview (04/12/2018): Added automatically from request for surgery [id number] Encounter for monitoring amiodarone therapy 05/2017 Chronic [...] controlled Assessment & Plan (03/23/2024 9:00 AM MANAGER CARDIAC CATH): - Held eliquis for OR - Okay to resume per ortho - Continued DVT ppx while terry-op - Continued eliquis at discharge longterm current use of anticoagulant therapy 1 06/23/2014 Overview (08/20/2016): Chronic anticoagulation #CHF 04/22/2015 Overview (08/20/2016): Congestive heart failure with left ventricular dysfunction Assessment & Plan (03/20/2024 1:31 PM MANAGER CARDIAC CATH): Cont metop, amiodarone 01/18/24 EF 55%. LV mildly dilated with low normal systolic function, reduced from prior LUCIO on CPAP 08/30/2014 Assessment & Plan (03/20/2024 1:32 PM MANAGER CARDIAC CATH): Continued on hospital unit Mycobacterium avium complex ([facility]) 03/31/2012 Overview (01/19/2023): In sputum Other nonspecific [...] on file Legal Sex Male 12:33 PM MANAGER CARDIAC CATH Gender Identity Male 01/21/2018 1:29 PM CDT Sexual Orientation Straight 01/09/2021 6: 25 AM CDT Last Filed Vital Signs Vital Sign Reading Time Taken Comments Blood Pressure 104/69 06/20/2024 10:32 AM MANAGER CARDIAC CATH Pulse 62 06/20/2024 10:32 AM MANAGER CARDIAC CATH Temperature 36.5 C (97.7 F) 06/20/2024 10:32 AM MANAGER CARDIAC CATH Respiratory Rate 18 03/23/2024 7:28 AM MANAGER CARDIAC CATH Oxygen Saturation 99% 03/23/2024 7:2 8 AM MANAGER CARDIAC CATH Inhaled Oxygen Concentration - - Weight 117 kg (258 lb) 06/20/2024 10:32 AM MANAGER CARDIAC CATH Done last night at [facility] Height 180.3 cm (5' 10.98 ) 06/20/2024 10:32 AM MANAGER CARDIAC CATH Body Mass Index 36 06/20/2024 10:32 AM MANAGER CARDIAC CATH Plan of Treatment Not on file Medical Devices Implanted Type Area Supervisor Clam Bed Device Identifier Shelf Expiration Date Model / Serial / Lot [employer] Simplex P Radiopaque Full Dose Cement Bone Sterile 6191-1-010 - S0 - [id number] Implanted:Qty: 1 on 03/19/2024 by Boy Stevens MD PhD at [facility] Bone Cement Left: Hip [employer] 03/16/2025 6191-1-010 / 0 / [id number] [employer] Simplex P Radiopaque Full Dose Cement Bone Sterile 6191-1-010 - S0 - [id number] Implanted:Qty: 1 on 03/19/2024 by Boy Stevens MD PhD at [facility] Bone Cement Left: Hip [employer] 03/16/2025 6191-1-010 / 0 / [id number] Imp Knee Tib Ins Tri Sz7 13mm [id number] Implanted:Qty: 1 on 11/24/2023 at [facility] Other - see comments Left: Knee Katharine 01/03/2028 1608-T-768-E / / [id number] [employer] Versys Heritage 15mm 140mm Primary Cement Proximal Centralizer [id number] - S0 - [id number] Implanted:Qty: 1 on 03/19/2024 by Boy Stevens MD PhD at [facility] Other - see comments Left: Hip [employer] [id number] 1 06/28/2032 [id number] / 0 / [id number] [employer] Versys 13mm Cemented Hip Distal Centralizer Stem Pmma Sterile [id number] - S0 - [id number] Implanted:Qty: 1 on 03/19/2024 by Boy Stevens MD PhD at [facility] Other - see comments Left: Hip [employer] [id number] 12/23/2027 [id number] / 0 / [id number] [employer] Ringloc Bio-Esparza Ii 54mm 28mm 2 Articulate Surface Lock 232 - S0 - [id number] Implanted:Qty: 1 on 03/19/2024 by Boy Stevens MD PhD at [facility] Other - see comments Left: Hip [employer] [id number] 04/27/2027232 0 / [id number] [employer] Trilogy It Continuum 28mm Hip Acetabulum +3.5mm 04/29 Large Head [id number] - S0 - [id number] Implanted:Qty: 1 on 03/19/2024 by Boy Stevens MD PhD at [facility] Other - see comments Left: Hip [employer] [id number] 1 03/23/2032 [id number] / 0 / [id number] [employer]/ Ortho Prep-Im Plug [place] Sponge Suction Hip Kit Thr Latex Free 739955 - S0 - [id number] Implanted:Qty: 1 on 03/19/2024 by Boy Stevens MD PhD at [facility] Other - see comments Left: Hip [employer] /Ortho [id number] 07/08/2033 696085 / 0 / [id number] Description:Cement restricto r in kit [employer] 6191-1-010 Simplex P Radiopaque Full Dose Cement Bone Sterile - [id number] Implanted:Qty: 1 on 05/25/2018 by Kevin Duron MD at [facility] Right: Shoulder [employer] [id number] 6191-1-010 / / Depuy Orthopa[employer] Inc [id number] Global Ap 52mm [place] Glenoid Peg Fixation Premieron - [id number] Implanted:Qty: 1 on 05/25/2018 by Kevin Duron MD at [facility] Right: Shoulder Depuy Orth[employer] Inc [id number] / / Depuy Synthes [employer] Inc [id number] Global Unite 10mm Shoulder 135d Body Humeral Por[place]oat Sterile - [id number] Implanted:Qty: 1 on 05/25/2018 by Kevin Duron MD at [facility] Right: Shoulder Depuy [employer] [id number] / / Depuy Orthopaedics Inc [id number] Global Unite 10mm 113mm Modular Shoulder Standard Stem Humeral - [id number] Implanted:Qty: 1 on 05/25/2018 by Kevin Duron MD at [facility] Right: Shoulder Depuy Orthopa[employer] Inc [id number] / / Depuy Orthopaedics Inc [id number] Global Unite 52mm 18mm Modular Eccentric Shoulder Head Humeral - [id number] Implanted:Qty: 1 on 05/25/2018 by Kevin Duron MD at [facility] Right: Shoulder Depuy Orthopa[employer] Inc [id number] / / [employer] Triathlon Tritanium Knee 7 Baseplate Tibial 5536-B-700 - [id number] Implanted:Qty: 1 on 11/24/2023 at [facility] Left: Knee [employer] 05/13/2028 5536-B-700 / / [id number] [employer] Triathlon Cruciate Retain Bead Knee Left 6 Component Femoral Pa 5517-F-601 - [id number] Implanted:Qty: 1 on 11/24/2023 at [facility] Left: Knee [employer] 08/24/2028 5517-F-601 / / [id number] Procedures Procedure Name Priority Date/Time Associated Diagnosis Comments EGFR Routine 06/20/2024 11:46 AM MANAGER CARDIAC CATH Type 2 diabetes mellitus without complication, without long-term current use of insulin ([facility]) ([facility]) Hyponatremia DIFFERENTIAL AUTO Routine 06/20/2024 11: 46 AM MANAGER CARDIAC CATH Type 2 diabetes mellitus without complication, without long-term current use of insulin ([facility]) ([facility]) CBC WITH AUTO DIFFERENTIAL Routine 06/20/2024 11:46 AM MANAGER CARDIAC CATH Type 2 diabetes mellitus without complication, without long-term current use of insulin ([facility]) ([facility]) COMPREHENSIVE METABOLIC PANEL Routine 06/20/2024 11:46 AM MANAGER CARDIAC CATH Type 2 diabetes mellitus without complication, without long-term current use of insulin ([facility]) ([facility]) Hyponatremia PTH Routine 06/20/2024 11:46 AM MANAGER CARDIAC CATH Other closed fracture of left femur with routine healing, unspecified portion of femur, subsequent encounter T4, FREE Routine 06/20/2024 11:46 AM MANAGER CARDIAC CATH Hypothyroidism due to medication Other closed fracture of left femur with routine healing, unspecified portion of femur, subsequent encounter TSH Routine 06/20/2024 11:46 AM MANAGER CARDIAC CATH Hypothyroidism due to medication Other closed fracture of left femur with routine healing, unspecified portion of femur, subsequent encounter VITAMIN D 25 HYDROXY Routine 06/20/2024 11:46 AM MANAGER CARDIAC CATH Type 2 diabetes mellitus without complication, without long-term current use of insulin ([facility]) ([facility]) Vitamin D deficiency POCT GLUCOSE Routine 06/20/2024 10:50 AM MANAGER CARDIAC CATH Type 2 diabetes mellitus without complication, without long-term current use of insulin ([facility]) ([facility]) POCT HEMOGLOBIN A1C Routine 06/20/2024 1 0:50 AM MANAGER CARDIAC CATH Type 2 diabetes mellitus without complication, without long-term current use of insulin ([facility]) (HCC) XR HIP LEFT W PELVIS 2 OR 3 VIEWS Schedule Routine, Read Routine (OP Routine) 05/04/2024 10:39 AM MANAGER CARDIAC CATH #L femoral neck fx LIPID PANEL Routine 01/12/2024 10:51 AM CDT Type 2 diabetes mellitus without complication, without long-term current use of insulin ([facility]) ([facility]) Hypertension, unspecified type ALBUMIN CREATININE RATIO, URINE Routine 07/13/2022 8:12 AM MANAGER CARDIAC CATH Medication course changed Chronic kidney disease, unspecified CKD stage from Last 3 Months or Most Recently Relevant to Health Maintenance Results * (ABNORMAL) eGFR (06/20/2024 11:46 AM MANAGER CARDIAC CATH) eGFR 56(L) >=60 mL/min/1. 73 m2 Comment: [...] reviewed 2021. Blood 06/20/2024 11:4 6 AM MANAGER CARDIAC CATH 06/20/2024 9:14 PM MANAGER CARDIAC CATH us Eliud Cortez MD LAB BLOOD ORDERABLES Final Resu lt EMILIA [address] [address] Department [place] [address] * Differential, auto (06/20/2024 11:46 AM MANAGER CARDIAC CATH) Neutrophil abs 4.8 1.5 - 6.5 K/cumm Imm gran abs 0.0 0.0 - 0.1 K/cumm [facility] Lymphocyte abs 1.2 0.8 - 3.3 K/cumm [facility] Monocyte abs 0.6 0.2 - 0.8 K/cumm [facility] Eosinophil abs 0.3 0.0 - 0.5 K/cumm [facility] Basophil abs 0.1 0.0 - 0.1 K/cumm [facility] Neutrophil pct 68.8 % [facility] Comment: Interpretive Data Percent cell count reference ranges are not reported, since discordance with absolute values may lead to misinterpretation of CBC data. Current Interpretive Data was last revised on 2017. Imm gran pct 0.4 % [facility] Comment: Interpretive Data Percent cell count reference ranges are not reported, since discordance with absolute values may lead to misinterpretation of CBC data. Current Interpretive Data was last revised on 2017. Lymphocyte pct 17.5 % [facility] Comment: Interpretive Data Percent cell count reference ranges are not reported, since discordance with absolute values may lead to misinterpretation of CBC data. Current Interpretive Data was last revised on 2017. Monocyte pct 8.0 % [facility] Comment: Interpretive Data Percent cell [...] revised on 2017. Basophil pct 0.7 % [facility] Comment: Interpretive Data Percent cell count reference ranges are not reported, since discordance with absolute values may lead to misinterpretation of CBC data. Current Interpretive Data was last revised on 2017. Blood 06/20/2024 11:4 6 AM MANAGER CARDIAC CATH 06/20/2024 5:15 PM MANAGER CARDIAC CATH Eliud Cortez MD LAB BLOOD ORDERABLES Final Resu lt EMILIA [place] [address] [address] [place] [place] [address] * (ABNORMAL) CBC with auto differential (06/20/2024 11:46 AM MANAGER CARDIAC CATH) Pathologist [facility] WBC 7.0 3.8 - 9.9 K/cumm Hgb 11.1(L) 13.0 - 17.5 g/dL [facility] Hct 36.7(L) 38.9 - 50.3 % [facility] Plt 351 150 - 400 K/cumm [facility] MPV 10.3 9.1 - 12.3 fL [facility] CH RBC 3.85(L) 4.30 - 5.80 M/cumm [facility] MCV 95.3 81.3 - 96.4 fL [facility] MCH 28.8 27.1 - 33.3 pg [facility] MCHC 30.2(L) 32.3 - 35.7 g/dL [facility] RDW CV 15.2(H) 11.1 - 14.9 % [facility] RDW SD 53.5(H) 35.7 - 48.1 fL [facility] NRBC abs 0.00 0.00 - 0.01 K/cumm [facility] CH Blood 06/20/2024 11:4 6 AM MANAGER CARDIAC CATH 06/20/2024 5:15 PM MANAGER CARDIAC CATH Eliud Cortez MD LAB BLOOD ORDERABLES Final Resu lt EM[place]IA [place] [address] [address] Department of [employer] [place], [place] [id number] * Vitamin D 25 hydroxy (06/20/2024 11:46 AM MANAGER CARDIAC CATH) Pathologist [facility] Vitamin D 25-OH 40 30 - 80 ng/mL Blood 06/20/2024 11:4 6 AM MANAGER CARDIAC CATH 06/20/2024 5:15 PM MANAGER CARDIAC CATH us Eliud Cortez MD LAB BLOOD ORDERABLES Final Resu lt Performing Organization Address [facility] Co de Phone Number EMILIA [address] [address] [facility] [place] [employer] [place] [address] * TSH (06/20/2024 11:46 AM MANAGER CARDIAC CATH) Thyroid Stimulating Hormone 0.33 0.30 - 4.20 mcIUnit/mL Blood 06/20/2024 11:4 6 AM MANAGER CARDIAC CATH 06/20/2024 5:15 PM MANAGER CARDIAC CATH Eliud Cortez MD LAB BLOOD ORDERABLES Final Resu lt Performing Organization Address [facility] Co de Phone Number EMILIA [address] [address] [facility] [place] [place] [address] * (ABNORMAL) T4, free (06/20/2024 11:46 AM MANAGER CARDIAC CATH) Free T4 1.84(H) 0.90 - 1.70 ng/dL Blood 06/20/2024 11:4 6 AM MANAGER CARDIAC CATH 06/20/2024 5:15 PM MANAGER CARDIAC CATH us Eliud Cortez MD LAB BLOOD ORDERABLES Final Resu lt Performing Organization Address [facility] Co de Phone Number EMILIA [address] [address] [facility] [place] [place] [address] * PTH (06/20/2024 11:46 AM MANAGER CARDIAC CATH) PTH 54 15 - 65 pg/mL Blood 06/20/2024 11:4 6 AM MANAGER CARDIAC CATH 06/20/2024 5:15 PM MANAGER CARDIAC CATH us Eliud Cortez MD LAB BLOOD ORDERABLES Final Resu lt Performing Organization Address [facility]/ZIP Co de Phone Number EMILIA [phone] [address] [facility] [place] [place] [address] * (ABNORMAL) Comprehensive metabolic panel (06/20/2024 11:46 AM MANAGER CARDIAC CATH) Sodium 139 135 - 145 mmol/L Potassium, pl 4.2 3.3 - 4.9 mmol/L [facility] Chloride 99 97 - 110 mmol/L [facility] CO2 27 22 - 32 mmol/L [facility] Anion gap 13 2 - 15 mmol/L [facility] BUN 14 6 - 25 mg/dL [facility] [...] [facility] Blood 06/20/2024 11:4 6 AM MANAGER CARDIAC CATH 06/20/2024 5:15 PM MANAGER CARDIAC CATH us Eliud Cortez MD LAB BLOOD ORDERABLES Final Resu lt EM[place]IA [place] [address] [address] [place] [address] * POCT hemoglobin A1c (06/20/2024 10:50 AM MANAGER CARDIAC CATH) Hemoglobin A1C, POC 5.3 4.0 - 5.6 % Blood 06/20/2024 10:5 0 AM MANAGER CARDIAC CATH us Eliud Cortez MD POINT OF CARE TEST ORDERABLES F inal Result * POCT glucose (06/20/2024 10:50 AM MANAGER CARDIAC CATH) Glucose Blood, POC 131 mg/dL Blood 06/20/2024 10:5 0 AM MANAGER CARDIAC CATH us Eliud Cortez MD POINT OF CARE TEST ORDERABLES F inal Result * XR Hip Left 2 or 3 Views W Pelvis (05/04/2024 10:39 AM MANAGER CARDIAC CATH) Anatomical Region Laterality Modality Lower Extremities, Hip, Pelvis Left C omputed Radiography 05/04/2024 11:2 9 AM MANAGER CARDIAC CATH Impressions 05/04/2024 11:41 AM MANAGER CARDIAC CATH Unchanged left hip hemiarthroplasty in expected position without radiographic evidence of prosthetic complication. Dictated by: Pawel Persaud M.D. The radiology attending physician has personally reviewed this study, and had reviewed and/or edited this written report and agrees with it. Electronically signed by: Petr Mayorga D.O. Narrative 05/04/2024 11:41 AM MANAGER CARDIAC CATH EXAMINATION: XR HIP LEFT 2 OR 3 [...] AM CDT 01/12/2024 11:10 AM CDT Narrative [facility] - 01/12/2024 3:07 PM CDT Current interpretive data was last updated April 18, 2021. For adults ages 40-79, the ACC/AHA recommends discussing your 10-year atherosclerotic cardiovascular disease risk with your health care provider. [email or web address].[email or web address] us Teodoro Hill MD LAB BLOOD ORDERABLES Final Re sult [facility] * Albumin Creatinine Ratio, Urine (07/13/2022 8:12 AM MANAGER CARDIAC CATH) Creatinine ur 199.2 Not Estab. mg/dL [facility] - 01 Microalbumin, ur 9.1 Not Estab. ug/mL [facility] - 01 Microalbumin/cre at ratio 5 0 - 29 mg/g creat [facility] - 01 Comment: Normal: 0 - 29 Moderately increased: 30 - 300 Severely increased: >300 Urine 07/13/2022 8:12 AM MANAGER CARDIAC CATH 07/13/2022 Narrative [facility] - 07/14/2022 10:11 AM MANAGER CARDIAC CATH Performed at: - [facility] [address] [id number] Quarantine Officer: Zoran Moody PhD, Phone: [phone] us Teodoro Hill MD LAB URINE ORDERABLES Final Re sult [facility] - 01 from Last 3 Months or Most Recently Relevant to Health Maintenance [place] [address] MEDICARE [facility] MEDICARE [facility] MEDICARE MEDICARE [employer] [facility] Advance Directives For more information, please contact: [phone] Documents on File Type Date Recorded Patient Psychologist Industrial Organizational Expl anation ADVANCE DIRECTIVE 11/22/2023 8:03 AM POWER OF CIGAR HEAD [employer] * Full Code (Latest Code Status on File) Date Activated Date Inactivated Comments 03/18/2024 9:16 PM 03/23/2024 4:01 PM * Full Code Date Activated Date Inactivated Comments 11/24/2023 6:03 PM 11/25/2023 4:31 PM * Full Code Date Activated Date Inactivated Comments 05/25/2018 2:28 PM 05/26/2018 5:17 PM Care Teams Traffic Inspector Relationship Specialty Start Date End Date Ramone Hemphill MD PCP - General 03/11/07
--- OUTSIDE RECORDS SUMMARY | 2024-06-24 07:05 | XMS_ITS | Clinical Summary ---
Author Organization [facility] Address [address] [place] [address] Phone Care Team Providers Care Pv Design Engineer Name Role Phone Ramone Hemphill MD Primary Care Provider [phone]- [phone] Allergies No known active allergies Medications traMADol [...] on file Legal Sex Male 6:10 AM LPN HOME HEALTH Gender Identity Not on file Sexual Orientation Not on file Last Filed Vital Signs Vital Sign Reading Time Taken Comments Blood Pressure 108/82 04/09/2015 2:03 PM LPN HOME HEALTH Pulse 111 04/09/2015 2:03 PM LPN HOME HEALTH Temperature - - Respiratory Rate 22 04/09/2015 2:03 PM LPN HOME HEALTH Oxygen Saturation 97% 04/09/2015 2:03 PM LPN HOME HEALTH RA Inhaled Oxygen Concentration - - Weight 137.7 kg (303 lb 9.3 oz) 04/09/2015 2:03 PM LPN HOME HEALTH Height 185.4 cm (6' 1 ) 04/09/2015 2:03 PM LPN HOME HEALTH Body Mass Index 40.05 04/09/2015 2:03 PM LPN HOME HEALTH Plan of Treatment Health Maintenance Due Date Last Done Comments DTAP/TDAP/TD VACCINES (1 - Tdap) 10/27/1966 PNEUMOCOCCAL VACCINE 65+ YEA RS (1 of 1 - PCV) 10/27/1997 ZOSTER VACCINE (1 of 2) 10/27/1997 RSV VACCINE (60+ or ) (1 - 1-dose 75+ series) 10/27/2022 INFLUENZA VACCINE (#1) 2023 01/15/2015, 2013 Insurance Care Teams Pv Design Engineer Relationship Specialty Start Date End Date Ramone Hemphill MD PCP - General Family Practice 12/24/11
--- NOTE | 2024-06-24 07:31 | ED_ITS ---
HPI - General Adult General Chief complaint: Fall Stated complaint: Fall Time Seen by Provider: 06/24/24 06:55 History of Present Illness HPI narrative: 78-year-old male presents emergency department for evaluation for a ground level fall. Patient states he was walking in the bathroom carrying a urinal and had a mechanical fall. Patient states he did not strike his head and had no loss of consciousness. Patient reports he did land on his bottom. Patient was complaining of lower back pain and hip pain. Patient denies any other pain or injury. Related Data Home Medications ?Medication ?Instructions ?Recorded ?Confirmed ?Last Taken ?Type amiodarone 200 mg tablet 200 mg PO QAM 04/19/19 06/16/24 02/25/24 History famotidine 20 mg tablet (Pepcid) 20 mg PO BID 05/19/23 06/16/24 02/25/24 History blood sugar diagnostic (OneTouch #10 ea 08/09/23 11/30/23 Unknown History Ultra Test strips) acetaminophen 500 mg tablet 1,000 mg PO Q8H 11/30/23 02/25/24 02/25/24 History bisacodyl 5 mg tablet 5 mg PO BID 11/30/23 02/25/24 01/13/24 History calcium carb-ergocalciferol (vit 2 tablet PO BID 11/30/23 02/25/24 02/25/24 History D2) 600 mg calcium-200 unit tablet cholecalciferol (vitamin D3) 50 50 mcg PO QAM 11/30/23 02/25/24 02/25/24 History mcg (2,000 unit) tablet (Vitamin D3) fluoxetine 40 mg capsule 40 mg PO QAM 11/30/23 02/25/24 02/25/24 History fluticasone furoate 100 1 inh inhalation DAILY 11/30/23 02/25/24 02/25/24 History mcg-vilanterol 25 mcg/dose inhalation powder (Breo Ellipta) metoprolol succinate 100 mg 100 mg PO DAILY 11/30/23 06/16/24 02/25/24 History tablet,extended release 24 hr (Toprol XL) tizanidine 4 mg tablet (Zanaflex) 4 mg PO Q6H PRN Muscle Spasm 11/30/23 06/16/24 02/25/24 History diazepam 5 mg tablet 5 mg PO HS 02/25/24 06/16/24 02/24/24 History duloxetine 60 mg capsule,delayed 60 mg PO DAILY 02/25/24 06/16/24 02/25/24 History release levothyroxine 100 mcg tablet 100 mcg PO DAILY 02/25/24 06/16/24 02/25/24 History mirabegron 25 mg tablet,extended 25 mg PO DAILY 02/25/24 02/25/24 02/25/24 History release 24 hr (Myrbetriq) oxybutynin chloride 5 mg 5 mg PO HS 02/25/24 02/25/24 02/09/24 History tablet,extended release 24 hr sennosides 8.6 mg-docusate sodium 2 tab-cap PO BID PRN Constipation 02/25/24 06/16/24 01/14/24 History 50 mg capsule (Senna Plus) tirzepatide 5 mg/0.5 mL 5 mg subcut SA 02/25/24 02/25/24 02/19/24 History subcutaneous pen injector (Mounjaro) vibegron 75 mg tablet 75 mg PO DAILY 02/25/24 02/25/24 02/25/24 History Allergies Allergy/AdvReac Type Severity Reaction Status Date / Time No Known Allergies Allergy Verified 06/21/24 06:06 Review of Systems Review of Systems: All systems reviewed & are unremarkable except as noted in HPI and below PMFSH Past Medical History Medical History Fracture of femoral neck, left, closed 2023 Fracture of sacrum Sacral insufficiency fracture S/P sacralplasty Closed compression fracture of L5 vertebra Blood transfusion during current hospitalisation History of blood transfusion Gastrointestinal bleed Mycobacterium avium infection Wears glasses Arthritis of right knee Hammer toe Encounter for screening colonoscopy (~2017) Arterial insufficiency of lower extremity Atrial fibrillation (06/11/17) Chronic atrial fibrillation Chronic kidney disease, stage 3 (moderate) 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) Hyperthyroidism Left ventricular failure Major depressive disorder, single episode, unspecified Morbid (severe) obesity with alveolar hypoventilation Obstructive sleep apnea (adult) (pediatric) Peripheral neuropathy due to disorder of metabolism Primary pulmonary hypertension 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 Type 2 diabetes mellitus with hyperglycemia Ventricular premature depolarization Surgical History Surgical History S/P total left hip arthroplasty History of total knee arthroplasty Left 2023 S/P left knee arthroscopy H/O vertebroplasty History of total right knee replacement (TKR) History of shoulder replacement H/O arthroscopy of right knee History of appendectomy H/O arthroscopy of left knee Family History Family History Mother Family history of thyroid disease Family history of alcoholism Family history of malignant neoplasm of breast in first degree relative, Onset Age: 75 Father Family history of alcoholism Malignant neoplasm of prostate, Onset Age: 92 Family history of throat cancer, Onset Age: 92 Family history of malignant neoplasm of testis, Onset Age: 92 Other Depression Diabetes mellitus Family history of malignant neoplasm Family history of malignant neoplasm of breast Family history of mental disorder Social History Social History Smoking packs per day: 2 Smoking cigarettes per day: 40.0 Smoking status: Former smoker Smoking end date: 05/17/81 Alcohol intake: never Alcohol use details: stopped in 81 Substance use: never 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 HEAD: normocephalic, atraumatic. EYES: PERRLA/EOMI, conjunctivae clear. NOSE: Normal no drainage EARS:TMS clear with good light reflex. THROAT: Pharynx clear, no exudate. NECK: Supple. No adenopathy, no masses. RESPIRATORY: Airway patent, respirations nonlabored. Clear to auscultation bilaterally, no rales, rhonchi, wheezing. CARDIOVASCULAR: Regular rate and rhythm without murmurs rubs or gallops. ABDOMINAL: Soft, nontender, nondistended, normal bowel sounds MUSCULOSKELETAL: Moves all extremities. Strength/ROM intact, No edema, No calf tenderness. NEURO: Alert. Cranial nerves II through XII intact. Grossly intact SKIN: Warm, dry. Normal Color Course Vital Signs Vital signs: Vital Signs Temperature 98 F 06/24/24 03:03 Pulse Rate 61 06/24/24 03:03 Respiratory Rate 15 06/24/24 03:03 Blood Pressure 121/69 06/24/24 03:03 Pulse Oximetry 100 06/24/24 03:03 Oxygen Delivery Room Air 06/24/24 03:03 Temperature 98 F 06/24/24 03:03 Pulse Rate 65 06/24/24 07:47 Respiratory Rate 13 06/24/24 07:47 Blood Pressure 121/65 06/24/24 07:47 Pulse Oximetry 95 06/24/24 07:47 Oxygen Delivery Room Air 06/24/24 03:03 Medical Decision Making MDM Narrative Medical decision making narrative: 78-year-old male presents to the emergency department for evaluation after having a ground level fall. X-rays were negative. Patient is alert appropriate and patient declines striking his head. No head CT was ordered. Patient was able to ambulate it is baseline. Patient denies any new pain or injury with ambulation. Differential Diagnosis Differential Diagnosis: Lumbar fracture, hip fracture, pelvic fracture Vital Signs Vital Signs: Vital Signs Temperature 98 F 06/24/24 03:03 Pulse Rate 61 06/24/24 03:03 Respiratory Rate 15 06/24/24 03:03 Blood Pressure 121/69 06/24/24 03:03 Pulse Oximetry 100 06/24/24 03:03 Oxygen Delivery Room Air 06/24/24 03:03 Temperature 98 F 06/24/24 03:03 Pulse Rate 65 06/24/24 07:47 Respiratory Rate 13 06/24/24 07:47 Blood Pressure 121/65 06/24/24 07:47 Pulse Oximetry 95 06/24/24 07:47 Oxygen Delivery Room Air 06/24/24 03:03 Imaging Data Radiologist's impression: Impressions Sacrum and Coccyx X-Ray 06/24/24 06:10 IMPRESSION: 1. No acute fracture. Hip/Pelvis X-Ray 06/24/24 06:13 IMPRESSION: 1. No acute fracture. 2. Bipolar left hip hemiarthroplasty in near-anatomic alignment. 3. Mild right hip osteoarthritis. Discharge Plan Discharge Clinical Impression: Back pain, Acute hip pain Patient Disposition: NH Care Home/Asst Living Condition: Stable Instructions: Antibiotic Form, Acute Low Back Pain (ED), Hip Pain (ED) Additional Instructions: Use your walker when ambulating. Have close follow-up with your primary care physician. Patient Language: [place] Prescriptions: No Action (DME) OneTouch Ultra Test Strip See Rx Instructions .ROUTE .MEDSUPPLY Qty: 10 Rx Instructions: As directed amiodarone 200 mg tablet 200 mg PO QAM metoprolol succinate [Toprol XL] 100 mg Tablet Extended Release 24 Hr 100 mg PO DAILY acetaminophen 500 mg tablet 1,000 mg PO Q8H calcium carbonate-vitamin D2 600 mg calcium- 200 unit Tablet 2 tablet PO BID bisacodyl 5 mg Tablet 5 mg PO BID cholecalciferol (vitamin D3) [Vitamin D3] 50 mcg (2,000 unit) Tablet 50 mcg PO QAM fluoxetine 40 mg capsule 40 mg PO QAM tizanidine [Zanaflex] 4 mg tablet 4 mg PO Q6H PRN (Reason: Muscle Spasm) fluticasone furoate-vilanterol [Breo Ellipta] 100-25 mcg/dose blister with device 1 inh inhalation DAILY Eliquis 5 mg tablet 5 mg PO BID Qty: 60 0RF Rx Instructions: RESUME 5MG HOME DOSAGE ON 12/03/2023 mirabegron [Myrbetriq] 25 mg tablet extended release 24 hr 25 mg PO DAILY levothyroxine 100 mcg tablet 100 mcg PO DAILY oxybutynin chloride 5 mg tablet extended release 24hr 5 mg PO HS diazepam 5 mg tablet 5 mg PO HS duloxetine 60 mg capsule,delayed release(DR/EC) 60 mg PO DAILY Senna Plus 8.6-50 mg Capsule 2 tab-cap PO BID PRN (Reason: Constipation) vibegron 75 mg Tablet 75 mg PO DAILY Mounjaro 5 mg/0.5 mL pen injector 5 mg SUBCUT SA (DME) Walker See Rx Instructions .Route .MEDSUPPLY Qty: 1 0RF Rx Instructions: As directed ( no wheels) famotidine [Pepcid] 20 mg tablet 20 mg PO BID tramadol 50 mg tablet 50 mg PO Q6H PRN (Reason: pain) Qty: 90 1RF Follow-up/Referrals: Ramone Hemphill MD [Primary Care Provider] -
[2024-06-24 07:47] VITALS: BP 121/65; PULSE 65; RESP 13; O2SAT 95
--- NOTE | 2024-06-24 08:22 | PC.NURSE ---
Attempted to call report to [facility].
[2024-06-24 10:31] VITALS: BP 128/73; PULSE 61; RESP 16; TEMP 36.5; O2SAT 98
== END 2024-06-24 10:46 ==
PROVIDERS: Emergency Provider Emergency Medicine; PCP Family Medicine
DX: S39.92XA Unspecified injury of lower back, initial encounter (principal); S79.911A Unspecified injury of right hip, initial encounter; I48.20 Chronic atrial fibrillation, unspecified; E11.22 Type 2 diabetes mellitus with diabetic chronic kidney disease; N18.30 Chronic kidney disease, stage 3 unspecified; I27.0 Primary pulmonary hypertension; M17.11 Unilateral primary osteoarthritis, right knee; E66.2 Morbid (severe) obesity with alveolar hypoventilation; Z68.36 Body mass index [BMI] 36.0-36.9, adult; Z96.642 Presence of left artificial hip joint; Z96.653 Presence of artificial knee joint, bilateral; Z96.619 Presence of unspecified artificial shoulder joint; Z87.891 Personal history of nicotine dependence; Z79.01 Long term (current) use of anticoagulants; Z79.899 Other long term (current) drug therapy; Z79.85 Long-term (current) use of injectable non-insulin antidiabetic drugs; M16.11 Unilateral primary osteoarthritis, right hip; W18.30XA Fall on same level, unspecified, initial encounter
CPT/HCPCS: 72220; 73502; 99284

== ENCOUNTER 2025-02-22 10:10 | Emergency (ER) | payer MEDICARE, MEDICAID, SELFPAY ==
--- NOTE | ~2025-02-22 | XR_ITS ---
EXAMINATION: XR hand LT min 3V, 02/22/2025 11:14 CDT HISTORY: fall last night. Pain 1st metacarpal, pain since COMPARISON: No comparisons available. Findings: No acute fracture or malalignment. Moderate to severe degenerative changes of the first metacarpal carpal joint Soft tissues unremarkable. Impression: No acute fracture or malalignment. Reviewed, dictated and finalized at location P. Impression: No acute fracture or malalignment.
--- NOTE | ~2025-02-22 | XR_ITS ---
EXAMINATION: XR hip LT min 2V, 02/22/2025 11:14 CDT HISTORY: fall last night. Pain lateral, pain since last night COMPARISON: No comparisons available. Findings: No acute fracture or malalignment. Left arthroplasty intact Soft tissues unremarkable. Impression: No acute fracture or malalignment. Reviewed, dictated and finalized at location P. Impression: No acute fracture or malalignment.
[2025-02-22 10:27] VITALS: BP 124/71; PULSE 53; RESP 16; TEMP 36; O2SAT 100
--- NOTE | 2025-02-22 11:00 | ED.LOWEXIN ---
HPI - Extremity Injury (Lower) General Chief Complaint: Extremity Injury, Lower Stated Complaint: Fall L wrist, arm, hip, leg Time Seen by Provider: 02/22/25 10:50 Source: patient, family () and RN notes reviewed Mode of arrival: ambulatory Limitations: no limitations History of Present Illness HPI Narrative: 79-year-old male patient presents today for a fall last night at home. He fell after becoming disoriented when he was putting a shirt on. States he fell forward onto his hands and knees, injuring his left thumb and left hip. Denies head injury or loss of consciousness. As he continued to fall he sustained a skin tear to the left forearm, which he has since dressed at home. Up-to-date on tetanus vaccine. Denies numbness or tingling in the foot or hand. History of hip replacement. Currently rates his pain 08/24. No OTC medication for discomfort prior to arrival. Patient takes Eliquis for AFib Related Data Home Medications ?Medication ?Instructions ?Recorded ?Confirmed ?Last Taken ?Type amiodarone 200 mg tablet 200 mg PO QAM 04/19/19 01/17/25 02/25/24 History famotidine 20 mg tablet (Pepcid) 20 mg PO BID 05/19/23 01/17/25 02/25/24 History blood sugar diagnostic (OneTouch #10 ea 08/09/23 01/17/25 Unknown History Ultra Test strips) acetaminophen 500 mg tablet 1,000 mg PO Q8H 11/30/23 01/17/25 02/25/24 History bisacodyl 5 mg tablet 5 mg PO BID 11/30/23 01/17/25 01/13/24 History cholecalciferol (vitamin D3) 50 50 mcg PO QAM 11/30/23 01/17/25 02/25/24 History mcg (2,000 unit) tablet (Vitamin D3) levothyroxine 100 mcg tablet 100 mcg PO DAILY 02/25/24 01/17/25 02/25/24 History sennosides 8.6 mg-docusate sodium 2 tab-cap PO BID PRN Constipation 02/25/24 01/17/25 01/14/24 History 50 mg capsule (Senna Plus) vibegron 75 mg tablet 75 mg PO DAILY 02/25/24 01/17/25 02/25/24 History zoledronic acid 5 mg/100 mL in ea IV 11/21/24 01/17/25 Unknown History mannitol 5 %-water intravenous piggybck (Reclast) ascorbate sodium (vitamin C) 1,000 mg PO 01/17/25 01/17/25 Unknown History mg/15 mL oral liquid metoprolol succinate 25 mg 12.5 mg PO 01/17/25 01/17/25 Unknown History tablet,extended release 24 hr [id number] 150 mcg-vit K1 tablet PO 01/17/25 01/17/25 Unknown History 30 mcg-lycop 300 mcg-lutein tablet (Centrum Minis Men 50 Plus) tirzepatide 2.5 mg/0.5 mL mg subcut 01/17/25 01/17/25 Unknown History subcutaneous pen injector (Elliottuncaioro) Allergies Allergy/AdvReac Type Severity Reaction Status Date / Time No Known Allergies Allergy Verified 02/22/25 10:17 [facility] Past Medical History Medical History Fracture of femoral neck, left, closed 2023 Fracture of sacrum Sacral insufficiency fracture S/P sacralplasty Closed compression fracture of L5 vertebra Blood transfusion during current hospitalisation History of blood transfusion Gastrointestinal bleed Mycobacterium avium infection Wears glasses Arthritis of right knee Hammer toe Encounter for screening colonoscopy (~2016) Arterial insufficiency of lower extremity Atrial fibrillation (06/11/17) Chronic atrial fibrillation Chronic kidney disease, stage 3 (moderate) 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) Hyperthyroidism Left ventricular failure Major depressive disorder, single episode, unspecified Morbid (severe) obesity with alveolar hypoventilation Obstructive sleep apnea (adult) (pediatric) Peripheral neuropathy due to disorder of metabolism Primary pulmonary hypertension 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 Type 2 diabetes mellitus with hyperglycemia Ventricular premature depolarization Surgical History Surgical History S/P total left hip arthroplasty History of total knee arthroplasty Left 2023 S/P left knee arthroscopy H/O vertebroplasty History of total right knee replacement (TKR) History of shoulder replacement H/O arthroscopy of right knee History of appendectomy H/O arthroscopy of left knee Family History Family History Mother Family history of thyroid disease Family history of alcoholism Family history of malignant neoplasm of breast in first degree relative, Onset Age: 75 Father Family history of alcoholism Malignant neoplasm of prostate, Onset Age: 92 Family history of throat cancer, Onset Age: 92 Family history of malignant neoplasm of testis, Onset Age: 92 Other Depression Diabetes mellitus Family history of malignant neoplasm Family history of malignant neoplasm of breast Family history of mental disorder Social History Social History Smoking packs per day: 2 Smoking cigarettes per day: 40.0 Smoking status: Former smoker Smoking end date: 05/17/81 Alcohol intake: never Alcohol use details: stopped in Substance use: never 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,clean sober and proud of it Do You Feel Safe in your Home?: No Lack of Transportation: No Lack of Food: Never True Current Housing: I Do Not Have Housing Concerned About Future Housing: YES Difficulty Paying Gas/Electric Bills: No Difficulty Paying for Meds: No Currently Unemployed: No Education: Master's Degree or Higher Difficulty w/ Childcare or Family Care: No Living arrangements: with friend(s) Gender identity (if verbalized by the patient): Male Spiritual care concerns: Yes (OZZIE) Comments At time of signature, I have reviewed and agree with nursing past medical, surgical, social and family history unless otherwise noted. Please see nursing chart for further information. There is no relevant family history pertinent to the presenting complaint Exam Narrative: GENERAL: Well-appearing, well-nourished, and in no acute distress. HEAD: Normocephalic, atraumatic. EYES: EOMI. No redness or drainage. Conjunctivae normal. ENT: Mucous membranes pink and moist.. NECK: Normal AROM. CHEST: No respiratory distress. EXTREMITIES: Left hand: Tenderness to thenar eminence without edema, ecchymosis, or erythema. Tenderness to same area. Distal sensation intact. Capillary refill normal. Full range of motion. No tenderness to the remaining fingers or remainder of the hand. Full range of motion of the wrist. No snuffbox tenderness. No tenderness to the remainder of the forearm or elbow. Full range of motion of the shoulder without pain. Left hip: Surgical scar to the lateral hip with mild tenderness slightly posteriorly of the scar. No ecchymosis, edema, or deformity noted to the hip. No pain with flexion of the hip. Distal sensation intact. SKIN: Warm, dry, no rash. Capillary refill normal. Normal skin turgor. Patient has some skin tears to the left forearm that were not undressed to be evaluated NEURO: No focal deficits. Alert and oriented x3. Gait steady. PSYCH: Normal affect. No signs of depression or anxiety. Course Course Level of Care: Express Care Visit Vital Signs Vital signs: Vital Signs Temperature 96.8 F L 02/22/25 10: Pulse Rate 53 L 02/22/25 10:27 Respiratory Rate 16 02/22/25 10:27 Blood Pressure 124/71 02/22/25 10:27 Pulse Oximetry 100 02/22/25 10:27 Temperature 96.8 F L 02/22/25 10:27 Pulse Rate 53 L 02/22/25 10:27 Respiratory Rate 16 02/22/25 10:27 Blood Pressure 124/71 02/22/25 10:27 Pulse Oximetry 100 02/22/25 10:27 Reviewed MDM - Extremity Injury (Lower) MDM Narrative Medical decision making narrative: 79-year-old male patient presents today for a fall last night at home. He fell after becoming disoriented when he was putting a shirt on. States he fell forward onto his hands and knees, injuring his left thumb and left hip. Denies head injury or loss of consciousness. As he continued to fall he sustained a skin tear to the left forearm, which he has since dressed at home. Upon exam, tenderness to the left inner eminence and left lateral hip. X-rays are negative for fracture. Recommend rest, ice, and Tylenol for discomfort with orthopedic or PCP follow-up in 7-10 days if symptoms persist. Vital signs stable. Patient agrees with plan. Anticipatory guidance given. Differential Diagnosis Differential diagnosis: Likely fracture of hip and other (Hand fracture, finger fracture, contusion, sprain) Imaging Data Radiologist's impression: ITS Impressions Hand X-Ray 02/22/25 11:27 Impression: No acute fracture or malalignment. Hip X-Ray 02/22/25 11:27 Impression: No acute fracture or malalignment. Critical Care Time Critical Care Time Critical Care Time: No Discharge Plan Discharge Clinical Impression: Contusion of left thumb Qualifiers: Encounter type: initial encounter Damage to nail status: without damage Qualified Code(s): S60.012A - Contusion of left thumb without damage to nail, initial encounter Contusion of hip, left Qualifiers: Encounter type: initial encounter Qualified Code(s): S70.02XA - Contusion of left hip, initial encounter Patient Disposition: Home Condition: Stable Instructions: Contusion in Adults (ED) Additional Instructions: Your x-rays are negative today. Ice your hand and hip. Take Tylenol for discomfort if needed. Follow-up with your PCP in 7-10 days if symptoms are not improving. Patient Language: Citizen Of [place] Prescriptions: No Action (DME) OneTouch Ultra Test Strip See Rx Instructions .ROUTE .MEDSUPPLY Qty: 10 Rx Instructions: As directed metoprolol succinate 25 mg tablet extended release 24 hr 12.5 mg PO Mounjaro 2.5 mg/0.5 mL pen injector subcut Centrum Minis Men 50 Plus [id number] mcg tablet PO ascorbate sodium (vitamin C) 1,000 mg/15 mL liquid PO amiodarone 200 mg tablet 200 mg PO QAM acetaminophen 500 mg tablet 1,000 mg PO Q8H bisacodyl 5 mg Tablet 5 mg PO BID cholecalciferol (vitamin D3) [Vitamin D3] 50 mcg (2,000 unit) Tablet 50 mcg PO QAM Eliquis 5 mg tablet 5 mg PO BID Qty: 60 0RF Rx Instructions: RESUME 5MG HOME DOSAGE ON 12/03/2023 levothyroxine 100 mcg tablet 100 mcg PO DAILY Senna Plus 8.6-50 mg Capsule 2 tab-cap PO BID PRN (Reason: Constipation) vibegron 75 mg Tablet 75 mg PO DAILY (DME) Walker See Rx Instructions .Route .MEDSUPPLY Qty: 1 0RF Rx Instructions: As directed ( no wheels) famotidine [Pepcid] 20 mg tablet 20 mg PO BID fluticasone furoate-vilanterol [Breo Ellipta] 100-25 mcg/dose blister with device 1 inh inhalation DAILY Qty: 60 5RF tizanidine [Zanaflex] 4 mg tablet 4 mg PO Q6H PRN (Reason: Muscle Spasm) Qty: 30 4RF zoledronic [id number]-[id number] [Reclast] 5 mg/100 mL piggyback IV diazepam 5 mg tablet 5 mg PO QHS Qty: 40 1RF duloxetine 60 mg capsule,delayed release(DR/EC) 60 mg PO DAILY Qty: 90 1RF triamcinolone acetonide 0.1 % cream 1 applic topical QID Qty: 80 0RF tramadol 50 mg tablet 50 mg PO Q6H PRN (Reason: pain) Qty: 90 1RF fluoxetine 40 mg capsule 40 mg PO QAM Qty: 90 1RF Follow-up/Referrals: Ramone Hemphill MD [Primary Care Provider, [facility]] Time of Disposition: 11:57
== END 2025-02-22 12:00 | disposition home or self-care (01) ==
PROVIDERS: Emergency Provider Nurse Practitioner; PCP Family Medicine
DX: S60.012A Contusion of left thumb without damage to nail, initial encounter (principal); S70.02XA Contusion of left hip, initial encounter; W19.XXXA Unspecified fall, initial encounter; Z87.891 Personal history of nicotine dependence; I48.20 Chronic atrial fibrillation, unspecified; Z79.01 Long term (current) use of anticoagulants; E11.22 Type 2 diabetes mellitus with diabetic chronic kidney disease; N18.30 Chronic kidney disease, stage 3 unspecified; Z79.85 Long-term (current) use of injectable non-insulin antidiabetic drugs; E05.90 Thyrotoxicosis, unspecified without thyrotoxic crisis or storm; E11.42 Type 2 diabetes mellitus with diabetic polyneuropathy; I27.0 Primary pulmonary hypertension; E66.01 Morbid (severe) obesity due to excess calories; Z68.35 Body mass index [BMI] 35.0-35.9, adult; Z96.642 Presence of left artificial hip joint; Z96.653 Presence of artificial knee joint, bilateral
CPT/HCPCS: 73130; 73502; 99214; G0463

== ENCOUNTER 2025-03-28 09:38 | Outpatient (CLI) | payer MEDICARE, MEDICAID, SELFPAY ==
[2025-03-28 10:24] LABS: INR 1.3; Prothrombin Time 16.2 Seconds (11.1-14.7)
[2025-03-28 10:25] LABS: Partial Thromboplastin Time 36.3 Seconds (22.3-36.8)
--- OUTSIDE RECORDS SUMMARY | 2025-03-28 10:40 | XMS_ITS | Clinical Summary ---
Author Organization [facility] Address [address] [place] [address] Care Team Providers Care Supervisor Wrapping Room Name Role Phone Ramone Hemphill MD Primary Care Provider [phone] Eliud Cortez MD Unavailable [phone] Allergies No known active allergies Medications FLUoxetine (PROzac) 40 mg capsule Take 1 capsule (40 mg total) by mouth every morning Active triamcinolone (KENALOG) 0.5 % cream as needed Active BREO ELLIPTA 100-25 mcg/dose diskus inhaler Inhale 1 puff every morning 11/17/19 18 Active tiZANidine (ZANAFLEX) 4 mg tabletIndicatio ns:Muscle Spasm Take 1 tablet (4 mg total) by mouth every 6 (six) hours as needed for muscle spasms 12/06/19 20 Active blood-glucose meter kitIndications: Type 2 diabetes mellitus without complication, without long-term current use of insulin ([facility]) Use to test blood glucose once daily 1 kit 1 09/25/19 22 Active lancets miscIndications :Type 2 diabetes mellitus without complication, without long-term current use of insulin (HCC) Use to test blood glucose once daily 100 each 3 09/25/19 22 Active famotidine (PEPCID) 20 mg tablet Take 1 tablet (20 mg total) by mouth as needed Active DULoxetine DR (CYMBALTA) 60 mg capsule Take 1 capsule (60 mg total) by mouth every morning 12/10/19 23 Active amoxicillin 500 mg capsule TK FOUR CS PO 1 HOUR B DAPP 06/30/19 24 Active CALCIUM ORAL Take 1,200 mg by [...] by mouth every morning 90 tablet 2 11/23/19 24 Active acetaminophen (TYLENOL) 500 mg tablet Take 2 tablets (1,000 mg total) by mouth every 8 (eight) hours 90 tablet 1 11/25/19 24 Active senna-docusate (Senna-S) 8.6-50 mg Take 2 tablets by mouth 2 (two) times a day 80 tablet 1 11/25/19 24 Active oxyBUTYnin XL (DITROPAN-XL) 5 mg 24 hr tablet Take 1 tablet (5 mg total) by mouth daily 01/11/20 24 Active lancets 33 gauge miscIndications :Type 2 diabetes mellitus without complication, without long-term current use of insulin ([facility]) 1 each daily 100 each 3 02/02/20 24 Active blood glucose diagnostic (glucose blood) stripIndication s:Type 2 diabetes mellitus without complication, without long-term current use of insulin ([facility]) Use to test blood glucose once daily Onetouch Verio 100 strip 3 02/02/20 24 Active metoprolol XL (TOPROL-XL) 25 mg extended release tablet Take 0.5 tablets (12.5 mg total) by mouth daily 03/23/20 24 Active gabapentin (NEURONTIN) 100 mg capsule Take 2 capsules (200 mg total) by mouth 3 (three) times a day 03/23/20 24 Active methocarbamoL (ROBAXIN) 500 mg tablet Take 1 tablet (500 mg total) by mouth 3 (three) times a day 03/23/20 24 Active Additional Information Patient not taking.Reported on 03/05/2025 diazePAM (VALIUM) 5 mg tablet 0 04/08/20 24 Active fluticasone propion-salmete roL (ADVAIR DISKUS) 500-50 mcg/dose diskus inhaler 03/08/20 24 Active Gemtesa 75 mg tablet Take 75 mg by mouth daily 04/18/20 24 Active loperamide (IMODIUM A-D) 2 mg tablet Take 1 tablet (2 mg total) by mouth 3 (three) times a day as needed for diarrhea Active furosemide (LASIX) 40 mg tablet Take 1 tablet (40 mg total) by mouth daily Active lidocaine HCL-menthoL 4-1 % adhesive patch,medicated Apply 1 patch topically daily Active potassium chloride ER 20 mEq CR tablet 08/18/19 25 Active traMADoL (ULTRAM) 50 mg tablet 08/22/19 25 Active urea (CARMOL) 40 % creamIndication s:Hyperkeratosi s Apply topically daily 85 g 1 09/07/19 25 Active apixaban (Eliquis) 5 mg tabletIndicatio ns:atrial fibrillation Take 1 tablet (5 mg total) by mouth 2 (two) times a day 180 tablet 3 03/12/20 25 Active levothyroxine (SYNTHROID) 100 mcg tablet TAKE 1 TABLET BY MOUTH FURNITURE DECALS INSPECTOR BEFORE BREAKFAST 90 tablet 3 03/20/20 25 Active tirzepatide (MOUNJARO) 5 mg/0.5 mL pen injector injection Inject 0.5 mL (5 mg total) under the skin once a week 2 mL 1 03/26/20 25 Active levothyroxine (SYNTHROID) 100 mcg tablet Take 1 tablet (100 mcg total) by mouth lead sales consultant before breakfast 90 tablet 3 10/11/19 24 2024 Discontinued apixaban (Eliquis) 2.5 mg tablet Take 1 tablet (2.5 mg total) by mouth 2 (two) times a day Please start Eliquis 2.5mg twice daily starting on 11/[address] Quinteros. You may resume your normal home dose of Eliquis 5mg twice daily one week post operatively 14 tablet 11/26/19 24 2024 Discontinued(R eorder) tirzepatide (Mounjaro) 2.5 mg/0.5 mL pen injector injectionIndica tions:Type 2 diabetes mellitus without complication, without long-term current use of insulin (HCC) ADMINISTER 2.5 MG UNDER THE SKIN EVERY 7 DAYS 2 mL 5 10/13/19 25 2024 Discontinued(A lternate therapy) apixaban (Eliquis) 5 mg tablet Take 0.5 tablets (2.5 mg total) by mouth 2 (two) times a day 180 tablet 3 03/07/20 25 2024 Discontinued(R eorder) Active Problems Problem Noted Date Diagnosed Date Hammertoe of right foot 03/21/2025 terminologist current use of amiodarone 03/05/2025 Failed total knee arthroplasty, 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/21/2024 Chronic pain of right knee 11/21/2024 Hyponatremia 03/21/2024 Assessment & Plan (03/23/2024 9:02 AM RAIL SETTER): - Na 129 (132) - 03/21: 500ml NS bolus - Repeat Na 128->124->131->132 - FWR to 1 L - Salt tabs TID->BID - Urine electrolytes - Continue salt tabs x 1 week, recheck BMP at [facility] UTI (urinary tract infection) 03/20/2024 Assessment & Plan (03/22/2024 2:06 PM RAIL SETTER): - + symptoms on admission (burning with urination) - Culture + Morganella morganii - Ceftriaxone started 03/18-03/21 - Susceptible to ceftriaxone, No further treatment needed - Discussed patient's case with the antibiotic stewardship team - Symptoms resolved Syncope 03/20/2024 Assessment & Plan (07/13/2024 12:12 PM RAIL SETTER): Orthostatic in the past. Change metoprolol to evening Compression stockings, abdominal binder and holter to rule out arrythmia or pauses. Assessment & Plan (03/21/2024 1:12 PM RAIL SETTER): - Extensive history of syncopal events - [...] 03/20/2024 Assessment & Plan (03/23/2024 10:25 AM RAIL SETTER): - 03/20: DC martina, anticipate dc 03/21 [...] 03/18/2024 Assessment & Plan (03/21/2024 9:43 AM RAIL SETTER): - Ortho consult - OR 03/19 for L [employer]VENT[facility] SPECIALIST - WBAT with PHP - PT/OT, pain [...] 05/25/2018 Assessment & Plan (03/21/2024 6:37 AM RAIL SETTER): - Pt will return to SNF at discharge Asthma 05/25/2018 Type 2 diabetes mellitus 05/25/2018 Assessment & Plan (03/20/2024 1:33 PM RAIL SETTER): - Insulin sensitive correction scale - María QID Osteoarthritis of right shoulder 04/12/2018 Overview (04/12/2018): Added automatically from request for surgery [id number] Encounter for monitoring amiodarone therapy 05/2017 Chronic renal failure, stage 2 (mild) 08/23/2017 Renal osteodystrophy 08/23/2017 Aortic root dilatation 06/09/2017 Edema of lower extremity 03/15/2017 Hypertension 09/02/2016 Assessment & Plan (03/05/2025 2:52 PM CDT): Blood pressure well controlled. Still has occasional dizziness/lightheadedness with quick positional changes that has improved with coming off furosemide and other antihypertensives. Continue metoprolol XL 12.5 mg daily. Advised to try compression stockings for orthostasis. If orthostasis worsens then may need to consider stopping metoprolol XL. Hypertension 09/02/2016 History of cardiomyopathy 12/04/2015 Assessment & Plan (03/05/2025 2:54 PM CDT): Heart failure with improved ejection fraction. Suspected to be tachycardia induced. LVEF of 55% on echocardiogram from 01/19/2024. Euvolemic upon examination. Continue metoprolol XL 12.5 mg daily. As needed Lasix. Has been intolerant to GDMT due to orthostatic hypotension. Assessment & Plan (07/13/2024 12:11 PM RAIL SETTER): HFimpEF. Tachy induced. LVEF 55% 01/2024. Unfortunately he has not tolerated much GDMT. He is only on low dose metoprolol at this time. Dr. Hill in 6 months. Hyperkalemia 07/30/2015 Morbid obesity 07/29/2015 Obstructive sleep apnea syndrome 07/29/2015 Chronic systolic heart failure 05/26/2015 Atrial fibrillation 05/20/2015 Assessment & Plan (03/05/2025 2:55 PM CDT): Paroxysmal atrial fibrillation on amiodarone and beta-edgardo therapy. Wore a Holter monitor in August of this year with no atrial fibrillation. ECG today checked given long-term amiodarone use and noted patient to be in rate controlled atrial fibrillation. Continue amiodarone and metoprolol XL 12.5 mg daily. Continue Eliquis 2.5 mg b.i.d.. Denies any abnormal bleeding issues. Will repeat 3 day event monitor to assess AFib burden. In light of long-term amiodarone use: Annual EKG completed today. We will repeat chest x-ray today. TSH checked on 06/20/2024. Liver enzymes checked on 06/20/2024. Skin exam PRN. Assessment & Plan (07/13/2024 12:09 PM RAIL SETTER): Stable. Denies reoccurrence. Change metoprolol to 12.5mg xl at night and continue amio and Eliquis. Encounter for preventive health examination 04/16 #afib 04/22/2015 Overview (08/20/2016): Atrial fibrillation, controlled Assessment & Plan (03/23/2024 9:00 AM RAIL SETTER): - Held eliquis for OR - Okay to resume per ortho - Continued DVT ppx while terry-op - Continued eliquis at discharge [facility] current use of anticoagulant therapy 1 06/23/2014 Overview (08/20/2016): Chronic anticoagulation #CHF 04/22/2015 Overview (08/20/2016): Congestive heart failure with left ventricular dysfunction Assessment & Plan (03/20/2024 1:31 PM RAIL SETTER): Cont metop, amiodarone 01/18/24 EF 55%. LV mildly dilated with low normal systolic function, reduced from prior LUCIO on CPAP 08/30/2014 Assessment & Plan (03/20/2024 1:32 PM RAIL SETTER): Continued on hospital unit Mycobacterium avium complex 03/31/2012 Overview (01/19/2023): In sputum Other nonspecific abnormal finding of lung field 03/31/2012 Overview (01/19/2023): Multiple pulmonary nodules Acute postoperative pain Acute pain of right shoulder Status post total replacement of right shoulder Encounters Date Type Department Care Team Description 03/20/2025 9:20 AM RAIL SETTER Office Visit [facility] Medicine Orthopaedic Surgery [address] [place] [phone] Charis Urrutia MD Right foot pain (Primary Dx); Hammer toe of right foot 03/20/2025 9:00 AM RAIL SETTER - 03/20/2025 11:59 PM RAIL SETTER Hospital Encounter [id number] [address] [place] [phone] Right foot pain Discharge Disposition: Discharge to home or self care 03/20/2025 Telephone [facility] Cardiology [address] [facility] Advanced Medicine [address]th [place] [address] [place] [address] Teodoro Hill MD cardiac clearance/holding eliquis 03/12/2025 Orders Only [facility] Cardiology [address] [facility] 8th [place] [address] [place] [address] Teodoro Hill MD 03/07/2025 1:00 PM CDT Clinical Support [facility] Endocrinology Metabolism and Lipid [address] 13th [place] [address] [place] [address] Celena Brambila RN Type 2 diabetes mellitus without complication, without long-term current use of insulin (HCC) (Primary Dx); Corns and callosities 03/05/2025 1:22 PM CDT - 03/05/2025 11:59 PM CDT Hospital Encounter [facility] [address] [place] [address] terminologist current use of amiodarone Discharge Disposition: Discharge to home or self care 03/05/2025 1:00 PM CDT Ancillary Procedure [facility] Cardiology [address] [place] [address] 8th [place] [address] [place] [address] Paroxysmal atrial fibrillation (HCC) 03/05/2025 11:30 AM CDT Office Visit [facility] Cardiology [address] [place] [address] 8th [place] [address] [place] [phone] Haile Webb NP History of cardiomyopathy (Primary Dx); terminologist current use of amiodarone; Paroxysmal atrial fibrillation (HCC); Primary hypertension 03/05/2025 Results Follow-Up [facility] Cardiology [address] [place] [address] 8th [place] [address] [place] [phone] Haile Webb, PRINCE ECG 12 lead, XR Chest Pa Lateral 2 Views, Extended/Correction Holter Patch (>48 hours up to 7 days) 12/26/2024 Telephone [facility] Orthopaedic Surgery [address] [facility] [address] [place] [address] Severiano Quinteros MD Follow-up from Last 3 Months Immunizations Immunization Administration Dates Next Due Influenza, Quadrivalent, Hig [...] (Added by TW Conv) Congestive heart failure (CHF) (HCC) 2014 Weakness Glaucoma Cataract Mycobacterium avium complex 2012 - 2014 Anemia 1976 Psychiatric disorder [...] on file Legal Sex Male 12:33 PM RAIL SETTER Gender Identity Male 01/21/2018 1:29 PM CDT Sexual Orientation Straight 01/09/2021 6: 25 AM CDT Last Filed Vital Signs Vital Sign Reading Time Taken Comments Blood Pressure 107/68 03/05/2025 11:42 AM CDT Pulse 72 03/05/2025 11:42 AM CDT Temperature 36.1 C (97 F) 08/22/2024 10:40 AM CDT Respiratory Rate 14 08/30/2024 1:58 PM CDT Oxygen Saturation 99% 03/05/2025 11:42 AM CDT Inhaled Oxygen Concentration - - Weight 117.9 kg (260 lb) 03/20/2025 9:22 AM RAIL SETTER Height 180.3 cm (5' 11) 03/20/2025 9:22 AM RAIL SETTER Body Mass Index 36.26 03/20/2025 9:22 AM RAIL SETTER Plan of Treatment Upcoming Encounters Date Type Department Care Team (Latest Contact Info) Description 06/19/2025 7:15 AM RAIL SETTER Hospital Encounter [facility] [address] [address] Charis Urrutia MD [address] [place] [address] 06/19/2025 7:15 AM RAIL SETTER - 06/19/2025 8:30 AM RAIL SETTER Surgery [facility] [address] [address] [address] Charis Urrutia MD [address] [address] Right second and third hammertoe correction with screws Scheduled Procedures Name Priority Associated Diagnoses Date/Ti me CORRECTION LESSER TOE DEFORMITY Hammertoe of right foot 06/19/2025 7:15 AM RAIL SETTER Health Maintenance Due Date Last Done Comments Depression Screening 1945 Hepatitis C Screening 1945 Hepatitis B Screening 10/27/1965 Abdominal Aortic Aneurysm (A AA) Screen 10/27/2012 Well Visit 65+ 10/27/2012 Albumin Creatinine Ratio, Urine 07/13/2023 07/13/2022, 06/27/2021, 01/11/2020, Additional history exists Lipid Panel 01/11/2025 01/12/2024, 06/17, 01/11/2020, Additional history exists Influenza Vaccine (#1) 2025 , 01/27/2021, 01/20/2020, Additional history exists Fall Risk Assessment 03/23/2025 03/23/2024 Hemoglobin A1C 05/24/2025 11/21/2024, 08/2024, 01/27/2024, Additional history exists eGFR 06/20/2025 06/20/2024, 10/2023, 03/22/2024, Additional history exists Foot Exam 08/22/2025 08/22/2024, 06/20/2024 Dilated Eye Exam 09/29/2025 09/29/2024 DTaP/Tdap/Td Vaccine (6 - Td or Tdap) 01/21/2032 01/20/2022, 01/15/2022, 10/23/2020, Additional history exists Pneumococcal vaccine 65+ Completed 07/19/2014, 10/2013 Zoster Vaccine Completed 09/06/2020, 05/17, 05/03/2017 Goals Goal Patient Goal Type Associated Problems Recent Progress Patient-Stated? Author Autogenerat ed Goal Care Plan Autogenerated Problem No Elyssa Bradley, ZAID Medical Devices Implanted Type Area Door Fitter Device Identifier Shelf Expiration Date Model / Serial / Lot [employer] Simplex P Radiopaque Full Dose Cement Bone Sterile 6191-1-010 - S0 - [id number] Implanted:Qty: 1 on 03/19/2024 by Boy Stevens MD PhD at [facility] Bone Cement Left: Hip [employer] 03/16/2025 6191-1-010 / 0 / [id number] [employer] Simplex P Radiopaque Full Dose Cement Bone Sterile 6191-1-010 - S0 - [id number] Implanted:Qty: 1 on 03/19/2024 by Boy Stevens MD PhD at [facility] Bone Cement Left: Hip [employer] 03/16/2025 6191-1-010 / 0 / [id number] Knee Tib Ins Tri Sz7 13mm [id number] Implanted:Qty: 1 on 11/24/2023 at [facility] Other - see comments Left: Knee Katharine 01/03/2028 3245-H-093-E / / [id number] [employer] Versys Heritage 15mm 140mm Primary Cement Proximal Centralizer [id number] - S0 - [id number] Implanted:Qty: 1 on 03/19/2024 by Boy Stevens MD PhD at [facility] Other - see comments Left: Hip [employer] [id number] 06/28/2032 [id number] / 0 / [id number] [employer] Versys 13mm Cemented Hip Distal Centralizer Stem Pmma Sterile [id number] - S0 - [id number] Implanted:Qty: 1 on 03/19/2024 by Boy Stevens MD PhD at [facility] Other - see comments Left: Hip [employer] [id number] 12/23/2027 [id number] / 0 / [id number] [employer] Ringloc Bio-Esparza Ii 54mm 28mm 2 Articulate Surface Lock 993228 - S0 - [id number] Implanted:Qty: 1 on 03/19/2024 by Boy Stevens MD PhD at [facility] Other - see comments Left: Hip [employer] [id number] 04/27/2027232 0 / [id number] [employer] Trilogy It Continuum 28mm Hip Acetabulum +3.5mm 04/29 Large Head [id number] - S0 - [id number] Implanted:Qty: 1 on 03/19/2024 by Boy Stevens MD PhD at [facility] Other - see comments Left: Hip [employer] [id number] 1 03/23/2032 [id number] / 0 / [id number] [employer]hew[employer]Richco/ Ortho Prep-Im Plug Lenox Sponge Suction Hip Kit Thr Latex Free 315845 - S0 - [id number] Implanted:Qty: 1 on 03/19/2024 by Boy Stevens MD PhD at [facility] Other - see comments Left: Hip [employer] /Ortho [id number] 07/08/2033 [id number] / [id number] Description:Cement restricto r in kit [employer] 6191-1-010 Simplex P Radiopaque Full Dose Cement Bone Sterile - [id number] Implanted:Qty: 1 on 05/25/2018 by Kevin Duron MD at [facility] Right: Shoulder [employer] [id number] 6191-1-010 / / Depuy Orthopaedics Inc [id number] Global Ap 52mm Mazama Glenoid Peg Fixation Premieron - [id number] Implanted:Qty: 1 on 05/25/2018 by Kevin Duron MD at [facility] Right: Shoulder Depuy Orthopaed[employer] Inc [id number] / / Depuy Synthes Sales Inc [id number] Global Unite 10mm Shoulder 135d Body Humeral Porocoat Sterile - [id number] Implanted:Qty: 1 on 05/25/2018 by Kevin Duron MD at [facility] Right: Shoulder Depuy S[employer] Inc [id number] / / Depuy Orthopaedics Inc [id number] Global Unite 10mm 113mm Modular Shoulder Standard Stem Humeral - [id number] Implanted:Qty: 1 on 05/25/2018 by Kevin Duron MD at [facility] Right: Shoulder Depuy Orthopaedics Inc [id number] / / Depuy Orthopaedics Inc [id number] Global Unite 52mm 18mm Modular Eccentric Shoulder Head Humeral - [id number] Implanted:Qty: 1 on 05/25/2018 by Kevin Duron MD at [facility] Right: Shoulder Depuy Orthopaedics Inc [id number] / / Katharine [employer]ics Triathlon Tritanium Knee 7 Baseplate Tibial 5536-B-700 - [id number] Implanted:Qty: 1 on 11/24/2023 at [facility] Left: Knee [employer] 05/13/2028 5536-B-700 / / [id number] Katharine [employer] Triathlon Cruciate Retain Bead Knee Left 6 Component Femoral Pa 5517-F-601 - [id number] Implanted:Qty: 1 on 11/24/2023 at [facility] Left: Knee [employer] 08/24/2028 5517-F-601 / / [id number] Procedures Procedure Name Priority Date/Time Associated Diagnosis Comments XR FOOT RIGHT 3 OR MORE VIEWS Schedule Routine, Read Routine (OP Routine) 03/20/2025 9:14 AM RAIL SETTER Right foot pain XR CHEST PA LATERAL 2 VIEWS Schedule Routine, Read Routine (OP Routine) 03/05/2025 1:31 PM CDT terminologist current use of amiodarone EXTENDED/CORRECTION HOLTER PATCH (>48 HOURS UP TO 7 DAYS) Routine 03/05/2025 1:27 PM CDT Paroxysmal atrial fibrillation (HCC) ECG 12-LEAD Routine 03/05/2025 12:29 PM CDT terminologist current use of amiodarone POCT HEMOGLOBIN A1C Routine 11/21/2024 9:33 AM CDT Type 2 diabetes mellitus without complication, without long-term current use of insulin (HCC) DIABETIC EYE EXAM Routine 09/29/2024 1:0 6 PM CDT EGFR Routine 06/20/2024 11:46 AM RAIL SETTER Type 2 diabetes mellitus without complication, without long-term current use of insulin (HCC) Hyponatremia LIPID PANEL Routine 01/12/2024 10:51 AM CDT Type 2 diabetes mellitus without complication, without long-term current use of insulin (HCC) Hypertension, unspecified type ALBUMIN CREATININE RATIO, URINE Routine 07/13/2022 8:12 AM RAIL SETTER Medication course changed Chronic kidney disease, unspecified CKD stage from Last 3 Months or Most Recently Relevant to Health Maintenance Results * XR Foot Right 3 or More Views (03/20/2025 9:14 AM RAIL SETTER) Anatomical Region Laterality Modality Lower Extremities, Foot Right Computed Radiography 03/20/2025 10:0 4 AM RAIL SETTER Impressions 03/20/2025 12:38 PM RAIL SETTER Great toe interphalangeal joint arthrodesis with intact screw and osseous fusion of 2nd and 3rd toe proximal interphalangeal joint. Dictated by: Phan Jang M.D. The radiology attending physician has personally reviewed this study, and had reviewed and/or edited this written report and agrees with it. Electronically signed by: Ted Snow MD [facility] 03/20/2025 12:38 PM RAIL SETTER EXAMINATION: XR FOOT RIGHT 3 OR MORE VIEWS HISTORY: Right Foot Pain COMPARISON: No prior relevant examinations are available for comparison. FINDINGS: 3 views of the right foot were submitted for interpretation. Postsurgical changes of great toe interphalangeal joint arthrodesis with intact screw. There is osseous fusion of 2nd toe proximal interphalangeal joint and possible osseous fusion of the 3rd proximal interphalangeal joint. Mild great toe metatarsophalangeal joint and midfoot osteoarthritis. Distal Achilles tendon enthesophyte present with calcifications in the Achilles tendon can represent calcific tendinopathy. Mild pes planus. Vascular calcifications present. No acute fracture or dislocation. Procedure Note Ted Snow MD - 03/20/2025 EXAMINATION: XR FOOT RIGHT 3 OR MORE VIEWS HISTORY: Right Foot Pain COMPARISON: No prior relevant examinations are available for comparison. FINDINGS: 3 views of the right foot were submitted for interpretation. Postsurgical changes of great toe interphalangeal joint arthrodesis with intact screw. There is osseous fusion of 2nd toe proximal interphalangeal joint and possible osseous fusion of the 3rd proximal interphalangeal joint. Mild great toe metatarsophalangeal joint and midfoot osteoarthritis. Distal Achilles tendon enthesophyte present with calcifications in the Achilles tendon can represent calcific tendinopathy. Mild pes planus. Vascular calcifications present. No acute fracture or dislocation. IMPRESSION: Great toe interphalangeal joint arthrodesis with intact screw and osseous fusion of 2nd and 3rd toe proximal interphalangeal joint. Dictated by: Phan Jang M.D. The radiology attending physician has personally reviewed this study, and had reviewed and/or edited this written report and agrees with it. Electronically signed by: Ted Snow MD Charis Urrutia MD IMG XR PROCEDURES Final Re sult * XR Chest Pa Lateral 2 Views (03/05/2025 1:31 PM CDT) Anatomical Region Laterality Modality Body, Chest N/A Computed Radiogr aphy 03/05/2025 2:15 PM CDT Impressions 03/05/2025 2:20 PM CDT The current study is compared with the prior radiograph dated 03/18/2024. Bilateral total shoulder arthroplasties present. Electronic device projected over the left anterior chest wall and is exterior to the patient. Stable cardiomediastinal silhouette. No focal pulmonary consolidation. No pleural effusion or pneumothorax. Dictated by: Quin Varela M.D. The radiology attending physician has personally reviewed this study, and had reviewed and/or edited this written report and agrees with it. Electronically signed by: Eddie Graham M.D. Narrative 03/05/2025 2:20 PM CDT EXAMINATION: 2 view chest radiograph Procedure Note Eddie Graham MD - 03/05/2025 EXAMINATION: 2 view chest radiograph IMPRESSION: The current study is compared with the prior radiograph dated 03/18/2024. Bilateral total shoulder arthroplasties present. Electronic device projected over the left anterior chest wall and is exterior to the patient. Stable cardiomediastinal silhouette. No focal pulmonary consolidation. No pleural effusion or pneumothorax. Dictated by: Quin Varela M.D. The radiology attending physician has personally reviewed this study, and had reviewed and/or edited this written report and agrees with it. Electronically signed by: Eddie Graham M.D. us Haile Webb NP IMG XR PROCEDURES Final Result * Extended/Correction Holter Patch (>48 hours up to 7 days) (03/05/2025 1:27 PM CDT) Anatomical Region Laterality Modality Electrocardiogra phy 03/05/2025 1:12 PM CDT Narrative 03/16/2025 2:40 PM CDT [facility] Cardiac [place] [address] HOLTER MONITOR Patient Name: FRED JEWELL E : 1945 (79y 4m) Sex: M Study Date: 03/05/2025 01:12:43 PM Ht(Inch): Wt(Lb): BSA: Tech: Location: [facility] Order Provider: HAILE WEBB BMI: Ref Provider: HAILE WEBB PROCEDURES: Holter Report: EXTENDED/CORRECTION HOLTER PATCH (>48 HOURS UP TO 7 DAYS) [[id number]]. Enrollment Period: 2025-03-05 00:00:00 through 2025-03-08 00:00:00. Location: [facility]. INDICATIONS: I48.0 Paroxysmal atrial fibrillation. FINDINGS: Holter Data: Min Rate: 44 BPM Min Rate Timestamp: 2025-03-08 06:15:15 Bradycardia (% of study): 42 Max Rate: 95 BPM Max Rate Timestamp: 2025-03-07 10:42:43 Tachycardia (% of study): 0 Mean Rate: 61 BPM AFib (% of study): 45.7 Singlets (PACs): 174 events Couplets (PACs): 1 events Total (PACs): 176 events Singlets (PVCs): 1120 events Couplets (PVCs): 2 events Total (VE): 1124 events Runs (VT): 0 events Total beats: 145150 SIGNIFICANT PAUSES: 0 >3 sec Protocol: Recording Duration (Ordered): [id number] Recording Duration (Actual): 029923.39 SUMMARY: *The predominant rhythm was Sinus. *The Maximum Heart Rate recorded was 95 bpm, 03/07 10:42:43, the Minimum Heart Rate recorded was 44 bpm, 03/08 06:15:15, and the Average Heart Rate was 61 bpm. *There were 1,124 VE beats with a burden of <1 %. *There were 176 SVE beats with a burden of <1 %. *The study included an Atrial Fibrillation/Flutter [place] of 46 % with 0 % in RVR and 7 % in SVR. The longest episode was 13h 49m 7.5s, 03/07 07:49:36, and the Fastest episode was 95 bpm, 03/07 07:49:36. *There were 2 Patient Triggers.;. P-waves are not well seen. AT slow heart rates cannot rule out junctional (regular) rhythm vs sinus victor hugo with very small P-waves. CONCLUSIONS: 1. *The predominant rhythm was Sinus. *The Maximum Heart Rate recorded was 95 bpm, 03/07 10:42:43, the Minimum Heart Rate recorded was 44 bpm, 03/08 06:15:15, and the Average Heart Rate was 61 bpm. *There were 1,124 VE beats with a burden of <1 %. *There were 176 SVE beats with a burden of <1 %. *The study included an Atrial Fibrillation/Flutter [place] of 46 % with 0 % in RVR and 7 % in SVR. The longest episode was 13h 49m 7.5s, 03/07 07:49:36, and the Fastest episode was 95 bpm, 03/07 07:49:36. *There were 2 Patient Triggers.; P-waves are not well seen. AT slow heart rates cannot rule out junctional (regular) rhythm vs sinus victor hugo with very small P-waves. 2. I have reviewed the PDF and all the ECG strips. I agree with the interpretations as detailed in the report 3. The PDF can be found in the Epic Patient chart. Please go to the Cardiology tab, click on the holter or event exam. Scroll to bottom where the ORDER LEVEL Documents reside and click the blue link to the pdf. Electronically Signed By: Buddy Chapin Jr., M.D. 03/16/2025 2:39:27 PM CDT Procedure Note Buddy Chapin MD PhD - 03/16/2025 [facility] Cardiac [place] [address] [place] [address] HOLTER MONITOR Patient Name: FRED JEWELL E : 1945 (79y 4m) Sex: M Study Date: 03/05/2025 01:12:43 PM Ht(Inch): Wt(Lb): BSA: Tech: Location: [facility] Order Provider: HAILE WEBB BMI: Ref Provider: HAILE WEBB PROCEDURES: Holter Report: EXTENDED/CORRECTION HOLTER PATCH (>48 HOURS UP TO 7 DAYS)[[id number]]. Enrollment Period: 2025-03-05 00:00:00 through 2025-03-08 00:00:00. Location: [facility]. INDICATIONS: I48.0 Paroxysmal atrial fibrillation. FINDINGS: Holter Data: Min Rate: 44 BPM Min Rate Timestamp: 2025-03-08 06:15:15 Bradycardia (% of study): 42 Max Rate: 95 BPM Max Rate Timestamp: 2025-03-07 10:42:43 Tachycardia (% of study): 0 Mean Rate: 61 BPM AFib (% of study): 45.7 Singlets (PACs): 174 events Couplets (PACs): 1 events Total (PACs): 176 events Singlets (PVCs): 1120 events Couplets (PVCs): 2 events Total (VE): 1124 events Runs (VT): 0 events Total beats: 238173 SIGNIFICANT PAUSES: 0 >3 sec Protocol: Recording Duration (Ordered): [id number] Recording Duration (Actual): 337579.39 SUMMARY: *The predominant rhythm was Sinus. *The Maximum Heart Raterecorded was 95 bpm, 03/07 10:42:43, the Minimum Heart Rate recorded was 44 bpm, 02/2306:15:15, and the Average Heart Rate was 61 bpm. *There were 1,124 VE beats with a burden of<1 %. *There were 176 SVE beats with a burden of <1 %. *The study included an Atrial Fibrillation/Flutter [place] of 46 % with 0 % in RVR and 7 % in SVR. Thelongest episode was 13h 49m 7.5s, 03/07 07:49:36, and the Fastest episode was 95 bpm,03/07 07:49:36. *There were 2 Patient Triggers.;. P-waves are not well seen. AT slow heartrates cannot rule out junctional (regular) rhythm vs sinus victor hugo with very smallP-waves. CONCLUSIONS: 1. *The predominant rhythm was Sinus. *The Maximum Heart Rate recorded was95 bpm, 03/07 10:42:43, the Minimum Heart Rate recorded was 44 bpm, 03/08 06:15:15, andthe Average Heart Rate was 61 bpm. *There were 1,124 VE beats with a burden of <1 %.*There were 176 SVE beats with a burden of <1 %. *The study included an AtrialFibrillation/Flutter [place] of 46 % with 0 % in RVR and 7 % in SVR. The longest episode was 13h49m 7.5s, 03/07 07:49:36, and the Fastest episode was 95 bpm, 03/07 07:49:36. *Therewere 2 Patient Triggers.; P-waves are not well seen. AT slow heart rates cannot rule outjunctional (regular) rhythm vs sinus victor hugo with very small P-waves. 2. I have reviewed the PDF and all the ECG strips. I agree with theinterpretations as detailed in the report 3. The PDF can be found in the Epic Patient chart. Please go to theCardiology tab, click on the holter or event exam. Scroll to bottom where the ORDER LEVELDocuments reside and click the blue link to the pdf. Electronically Signed By: Buddy Chapin Jr., M.D. 03/16/2025 2:39:27 PM CDT Haile Webb NP CV CARDIAC SERVICES PROC EDURES Final Result * ECG 12 lead (03/05/2025 12:29 PM CDT) Haile Webb CONSTRUCTION PLANT OPERATOR ECG ORDERABLES Final Re sult * POCT hemoglobin A1c (11/21/2024 9:33 AM CDT) Hemoglobin A1C, POC 5.1 4.0 - 5.6 % Blood 11/21/2024 9:33 AM CDT Eliud Cortez MD POINT OF CARE TEST ORDERABLES F inal Result * Diabetic Eye Exam (09/29/2024 1:06 PM CDT) Fermin Smallwood MD HEALTH MAINTENANCE Final Result * (ABNORMAL) eGFR (06/20/2024 11:46 AM RAIL SETTER) eGFR 56(L) >=60 mL/min/1. 73 m2 Comment: [...] reviewed 2021. Blood 06/20/2024 11:4 6 AM RAIL SETTER 06/20/2024 9:14 PM RAIL SETTER Eliud Cortez MD LAB BLOOD ORDERABLES Final Resu lt [place] [address] Department [place] [address] * Lipid panel (01/12/2024 10:51 AM CDT) [...] AM CDT 01/12/2024 11:10 AM CDT Narrative [facility] - 01/12/2024 3:07 PM CDT Current interpretive data was last updated April 18, 2021. For adults ages 40-79, the ACC/AHA recommends discussing your 10-year atherosclerotic cardiovascular disease risk with your health care provider. https://www.acc.org/ASCVDApp us Teodoro Hill MD LAB BLOOD ORDERABLES Final Re sult [facility] * Albumin Creatinine Ratio, Urine (07/13/2022 8:12 AM RAIL SETTER) Creatinine ur 199.2 Not Estab. mg/dL [facility] - 01 Microalbumin, ur 9.1 Not Estab. ug/mL [facility] - 01 Microalbumin/cre at ratio 5 0 - 29 mg/g creat [facility] - 01 Comment: Normal: 0 - 29 Moderately increased: 30 - 300 Severely increased: >300 Urine 07/13/2022 8:12 AM RAIL SETTER 07/13/2022 Narrative [facility] - 07/14/2022 10:11 AM RAIL SETTER Performed at: [facility] [id number] Facilities Engineering Manager: Zoran Moody PhD, Phone: [phone] us Teodoro Hill MD LAB URINE ORDERABLES Final Re sult [facility] - 01 from Last 3 Months or Most Recently Relevant to Health Maintenance Additional Health Concerns Active Problems Noted Date Diagnosed Date Autogenerated Problem 03/22/2025 Insurance IDPA [facility] MEDICARE [facility] Address: [address] [address] [place] [address] [facility] MEDICARE [facility] Address: [address] [address] [place] [address] MEDICARE IDAL [facility] MEDICARE [facility] Address: [address] [address] [place] [address] Advance Directives For more information, please contact: [phone] Documents on File Type Date Recorded Patient Supervisor Drawing Expl anation ADVANCE DIRECTIVE 11/22/2023 8:03 AM POWER OF FAMILY MANAGER-MEDICAL * Full Code (Latest Code Status on File) Date Activated Date Inactivated Comments 03/18/2024 9:16 PM 03/23/2024 4:01 PM * Full Code Date Activated Date Inactivated Comments 11/24/2023 6:03 PM 11/25/2023 4:31 PM * Full Code Date Activated Date Inactivated Comments 05/25/2018 2:28 PM 05/26/2018 5:17 PM Care Teams Supervisor Wrapping Room Relationship Specialty Start Date End Date Ramone Hemphill MD PCP - General 03/11/07 Eliud Cortez MD [address] [facility] [address] [place] [address] Fellow Endocrinology Diabetes & Metabolism 09/05/24
--- OUTSIDE RECORDS SUMMARY | 2025-03-28 10:40 | XMS_ITS | Encounter Summary ---
Author Organization [facility] Address [address] [place] [address] Phone Care Team Providers Care Test Manager Name Role Phone Ramone Hemphill MD Primary Care Provider [phone] Eliud Cortez MD Unavailable [phone] Encounter Details Date Type Department Care Team (Late st Contact Info) Description 03/05/2025 Results Follow-Up [facility] Medicine Cardiology [address] [facility] Advanced Medicine 8th [place] [address] [place] [address] Haile Ramirez, PRINCE [address] [facility] [address] [place] [address] ECG 12 lead, XR Chest Pa Lateral 2 Views, Extended/Fdc Holter Patch (>48 hours up to 7 days) Social History Tobacco Use Types Packs/Day Years [...] on file 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 Gender Identity Male 01/21/2018 1:29 PM CDT Sexual Orientation Straight 01/09/2021 6: 25 AM CDT documented as of this encounter Functional Status documented as of this encounter Plan of Treatment Upcoming Encounters Date Type Department Care Team (Latest Contact Info) Description 06/19/2025 7:15 AM MOTORCYCLE REPAIRER Hospital Encounter [facility] Operating Room [address] [place] [address] Charis Urrutia MD [address] [facility] [address] [place] [address] 06/19/2025 7:15 AM MOTORCYCLE REPAIRER - 06/19/2025 8:30 AM MOTORCYCLE REPAIRER Surgery [facility] Operating Room [address] [place] [address] Charis Urrutia MD [address] [facility] [address] [place] [address] Right second and third hammertoe correction with screws Scheduled Procedures Name Priority Associated Diagnoses Date/Ti me CORRECTION LESSER TOE DEFORMITY Hammertoe of right foot 06/19/2025 7:15 AM MOTORCYCLE REPAIRER documented as of this encounter Visit Diagnoses Not on filedocumented in this encounter Care Teams Test Manager Relationship Specialty Start Date End Date Ramone Hemphill MD PCP - General 03/11/07 Eliud Cortez MD [address] [facility] [address] [place] [address] Fellow Endocrinology Diabetes & Metabolism 09/05/24 documented as of this encounter
--- OUTSIDE RECORDS SUMMARY | 2025-03-28 10:40 | XMS_ITS | Encounter Summary ---
Author Organization [facility] Address [address] [place] [address] Phone Care Team Providers Care Adjunct Instructor Name Role Phone Ramone Hemphill MD Primary Care Provider [phone] Eliud Cortez MD Unavailable [phone] Encounter Details Date Type Department Care Team (Late st Contact Info) Description 08/23/[address] 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 Spoke with ZAID Melgoza to relay recommendations of reduced furosemide dosing. They will reduce furosemide from 40mg once daily to 20mg once daily. * Telephone Encounter - Teodoro Hill MD - 08/24/2024 10:44 AM CDT This showed frequent extra beats from the upper chambers of the heart and short runs of SVT up to 8beats long, but nothing that would have explained him passing out. Is he having LH on standing? Low bps? * Telephone Encounter - Kimi Fernández RN - 08/23/2024 11:[address] Hill, it looks like Celena MORRISON ordered a heart monitor and sent you a result note about it yesterday. Please review. documented in this encounter Plan of Treatment Upcoming Encounters Date Type Department Care Team (Latest Contact Info) Description 06/19/2025 7:15 AM HOOK PULLER Hospital Encounter [facility] Operating Room [address] [place] [address] Charis Urrutia MD [address] [place], [place] [id number] 06/19/2025 7:15 AM HOOK PULLER - 06/19/2025 8:30 AM HOOK PULLER Surgery [facility] Operating Room [address] [place] [address] Charis Urrutia MD [address] [place] [address] Right second and third hammertoe correction with screws Scheduled Procedures Name Priority Associated Diagnoses Date/Ti me CORRECTION LESSER TOE DEFORMITY Hammertoe of right foot 06/19/2025 7:15 AM HOOK PULLER documented as of this encounter Visit Diagnoses Not on filedocumented in this encounter Care Teams Adjunct Instructor Relationship Specialty Start Date End Date Ramone Hemphill MD PCP - General 03/11/07 Eliud Cortez MD [address] [facility] [address] [place] [address] Fellow Endocrinology Diabetes & Metabolism 09/05/24 documented as of this encounter
--- OUTSIDE RECORDS SUMMARY | 2025-03-28 10:40 | XMS_ITS | Clinical Summary ---
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 Gender Identity Not on file Sexual Orientation Not on file Last Filed Vital Signs Vital Sign Reading Time Taken Comments Blood Pressure 108/82 04/09/2015 2:03 PM ENGRAVER MACHINE Pulse 111 04/09/2015 2:03 PM ENGRAVER MACHINE Temperature - - Respiratory Rate 22 04/09/2015 2:03 PM ENGRAVER MACHINE Oxygen Saturation 97% 04/09/2015 2:03 PM ENGRAVER MACHINE RA Inhaled Oxygen Concentration - - Weight 137.7 kg (303 lb 9.3 oz) 04/09/2015 2:03 PM ENGRAVER MACHINE Height 185.4 cm (6' 1) 04/09/2015 2:03 PM ENGRAVER MACHINE Body Mass Index 40.05 04/09/2015 2:03 PM ENGRAVER MACHINE Plan of Treatment Health Maintenance Due Date Last Done Comments DTAP/TDAP/TD VACCINES (1 - Tdap) 10/27/1966 PNEUMOCOCCAL VACCINE 50+ YEA RS (1 of 1 - PCV) 10/27/1997 ZOSTER VACCINE (1 of 2) 10/27/1997 RSV VACCINE (60+ or ) (1 - 1-dose 75+ series) 10/27/2022 INFLUENZA VACCINE (#1) 2024 01/15/2015, 2013 Insurance Care Teams Olericulturist Relationship Specialty Start Date End Date Ramone Hemphill MD PCP - General Family Practice 12/24/11
== END 2025-03-28 09:39 | disposition home or self-care (01) ==
LOC: ANHSURGERY 09:44
PROVIDERS: Anesthesiology; PCP Family Medicine; Visit Provider Urology
DX: N18.9 Chronic kidney disease, unspecified (principal); N47.1 Phimosis; Z01.818 Encounter for other preprocedural examination
CPT/HCPCS: 36415; 85610; 85730; 87077; 87086; 87186

== ENCOUNTER 2025-04-04 00:36 | Day surgery (SDC) | payer MEDICARE, MEDICAID, SELFPAY ==
[2025-03-28 08:23] VITALS: BMI 35.3
--- NOTE | 2025-03-28 08:34 | PC.NURSE ---
[facility] has started construction of its new state of the art ER which will open Spring 2026. With this, we anticipate parking may be a challenge for some our surgical patients and families. Parking spaces are limited but are available for all Surgical, obstetrics, and ER patients sharing this lot. If you arrive and find you are having a hard time finding a parking space, please note that we understand the challenges, please drive around the hospital and park near Hospital Entrance [address]. When you enter this entrance, you can ask a volunteer to direct or take you back to the surgical waiting area to check in. We appreciate everyone?s understanding of these expected challenges while we build for your future. Report to the Outpatient Waiting Room, entrance under the green pavilion located off [address], at time _0745_ on date _29-30-0147_. Planned Procedure Time: _0945_.? Time changes happen often and if your time is changed the preop area will call you the afternoon before. - You and your visitor will be asked to self-screen and do not enter if you have any COVID symptoms. Please call surgeon if you need to reschedule. - A mask is optional within the hospital at this time. Patients may have clear liquids (water, carbonated beverages, clear teas, apple juice) until 3 hours prior to surgery with a maximum of 20 ounces. - No food from midnight until time of surgery and no smoking, or chewing tobacco (or any form of nicotine). No chewing gum, candy or mints. Take only the following medications with a SIP of water on the morning of surgery: __Amiodarone, Levothyroxine, Duloxetine, Fluoxetine, Breo elipta and if needed Acetaminophen. DO NOT STOP ANY OF YOUR OTHER PRESCRIPTION MEDICATIONS PRIOR TO SURGERY EXCEPT THE FOLLOWING Hold all vitamins and supplements for 3 days per anesthesiologist. Medications to discontinue per physician ___Kendrick__Skip this weeks dose on Wednesday.____ Date to take last dose Patient has messaged the office about when to stop Eliquis. Please no make-up, nail urdu, hairspray, perfume, deodorant, or body powder the day of surgery.? No jewelry (including any body piercings) or valuables the day of surgery, leave them at home.? Please take a shower or bath the night before, or the morning of, surgery with an antibacterial soap.? Wear comfortable, loose fitting clothing.? - Jewelry must be removed prior to entering the operating room.? Rings and piercings that are not removed may be cut off. - The hospital will not accept responsibility for valuables.? - Please leave all valuables, including medications, at home the day of surgery. If you are going home after surgery, a licensed services delivery driver must drive you home.? - NO public transportation without another adult if you receive anesthesia. - We recommend that an adult stay with you for 24 hours following discharge. - We also recommend that you do not drive, make important decision, drink alcoholic beverages, or take any drugs that were not prescribed by your health care provider for at least 24 hours after your discharge time. Follow any additional instructions given to you from your surgeon. Telephone instructions given to _Ned__and asked if any additional questions and then verbalized understanding. Patient advised to call surgeon office or pre surgery nurse liaison [phone] if any additional questions.
[2025-04-04] VITALS (10 sets, daily range): BP systolic 109–143; BP diastolic 49–69; PULSE 54–78; RESP 12–14; TEMP 36–36.8; O2SAT 95–100; BMI 34.9
--- OUTSIDE RECORDS SUMMARY | 2025-04-04 05:26 | XMS_ITS | Encounter Summary ---
Author Organization [facility] Address [address] [place] [address] Phone Care Team Providers Care Grapple Crew Leader Name Role Phone Ramone Hemphill MD Primary Care Provider [phone] Eliud Cortez MD Unavailable [phone] Encounter Details Date Type Department Care Team (Late st Contact Info) Description 03/05/2025 Results Follow-Up [facility] Medicine Cardiology [address] [facility] Advanced Medicine 8th [place] [address] [place] [address] Haile Ramirez, PRINCE [address] [facility] [address] [place] [address] ECG 12 lead, XR Chest Pa Lateral 2 Views, Extended/Shelter Holter Patch (>48 hours up to 7 [...] on file Legal Sex Male 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 Gender Identity Male 01/21/2018 1:29 PM CDT Sexual Orientation Straight 01/09/2021 6: 25 AM CDT documented as of this encounter Functional Status documented as of this encounter Plan of Treatment Upcoming Encounters Date Type Department Care Team (Latest Contact Info) Description 06/19/2025 7:15 AM ACCOUNT DEVELOPMENT REPRESENTATIVE Hospital Encounter [facility] Operating Room [address] [place] [address] Charis Urrutia MD [address] [facility] [address] [place] [address] 06/19/2025 7:15 AM ACCOUNT DEVELOPMENT REPRESENTATIVE - 06/19/2025 8:30 AM ACCOUNT DEVELOPMENT REPRESENTATIVE Surgery [facility] Operating Room [address] [place] [address] Charis Urrutia MD [address] [facility] [address] [place] [address] Right second and third hammertoe correction with screws Scheduled Procedures Name Priority Associated Diagnoses Date/Ti me CORRECTION LESSER TOE DEFORMITY Hammertoe of right foot 06/19/2025 7:15 AM ACCOUNT DEVELOPMENT REPRESENTATIVE documented as of this encounter Visit Diagnoses Not on filedocumented in this encounter Care Teams Grapple Crew Leader Relationship Specialty Start Date End Date Ramone Hemphill MD PCP - General 03/11/07 Eliud Cortez MD [address] [facility] [address] [place] [address] Fellow Endocrinology Diabetes & Metabolism 09/05/24 documented as of this encounter
--- OUTSIDE RECORDS SUMMARY | 2025-04-04 05:26 | XMS_ITS | Clinical Summary ---
Author Organization [facility] Address [address] [place] [address] Care Team Providers Care Scrap Wheeler Name Role Phone Ramone Hemphill MD Primary Care Provider [phone] Eliud Cortez MD Unavailable [phone] Allergies No known active allergies Medications [...] complication, without long-term current use of insulin ([facility]) Use to test blood glucose [...] complication, without long-term current use of insulin ([facility]) 1 each daily 100 each 3 02/02/20 24 Active blood glucose diagnostic (glucose blood) stripIndication s:Type 2 diabetes mellitus without complication, without long-term current use of insulin ([facility]) Use to test blood glucose [...] mcg tablet TAKE 1 TABLET BY MOUTH MECHANICAL TECH BEFORE BREAKFAST 90 tablet 3 03/20/20 25 Active tirzepatide (MOUNJARO) 5 mg/0.5 mL pen injector injection Inject 0.5 mL (5 mg total) under the skin once a week 2 mL 1 03/26/20 25 Active levothyroxine (SYNTHROID) 100 mcg tablet Take 1 tablet (100 mcg total) by mouth placement interviewer before breakfast 90 tablet 3 10/11/19 24 [...] Diagnosed Date Hammertoe of right foot 03/21/2025 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 03/05/2025 Failed total knee arthroplasty, 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/21/2024 Chronic pain of right knee 11/21/2024 Hyponatremia 03/21/2024 Assessment & Plan (03/23/2024 9:02 AM FAMILY HELPER): - Na 129 (132) - 03/21: 500ml NS bolus - Repeat Na 128->124->131->132 - FWR to 1 L - Salt tabs TID->BID - Urine electrolytes - Continue salt tabs x 1 week, recheck BMP at [facility] UTI (urinary tract infection) 03/20/2024 Assessment & Plan (03/22/2024 2:06 PM FAMILY HELPER): - + symptoms on admission (burning with urination) - Culture + Morganella morganii - Ceftriaxone started 03/18-03/21 - Susceptible to ceftriaxone, No further treatment needed - Discussed patient's case with the antibiotic stewardship team - Symptoms resolved Syncope 03/20/2024 Assessment & Plan (07/13/2024 12:12 PM FAMILY HELPER): Orthostatic in the past. Change metoprolol to evening Compression stockings, abdominal binder and holter to rule out arrythmia or pauses. 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 Assessment & Plan (07/13/2024 12:11 PM FAMILY HELPER): HFimpEF. Tachy induced. LVEF 55% 01/2024. Unfortunately [...] PRN. Assessment & Plan (07/13/2024 12:09 PM FAMILY HELPER): Stable. Denies reoccurrence. Change metoprolol to 12.5mg xl at night and continue amio and Eliquis. Encounter for preventive health examination 04/16 #afib 04/22/2015 Overview (08/20/2016): Atrial fibrillation, controlled Assessment & Plan (03/23/2024 9:00 AM FAMILY HELPER): - Held eliquis for OR - Okay to resume per ortho - Continued DVT ppx while terry-op - Continued eliquis at discharge correction current use of anticoagulant therapy 1 06/23/2014 Overview (08/20/2016): Chronic anticoagulation #CHF 04/22/2015 Overview (08/20/2016): Congestive heart failure with left ventricular dysfunction Assessment & Plan (03/20/2024 1:31 PM FAMILY HELPER): Cont metop, amiodarone 01/18/24 EF 55%. LV mildly dilated with low normal systolic function, reduced from prior LUCIO on CPAP 08/30/2014 Assessment & Plan (03/20/2024 1:32 PM FAMILY HELPER): Continued on hospital unit Mycobacterium avium complex 03/31/2012 Overview (01/19/2023): In sputum Other nonspecific abnormal finding of lung field 03/31/2012 Overview (01/19/2023): Multiple pulmonary nodules Acute postoperative pain Acute pain of right shoulder Status post total replacement of right shoulder Encounters Date Type Department Care Team Description 04/01/2025 Anticoagulation - Other Visit (DOAC) Cardiology Brionna Hodge MD 03/20/2025 9:20 AM FAMILY HELPER Office Visit [facility] Orthopaedic Surgery [address] [facility] [address] [place] [id number] Charis Urrutia MD Right foot pain (Primary Dx); Hammer toe of right foot 03/20/2025 9:00 AM FAMILY HELPER - 03/20/2025 11:59 PM FAMILY HELPER Hospital Encounter [facility] [address] [place] [id number] Right foot pain Discharge Disposition: Discharge to home or self care 03/20/2025 Telephone [facility] Medicine Cardiology [address] [facility] 8th [place] [address] [place] [address] Teodoor Hill MD cardiac clearance/holding eliquis 03/12/2025 Orders Only [facility] Medicine Cardiology [address] [facility] 8th [place] [address] [place] [address] Teodoro Hill MD 03/07/2025 1:00 PM CDT Clinical Support [facility] Endocrinology Metabolism and Lipid [address] [facility] 13th [place] [address] [place] [address] Celena Brambila RN Type 2 diabetes mellitus without complication, without long-term current use of insulin (HCC) (Primary Dx); Corns and callosities 03/05/2025 1:22 PM CDT - 03/05/2025 11:59 PM CDT Hospital Encounter [facility] [address] [place] [address] 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 Discharge Disposition: Discharge to home or self care 03/05/2025 1:00 PM CDT Ancillary Procedure [facility] Cardiology [address] [place] [address] 8th [place] [address] [place] [address] Paroxysmal atrial fibrillation (HCC) 03/05/2025 11:30 AM CDT Office Visit [facility] Cardiology [address] [place] [address] [place] [address] Haile Webb, PRINCE History of cardiomyopathy (Primary Dx); 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; Paroxysmal atrial fibrillation (HCC); Primary hypertension 03/05/2025 Results Follow-Up [facility] Cardiology [address] [place] [address] [place] [address] Haile Webb, PRINCE ECG 12 lead, XR Chest Pa Lateral 2 Views, Extended/[facility] Holter Patch (>48 hours up to 7 days) from Last 3 Months Immunizations Immunization Administration [...] on file Legal Sex Male 12:33 PM FAMILY HELPER Gender Identity Male 01/21/2018 1:29 PM CDT [...] 117.9 kg (260 lb) 03/20/2025 9:22 AM FAMILY HELPER Height 180.3 cm (5' 11) 03/20/2025 9:22 AM FAMILY HELPER Body Mass Index 36.26 03/20/2025 9:22 AM FAMILY HELPER Plan of Treatment Upcoming Encounters Date Type Department Care Team (Latest Contact Info) Description 06/19/2025 7:15 AM FAMILY HELPER Hospital Encounter [facility] Operating Room [address] [address] Charis Urrutia MD [address] [place] [address] 06/19/2025 7:15 AM FAMILY HELPER - 06/19/2025 8:30 AM FAMILY HELPER Surgery [facility] Operating Room [address] [address] Charis Urrutia MD [address] [facility] [address] [place] [address] Right second and third hammertoe correction with screws Scheduled Procedures Name Priority Associated Diagnoses Date/Ti me CORRECTION LESSER TOE DEFORMITY Hammertoe of right foot 06/19/2025 7:15 AM FAMILY HELPER Health Maintenance Due Date Last Done Comments Depression Screening 1945 Hepatitis C Screening 1945 Hepatitis B Screening 10/27/1965 Abdominal Aortic Aneurysm (A AA) Screen 10/27/2012 Well Visit 65+ 10/27/2012 Albumin Creatinine Ratio, Urine 07/13/2023 07/13/2022, 06/27/2021, 01/11/2020, Additional history exists Lipid Panel 01/11/2025 01/12/2024, 06/17, 01/11/2020, Additional history exists Influenza Vaccine (#1) 2025 2, 01/27/2021, 01/20/2020, Additional history exists Fall Risk [...] Bradley, ZAID Medical Devices Implanted Type Area Business Excellence Manager Device Identifier Shelf Expiration Date Model / Serial / Lot [employer] Simplex P Radiopaque Full Dose Cement Bone Sterile 6191-1-010 - S0 - [id number] Implanted:Qty: 1 on 03/19/2024 by Boy Stevens MD PhD at [facility] Bone Cement Left: Hip [employer] 03/16/2025 6191-1-010 / 0 / [id number] [employer] Simplex P Radiopaque Full Dose Cement Bone Sterile 6191-1-010 - S0 - [id number] Implanted:Qty: 1 on 03/19/2024 by Boy Stevens MD PhD at [facility] Bone Cement Left: Hip [employer] 03/16/2025 6191-1-010 / 0 / [id number] Knee Tib Ins Tri Sz7 13mm [id number] Implanted:Qty: 1 on 11/24/2023 at [facility] Other - see comments Left: Knee [employer] 01/03/2028 8413-C-262-E / / [id number] [employer] Versys Heritage 15mm 140mm Primary Cement Proximal Centralizer [id number] - S0 - [id number] Implanted:Qty: 1 on 03/19/2024 by Boy Stevens MD PhD at [facility] Other - see comments Left: Hip [employer] [id number] 1 06/28/2032 [id number] / 0 / [id number] [employer] Versys 13mm Cemented Hip Distal Centralizer Stem Pmma Sterile [id number] - S0 - [id number] Implanted:Qty: 1 on 03/19/2024 by Boy Stevens MD PhD at [facility] Other - see comments Left: Hip [employer] [id number] 12/23/2027 [id number] / 0 / [id number] [employer] Ringloc Bio-Esparza Ii 54mm 28mm 2 Articulate Surface Lock 232 - S0 - [id number] Implanted:Qty: 1 on 03/19/2024 by Boy Stevens MD PhD at [facility] Other - see comments Left: Hip [employer] [id number] 04/27/2027232 0 / [id number] [employer] Trilogy It Continuum 28mm Hip Acetabulum +3.5mm 04/29 Large Head [id number] - S0 - [id number] Implanted:Qty: 1 on 03/19/2024 by Boy Stevens MD PhD at [facility] Other - see comments Left: Hip [employer] [id number] 1 03/23/2032 [id number] / 0 / [id number] [employer]Rich[employer]/ Ortho Prep-Im Plug Mather Sponge Suction Hip Kit Thr Latex Free [id number] - S0 - [id number] Implanted:Qty: 1 on 03/19/2024 by Boy Stevens MD PhD at [facility] Other - see comments Left: Hip [employer] /Ortho [id number] 07/08/2033 707391 / 0 / [id number] Description:Cement restricto r in kit [employer] 6191-1-010 Simplex P Radiopaque Full Dose Cement Bone Sterile - [id number] Implanted:Qty: 1 on 05/25/2018 by Kevin Duron MD at [facility] Right: Shoulder [employer] [id number] 6191-1-010 / / Depuy [employer] Inc [id number] Global Ap 52mm Nocatee Glenoid Peg Fixation Premieron - [id number] Implanted:Qty: 1 on 05/25/2018 by Kevin Duron MD at [facility] Right: Shoulder [employer] Inc [id number] / / Depuy Synthes [employer] Inc [id number] Global Unite 10mm Shoulder 135d Body Humeral Porocoat Sterile - [id number] Implanted:Qty: 1 on 05/25/2018 by Kevin Duron MD at [facility] Right: Shoulder Depuy [employer] [id number] / / Depuy Orthopa[employer] Inc [id number] Global Unite 10mm 113mm Modular Shoulder Standard Stem Humeral - [id number] Implanted:Qty: 1 on 05/25/2018 by Kevin Duron MD at [facility] Right: Shoulder [employer] Inc [id number] / / Depuy Orth[employer] Inc [id number] Global Unite 52mm 18mm Modular Eccentric Shoulder Head Humeral - [id number] Implanted:Qty: 1 on 05/25/2018 by Kevin Duron MD at [facility] Right: Shoulder [employer] Inc [id number] / / [employer] Triathlon Tritanium Knee 7 Baseplate Tibial 5536-B-700 - [id number] Implanted:Qty: 1 on 11/24/2023 at [facility] Left: Knee [employer] 05/13/2028 5536-B-700 / / [id number] [employer] Triathlon Cruciate Retain Bead Knee Left 6 Component Femoral Pa 5517-F-601 - [id number] Implanted:Qty: 1 on 11/24/2023 at [facility] Left: Knee [employer] 08/24/2028 5517-F-601 / / [id number] Procedures Procedure Name Priority Date/Time Associated Diagnosis Comments XR FOOT RIGHT 3 OR MORE VIEWS Schedule Routine, Read Routine (OP Routine) 03/20/2025 9:14 AM FAMILY HELPER Right foot pain XR CHEST PA LATERAL 2 VIEWS Schedule Routine, Read Routine (OP Routine) 03/05/2025 1:31 PM CDT correction current use of amiodarone EXTENDED/SNF HOLTER PATCH (>48 HOURS UP TO 7 DAYS) Routine 03/05/2025 1:27 PM CDT Paroxysmal atrial fibrillation (HCC) ECG 12-LEAD Routine 03/05/2025 12:29 PM CDT 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 POCT HEMOGLOBIN A1C Routine 11/21/2024 9:33 AM CDT Type 2 diabetes mellitus without complication, without long-term current use of insulin (HCC) DIABETIC EYE EXAM Routine 09/29/2024 1:0 6 PM CDT EGFR Routine 06/20/2024 11:46 AM FAMILY HELPER Type 2 diabetes mellitus without complication, without long-term current use of insulin (HCC) Hyponatremia LIPID PANEL Routine 01/12/2024 10:51 AM CDT Type 2 diabetes mellitus without complication, without long-term current use of insulin (HCC) Hypertension, unspecified type ALBUMIN CREATININE RATIO, URINE Routine 07/13/2022 8:12 AM FAMILY HELPER Medication course changed Chronic kidney disease, unspecified CKD stage from Last 3 Months or Most Recently Relevant to Health Maintenance Results * XR Foot Right 3 or More Views (03/20/2025 9:14 AM FAMILY HELPER) Anatomical Region Laterality Modality Lower Extremities, Foot Right Computed Radiography 03/20/2025 10:0 4 AM FAMILY HELPER Impressions 03/20/2025 12:38 PM FAMILY HELPER Great toe interphalangeal joint arthrodesis with intact screw and osseous fusion of 2nd and 3rd toe proximal interphalangeal joint. Dictated by: Phan Jang M.D. The radiology attending physician has personally reviewed this study, and had reviewed and/or edited this written report and agrees with it. Electronically signed by: Ted Snow MD Narrative 03/20/2025 12:38 PM FAMILY HELPER EXAMINATION: XR FOOT RIGHT 3 OR MORE [...] it. Electronically signed by: Eddie Graham M.D. Haile Webb ELECTRICAL PROSPECTING OBSERVER IMG XR PROCEDURES Final Result * Extended/[facility] Holter Patch (>48 hours up to 7 days) (03/05/2025 1:27 PM CDT) Anatomical Region Laterality Modality Electrocardiogra phy 03/05/2025 1:12 PM CDT Narrative 03/16/2025 2:40 PM CDT [facility] Cardiac [place] [address] HOLTER MONITOR Patient Name: FRED JEWELL E : 1945 (79y 4m) Sex: M Study Date: 03/05/2025 01:12:43 PM Ht(Inch): Wt(Lb): BSA: Tech: Location: [facility] Order Provider: HAILE WEBB BMI: Ref Provider: HAILE WEBB PROCEDURES: Holter Report: EXTENDED/SNF HOLTER PATCH (>48 HOURS UP TO 7 DAYS) [[id number]]. Enrollment Period: 2025-03-05 00:00:00 through 2025-03-08 00:00:00. Location: [facility]. INDICATIONS: I48.0 Paroxysmal atrial fibrillation. FINDINGS: Holter [...] events Runs (VT): 0 events Total beats: [id number] SIGNIFICANT PAUSES: 0 >3 sec Protocol: Recording Duration (Ordered): [id number] Recording Duration (Actual): 037293.39 SUMMARY: *The predominant rhythm was Sinus. *The Maximum Heart Rate recorded was 95 bpm, 03/07 10:42:43, the Minimum Heart Rate recorded was 44 bpm, 03/08 06:15:15, and the Average Heart Rate was 61 bpm. *There were 1,124 VE beats with a burden of <1 %. *There were 176 SVE beats with a burden of <1 %. *The study included an Atrial Fibrillation/Flutter Houghton of 46 % with 0 % in [...] %. *The study included an Atrial Fibrillation/Flutter Houghton of 46 % with 0 % in [...] The PDF can be found in the [facility] Patient chart. Please go to the Cardiology tab, click on the holter or event exam. Scroll to bottom where the ORDER LEVEL Documents reside and click the blue link to the pdf. Electronically Signed By: Buddy Chapin Jr., M.D. 03/16/2025 2:39:27 PM CDT Procedure Note Buddy Chapin MD PhD - 03/16/2025 [facility] Cardiac Diagnostic [place] [address] [place] [address] HOLTER MONITOR Patient Name: FRED JEWELL E : 1945 (79y 4m) Sex: M Study Date: 03/05/2025 01:12:43 PM Ht(Inch): Wt(Lb): BSA: Tech: Location: [facility] Order Provider: HAILE WEBB BMI: Ref Provider: HAILE WEBB PROCEDURES: Holter Report: EXTENDED/SNF HOLTER PATCH (>48 HOURS UP TO 7 DAYS)[[id number]]. Enrollment Period: 2025-03-05 00:00:00 through 2025-03-08 00:00:00. Location: [facility]. INDICATIONS: I48.0 Paroxysmal atrial fibrillation. FINDINGS: Holter [...] events Runs (VT): 0 events Total beats: [id number] SIGNIFICANT PAUSES: 0 >3 sec Protocol: Recording Duration (Ordered): [id number] Recording Duration (Actual): 660966.39 SUMMARY: *The predominant rhythm was Sinus. *The Maximum Heart Raterecorded was 95 bpm, 03/07 10:42:43, the Minimum Heart Rate recorded was 44 bpm, 02/2306:15:15, and the Average Heart Rate was 61 bpm. *There were 1,124 VE beats with a burden of<1 %. *There were 176 SVE beats with a burden of <1 %. *The study included an Atrial Fibrillation/Flutter Houghton of 46 % with 0 % in [...] <1 %. *The study included an AtrialFibrillation/Flutter Houghton of 46 % with 0 % in [...] ECG 12 lead (03/05/2025 12:29 PM CDT) us Haile Webb NP ECG ORDERABLES Final Re sult * POCT hemoglobin A1c (11/21/2024 9:33 AM CDT) Hemoglobin A1C, POC 5.1 4.0 - 5.6 % Blood 11/21/2024 9:33 AM CDT Eliud Cortez MD POINT OF CARE TEST ORDERABLES F inal Result * Diabetic Eye Exam (09/29/2024 1:06 PM CDT) Fermin Smallwood MD HEALTH MAINTENANCE Final Result * (ABNORMAL) eGFR (06/20/2024 11:46 AM FAMILY HELPER) eGFR 56(L) >=60 mL/min/1. 73 m2 Comment: [...] reviewed 2021. Blood 06/20/2024 11:4 6 AM FAMILY HELPER 06/20/2024 9:14 PM FAMILY HELPER Eliud Cortez MD LAB BLOOD ORDERABLES Final Resu lt EMILIA [address] [place] [place] [address] * Lipid panel (01/12/2024 10:51 AM CDT) [...] AM CDT 01/12/2024 11:10 AM CDT Narrative [facility] - 01/12/2024 3:07 PM CDT Current interpretive data was last updated April 18, 2021. For adults ages 40-79, the ACC/AHA recommends discussing your 10-year atherosclerotic cardiovascular disease risk with your health care provider. https://www.acc.org/ASCVDApp us Teodoro Hill MD LAB BLOOD ORDERABLES Final Re sult [facility] * Albumin Creatinine Ratio, Urine (07/13/2022 8:12 AM FAMILY HELPER) Creatinine ur 199.2 Not Estab. mg/dL [facility] - 01 Microalbumin, ur 9.1 Not Estab. ug/mL [facility] - 01 Microalbumin/cre at ratio 5 0 - 29 mg/g creat [facility] - 01 Comment: Normal: 0 - 29 Moderately increased: 30 - 300 Severely increased: >300 Urine 07/13/2022 8:12 AM FAMILY HELPER 07/13/2022 Narrative [facility] - 07/14/2022 10:11 AM FAMILY HELPER Performed at: 01 - [facility] [id number] Records Management Manager: Zoran Moody PhD, Phone: [phone] us Teodoro Hill MD LAB URINE ORDERABLES Final Re sult [facility] - 01 from Last 3 Months or Most Recently Relevant to Health Maintenance Additional Health Concerns Active Problems Noted Date Diagnosed Date Autogenerated Problem 03/22/2025 Insurance IDPA [facility] MEDICARE ADVANTAGE [facility] MEDICARE ADVANTAGE MEDICARE IDLA [facility] MEDICARE ADVANTAGE Advance Directives For more information, please contact: [phone] Documents on File Type Date Recorded Patient Starter Cup Powder Mixer Expl anation ADVANCE DIRECTIVE 11/22/2023 8:03 AM POWER OF CLOTHING CONSULTANT-MEDICAL * Full Code (Latest Code Status on File) Date Activated Date Inactivated Comments 03/18/2024 9:16 PM 03/23/2024 4:01 PM * Full Code Date Activated Date Inactivated Comments 11/24/2023 6:03 PM 11/25/2023 4:31 PM * Full Code Date Activated Date Inactivated Comments 05/25/2018 2:28 PM 05/26/2018 5:17 PM Care Teams Scrap Wheeler Relationship Specialty Start Date End Date Ramone Hemphill MD PCP - General 03/11/07 Eliud Cortez MD [address] [facility] [address] [place] [address] Fellow Endocrinology Diabetes & Metabolism 09/05/24
--- OUTSIDE RECORDS SUMMARY | 2025-04-04 05:26 | XMS_ITS | Clinical Summary ---
Author Organization [facility] Address [address] [place] [address] Phone Care Team Providers Care Host/Hostess Restaurant Name Role Phone Ramone Hemphill MD Primary Care Provider [phone] Allergies No known active allergies Medications traMADol [...] on file Legal Sex Male 6:10 AM EPIC ANALYST Gender Identity Not on file Sexual Orientation Not on file Last Filed Vital Signs Vital Sign Reading Time Taken Comments Blood Pressure 108/82 04/09/2015 2:03 PM EPIC ANALYST Pulse 111 04/09/2015 2:03 PM EPIC ANALYST Temperature - - Respiratory Rate 22 04/09/2015 2:03 PM EPIC ANALYST Oxygen Saturation 97% 04/09/2015 2:03 PM EPIC ANALYST RA Inhaled Oxygen Concentration - - Weight 137.7 kg (303 lb 9.3 oz) 04/09/2015 2:03 PM EPIC ANALYST Height 185.4 cm (6' 1) 04/09/2015 2:03 PM EPIC ANALYST Body Mass Index 40.05 04/09/2015 2:03 PM EPIC ANALYST Plan of Treatment Health Maintenance Due Date Last Done Comments DTAP/TDAP/TD VACCINES (1 - Tdap) 10/27/1966 PNEUMOCOCCAL VACCINE 50+ YEA RS (1 of 1 - PCV) 10/27/1997 ZOSTER VACCINE (1 of 2) 10/27/1997 RSV VACCINE (60+ or ) (1 - 1-dose 75+ series) 10/27/2022 INFLUENZA VACCINE (#1) 2024 01/15/2015, 2013 Insurance Care Teams Host/Hostess Restaurant Relationship Specialty Start Date End Date Ramone Hemphill MD PCP - General Family Practice 12/24/11
--- OUTSIDE RECORDS SUMMARY | 2025-04-04 05:27 | XMS_ITS | Encounter Summary ---
Author Organization [facility] Address [address] [place] [address] Phone Care Team Providers Care Foot Gatherer Name Role Phone Ramone Hemphill MD Primary Care Provider [phone] Eliud Cortez MD Unavailable [phone] Encounter Details Date Type Department Care Team (Late st Contact Info) Description 08/23/2024 E-Visit [facility] Medicine Cardiology [address] [facility] Advanced Medicine 8th [place] [address] [place] [address] Teodoro Hill MD [address] [facility] [address] [place], [place] [id number] Heart monitor Social History Tobacco Use Types [...] on file Legal Sex Male 12:33 PM ASSESSMENT DIRECTOR Gender Identity Male 01/21/2018 1:29 PM CDT Sexual Orientation Straight 01/09/2021 6: 25 AM CDT documented as of this encounter Miscellaneous Notes * Telephone Encounter - Kimi Fernández RN - 09/04/2024 10:31 AM CDT Called [employer] at [phone]. Spoke with ZAID Melgoza to relay recommendations [...] (Latest Contact Info) Description 06/19/2025 7:15 AM ASSESSMENT DIRECTOR Hospital Encounter [facility] Operating Room [address] [place] [address] Charis Urrutia MD [address] [place], [place] [id number] 06/19/2025 7:15 AM ASSESSMENT DIRECTOR - 06/19/2025 8:30 AM ASSESSMENT DIRECTOR Surgery [facility] Operating Room [address] [place] [address] Charis Urrutia MD [address] [place] [address] Right second and third hammertoe correction with screws Scheduled Procedures Name Priority Associated Diagnoses Date/Ti me CORRECTION LESSER TOE DEFORMITY Hammertoe of right foot 06/19/2025 7:15 AM ASSESSMENT DIRECTOR documented as of this encounter Visit Diagnoses Not on filedocumented in this encounter Care Teams Foot Gatherer Relationship Specialty Start Date End Date Ramone Hemphill MD PCP - General 03/11/07 Eliud Cortez MD [address] [facility] [address] DIV [place] [address] Fellow Endocrinology Diabetes & Metabolism 09/05/24 documented as of this encounter
[2025-04-04] MEDS: LACTATED RINGERS 1,000 ML 30 ML IV CONT ×2 (08:30→12:31)
[2025-04-04 08:44] LABS: INR 1.0; Prothrombin Time 13.6 Seconds (11.1-14.7)
[2025-04-04 08:45] LABS: Partial Thromboplastin Time 31.0 Seconds (22.3-36.8)
--- NOTE | 2025-04-04 10:54 | WPDHPUPDATE1 ---
History and Physical Update Update Date/Time: 04/04/25 10:54 History and Physical has been reviewed, including an updated exam of the patient. There are NO changes in the patient's condition. Risks, benefits, and alternatives have been discussed and questions answered. Patient agrees to proceed with procedure.
--- NOTE | 2025-04-04 11:09 | WPDANESEPPF ---
Anes - Initial Pre Proc Eval Procedure: Operation Date: 04/04/25 09:45 Proposed Procedures p Circumcision Revision with Scrotoplasty - Li Sams MD Date/Time: 04/04/25 11:09 Surgeon: Li Sams MD Pre Op Diagnosis: phimosis Patient Data Age: 79 Gender: M Height: 1.83 m Weight: 117.1 kg Last Vital Signs Temp 96.8 F L 04/04/25 07:40 Pulse 60 04/04/25 07:40 BP 129/64 04/04/25 07:40 Pulse Ox 98 04/04/25 07:40 O2 Del Method Room Air 04/04/25 07:40 Allergies Allergy/AdvReac Type Severity Reaction Status Date / Time No Known Allergies Allergy Verified 03/28/25 08:16 Home Medications ?Medication ?Instructions ?Recorded ?Confirmed ?Type amiodarone 200 mg tablet 200 mg PO QAM 04/19/19 03/28/25 History Walker #1 ea 12/18/22 03/28/25 Rx famotidine 20 mg tablet (Pepcid) 20 mg PO BID 05/19/23 03/28/25 History blood sugar diagnostic (OneTouch #10 ea 08/09/23 03/28/25 History Ultra Test strips) acetaminophen 500 mg tablet 1,000 mg PO Q8H 11/30/23 03/28/25 History cholecalciferol (vitamin D3) 50 50 mcg PO QAM 11/30/23 03/28/25 History mcg (2,000 unit) tablet (Vitamin D3) apixaban 5 mg tablet (Eliquis) 5 mg PO BID #60 tabs 12/01/23 03/28/25 Rx levothyroxine 100 mcg tablet 100 mcg PO DAILY 02/25/24 03/28/25 History sennosides 8.6 mg-docusate sodium 2 tab-cap PO BID PRN Constipation 02/25/24 03/28/25 History 50 mg capsule (Senna Plus) fluticasone furoate 100 1 inh inhalation DAILY #60 ea 10/03/24 03/28/25 Rx mcg-vilanterol 25 mcg/dose inhalation powder (Breo Ellipta) zoledronic acid 5 mg/100 mL in 1 ea IV .yearly 11/21/24 03/28/25 History mannitol 5 %-water intravenous piggybck (Reclast) diazepam 5 mg tablet 5 mg PO QHS #40 tabs 12/05/24 03/28/25 Rx duloxetine 60 mg capsule,delayed 60 mg PO DAILY #90 caps 12/11/24 03/28/25 Rx release triamcinolone acetonide 0.1 % 1 applic topical QID #80 grams 12/11/24 03/28/25 Rx topical cream ascorbate sodium (vitamin C) 1,000 1,000 mg PO DAILY 01/17/25 03/28/25 History mg/15 mL oral liquid metoprolol succinate 25 mg 12.5 mg PO HS 01/17/25 03/28/25 History tablet,extended release 24 hr bgyxaudy-pzv-bwtzy 150 mcg-vit K1 1 tablet PO DAILY 01/17/25 03/28/25 History 30 mcg-lycop 300 mcg-lutein tablet (Centrum Minis Men 50 Plus) tirzepatide 2.5 mg/0.5 mL 2.5 mg subcut WEEKLY 01/17/25 03/28/25 History subcutaneous pen injector (Kendrick) fluoxetine 40 mg capsule 40 mg PO QAM #90 caps 02/09/25 03/28/25 Rx tizanidine 4 mg tablet (Zanaflex) 4 mg PO TID PRN Muscle Spasm #90 02/28/25 03/28/25 Rx tabs tramadol 50 mg tablet 50 mg PO Q6H PRN pain #120 tabs 02/28/25 03/28/25 Rx vibegron 75 mg tablet 75 mg PO DAILY 02/28/25 03/28/25 History indapamide 1.25 mg tablet 1.25 mg PO DAILY 03/28/25 03/28/25 History permethrin 5 % topical cream 1 applic topical Q14D 2 doses #60 03/28/25 Rx grams Laboratory Tests 04/04/25 04/04/25 08:24 08:35 PT 13.6 Seconds (11.1-14.7) INR 1.0 APTT 31.0 Seconds (22.3-36.8) POC Capillary Glucose 79 mg/dl (65-105) Patient hx anesthesia problems: none Family hx anesthesia problems: none Results Review: All pre-operative results and documents have been reviewed as part of the pre-operative evaluation. 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) Hyperthyroidism Left ventricular failure Major depressive disorder, single episode, unspecified Morbid (severe) obesity with alveolar hypoventilation Obstructive sleep apnea (adult) (pediatric) Peripheral neuropathy due to disorder of metabolism Primary pulmonary hypertension 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 Type 2 diabetes mellitus with hyperglycemia Ventricular premature depolarization Surgical History Surgical History S/P total left hip arthroplasty History of total knee arthroplasty Left 2023 S/P left knee arthroscopy H/O vertebroplasty History of total right knee replacement (TKR) History of shoulder replacement H/O arthroscopy of right knee History of appendectomy H/O arthroscopy of left knee Family History Family History Mother Family history of thyroid disease Family history of alcoholism Family history of malignant neoplasm of breast in first degree relative, Onset Age: 75 Father Family history of alcoholism Malignant neoplasm of prostate, Onset Age: 92 Family history of throat cancer, Onset Age: 92 Family history of malignant neoplasm of testis, Onset Age: 92 Other Depression Diabetes mellitus Family history of malignant neoplasm Family history of malignant neoplasm of breast Family history of mental disorder Social History Social History Smoking packs per day: 2 Smoking cigarettes per day: 40.0 Years smoked: 20 Smoking pack-years: 40.00 Smoking status: Former smoker Tobacco type: cigarettes Smoking end date: 05/17/81 Alcohol intake: former Alcohol use details: 44 years no drink. 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,clean sober and proud of it Do You Feel Safe in your Home?: No Lack of Transportation: No Lack of Food: Never True Current Housing: I Do Not Have Housing Concerned About Future Housing: YES Difficulty Paying Gas/Electric Bills: No Difficulty Paying for Meds: No Currently Unemployed: No Education: Master's Degree or Higher Difficulty w/ Childcare or Family Care: No Living arrangements: with family Gender identity (if verbalized by the patient): Male Spiritual care concerns: No Anes - Eval Final PreProcedure Day of Procedure 04/04/25 11:09 Patient weight: obese Lungs: normal air movement Airway: Mallampati scale class II and special considerations (Edentulous. ) Neurological: alert and oriented Last oral intake: >/= 8 hours ASA classification: III Emergent: no Anesthetic plan: proceed Anesthesia type and monitoring: general LMA and standard monitoring Results Review: All pre-operative results and documents have been reviewed as part of the pre-operative evaluation. Complicated hx reviewed w pt and . Hx of afib, cardiomyopathy, they report most recent ECHO w LVEF 50-60%, chr afib on AC, held for 3 days. Informed Consent: The patient's anesthetic plan and its attendant risks and benefits were discussed with the patient/family/POA. Questions were solicited and answers provided to the satisfaction of the patient/family/POA.
[2025-04-04] MEDS: ceFAZolin 2 GM in SODIUM CHLORIDE 0.9% IV 50 ML 100 ML IVPB (11:19)
[2025-04-04] MEDS: BUPivacaine HCL 0.5% 10 ML AMP 20 ML INFILTRATE (11:43)
--- NOTE | 2025-04-04 11:43 | S_PTH ---
PATIENT: Fred Jewell LOC: [facility] U#:[id number] AGE/SX: 79/M ROOM: RE04/04/[address]: Li Sams MD : 1945 BED: DIS: 04/04/2025 SPEC #: [id number] RECD: 04/04/25 13:28 STATUS: MAMADOU REQ #: [id number] FRANCISCO: 04/04/25 11:[address]: Li Sams DEPT: [facility] Surgical RECD BY: Stevie Duran ENTERED: 04/04/25 13:28 SP TYPE: Surgical OTHR DR: Ramone Hemphill MD Tissues: A - Skin Procedures: Hematoxylin and Eosin Stain Gross and Microscopic Level 4
[2025-04-04] MEDS: oxyCODONE HCL (*CRX) 5 MG TAB IR PO (14:06)
--- NOTE | 2025-04-04 14:11 | P.OP_ITS ---
Procedure Note - Detailed Date of Procedure 04/04/25 Pre-op Diagnosis phimosis Post-op Diagnosis Same Procedure Performed Circumcision revision Meatal dilation Buried penis repair Surgeon Li Sams MD Anesthesia General Description of Procedure Informed consent was obtained. Patient taken the operating. He was prepped and draped in normal sterile fashion. The foreskin was unretractable and the penis was buried. Using a forceps were able to dilate the phimotic foreskin and expose the glans. A stay suture was placed through the glans. A16 F Bentley catheter was inserted for urethral identification and bladder emptying. There was then multiple adhesions of the preputial skin to the glans that were sharply and bluntly taken down. Hemostasis was achieved with electrocautery. This point we were able to dissect the gland down to the coronal margin. There was an area of extremely excoriated skin ventrally that was excised. We then reapproximated the skin ventrally with interrupted 3-0 chromic sutures. At this point we inspected the penile skin and there appeared to be excoriated skin in t he midline that previously was at area of phimosis. It did appear there was enough skin remaining to allow was to remove this abnormal skin and still have appropriate shaft coverage. We therefore circumferentially removed a 2cm area of thickened skin and this was sent as specimen. We then irrigated copiously. Hemostasis achieved. We then reapproximated with 3-0 chromic suture circumferentially. This point there appeared to be a much improved cosmetic result. We then placed a compressive dressing. The stay sutures removed from the glans. The Bentley catheter was left in place. The patient was then awakened and taken to recovery room stable condition Pathology Yes Complications No immediate complications Condition Stable Disposition PACU
== END 2025-04-04 15:02 | disposition home or self-care (01) ==
PROVIDERS: PCP Family Medicine; Visit Provider Urology
PROC: (CPT 54161; principal; 2025-04-04 09:45)
DX: N47.1 Phimosis (principal); N48.83 Acquired buried penis; N47.5 Adhesions of prepuce and glans penis; N48.1 Balanitis; N32.81 Overactive bladder; N39.41 Urge incontinence; N30.20 Other chronic cystitis without hematuria; E11.65 Type 2 diabetes mellitus with hyperglycemia; E11.22 Type 2 diabetes mellitus with diabetic chronic kidney disease; I13.0 Hypertensive heart and chronic kidney disease with heart failure and stage 1 through stage 4 chronic kidney disease, or unspecified chronic kidney disease; N18.30 Chronic kidney disease, stage 3 unspecified; I50.9 Heart failure, unspecified; I48.91 Unspecified atrial fibrillation; J44.9 Chronic obstructive pulmonary disease, unspecified; M17.11 Unilateral primary osteoarthritis, right knee; E05.90 Thyrotoxicosis, unspecified without thyrotoxic crisis or storm; F32.9 Major depressive disorder, single episode, unspecified; G47.33 Obstructive sleep apnea (adult) (pediatric); G62.9 Polyneuropathy, unspecified; A31.2 Disseminated mycobacterium avium-intracellulare complex (DMAC); E66.9 Obesity, unspecified; Z68.35 Body mass index [BMI] 35.0-35.9, adult; Z79.51 Long term (current) use of inhaled steroids; Z79.01 Long term (current) use of anticoagulants; Z79.891 Long term (current) use of opiate analgesic; Z79.85 Long-term (current) use of injectable non-insulin antidiabetic drugs; Z98.890 Other specified postprocedural states; Z87.891 Personal history of nicotine dependence; Z87.11 Personal history of peptic ulcer disease; Z87.19 Personal history of other diseases of the digestive system; Z86.79 Personal history of other diseases of the circulatory system; Z80.42 Family history of malignant neoplasm of prostate; Z80.43 Family history of malignant neoplasm of testis; Z80.3 Family history of malignant neoplasm of breast; Z80.1 Family history of malignant neoplasm of trachea, bronchus and lung
CPT/HCPCS: 54162; 36415; 82948; 85610; 85730; 88305; J0690; A9270; J1100; J2405; J2704; J7120

== ENCOUNTER 2025-05-11 15:18 | Emergency (ER) | payer MEDICARE, MEDICAID, SELFPAY ==
[2025-05-11 15:35] VITALS: BP 127/75; PULSE 62; RESP 16; TEMP 36.6; O2SAT 98
--- NOTE | 2025-05-11 16:23 | ED.URI ---
HPI - URI/Sore Throat General Chief Complaint: Upper Respiratory Infection Stated Complaint: sob, coughing, low grade fever Time Seen by Provider: 05/11/25 16:27 Source: patient, RN notes reviewed and old records reviewed Mode of arrival: ambulatory Limitations: no limitations History of Present Illness HPI Narrative: 79-year-old male presents to the [facility] with at least 1 week of cough, low-grade fevers, increased shortness of breath. Has a history of COPD and AFib. Reports that he has been taken Sudafed, Mucinex without relief. Onset (ago): week(s) (1+) Treatments prior to arrival: cold medicine Related Data Home Medications ?Medication ?Instructions ?Recorded ?Confirmed ?Last Taken ?Type amiodarone 200 mg tablet 200 mg PO QAM 04/19/19 03/28/25 02/25/24 History famotidine 20 mg tablet (Pepcid) 20 mg PO BID 05/19/23 03/28/25 02/25/24 History blood sugar diagnostic (OneTouch #10 ea 08/09/23 03/28/25 Unknown History Ultra Test strips) acetaminophen 500 mg tablet 1,000 mg PO Q8H 11/30/23 03/28/25 02/25/24 History cholecalciferol (vitamin D3) 50 50 mcg PO QAM 11/30/23 03/28/25 02/25/24 History mcg (2,000 unit) tablet (Vitamin D3) levothyroxine 100 mcg tablet 100 mcg PO DAILY 02/25/24 03/28/25 02/25/24 History sennosides 8.6 mg-docusate sodium 2 tab-cap PO BID PRN Constipation 02/25/24 03/28/25 01/14/24 History 50 mg capsule (Senna Plus) zoledronic acid 5 mg/100 mL in 1 ea IV .yearly 11/21/24 03/28/25 Unknown History mannitol 5 %-water intravenous piggybck (Reclast) ascorbate sodium (vitamin C) 1,000 1,000 mg PO DAILY 01/17/25 03/28/25 Unknown History mg/15 mL oral liquid metoprolol succinate 25 mg 12.5 mg PO HS 01/17/25 03/28/25 Unknown History tablet,extended release 24 hr [id number] 150 mcg-vit K1 1 tablet PO DAILY 01/17/25 03/28/25 Unknown History 30 mcg-lycop 300 mcg-lutein tablet (Centrum Minis Men 50 Plus) tirzepatide 2.5 mg/0.5 mL 2.5 mg subcut WEEKLY 01/17/25 03/28/25 Unknown History subcutaneous pen injector (Mounjaro) vibegron 75 mg tablet 75 mg PO DAILY 02/28/25 03/28/25 Unknown History indapamide 1.25 mg tablet 1.25 mg PO DAILY 03/28/25 03/28/25 Unknown History Allergies Allergy/AdvReac Type Severity Reaction Status Date / Time No Known Allergies Allergy Verified 03/28/25 08:16 Review of Systems Review of Systems: All systems reviewed & are unremarkable except as noted in HPI and below Constitutional: Constitutional: Reports as per HPI and Reports fever(s) ENT: Reports system reviewed and no additional complaints, except as documented Cardiovascular: Cardiovascular: Reports no additional cardiovascular complaints, Denies chest pain and Denies dyspnea Respiratory: Respiratory: Reports as per HPI, Reports chest congestion, Reports cough and Reports dyspnea Musculoskeletal: Musculoskeletal: Reports no additional musculoskeletal complaints Integumentary/Breasts: Skin/Breast: Reports system reviewed and no additional complaints, except as docu PMFSH Past Medical History Medical History (Updated 05/12/25 @ 00:02 by Donavon Gong) Osteoporotic compression fracture of spine Fracture of femoral neck, left, closed 2023 Fracture of sacrum Sacral insufficiency fracture S/P sacralplasty Closed compression fracture of L5 vertebra Blood transfusion during current hospitalisation History of blood transfusion Gastrointestinal bleed Mycobacterium avium infection Wears glasses Arthritis of right knee Hammer toe Encounter for screening colonoscopy (~2016) Arterial insufficiency of lower extremity Atrial fibrillation (06/11/17) Chronic atrial fibrillation Chronic kidney disease, stage 3 (moderate) 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) Hyperthyroidism Left ventricular failure Major depressive disorder, single episode, unspecified Morbid (severe) obesity with alveolar hypoventilation Obstructive sleep apnea (adult) (pediatric) Peripheral neuropathy due to disorder of metabolism Primary pulmonary hypertension 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 Type 2 diabetes mellitus with hyperglycemia Ventricular premature depolarization Surgical History Surgical History (Updated 04/05/25 @ 11:32 by Ramone Hemphill MD) H/O circumcision S/P total left hip arthroplasty History of total knee arthroplasty Left 2023 S/P left knee arthroscopy H/O vertebroplasty History of total right knee replacement (TKR) History of shoulder replacement H/O arthroscopy of right knee History of appendectomy H/O arthroscopy of left knee Family History Family History Mother Family history of thyroid disease Family history of alcoholism Family history of malignant neoplasm of breast in first degree relative, Onset Age: 75 Father Family history of alcoholism Malignant neoplasm of prostate, Onset Age: 92 Family history of throat cancer, Onset Age: 92 Family history of malignant neoplasm of testis, Onset Age: 92 Other Depression Diabetes mellitus Family history of malignant neoplasm Family history of malignant neoplasm of breast Family history of mental disorder Social History Social History Smoking packs per day: 2 Smoking cigarettes per day: 40.0 Years smoked: 20 Smoking pack-years: 40.00 Smoking status: Former smoker Tobacco type: cigarettes Smoking end date: 05/17/81 Alcohol intake: former Alcohol use details: 44 years no drink. 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 There is no relevant family history pertinent to the patient complaint. Exam Const: General: cooperative, no acute distress, well developed, alert, ill appearing chronically; not acutely, uncomfortable and well nourished Nutritional Appearance: well nourished Orientation/consciousness: patient oriented x3 Limitations: no limitations HENMT: Head: normal to inspection Ears: hearing grossly normal bilaterally, external ears normal, mastoids normal, no periauricular adenopathy and Abnormal EAC present excessive cerumen bilateral Mouth: Yes Normal oral and palatal mucosa present, Yes lip normal, Yes tongue normal and Yes moist mucous membranes Throat: posterior oropharynx normal, uvula midline and no uvular edema Eyes: General: appearance normal, both eyes and all related structures Alignment and Position: alignment normal Neck: Neck: normal visual inspection, full ROM, no lymphadenopathy and no meningeal signs Chest: Chest palpation & inspection: normal inspection of the chest Resp: Effort & Inspection: normal respiratory effort and able to speak in complete sentences Auscultation: clear to auscultation bilaterally, no crackles, no rales, no rhonchi, no wheezes and diminished lung sounds Cardio: Rate: regular rate Skin: General skin exam: normal color and no rashes or lesions noted Neuro: General: patient oriented x3, gait normal, moves all extremities and no meningeal signs Cognition (Neuro): normal cognition Speech: normal speech Gait exam (Neuro): Normal gait present Extrem: General: normal to inspection, full ROM, capillary refill normal and normal gait Psych: Appearance: grossly normal and well kempt Mental Status: mental status grossly normal Speech and movement: Normal speech and movement present and Clear speech present Affect: normal affect Attitude: cooperative Course Course Level of Care: Express Care Visit Vital Signs Vital signs: Vital Signs Temperature 97.8 F 05/11/25 15:35 Pulse Rate 62 05/11/25 15:35 Respiratory Rate 16 05/11/25 15:35 Blood Pressure 127/75 05/11/25 15:35 Pulse Oximetry 98 05/11/25 15:35 Oxygen Delivery Room Air 05/11/25 15:35 Temperature 97.8 F 05/11/25 15:35 Pulse Rate 62 05/11/25 15:35 Respiratory Rate 16 05/11/25 15:35 Blood Pressure 127/75 05/11/25 15:35 Pulse Oximetry 98 05/11/25 15:35 Oxygen Delivery Room Air 05/11/25 15:35 reviewed MDM MDM Narrative Medical decision making narrative: Patient sitting in exam room. Patient is nontoxic, vitals stable. Patient with a history of COPD and AFib presents with 7-10 days of cough, low-grade fevers, increasing shortness of breath. Due to length of symptoms will cover with antibiotic Discharge instructions reviewed with patient, as well as provided in writing per nursing staff. The instructions also include specific and strict return/GO TO THE ER as well as f/u information. All questions have been answered, and the patient deny any further questions with discharge and discharge plan. Some parts of this dictation were generated by voice recognition software and may contain typographical and/or grammatical inaccuracies. Differential Diagnosis Differential Diagnosis: Differential diagnostic considerations for upper respiratory infection include upper respiratory infection, croup, otitis media, sinusitis, viral infection, bronchitis, influenza, pharyngitis, strep, uvulitis.? Discharge Plan Discharge Clinical Impression: Upper respiratory infection, Bronchitis, Excessive ear wax Patient Disposition: Home Condition: Stable Instructions: Antibiotic Form, Carbamide Peroxide (Into the ear), Acute Bronchitis (ED), Chronic Lung Disease and Infection Prevention (ED) Additional Instructions: You had Cerumen (EAR wax impaction). Do not use Q-tips or put anything in the ear. This can damage the ear. Instead , use Debrox or ear wax remover. Place 5 drops in ear after a hot shower and place a warm compress over the ear for 20 minutes. alternate doing this every 3-4 days. It will break up the wax gently. Do not use too much pressure. Once you have all of the cerumen out of your ears, you may do preventative treatment to prevent this from happening again. Use 5 drops once weekly after a hot shower. It is very important to treat your symptoms. Drink plenty of water, Gatorade, Pedialyte, ice pops or Jell-O. Take Tylenol per package instructions as needed for pain -Antihistamine medication such as Zyrtec/Claritin during the day can help improve symptoms. You should never take anything with Sudafed in the medication -doing daily nasal irrigations can help relieve pressure your sinuses. Things like a Neti pot -Use Flonase daily to help reduce the inflammation and dry up your sinuses. -You can also use Coricidin HBP or Mucinex. Be sure to drink plenty of water with this medication at least 8 ounces with every dose and it is important to drink 8 to 10 glasses of water per day. Water is a natural decongestant -Eat and drink things that are easy to swallow, like tea or soup, or popsicles. -Oral rinses such as: Salt water gargles and/or may use topical anesthetic (eg. Chloraseptic spray) or lozenges to relieve dryness or throat pain). -Frequent hand washing or hand duct maker is one of the best ways to prevent spread of infection. -Using a vaporizer or humidifier at night will also help thin secretions and help with coughing up phlegm. -Follow up with primary care provider in 7-10 days if condition is not improving - For new or worsening symptoms go directly to the nearest ER Patient Language: Lebanese Prescriptions: New doxycycline monohydrate 100 mg tablet 100 mg PO BID Qty: 14 0RF No Action (DME) OneTouch Ultra Test Strip See Rx Instructions .ROUTE .MEDSUPPLY Qty: 10 Rx Instructions: As directed metoprolol succinate 25 mg tablet extended release 24 hr 12.5 mg PO HS Mounjaro 2.5 mg/0.5 mL pen injector 2.5 mg subcut WEEKLY Patient Comments: Fridays for weight loss. Centrum Minis Men 50 Plus [id number] mcg tablet 1 tablet PO DAILY ascorbate sodium (vitamin C) 1,000 mg/15 mL liquid 1,000 mg PO DAILY amiodarone 200 mg tablet 200 mg PO QAM tramadol 50 mg tablet 50 mg PO Q6H PRN (Reason: pain) Qty: 120 2RF tizanidine [Zanaflex] 4 mg tablet 4 mg PO TID PRN (Reason: Muscle Spasm) Qty: 90 4RF indapamide 1.25 mg tablet 1.25 mg PO DAILY acetaminophen 500 mg tablet 1,000 mg PO Q8H cholecalciferol (vitamin D3) [Vitamin D3] 50 mcg (2,000 unit) Tablet 50 mcg PO QAM Eliquis 5 mg tablet 5 mg PO BID Qty: 60 0RF Rx Instructions: RESUME 5MG HOME DOSAGE ON 12/03/2023 levothyroxine 100 mcg tablet 100 mcg PO DAILY Senna Plus 8.6-50 mg Capsule 2 tab-cap PO BID PRN (Reason: Constipation) vibegron 75 mg tablet 75 mg PO DAILY (DME) Momo See Rx Instructions .Route .MEDSUPPLY Qty: 1 0RF Rx Instructions: As directed ( no wheels) famotidine [Pepcid] 20 mg tablet 20 mg PO BID Patient Comments: Says takes PRN fluticasone furoate-vilanterol [Breo Ellipta] 100-25 mcg/dose blister with device 1 inh inhalation DAILY Qty: 60 5RF zoledronic cldx-rfnfgzzo-auqds [Reclast] 5 mg/100 mL piggyback 1 ea IV .yearly Patient Comments: Febuary. duloxetine 60 mg capsule,delayed release(DR/EC) 60 mg PO DAILY Qty: 90 1RF triamcinolone acetonide 0.1 % cream 1 applic topical QID Qty: 80 0RF fluoxetine 40 mg capsule 40 mg PO QAM Qty: 90 1RF permethrin 5 % cream 1 applic topical Q14D Qty: 60 0RF Rx Instructions: apply from neck down and leave on for 8-12 hours then rinse off. diazepam 5 mg tablet 5 mg PO QHS Qty: 40 1RF Follow-up/Referrals: Ramone Hemphill MD [Primary Care Provider, Family Practice] - 1 Week Clinical Impression: Upper respiratory infection; Excessive ear wax; Bronchitis Time of Disposition: 16:38
== END 2025-05-11 16:45 | disposition home or self-care (01) ==
PROVIDERS: Emergency Provider Nurse Practitioner; PCP Family Medicine
DX: J06.9 Acute upper respiratory infection, unspecified (principal); J40 Bronchitis, not specified as acute or chronic; H61.23 Impacted cerumen, bilateral; Z87.891 Personal history of nicotine dependence; I27.0 Primary pulmonary hypertension; E11.22 Type 2 diabetes mellitus with diabetic chronic kidney disease; N18.30 Chronic kidney disease, stage 3 unspecified; E11.42 Type 2 diabetes mellitus with diabetic polyneuropathy; Z79.85 Long-term (current) use of injectable non-insulin antidiabetic drugs; I48.20 Chronic atrial fibrillation, unspecified; E05.90 Thyrotoxicosis, unspecified without thyrotoxic crisis or storm; E66.01 Morbid (severe) obesity due to excess calories; M17.11 Unilateral primary osteoarthritis, right knee; F32.9 Major depressive disorder, single episode, unspecified; Z96.653 Presence of artificial knee joint, bilateral; Z96.642 Presence of left artificial hip joint; Z79.01 Long term (current) use of anticoagulants
CPT/HCPCS: 99211; G0463